=== PATIENT | female | born 1990 | race Caucasian/White ===

== ENCOUNTER → 2020-08-25 16:16 | Outpatient (BNVA) | payer MEDICAID, SELFPAY | PROVIDERS: Visit Provider Nurse Practitioner Family | DX: M25.572 Pain in left ankle and joints of left foot (principal); M25.562 Pain in left knee; M79.605 Pain in left leg; M77.32 Calcaneal spur, left foot; M76.892 Other specified enthesopathies of left lower limb, excluding foot; M17.12 Unilateral primary osteoarthritis, left knee | CPT/HCPCS: 73562; 73590; 73610 ==

== ENCOUNTER 2020-09-04 12:11 | Emergency (ER) | payer MEDICAID, SELFPAY ==
[2020-09-04 12:58] VITALS: BP 164/109; PULSE 89; RESP 18; TEMP 37.2; O2SAT 97; BMI 37.0
--- NOTE | 2020-09-04 13:29 | W.ED.EXTPRO ---
HPI - Extremity Problem General: Chief complaint: General Medical Stated complaint: JOINT PAIN Time Seen by Provider: 09/04/20 13:23 History of Present Illness: HPI Narrative: Patient is a 30-year-old female comes to the ED with joint pain. Symptoms started approximately 2 days ago. Patient has recently had some labs done and stated she was KATHLEEN positive and is scheduled to see her payroll secretary in about 2 weeks. She says she hurts in all of her joints and its and of a dull constant pain. Patient has a prescription of hydrocodone at home that she is taking and that is still not helped with the pain. Associated symptoms: Deny chest pain, fever(s) or rash Review of Systems Const: Denies: fever(s), chills or fatigue Eyes: Denies: change in vision or eye discomfort ENMT: Denies: throat pain, odynophagia, nasal discharge or nasal congestion Card: Denies: chest pain, palpitations, edema, swelling of feet/ankles, dyspnea on exertion or orthopnea Resp: Denies: dyspnea, productive cough or non-productive cough GI: Denies: abdominal pain, nausea, vomiting, diarrhea, constipation or hematochezia : Denies: flank pain, dysuria or hematuria Musc: Reports: joint pain (Generalized bilateral throw her joints.); Denies: neck pain, back pain or extremity swelling Skin/Breast: Denies: rash or new lesions Neuro: Denies: headache(s), numbness in extremities or weakness in extremities PFSH ED PFSH: Family History Family/Other Cancer Father CAD (coronary artery disease) Denies family history of Anesthesia complication Bleeding disorder Social History Smoking and tobacco status: never smoked Second hand smoke exposure: No Alcohol intake: never Lives independently: Yes Household members: spouse and children Marital status: Current occupational status: disabled History of recent travel: No Current gender identity: Female Special dipti needs: No Agree to transfusion: Yes Physical Exam Const: COMMON NORMALS: no acute distress, patient oriented x3 and alert GENERAL APPEARANCE: cooperative and comfortable HENMT: COMMON NORMALS: normocephalic HEAD & SCALP: normocephalic MOUTH: Normal oral and palatal mucosa present THROAT: posterior oropharynx normal and uvula midline Neck/C-Spine: COMMON NORMALS: supple GENERAL: Yes normal visual inspection Resp: COMMON NORMALS: normal respiratory effort, No retractions, No use of accessory muscles and clear to auscultation bilaterally AUSCULTATION: clear to auscultation bilaterally Cardio: COMMON NORMALS: regular rate, regular rhythm, S1 normal heart sound present, S2 normal heart sound present, No gallops present (Cardio), No clicks present (Cardio), No murmurs present (Cardio) and Peripheral pulses 2+ throughout RATE: regular rate RHYTHM: regular rhythm HEART SOUNDS: S1 normal heart sound present and S2 normal heart sound present PERIPHERAL PULSES: Peripheral pulses 2+ throughout GI: COMMON NORMALS: Normal to inspection, nondistended, normoactive bowel sounds present, Soft to palpation, non-tender and no masses PALPATION: Yes Soft to palpation : COMMON NORMALS: Yes no CVA tenderness BLADDER/KIDNEY EXAM: Yes no CVA tenderness Back/Pelvis: COMMON NORMALS: no CVA tenderness Extremity: COMMON NORMALS: normal to inspection Neuro: COMMON NORMALS: patient oriented x3 and moves all extremities SENSORIUM/ORIENTATION: Yes alert Skin: GENERAL SKIN EXAM: dry skin Course Vital Signs: Vital signs: Vital Signs Temperature 98.9 F 09/04/20 12:58 Pulse Rate 89 09/04/20 12:58 Respiratory Rate 18 09/04/20 14:16 Blood Pressure 164/109 09/04/20 12:58 Pulse Oximetry 97 09/04/20 12:58 MDM - Extremity (Nontraumatic) MDM Narrative: Medical decision making narrative: Patient is a 30-year-old female comes to the ED with generalized joint pain. Symptoms started 2 days ago and patient recently was tested by her PCP for KATHLEEN and it was positive. She has been referred to a payroll secretary and has an appoint with them in 2 weeks. Patient appears nontoxic here in the ED and her vitals are stable. She was given a dose of IM morphine and Solu-Medrol while here in the ED. She was then diagnosed with generalized joint pain and discharged home with a prescription Medrol Dosepak. Patient currently has a hydrocodone prescription at home that she takes for pain and I told her to continue taking that as needed for pain. follow-up with your payroll secretary at your scheduled appointment in 2 weeks. Return to ED precautions given. Patient understood agree with plan. Discharge Plan Discharge Patient Disposition: Home Clinical Impression: Joint pain Qualifiers: Joint pain location: unspecified Qualified Code(s): M25.50 - Pain in unspecified joint Condition: Stable Prescriptions: New Medrol (Jaime) 4 mg tablets,dose pack See Rx Instructions .ROUTE .COMPLEX Qty: 21 RF: 0 No Action albuterol sulfate 90 mcg/actuation HFA aerosol inhaler 2 puff inhalation Q6H PRNRF: 0 Daliresp 250 mcg tablet 250 mcg PO DAILY RF: 0 pregabalin [Lyrica] 150 mg capsule 150 mg PO TID RF: 0 omeprazole 20 mg tablet,delayed release (DR/EC) 20 mg PO DAILY RF: 0 hydrocodone-acetaminophen 7.5-325 mg tablet 1 tab PO BID PRNRF: 0 Latuda 20 mg tablet 20 mg PO DAILY RF: 0 Discharge Orders: Discharge ED (Routine); Ordered 09/04/20 Ordered By: Luis Alberto Strauss Discharge Diet: Regular Discharge Activity: Increase activity as tolerated Patient Instructions: Joint Pain, Arthralgia (ED) Activity Restrictions/Additional Instructions: Follow-up with your payroll secretary at your scheduled appointment in 2 weeks. Case management should be contacting you in the next couple days to set up an appointment with a local payroll secretary. Take medications as prescribed. Return to the ER or your medical provider if condition worsens. Please read and understand discharge instructions. If any questions, please ask. Coding Level of Care Code ED Electric Meter Repairer Helper for Josie Fwd Exam Comprehensive
[2020-09-04 13:40] VITALS: RESP 18
[2020-09-04] MEDS: morphine 4 mg/mL SDV 1 mL IM (14:07)
[2020-09-04] MEDS: ondansetron 4 MG Tablet PO (14:07)
[2020-09-04 14:16] VITALS: RESP 18
--- NOTE | 2020-09-07 11:12 | DCPLANNER ---
sales project manager had message to schedule a follow up appointment for patient with rheumatology. sales project manager faxed patients information to the rheumatology clinic. Patients information will be reviewed. Clinic will call patient with appointment information.
--- NOTE | 2020-10-18 14:15 | DCPLANNER ---
Patient has a follow up appointment scheduled for November at 10:[address] Asencio at Rheumatology. Clinic will call patient with appointment information.
== END 2020-09-04 14:17 | disposition home or self-care (01) ==
PROVIDERS: Emergency Provider Physician Assistant
DX: M25.50 Pain in unspecified joint (principal)
CPT/HCPCS: 96372; 99283; J2270; J2930; Q0162

== ENCOUNTER → 2020-10-10 14:52 | Outpatient (BNVA) | payer MEDICAID, SELFPAY | PROVIDERS: Visit Provider Family Medicine | DX: J02.9 Acute pharyngitis, unspecified (principal); J20.9 Acute bronchitis, unspecified | CPT/HCPCS: 87071; 87880 ==

== ENCOUNTER 2021-01-11 12:44 | Outpatient (CLI) | payer MEDICAID, SELFPAY ==
--- NOTE | 2021-01-11 12:49 | XR_ITS ---
WS: [id number] Exam: XR KUB [id number] Date/Time of Exam: 01/11/2021 12:49 PM Reason For Exam: dysuria No bowel obstruction or free air. No sign of organ enlargement. Signs of previous cholecystectomy. Th ere are opaque densities seen in the right lower quadrant and also along the left colon. This may rep resent opaque material in the bowel. Regional bony elements are intact. XR/XR KUB [id number] IMPRESSION: 1. No acute abdominal finding. 2. Opaque densities visualized in the right lower quadrant of the abdomen in t he region of the left colon. This may be within the bowel. Significance is unde termined.
== END 2021-01-11 12:45 | disposition home or self-care (01) ==
PROVIDERS: PCP Nurse Practitioner; Visit Provider Nurse Practitioner
DX: R30.0 Dysuria (principal); R39.9 Unspecified symptoms and signs involving the genitourinary system
CPT/HCPCS: 74018; 81000

== ENCOUNTER 2021-01-22 13:56 | Emergency (ER) | payer MEDICAID, SELFPAY ==
[2021-01-22 14:40] VITALS: PULSE 87; RESP 20; TEMP 36.9; O2SAT 100; BMI 37.2
--- NOTE | 2021-01-22 15:36 | XRR_ITS ---
PROCEDURE INFORMATION: Exam: XR Left Foot Exam date and time: 01/22/2021 3:36 PM Age: 31 years old Clinical indication: Pain; Foot; Left; Additional info: Weight fell on foot TECHNIQUE: Imaging protocol: XR Left foot. Views: 3 or more views. COMPARISON: No relevant prior studies available. FINDINGS: Bones/joints: No fracture or dislocation. A tiny plantar calcaneal spur is appreciated. Soft tissues: Mild soft tissue swelling is seen in the midfoot. XR/XR foot LT min 3V* [id number] IMPRESSION: No fracture or dislocation.
--- NOTE | 2021-01-22 17:23 | W.ED.EXTPRO ---
HPI - Extremity Problem General: Chief complaint: Extremity Injury, Lower Stated complaint: Left Foot Injury Time Seen by Provider: 01/22/21 17:09 History of Present Illness: HPI Narrative: Patient dropped a jar below her left big toe has discomfort. Has happened yesterday. Complaint: extremity pain Pain Consistency: constant Location: right and lower extremity Quality: aching Radiation: none Relieving factors: immobilization Exacerbating factors: weight bearing Associated symptoms: Reports no associated symptoms; Deny fever(s) Review of Systems Const: Denies: fever(s) or chills Musc: Reports: extremity pain (Dropped a jar on her left big toe yesterday hurts) Psych: Denies: anxiety or depression PFS ED PFSH: Family History Family/Other Cancer Father CAD (coronary artery disease) Denies family history of Anesthesia complication Bleeding disorder Social History Smoking and tobacco status: never smoked Second hand smoke exposure: No Alcohol intake: never Lives independently: Yes Household members: spouse and children Marital status: Current occupational status: disabled History of recent travel: No Current gender identity: Female Special dipti needs: No Agree to transfusion: Yes Physical Exam Const: COMMON NORMALS: no acute distress GENERAL APPEARANCE: cooperative Extremity: LEFT LOWER EXTREMITY: Yes foot & digits (Tenderness to the base left big toe bruising noted has range of motion) Psych: COMMON NORMALS: mental status grossly normal Course Vital Signs: Vital signs: Vital Signs Temperature 98.4 F 01/22/21 14:40 Pulse Rate 87 01/22/21 14:40 Respiratory Rate 20 H 01/22/21 14:40 Pulse Oximetry 100 01/22/21 14:40 MDM - Extremity (Nontraumatic) MDM Narrative: Medical decision making narrative: Left foot contusion radiology negative. Discharge Plan Discharge Patient Disposition: Home Clinical Impression: Contusion Qualifiers: Encounter type: initial encounter Contusion area: foot Laterality: left Qualified Code(s): S90.32XA - Contusion of left foot, initial encounter Condition: Stable Prescriptions: New ibuprofen 600 mg tablet 600 mg PO TID PRN (Reason: pain) Qty: 10 RF: 0 No Action albuterol sulfate 90 mcg/actuation HFA aerosol inhaler 2 puff inhalation Q6H PRNRF: 0 Daliresp 250 mcg tablet 250 mcg PO DAILY RF: 0 pregabalin [Lyrica] 150 mg capsule 150 mg PO TID RF: 0 omeprazole 20 mg tablet,delayed release (DR/EC) 20 mg PO DAILY RF: 0 hydrocodone-acetaminophen 7.5-325 mg tablet 1 tab PO BID PRNRF: 0 Latuda 20 mg tablet 20 mg PO DAILY RF: 0 tamsulosin [Flomax] 0.4 mg capsule 0.4 mg PO DAILY 10 Days Qty: 10 RF: 0 ondansetron 4 mg tablet,disintegrating 4 mg PO Q8H PRN (Reason: nausea and vomiting) Qty: 20 RF: 0 Ed A-Hist DM 4-10-15 mg/5 mL liquid 5 ml PO Q6H PRN (Reason: cough) Qty: 160 RF: 0 fluticasone propion-salmeterol [Advair Diskus] 250-50 mcg/dose blister with device 1 inh inhalation BID Qty: 60 RF: 0 valacyclovir [Valtrex] 1 gram tablet 2,000 mg PO BID Qty: 4 RF: 0 Discharge Orders: Discharge ED (Routine); Ordered 01/22/21 Ordered By: Washington Trejo Referrals: Becca Clayton FNP [Primary Care Provider] - Discharge Diet: Usual diet Discharge Activity: Resume usual activity Patient Instructions: Contusion in Adults (ED) Activity Restrictions/Additional Instructions: Apply ice to area as needed. Can try ibuprofen see if that helps the discomfort if not we will do that go ahead and take Tylenol for discomfort follow-up your family medical provider if no significant improvement. Coding Level of Care Code ED Fringing Machine Operator for Josie Araujo
[2021-01-22 17:43] VITALS: PULSE 78; RESP 18; O2SAT 98
== END 2021-01-22 17:44 | disposition home or self-care (01) ==
PROVIDERS: Emergency Provider Nurse Practitioner Family; PCP Nurse Practitioner Family
DX: S90.32XA Contusion of left foot, initial encounter (principal); W20.8XXA Other cause of strike by thrown, projected or falling object, initial encounter
CPT/HCPCS: 73630; 99281

== ENCOUNTER 2021-03-20 08:46 | Outpatient (CLI) | payer MEDICAID, SELFPAY ==
--- NOTE | 2021-03-20 09:33 | XRR_ITS ---
PROCEDURE INFORMATION: Exam: XR Lumbosacral Spine Exam date and time: 03/20/2021 9:33 AM Age: 31 years old Clinical indication: Low back pain; Prior surgery; Surgery type: Vns; Additional info: Chronic back pain TECHNIQUE: Imaging protocol: XR of the lumbosacral spine. Views: 2 or 3 views. COMPARISON: CR XR KUB [id number] 01/11/2021 1:17 PM FINDINGS: Bones/joints: Mild lower thoracic and upper lumbar spine productive degenerative endplate changes. Soft tissues: Unremarkable. XR/XR lumbar spine f/e only [id number] IMPRESSION: Mild lower thoracic and upper lumbar spine productive degenerative endplate changes. Negative for listhesis with flexion-extension maneuvers Radiation Dose CTDIVOL = (mGy): DLP = (mGy-cm)
--- NOTE | 2021-03-20 09:33 | XRR_ITS ---
PROCEDURE INFORMATION: Exam: XR Cervical Spine Exam date and time: 03/20/2021 9:33 AM Age: 31 years old Clinical indication: Neck pain; Prior surgery; Surgery type: Vns; Additional info: Chronic back pain TECHNIQUE: Imaging protocol: XR of the cervical spine. Views: 2 or 3 views. COMPARISON: No relevant prior studies available. FINDINGS: Bones/joints: Mild lower cervical spine disc space narrowing and productive degenerative endplate changes. Soft tissues: Unremarkable. XR/XR cervical spine 3V* [id number] IMPRESSION: Mild lower cervical spine disc space narrowing and productive degenerative endplate changes. Radiation Dose CTDIVOL = (mGy): DLP = (mGy-cm)
--- NOTE | 2021-03-20 09:33 | XRR_ITS ---
PROCEDURE INFORMATION: Exam: XR Thoracic Spine Exam date and time: 03/20/2021 9:33 AM Age: 31 years old Clinical indication: Pain in thoracic spine; Prior surgery; Surgery type: Vns; Additional info: Chronic back pain TECHNIQUE: Imaging protocol: XR of the thoracic spine. Views: 3 views. COMPARISON: CR XR KUB [id number] 01/11/2021 1:17 PM FINDINGS: Bones/joints: Mild multilevel disc space narrowing and productive degenerative endplate changes throughout the thoracic spine. Soft tissues: Unremarkable. XR/XR thoracic spine 2V [id number] IMPRESSION: Mild multilevel disc space narrowing and productive degenerative endplate changes throughout the thoracic spine. Radiation Dose CTDIVOL = (mGy): DLP = (mGy-cm)
[2021-03-20 11:13] LABS: Estmated Average Glucose 105; Hemoglobin A1C 5.3 % (4.0-6.0)
[2021-03-20 12:01] LABS: HIV 1 & 2 Antibody Non-Reactive (Non-Reactiv); HIV 1 & 2 Antigen Non-Reactive (Non-Reactiv)
[2021-03-20 12:03] LABS: Amylase 64 U/L (28-100); Chol HDL Ratio 5.18 mg/dL (0.0-4.40); Cholesterol 202 mg/dL (0-200); Ferritin 71 ng/mL (15-150); HDL Cholesterol 39 mg/dL (60-100); Iron 66 ug/dL (37-145); LDL Cholesterol Calculated 142 mg/dL (50-129); LDL HDL Ratio 3.64 RATIO (0.00-3.22); Lipase 71 U/L (13-60); Percent Saturation 19.7 % (20-50); Total Iron Binding Capacity 335 mcg/dl; Triglycerides 104 mg/dL (0-150); Unsaturated Iron Binding 269 ug/dL (112-347)
[2021-03-20 12:42] LABS: Hepatitis A Antibody IgM Non-Reactive (Nonreactive); Hepatitis B Core AB, Total Non-Reactive (Nonreactive); Hepatitis B Surface AB 129.5 (11.5-1000); Hepatitis B Surface Antigen Non-Reactive (Nonreactive); Hepatitis C Virus Antibody Non-Reactive (Nonreactive)
[2021-03-23 03:24] LABS: Tissue Transglutaminse AB IGA <1.0 U/mL; Tissue Transglutaminse AB IGG <1.0 U/mL
== END 2021-03-20 08:47 | disposition home or self-care (01) ==
PROVIDERS: PCP Nurse Practitioner Family; Referring Provider Family Medicine; Visit Provider Nurse Practitioner Family
DX: M54.2 Cervicalgia (principal); G89.29 Other chronic pain
CPT/HCPCS: 72040; 72070; 72120; 80061; 82150; 82728; 82977; 83036; 83516; 83540; 83550; 83690; 83883; 84450; 84460; 84520; 86431; 86705; 86706; 86709; 86803; 87340; 87806; 88307

== ENCOUNTER → 2021-04-04 08:40 | Outpatient (BNVA) | payer MEDICAID, SELFPAY | PROVIDERS: PCP Nurse Practitioner Family; Visit Provider Internal Medicine Rheumatology | DX: M19.90 Unspecified osteoarthritis, unspecified site (principal); M54.89 Other dorsalgia; G89.29 Other chronic pain; Z79.899 Other long term (current) drug therapy; Z79.52 Long term (current) use of systemic steroids; Z11.1 Encounter for screening for respiratory tuberculosis; M79.7 Fibromyalgia; Z71.85 Encounter for immunization safety counseling; Z96.82 Presence of neurostimulator | CPT/HCPCS: 99204 ==

== ENCOUNTER 2021-04-18 09:05 | Outpatient (CLI) | payer MEDICAID, SELFPAY ==
--- NOTE | 2021-04-18 09:15 | XR_ITS ---
WS: [id number] Pelvis, AP view, 04/18/2021 Clinical Data: Z79.899 - Other meterman (current) drug therapy Comparison: None. Findings: No fractures or dislocations are seen. The SI joints and pubic symphysis are intact. The soft tissues are not remarkable. XR/XR pelvis 1-2V* [id number] Impression: Negative for fracture.
--- NOTE | 2021-04-18 09:15 | XR_ITS ---
WS: [id number] Right hand, 3 views, 04/18/2021 Clinical Data: Z79.899 - Other long term care administrator (current) drug therapy Comparison: None. Findings: No fractures or dislocations are seen. The soft tissues are unremarkable. The joint space s are normal There is minimal periarticular demineralization of the joints of the fingers but no calcifications. XR/XR hand RT min 3V* [id number] Impression: Minimal periarticular demineralization.
--- NOTE | 2021-04-18 09:15 | XR_ITS ---
WS: [email or web address] Chest 2 views, 04/18/2021 Clinical Data: Z79.899 - Other medical coding instructor (current) drug therapy Comparison: None. Findings: No nodules, masses or effusions are seen. The heart is normal. The pulmonary vascularity is not increased. No pneumonia or pneumothorax is seen. There is a pacemaker generator overlying the le ft lateral chest with wires leading to the left lateral aspect T2-T3 vertebral bodies. XR/XR chest 2V* [id number] Impression: Negative chest.
--- NOTE | 2021-04-18 09:15 | XR_ITS ---
WS: [email or web address] Right foot, 3 views, 04/18/2021 Clinical Data: Z79.899 - Other intermodal dispatcher (current) drug therapy Comparison: None. Findings: No fractures or dislocations are seen. No bone destruction or erosion is noted. The joint spaces and soft tissues are normal. No periarticular demineralization or calcifications are seen. XR/XR foot RT min 3V* [id number] Impression: Negative right foot.
--- NOTE | 2021-04-18 09:15 | XR_ITS ---
WS: [email or web address] Left hand, 3 views, 04/18/2021 Clinical Data: Z79.899 - Other termite treater (current) drug therapy Comparison: None. Findings: No fractures or dislocations are seen. The soft tissues are unremarkable. The joint spaces are normal There is minimal periarticular demineralization of the joints of the left hand but no calcifications. XR/XR hand LT min 3V* [id number] Impression: Minimal periarticular demineralization of the joints of the left hand.
[2021-04-18 09:58] LABS: Basophils % 0.5 %; Eosinophils # 0.3 10^3/uL (0.0-0.8); Eosinophils % 3.8 %; Hematocrit 43.8 % (37.0-47.0); Lymphocytes # 2.9 10^3/uL (0.8-4.8); Lymphocytes % 34.8 %; Mean Corpuscular Hemoglobin 29.2 pg (28.0-34.0); Mean Corpuscular Volume 91.3 fl (81-99); Mean Platelet Volume 11.8 fL (7.4-10.4); Monocytes # 0.6 10^3/uL (0.2-0.9); Neutrophils # 4.47 10^3/uL (1.8-7.7); Neutrophils % 53.5 %; Nucleated Red Blood Cells % 0 %; Platelet Count 296 10^3/cmm (130-400); Red Cell Distribution Width 13.6 % (12.1-15.1); White Blood Count 8.3 10^3/uL (4.0-10.0)
[2021-04-18 10:29] LABS: Bilirubin Urine Neg (Negative); Blood Urine Neg (Negative); Glucose Urine UA Norm (Normal); Ketones Urine Negative (Negative); Leukocyte Esterase Urine Trace (Negative); Nitrate Urine Negative (Negative); Protein Urine Neg (Negative); Urine Appearance Clear (CLEAR); Urine Color Colorless (Yellow); Urobilinogen Urine Norm (Negative); pH Urine 8 (5-7)
[2021-04-18 10:30] LABS: Add Urine Culture? No; Bacteria Urine TRACE /hpf; Squamous Epithelial Cell Urine 0-4 /hpf (0-5); Sulfosalicylic Acid Urine Negative (Negative)
[2021-04-18 10:48] LABS: Urine Creatinine 37 mg/dL (28-217); Urine Protein Random 4 mg/dL
[2021-04-18 11:06] LABS: 25 Hydroxy Vitamin D 21 ng/mL (30-100); Alanine Aminotransferase 33 U/L (0-33); Albumin Level 4.4 g/dL (3.5-5.2); Alkaline Phosphatase 89 IU/L (35-105); Aspartate Amino Transferase 22 U/L (0-32); C Reactive Protein 1.6 mg/L (0.0-4.9); Globulin 2.4 g/dL (1.3-4.6); Glomerular Filtration Rate 96.4 mL/min (90-130); Total Bilirubin 0.5 mg/dL (0.15-1.2); Total Protein 6.8 g/dL (6.6-8.7)
[2021-04-19 12:18] LABS: COMPLEMENT COMPONENT C3C 136 mg/dL (83-193); COMPLEMENT COMPONENT C4C 25 mg/dL (15-57)
[2021-04-19 13:27] LABS: Cyclic Citrullinated Peptide <16 UNITS
[2021-04-20 13:18] LABS: COMPLEMENT, TOTAL (CH50) 54 U/mL (31-60)
[2021-04-20 13:32] LABS: HLA-B27 NEGATIVE (NEGATIVE)
[2021-04-20 16:44] LABS: Erythrocyte Sedimentation Rate 6 mm/hr (0-15)
[2021-04-23 11:38] LABS: Quantiferon Mitogen 8.84 IU/mL; Quantiferon Nil 0.01 IU/mL; Quantiferon Plus TB1 0.04 IU/mL; Quantiferon Plus TB2 0.04 IU/mL; Quantiferon TB Gold NEGATIVE (NEGATIVE)
[2021-04-23 14:17] LABS: THYROID PEROXIDASE ANTIBODIES 1 IU/mL (<9)
[2021-04-23 14:33] LABS: CENTROMERE B ANTIBODY <1.0 NEG AI (<1.0 NEG); JO-1 ANTIBODY <1.0 NEG AI (<1.0 NEG); RNP ANTIBODY <1.0 NEG AI (<1.0 NEG); SCL-70 ANTIBODY <1.0 NEG AI (<1.0 NEG); SJOGREN'S ANTIBODY (SS-A) <1.0 NEG AI (<1.0 NEG); SM ANTIBODY <1.0 NEG AI (<1.0 NEG); SS-B <1.0 NEG AI (<1.0 NEG)
[2021-04-23 16:22] LABS: ANA SCREEN, IFA NEGATIVE (NEGATIVE)
[2021-04-25 12:17] LABS: DNA AB (DS) CRITHIDIA,IFA NEGATIVE (NEGATIVE)
== END 2021-04-18 09:06 | disposition home or self-care (01) ==
PROVIDERS: PCP Nurse Practitioner Family; Visit Provider Internal Medicine Rheumatology
DX: M19.90 Unspecified osteoarthritis, unspecified site (principal); M45.6 Ankylosing spondylitis lumbar region; R76.8 Other specified abnormal immunological findings in serum; Z79.899 Other long term (current) drug therapy; Z11.1 Encounter for screening for respiratory tuberculosis
CPT/HCPCS: 36415; 71046; 72170; 73130; 73630; 80076; 81001; 82306; 82565; 82570; 84156; 85025; 85651; 86140; 86160; 86162; 86200; 86235; 86255; 86376; 86480; 86812

== ENCOUNTER 2021-04-25 08:25 | Outpatient (CLI) | payer MEDICAID, SELFPAY ==
--- NOTE | 2021-04-25 08:34 | US_ITS ---
WS: [id number] ULTRASOUND ABDOMEN CLINICAL INFORMATION: ELEVATED LIVER ENZYMES/ABDOMINAL PAIN COMPARISON: None. FINDINGS: Liver Size: Normal. Craniocaudal length: 14.7 cm. Echogenicity: Coarse Surface nodularity: None. Mass (size and location): None. Bile ducts Intrahepatic ducts: Normal. Common bile duct diameter: 0.6 cm. Gallbladder Removed Pancreas Normal as visualized. Spleen Splenomegaly: None. Craniocaudal length: 11.2 cm. Right kidney: Normal. Hydronephrosis: None. Size: 11.5 cm x 4.9 cm x 4.7 cm Left kidney: Normal. Hydronephrosis: None. Size: 11.2 cm x 5.3 cm x 5.5 cm. Abdominal aorta and IVC Visualized portions are normal. Ascites: None. US/US abdomen complete* [id number] IMPRESSION: 1. Diffuse fatty infiltration of the liver. 2. Prior cholecystectomy. 3. No hydronephrosis in either kidney.
--- NOTE | 2021-04-25 08:39 | US_ITS ---
WS: [id number] ULTRASOUND THYROID TECHNIQUE: Ultrasound of the thyroid. CLINICAL INFORMATION: HYPERTHYROIDISM,SUBCLINICAL/THYROID MASS COMPARISON: None. FINDINGS: Reported history of prior thyroid mass. Thyroid: Well-circumscribed solid Left thyroid mass measuring 1.8 x 1.8 x 1.5 cm. Right thyroid gland is micheal l. Right thyroid lobe: 4.6 cm x 1.4 cm x 1.5 cm Left thyroid lobe: 3.7 cm x 1.8 cm x 1.8 cm. Isthmus: 0.6 mm. Cervical lymphadenopathy: None. US/US thyroid [id number] IMPRESSION: Well-circumscribed solid Left thyroid mass measuring 1.8 x 1.8 x 1.5 cm. This c ould be further evaluated with FNA if not previously sampled. Otherwise recomme nd 12 month follow-up.
== END 2021-04-25 08:26 | disposition home or self-care (01) ==
LOC: RAD 08:26
PROVIDERS: PCP Nurse Practitioner Family; Visit Provider Nurse Practitioner Family
DX: R74.8 Abnormal levels of other serum enzymes (principal); R10.9 Unspecified abdominal pain; E07.89 Other specified disorders of thyroid; K76.0 Fatty (change of) liver, not elsewhere classified; Z90.49 Acquired absence of other specified parts of digestive tract
CPT/HCPCS: 76536; 76700

== ENCOUNTER → 2021-05-04 10:31 | Outpatient (BNVA) | payer MEDICAID, SELFPAY | PROVIDERS: PCP Nurse Practitioner Family; Referring Provider Family Medicine; Visit Provider Internal Medicine | DX: E05.90 Thyrotoxicosis, unspecified without thyrotoxic crisis or storm (principal); E04.1 Nontoxic single thyroid nodule | CPT/HCPCS: 99204 ==

== ENCOUNTER 2021-05-04 11:42 | Outpatient (CLI) | payer MEDICAID, SELFPAY ==
[2021-05-04 12:45] LABS: Free T4 Free Thyroxine 1.17 ng/dL (0.82-1.77)
[2021-05-05 09:23] LABS: T3 Total 102 ng/dL (76-181)
[2021-05-07 15:11] LABS: Thyroglobulin AB <1 IU/mL (< or = 1)
[2021-05-09 22:12] LABS: TSH Receptor Binding Antibody 1.06 IU/L (< OR = 2.00)
== END 2021-05-04 11:43 | disposition home or self-care (01) ==
LOC: LAB 11:46
PROVIDERS: PCP Nurse Practitioner Family; Visit Provider Internal Medicine
DX: E05.90 Thyrotoxicosis, unspecified without thyrotoxic crisis or storm (principal)
CPT/HCPCS: 36415; 83516; 84439; 84443; 84480; 86800

== ENCOUNTER 2021-06-04 15:52 | Emergency (ER) | payer MEDICAID, SELFPAY ==
[2021-06-04 16:12] VITALS: BP 164/99; PULSE 81; RESP 16; TEMP 36.8; O2SAT 98
--- NOTE | 2021-06-04 16:19 | XRR_ITS ---
PROCEDURE INFORMATION: Exam: XR Left Shoulder Exam date and time: 06/04/2021 4:19 PM Age: 31 years old Clinical indication: Pain; Shoulder; Left; Patient HX: Implanted device 5 years TECHNIQUE: Imaging protocol: XR Left shoulder. Views: 2 or more views. COMPARISON: CR XR chest 2V* [id number] 04/18/2021 10:01 AM FINDINGS: Tubes, catheters and devices: Redemonstrated stimulator device noted within the left chest wall with leads extending to the left lateral T2 vertebral body. Bones/joints: Osseous structures are intact. Negative for fracture. Joint spaces are preserved. Soft tissues: Normal. XR/XR shoulder LT min 2V* [id number] IMPRESSION: No acute findings.
--- NOTE | 2021-06-04 16:19 | XRR_ITS ---
PROCEDURE INFORMATION: Exam: XR Left Clavicle, Complete Exam date and time: 06/04/2021 4:19 PM Age: 31 years old Clinical indication: Pain; Shoulder; Left; Prior surgery; Surgery type: Implanted device 5 years TECHNIQUE: Imaging protocol: XR Left clavicle complete. Views: Any number of views. COMPARISON: CR XR chest 2V* [id number] 04/18/2021 10:01 AM FINDINGS: Tubes, catheters and devices: Redemonstrated stimulator device noted within the left chest wall with leads extending to the left lateral aspect of the T2 vertebral body. Bones/joints: Osseous structures are intact. Negative for fracture. Joint spaces are preserved. Soft tissues: Normal. XR/[place] [id number] IMPRESSION: No acute findings.
--- NOTE | 2021-06-04 16:20 | ED_ITS ---
Documented by User: CONNER Benavides 06/05/21 06:57 HPI - Extremity Problem General: Chief complaint: Extremity Injury, Upper Stated complaint: Left shoulder pain, cant lift arm Time Seen by Provider: 06/04/21 16:17 History of Present Illness: HPI Narrative: Patient states her shoulder come out of place couple days ago and it went back in and she is complained about pain in her clavicle and shoulder area now. She says she has a history of this happening with her shoulder and that her can usually put it back in. Feels nauseous from the pain. Patient does take ibuprofen even though it shows she has an allergy to Toradol. Complaint: joint pain Onset (ago): day(s) Pain Consistency: constant Location: left and upper extremity Severity scale (1-10): 5 Quality: aching Relieving factors: immobilization Exacerbating factors: range of motion Associated symptoms: Reports no associated symptoms; Deny chest pain, fever(s) or rash Review of Systems Const: Denies: fever(s), chills or body aches Eyes: Denies: change in vision or blurry vision ENMT: Denies: throat pain or nasal congestion Card: Denies: chest pain or dyspnea on exertion Resp: Denies: dyspnea, productive cough or non-productive cough GI: Denies: abdominal pain, nausea or vomiting Musc: Reports: joint pain (Left shoulder reportedly came out of place and went back and); Denies: extremity pain Skin/Breast: Denies: rash Neuro: Denies: headache(s) Psych: Denies: anxiety or depression Shun/Lymph: Denies: easy bruising PFSH ED PFSH: Medical History Allergies Asthma Chronic pain Chronic steroid use High risk medication use Immunization counseling Inflammatory arthritis Inflammatory back pain Seizure disorder Thyroid mass Surgical History History of carpal tunnel release of both wrists History of cholecystectomy History of hysterectomy with bilateral oophorectomy History of tonsillectomy History of tubal ligation Hx of hysterectomy Family History Family/Other Cancer Father CAD (coronary artery disease) Other Chronic kidney disease (CKD) Diabetes Family history of premature coronary artery disease Lupus Rheumatoid arthritis Stroke Denies family history of Hyperlipidemia Anesthesia complication Bleeding disorder Lung disease Hypertension Social History Smoking and tobacco status: never smoked Second hand smoke exposure: No Alcohol intake: never Lives independently: Yes Household members: spouse and children Marital status: Current occupational status: disabled History of recent travel: No Current gender identity: Female Special dipti needs: No Agree to transfusion: Yes Physical Exam Const: COMMON NORMALS: healthy appearing GENERAL APPEARANCE: cooperative Resp: COMMON NORMALS: normal respiratory effort Extremity: LEFT UPPER EXTREMITY: Yes shoulder joint (Tender to touch. Hurts, no range of motion due to pain. Clavicle is tende) Left shoulder joint: Yes inspection (No swelling noted.) Course Vital Signs: Vital signs: Vital Signs Temperature 98.2 F 06/04/21 16:12 Pulse Rate 81 06/04/21 16:12 Respiratory Rate 16 06/04/21 16:12 Blood Pressure 164/99 06/04/21 16:12 Pulse Oximetry 98 06/04/21 16:12 MDM - Extremity (Nontraumatic) MDM Narrative: Medical decision making narrative: PT with acute on chronic left shoulder problem. C/o pain , says shoulder came out of socket then went back in. Radiology studies negative. Patient is placed on sling instructed to take Tylenol for discomfort patient does take ibuprofen on a regular basis even though it says she is allergic to Toradol and says she has a rash with Toradol. Patient will place ice on the area and follow-up primary care provider Discharge Plan Discharge Patient Disposition: Home Clinical Impression: Chronic shoulder pain Qualifiers: Laterality: left Qualified Code(s): M25.512 - Pain in left shoulder Condition: Stable Prescriptions: New Zofran 4 mg tablet 4 mg PO Q8H 3 Days Qty: 9 RF: 0 No Action albuterol sulfate 90 mcg/actuation HFA aerosol inhaler 2 puff inhalation Q6H PRNRF: 0 pregabalin [Lyrica] 150 mg capsule 150 mg PO TID RF: 0 Latuda 20 mg tablet 20 mg PO DAILY RF: 0 tamsulosin [Flomax] 0.4 mg capsule 0.4 mg PO DAILY 10 Days Qty: 10 RF: 0 ondansetron 4 mg tablet,disintegrating 4 mg PO Q8H PRN (Reason: nausea and vomiting) Qty: 20 RF: 0 omeprazole 40 mg capsule,delayed release(DR/EC) 40 mg PO DAILY Qty: 30 RF: 3 hydroxychloroquine 200 mg tablet 200 mg PO BID Qty: 60 RF: 3 fluticasone propion-salmeterol [Advair Diskus] 250-50 mcg/dose blister with device 1 inh inhalation BID Qty: 60 RF: 0 ibuprofen 600 mg tablet 600 mg PO TID PRN (Reason: pain) Qty: 10 RF: 0 Discharge Orders: Discharge ED (Routine); Ordered 06/04/21 Ordered By: Washington Trejo Referrals: Becca Clayton FNP [Primary Care Provider] - Discharge Diet: Usual diet Discharge Activity: Increase activity as tolerated Activity Restrictions/Additional Instructions: iice to the shoulder area. Wear sling for next few days. Can take Tylenol 1000 g 4 times a day. Can continue ibuprofen. Coding Level of Care Code ED Online Marketing Specialist for Chg Fwd Exam Expanded Problem Focused Documented by User: Hay Ennis DO 06/06/21 05:34 HPI - Extremity Problem General: Chief complaint: Extremity Injury, Upper Stated complaint: Left shoulder pain, cant lift arm Time Seen by Provider: 06/04/21 16:17 PFSH ED PFSH: Medical History Allergies Asthma Chronic pain Chronic steroid use High risk medication use Immunization counseling Inflammatory arthritis Inflammatory back pain Seizure disorder Thyroid mass Surgical History History of carpal tunnel release of both wrists History of cholecystectomy History of hysterectomy with bilateral oophorectomy History of tonsillectomy History of tubal ligation Hx of hysterectomy Family History Family/Other Cancer Father CAD (coronary artery disease) Other Chronic kidney disease (CKD) Diabetes Family history of premature coronary artery disease Lupus Rheumatoid arthritis Stroke Denies family history of Hyperlipidemia Anesthesia complication Bleeding disorder Lung disease Hypertension Social History Smoking and tobacco status: never smoked Second hand smoke exposure: No Alcohol intake: never Lives independently: Yes Household members: spouse and children Marital status: Current occupational status: disabled History of recent travel: No Current gender identity: Female Special dipti needs: No Agree to transfusion: Yes Course Vital Signs: Vital signs: Vital Signs Temperature 98.2 F 06/04/21 16:12 Pulse Rate 81 06/04/21 16:12 Respiratory Rate 16 06/04/21 16:12 Blood Pressure 164/99 06/04/21 16:12 Pulse Oximetry 98 06/04/21 16:12 MDM - Extremity (Nontraumatic) MDM Narrative: Medical decision making narrative: Chart reviewed and patient discussed with midlevel. Agree with assessment and plan. Discharge Plan Discharge Patient Disposition: Home Clinical Impression: Chronic shoulder pain Qualifiers: Laterality: left Qualified Code(s): M25.512 - Pain in left shoulder Condition: Stable Prescriptions: New Zofran 4 mg tablet 4 mg PO Q8H 3 Days Qty: 9 RF: 0 No Action albuterol sulfate 90 mcg/actuation HFA aerosol inhaler 2 puff inhalation Q6H PRNRF: 0 pregabalin [Lyrica] 150 mg capsule 150 mg PO TID RF: 0 Latuda 20 mg tablet 20 mg PO DAILY RF: 0 tamsulosin [Flomax] 0.4 mg capsule 0.4 mg PO DAILY 10 Days Qty: 10 RF: 0 ondansetron 4 mg tablet,disintegrating 4 mg PO Q8H PRN (Reason: nausea and vomiting) Qty: 20 RF: 0 omeprazole 40 mg capsule,delayed release(DR/EC) 40 mg PO DAILY Qty: 30 RF: 3 hydroxychloroquine 200 mg tablet 200 mg PO BID Qty: 60 RF: 3 fluticasone propion-salmeterol [Advair Diskus] 250-50 mcg/dose blister with device 1 inh inhalation BID Qty: 60 RF: 0 ibuprofen 600 mg tablet 600 mg PO TID PRN (Reason: pain) Qty: 10 RF: 0 Discharge Orders: Discharge ED (Routine); Ordered 06/04/21 Ordered By: Washington Trejo Referrals: Becca Clayton FNP [Primary Care Provider] - Discharge Diet: Usual diet Discharge Activity: Increase activity as tolerated Activity Restrictions/Additional Instructions: iice to the shoulder area. Wear sling for next few days. Can take Tylenol 1000 g 4 times a day. Can continue ibuprofen. Coding Level of Care Code ED Online Marketing Specialist for Chg Fwd Exam Expanded Problem Focused
== END 2021-06-04 17:10 | disposition home or self-care (01) ==
LOC: ER 19:15
PROVIDERS: Emergency Provider Nurse Practitioner Family; PCP Nurse Practitioner Family
DX: G89.29 Other chronic pain (principal); M25.512 Pain in left shoulder
CPT/HCPCS: 73000; 73030; 99283

== ENCOUNTER → 2021-06-20 10:28 | Outpatient (BNVA) | payer MEDICAID, SELFPAY | PROVIDERS: PCP Nurse Practitioner Family; Visit Provider Internal Medicine Rheumatology | DX: M15.9 Polyosteoarthritis, unspecified (principal); M35.9 Systemic involvement of connective tissue, unspecified; Z79.899 Other long term (current) drug therapy; M47.814 Spondylosis without myelopathy or radiculopathy, thoracic region; M47.816 Spondylosis without myelopathy or radiculopathy, lumbar region; M79.7 Fibromyalgia; Z96.82 Presence of neurostimulator; Z71.85 Encounter for immunization safety counseling | CPT/HCPCS: 99214 ==

== ENCOUNTER 2021-06-23 10:24 | Emergency (ER) | payer MEDICAID, SELFPAY ==
[2021-06-23 10:40] VITALS: BP 171/117; PULSE 87; RESP 18; TEMP 37.1; O2SAT 99; BMI 37.5
[2021-06-23 10:46] VITALS: BP 141/90; PULSE 87; RESP 19; O2SAT 97
--- NOTE | 2021-06-23 10:54 | XRR_ITS ---
PROCEDURE INFORMATION: Exam: XR Chest Exam date and time: 06/23/2021 10:54 AM Age: 31 years old Clinical indication: Shortness of breath; Patient HX: SOB TECHNIQUE: Imaging protocol: XR of the chest. Views: 1 view. Total images: 1 COMPARISON: CR XR chest 2V* [id number] 04/18/2021 10:01 AM FINDINGS: Tubes, catheters and devices: Vagal nerve stimulator noted. Lungs: Unremarkable. No consolidation. Pleural spaces: Unremarkable. No pleural effusion. No pneumothorax. Heart/Mediastinum: Unremarkable. No cardiomegaly. Bones/joints: Unremarkable. XR/XR chest 1V portable [id number] IMPRESSION: No acute cardiopulmonary process.
[2021-06-23] MEDS: HYDROcodone-acetaminophen 5-325 mg Tablet 1 TAB PO (11:12)
[2021-06-23] MEDS: dexamethasone 10 mg/mL INJ IM (11:12)
[2021-06-23] MEDS: orphenadrine 30 mg/mL Inj 2 mL 60 MG IM (11:12)
[2021-06-23] MEDS: clindamycin 150 mg Capsule 300 MG PO (11:12)
[2021-06-23 11:19] LABS: Basophils % 0.2 %; Eosinophils # 0.1 10^3/uL (0.0-0.8); Eosinophils % 0.5 %; Hematocrit 39.6 % (37.0-47.0); Hemoglobin 12.8 g/dL (11.5-15.3); Lymphocytes # 2.1 10^3/uL (0.8-4.8); Lymphocytes % 15.3 %; Mean Corpuscular HGB Conc 32.3 g/dL (30.0-36.0); Mean Corpuscular Hemoglobin 29.4 pg (28.0-34.0); Mean Platelet Volume 12.1 fL (7.4-10.4); Monocytes # 0.8 10^3/uL (0.2-0.9); Monocytes % 6.1 %; Neutrophils # 10.42 10^3/uL (1.8-7.7); Neutrophils % 77.6 %; Nucleated Red Blood Cells % 0 %; Platelet Count 279 10^3/cmm (130-400); Red Blood Count 4.35 10^6/uL (4.1-5.3); Red Cell Distribution Width 13.1 % (12.1-15.1); White Blood Count 13.4 10^3/uL (4.0-10.0)
--- NOTE | 2021-06-23 11:36 | ED_ITS ---
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 High risk medication use Immunization counseling Inflammatory arthritis Inflammatory back pain Seizure disorder Thyroid mass Undifferentiated connective tissue disease Surgical History History of carpal tunnel release of both wrists History of cholecystectomy History of hysterectomy with bilateral oophorectomy History of tonsillectomy History of tubal ligation Hx of hysterectomy Family History Family/Other Cancer Father CAD (coronary artery disease) Other Chronic kidney disease (CKD) Diabetes Family history of premature coronary artery disease Lupus Rheumatoid arthritis Stroke Denies family history of Hyperlipidemia Anesthesia complication Bleeding disorder Lung disease Hypertension Social History Smoking and tobacco status: never smoked Second hand smoke exposure: No Alcohol intake: never Lives independently: Yes Household members: spouse and children Marital status: Current occupational status: disabled History of recent travel: No Current gender identity: Female Special dipti needs: No Agree to transfusion: Yes Physical Exam HENMT: TEETH & GINGIVA: Yes caries and Yes poor dentition Lymph: OTHER: left side cervical lymph node enlargement Course ED course: Pt presents to ER with complaints of LEFT side facial pain x 1 month. Pt pain is worsening despite antibx and now feels like it is moving into chest. Pt BP elevated at triage due to pain. Will require further work up by ENT for likely left cervical node bx if not resolved after treatment. Reevaluation(s): Reevaluation #1: Pt pain improved and CXR finds no acute findings. ENT follow up. Antibx initiated in ER. Will send script as well as for steroids and muscle relaxer due to pain from neck swelling. Vital Signs: Vital signs: Vital Signs Temperature 98.7 F 06/23/21 10:40 Pulse Rate 87 06/23/21 10:46 Respiratory Rate 19 H 06/23/21 10:46 Blood Pressure 141/90 06/23/21 10:46 Pulse Oximetry 97 06/23/21 10:46 MDM - Headache Medical Decision Making Follow up for likely CT soft tissue of left cervical lymph node Antibx treatment Steroid therapy for inflammation Lab Data : 06/23/21 11:10 Laboratory Results WBC 13.4 10^3/uL (4.0-10.0) H 06/23/21 11:10 RBC 4.35 10^6/uL (4.1-5.3) 06/23/21 11:10 Hgb 12.8 g/dL (11.5-15.3) 06/23/21 11:10 Hct 39.6 % (37.0-47.0) 06/23/21 11:10 MCV 91.0 fl (81-99) 06/23/21 11:10 MCH 29.4 pg (28.0-34.0) 06/23/21 11:10 MCHC 32.3 g/dL (30.0-36.0) 06/23/21 11:10 RDW 13.1 % (12.1-15.1) 06/23/21 11:10 Plt Count 279 10^3/cmm (130-400) 06/23/21 11:10 MPV 12.1 fL (7.4-10.4) H 06/23/21 11:10 Neut % (Auto) 77.6 % 06/23/21 11:10 Lymph % (Auto) 15.3 % 06/23/21 11:10 [place] % (Auto) 6.1 % 06/23/21 11:10 Eos % (Auto) 0.5 % 06/23/21 11:10 Baso % (Auto) 0.2 % 06/23/21 11:10 Neut # (Auto) 10.42 10^3/uL (1.8-7.7) H 06/23/21 11:10 Lymph # (Auto) 2.1 10^3/uL (0.8-4.8) 06/23/21 11:10 [place] # (Auto) 0.8 10^3/uL (0.2-0.9) 06/23/21 11:10 Eos # (Auto) 0.1 10^3/uL (0.0-0.8) 06/23/21 11:10 Baso # (Auto) 0.0 10^3/uL (0.0-0.1) 06/23/21 11:10 Nucleated RBC % (auto) 0 % 06/23/21 11:10 Nucleated RBCs # 0.0 /100WBC 06/23/21 11:10 Imaging Data CXR: My impression: NAF Discharge Plan Discharge Patient Disposition: Clinical Impression: Lymphadenopathy of left cervical region, Tension headache Discharge Diet: Advance as tolerated Discharge Activity: Increase activity as tolerated Coding Level of Care Code ED Inspector [employer] for Josie Fwd History Expanded Problem Focused Exam Expanded Problem Focused Medical Decision Making Moderate Complexity Time Spent (min) 60
--- NOTE | 2021-06-25 13:26 | DCPLANNER ---
Addendum entered by Sally Rocha 07/13/21 10:44: Patient had a follow up appointment scheduled for 06.23.21 with ENT - patient did attend appointment. Addendum entered by Sally Rocha 06/29/21 07:21: Patient has a follow up appointment scheduled for Sunday, July 04, 2021 at 8:[address] Mahesh MERIDA. Clinic will call patient with appointment information. Original Note: manager business management had message to schedule a follow up appointment for patient with ENT. manager business management emailed patients information to Serena Lui and Hannah at [facility] General Surgery / ENT clinic. Patients information will be printed and reviewed. Clinic will call patient with appointment information.
== END 2021-06-23 12:56 ==
PROVIDERS: Emergency Provider Nurse Practitioner Family; PCP Nurse Practitioner Family
DX: G44.209 Tension-type headache, unspecified, not intractable (principal); R59.1 Generalized enlarged lymph nodes
CPT/HCPCS: 71045; 85025; 96372; 99283; J1100; J2360

== ENCOUNTER 2021-07-18 09:32 | Emergency (ER) | payer MEDICAID, SELFPAY ==
[2021-07-18 10:13] VITALS: BP 153/74; PULSE 84; RESP 19; TEMP 36.7; O2SAT 96; BMI 37.2
[2021-07-18 10:37] LABS: Add Urine Microscopic? NO; Charge for UA Resulting for Rev
[2021-07-18 10:44] LABS: Bilirubin Urine Neg (Negative); Blood Urine Neg (Negative); Glucose Urine UA Norm (Normal); Ketones Urine Negative (Negative); Leukocyte Esterase Urine Negative (Negative); Nitrate Urine Negative (Negative); Protein Urine Neg (Negative); Urine Appearance Clear (CLEAR); Urine Color Yellow (Yellow); Urobilinogen Urine Norm (Negative); pH Urine 7 (5-7)
--- NOTE | 2021-07-18 10:51 | XR_ITS ---
WS: [id number] Left leg including the tibia and fibula, AP and lateral views, 07/18/2021 Clinical Data: pain Comparison: None. Findings: No fractures or dislocations are seen. The tibia and fibula are intact. The soft tissues are normal. XR/XR tibia fibula LT 2V [id number] Impression: Negative for fracture.
--- NOTE | 2021-07-18 10:51 | USCV_ITS ---
Misty Correa Age: 31 Gender: F : 1990 Exam Date: 07/18/2021 11:09 Ordering Phys: Shauna Langston Technologist: Don Randhawa [place] [facility] [place] Indication: swelling, pain PROCEDURES: Venous duplex imaging was performed in only the left lower extremity. The following venous structures were evaluated: common femoral vein, profunda vein, proximal portion of the greater saphenous vein, superficial femoral vein, and the popliteal vein. In addition, the posterior tibial and peroneal trunk were evaluated. Serial compression, augmentation maneuvers, and spectral Doppler flow evaluation were performed. FINDINGS: Normal 2-D Doppler and augmentation and compressibility throughout the lower extremity venous structures. Additional imaging through the proximal calf veins also reveals no thrombus. Limited evaluation of the greater saphenous vein is patent with no thrombus. CONCLUSIONS No DVT left lower extremity. Dr. Suri Rhodes DO (Electronically Signed) Final Date: 18 July 2021 13:38 S
--- NOTE | 2021-07-18 10:51 | XR_ITS ---
WS: [id number] Left foot, 3 views, 07/18/2021 Clinical Data: injury/swelling Comparison: None. Findings: No fractures or dislocations are seen. No bone destruction or erosion is noted. The joint spaces and soft tissues are normal. XR/XR foot LT min 3V* [id number] Impression: Negative left foot.
--- NOTE | 2021-07-18 10:51 | XR_ITS ---
WS: [id number] Left ankle, 3 views, 07/18/2021 Clinical Data: pain/injury Comparison: None. Findings: No fractures or dislocations are seen. The ankle mortise is normal. The talus and calcaneus are unrem arkable. No soft tissue swelling over the medial or lateral malleolus is seen. XR/XR ankle LT min 3V* [id number] Impression: Negative left ankle.
--- NOTE | 2021-07-18 10:52 | W.ED.EXTPRO ---
HPI - Extremity Problem General: Chief complaint: Extremity Injury, Lower Stated complaint: Left leg swelling, painful urinating Time Seen by Provider: 07/18/21 10:27 Source: patient Mode of arrival: ambulatory Limitations: no limitations History of Present Illness: Patient is a 31-year-old female presents to ED today with a main complaint of left lower leg swelling and fullness feeling . She states a few days ago she rolled her left ankle. She has been walking on the extremity without difficulty but has noticed progressive swelling from her knee distally. She has not noticed any color or temperature changes to the extremity. She denies localized calf pain. No previous history of DVT. No significant risk factors. She also has a complaint of urinary hesitancy stating it takes her approximately 30 minutes to start a urine stream. She is not complaining of dysuria or odor. She denies flank pain. MD Complaint: extremity swelling Onset (ago): day(s) Pain Consistency: constant Location: left and lower extremity Radiation: none Associated symptoms: Deny chest pain, fever(s) or rash Review of Systems Const: Denies: fever(s), chills, body aches, fatigue or malaise Card: Denies: chest pain Resp: Denies: dyspnea GI: Denies: abdominal pain, nausea, vomiting, diarrhea or change in stool character : Reports: difficulty voiding; Denies: flank pain, urinary urgency, urinary hesitancy, nocturia, urinary incontinence or pelvic pain Musc: Reports: extremity pain and extremity swelling; Denies: neck pain, back pain, joint redness or joint warmth Skin/Breast: Denies: rash Neuro: Denies: numbness in extremities, weakness in extremities or sensory changes [facility] ED PFSH: Medical History Allergies Asthma Chronic pain Chronic steroid use 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 High risk medication use Immunization counseling Inflammatory arthritis Inflammatory back pain Seizure disorder Thyroid mass Undifferentiated connective tissue disease Surgical History History of carpal tunnel release of both wrists History of cholecystectomy History of hysterectomy with bilateral oophorectomy History of tonsillectomy History of tubal ligation Hx of hysterectomy Family History Family/Other Cancer Father CAD (coronary artery disease) Other Chronic kidney disease (CKD) Diabetes Family history of premature coronary artery disease Lupus Rheumatoid arthritis Stroke Denies family history of Hyperlipidemia Anesthesia complication Bleeding disorder Lung disease Hypertension Social History Smoking and tobacco status: never smoked Second hand smoke exposure: No Alcohol intake: never Lives independently: Yes Household members: spouse and children Marital status: Current occupational status: disabled History of recent travel: No Current gender identity: Female Special dipti needs: No Agree to transfusion: Yes Physical Exam Const: COMMON NORMALS: no acute distress, patient oriented x3, no limitations and alert GENERAL APPEARANCE: cooperative NUTRITIONAL APPEARANCE: overweight ORIENTATION/CONSCIOUSNESS: Yes awake, Yes oriented to person, Yes oriented to place and Yes oriented to time HENMT: COMMON NORMALS: normocephalic and atraumatic HEAD & SCALP: normal to inspection, normocephalic and atraumatic Resp: COMMON NORMALS: normal respiratory effort and clear to auscultation bilaterally AUSCULTATION: clear to auscultation bilaterally Cardio: COMMON NORMALS: regular rate and regular rhythm RATE: regular rate RHYTHM: regular rhythm GI: COMMON NORMALS: Normal to inspection, nondistended, normoactive bowel sounds present, Soft to palpation, non-tender, No hepatosplenomegaly present and no masses AUSCULTATION: Yes normoactive bowel sounds PALPATION: Yes Soft to palpation and Yes No hepatosplenomegaly present : COMMON NORMALS: Yes no CVA tenderness BLADDER/KIDNEY EXAM: Yes no CVA tenderness Back/Pelvis: COMMON NORMALS: no CVA tenderness, thoracic and lumbar spine normal to inspection, no thoracic nor lumbar tenderness and thoraco-lumbar ROM normal Extremity: COMMON NORMALS: full ROM, capillary refill normal, no joint enlargement, no clubbing, cyanosis or edema and no pedal edema GENERAL: Yes normal exam except as noted OTHER: pt reports swelling to L LE however I do not notice any signficiant differences from her R LE; no localized calf pain/tenderness; negative Soumya's; no redness/warmth; DP/PT pulses normal with brisk cap refill; normal sensation Neuro: COMMON NORMALS: patient oriented x3, moves all extremities, no focal motor deficits, no sensory deficits noted and gait normal SENSORIUM/ORIENTATION: Yes alert, Yes oriented to person, Yes oriented to place and Yes oriented to time MOTOR EXAM: 5/5 motor strength present throughout Skin: COMMON NORMALS: no rashes or lesions noted GENERAL SKIN EXAM: no rashes or lesions noted Course Vital Signs: Vital signs: Vital Signs Temperature 98.1 F 07/18/21 10:13 Pulse Rate 84 07/18/21 10:13 Respiratory Rate 19 H 07/18/21 10:13 Blood Pressure 153/74 07/18/21 10:13 Pulse Oximetry 96 07/18/21 10:13 MDM - Extremity (Nontraumatic) Medical Decision Making XRs of her left tib/fib, ankle/foot negative. US showing no DVT. Labs are unremarkable. UA is clear. Recommend she follow-up with her primary care in regards to her leg pain and urinary hesitancy. Lab Data : 07/18/21 11:55 07/18/21 11:55 Radiology Impressions Ankle X-Ray 07/18/21 10:51 Impression: Negative left ankle. Foot X-Ray 07/18/21 10:51 Impression: Negative left foot. Tibia/Fibula X-Ray 07/18/21 10:51 Impression: Negative for fracture. Laboratory Results WBC 4.7 10^3/uL (4.0-10.0) 07/18/21 11:55 RBC 3.92 10^6/uL (4.1-5.3) L 07/18/21 11:55 Hgb 11.7 g/dL (11.5-15.3) 07/18/21 11:55 Hct 36.7 % (37.0-47.0) L 07/18/21 11:55 MCV 93.6 fl (81-99) 07/18/21 11:55 MCH 29.8 pg (28.0-34.0) 07/18/21 11:55 MCHC 31.9 g/dL (30.0-36.0) 07/18/21 11:55 RDW 13.4 % (12.1-15.1) 07/18/21 11:55 Plt Count 193 10^3/cmm (130-400) 07/18/21 11:55 MPV 12.3 fL (7.4-10.4) H 07/18/21 11:55 Neut % (Auto) 41.4 % 07/18/21 11:55 Lymph % (Auto) 40.8 % 07/18/21 11:55 [place] % (Auto) 9.4 % 07/18/21 11:55 Eos % (Auto) 7.1 % 07/18/21 11:55 Baso % (Auto) 1.1 % 07/18/21 11:55 Neut # (Auto) 1.94 10^3/uL (1.8-7.7) 07/18/21 11:55 Lymph # (Auto) 1.9 10^3/uL (0.8-4.8) 07/18/21 11:55 [place] # (Auto) 0.4 10^3/uL (0.2-0.9) 07/18/21 11:55 Eos # (Auto) 0.3 10^3/uL (0.0-0.8) 07/18/21 11:55 Baso # (Auto) 0.1 10^3/uL (0.0-0.1) 07/18/21 11:55 Nucleated RBC % (auto) 0 % 07/18/21 11:55 Nucleated RBCs # 0.0 /100WBC 07/18/21 11:55 Sodium 140 mmol/L (136-145) 07/18/21 11:55 Potassium 3.4 mmol/L (3.5-5.1) L 07/18/21 11:55 Chloride 104 mmol/L (98-107) 07/18/21 11:55 Carbon Dioxide 26 mmol/L (22-29) 07/18/21 11:55 Anion Gap 13.4 (5-19) 07/18/21 11:55 BUN 10 mg/dL (6-20) 07/18/21 11:55 Creatinine 0.7 mg/dL (0.5-0.9) 07/18/21 11:55 GFR Calculation 96.4 mL/min (90-130) 07/18/21 11:55 Glucose 90 mg/dL (65-115) 07/18/21 11:55 Calculated Osmolality 289 mOsm/kg (285-295) 07/18/21 11:55 Calcium 9.4 mg/dL (8.5-10.5) 07/18/21 11:55 Total Bilirubin 0.3 mg/dL (0.15-1.2) 07/18/21 11:55 AST 41 U/L (0-32) H 07/18/21 11:55 ALT 33 U/L (0-33) 07/18/21 11:55 Alkaline Phosphatase 73 IU/L (35-105) 07/18/21 11:55 Total Protein 7.0 g/dL (6.6-8.7) 07/18/21 11:55 Albumin 4.1 g/dL (3.5-5.2) 07/18/21 11:55 Globulin 2.9 g/dL (1.3-4.6) 07/18/21 11:55 Urine Color Yellow (Yellow) 07/18/21 10:33 Urine Appearance Clear (CLEAR) 07/18/21 10:33 Urine pH 7 (5-7) 07/18/21 10:33 Ur Specific [place] 1.010 (1.005-1.030) 07/18/21 10:33 Urine Protein Neg (Negative) 07/18/21 10:33 Urine Glucose (UA) Norm (Normal) 07/18/21 10:33 Urine Ketones Negative (Negative) 07/18/21 10:33 Urine Blood Neg (Negative) 07/18/21 10:33 Urine Nitrate Negative (Negative) 07/18/21 10:33 Urine Bilirubin Neg (Negative) 07/18/21 10:33 Urine Urobilinogen Norm mg/dL (Negative) 07/18/21 10:33 Ur Leukocyte Esterase Negative (Negative) 07/18/21 10:33 Urine HCG, Qual Negative (Negative) 07/18/21 10:33 Discharge Plan Discharge Patient Disposition: Home Clinical Impression: Left leg pain, Urinary hesitancy Condition: Stable Prescriptions: No Action albuterol sulfate 90 mcg/actuation HFA aerosol inhaler 2 puff inhalation Q6H PRN0RF pregabalin [Lyrica] 150 mg capsule 150 mg PO TID 0RF Latuda 20 mg tablet 20 mg PO DAILY 0RF Rx Instructions: must administer with food (at least 350 calories) tamsulosin [Flomax] 0.4 mg capsule 0.4 mg PO DAILY 10 Days Qty: 10 0RF ondansetron 4 mg tablet,disintegrating 4 mg PO Q8H PRN (Reason: nausea and vomiting) Qty: 20 0RF fluticasone propion-salmeterol [Advair Diskus] 250-50 mcg/dose blister with device 1 inh inhalation BID Qty: 60 0RF hydroxychloroquine 200 mg tablet 200 mg PO BID Qty: 60 3RF prednisone 5 mg tablet 7.5 mg PO DAILY Qty: 90 2RF omeprazole 40 mg capsule,delayed release(DR/EC) 40 mg PO DAILY Qty: 30 3RF ibuprofen 600 mg tablet 600 mg PO TID PRN (Reason: pain) Qty: 10 0RF Discharge Orders: Discharge ED (Routine); Ordered 07/18/21 Ordered By: Shauna Langston Referrals: Becca Clayton FNP [Primary Care Provider] - Coding Level of Care Code ED Table Worker for Chg Fwd Exam Comprehensive
[2021-07-18 12:09] LABS: Basophils # 0.1 10^3/uL (0.0-0.1); Basophils % 1.1 %; Eosinophils # 0.3 10^3/uL (0.0-0.8); Eosinophils % 7.1 %; Hematocrit 36.7 % (37.0-47.0); Hemoglobin 11.7 g/dL (11.5-15.3); Lymphocytes # 1.9 10^3/uL (0.8-4.8); Lymphocytes % 40.8 %; Mean Corpuscular HGB Conc 31.9 g/dL (30.0-36.0); Mean Corpuscular Hemoglobin 29.8 pg (28.0-34.0); Mean Corpuscular Volume 93.6 fl (81-99); Mean Platelet Volume 12.3 fL (7.4-10.4); Monocytes # 0.4 10^3/uL (0.2-0.9); Monocytes % 9.4 %; Neutrophils # 1.94 10^3/uL (1.8-7.7); Neutrophils % 41.4 %; Nucleated Red Blood Cells % 0 %; Platelet Count 193 10^3/cmm (130-400); Red Blood Count 3.92 10^6/uL (4.1-5.3); Red Cell Distribution Width 13.4 % (12.1-15.1); White Blood Count 4.7 10^3/uL (4.0-10.0)
[2021-07-18 12:33] LABS: Alanine Aminotransferase 33 U/L (0-33); Albumin Level 4.1 g/dL (3.5-5.2); Alkaline Phosphatase 73 IU/L (35-105); Anion Gap 13.4 (5-19); Aspartate Amino Transferase 41 U/L (0-32); Blood Urea Nitrogen 10 mg/dL (6-20); Calcium 9.4 mg/dL (8.5-10.5); Carbon Dioxide 26 mmol/L (22-29); Chloride 104 mmol/L (98-107); Creatinine Clr Calc Pharmacy 125.4922; Globulin 2.9 g/dL (1.3-4.6); Glomerular Filtration Rate 96.4 mL/min (90-130); Glucose 90 mg/dL (65-115); Osmolality Calculated 289 mOsm/kg (285-295); Potassium 3.4 mmol/L (3.5-5.1); Sodium 140 mmol/L (136-145); Total Bilirubin 0.3 mg/dL (0.15-1.2)
[2021-07-18 14:00] VITALS: BP 142/78; PULSE 80; RESP 18; TEMP 36.8; O2SAT 96
[2021-07-18 14:02] VITALS: BP 142/78; PULSE 80; RESP 18; TEMP 36.8; O2SAT 96
== END 2021-07-18 14:00 | disposition home or self-care (01) ==
PROVIDERS: Emergency Provider Physician Assistant; PCP Nurse Practitioner Family
DX: M79.605 Pain in left leg (principal); R39.11 Hesitancy of micturition
CPT/HCPCS: 73590; 73610; 73630; 80053; 81003; 81025; 85025; 93971; 99283

== ENCOUNTER 2022-01-30 08:22 | Outpatient (CLI) | payer MEDICAID, SELFPAY ==
--- NOTE | 2022-01-30 08:39 | XRR_ITS ---
PROCEDURE INFORMATION: Exam: XR Chest Exam date and time: 01/30/2022 8:42 AM Age: 32 years old Clinical indication: Condition or disease; Lung condition and disease; Asthma; Severity not specified; Shortness of breath; Prior surgery; Surgery type: Vns; Additional info: Asthma exacerbation TECHNIQUE: Imaging protocol: Radiologic exam of the chest. Views: 2 views. COMPARISON: CR XR chest 1V portable [id number] 06/23/2021 11:27 AM FINDINGS: Tubes, catheters and devices: Device again noted overlying the left chest. Lungs: The lung parenchyma is clear. Pleural spaces: No pneumothorax. No pleural effusion. Heart/Mediastinum: The cardiomediastinal silhouette is within normal limits. Bones/joints: Unremarkable. XR/XR chest 2V* [id number] IMPRESSION: No acute cardiopulmonary abnormality identified.
== END 2022-01-30 08:23 | disposition home or self-care (01) ==
LOC: RAD 08:27
PROVIDERS: PCP Nurse Practitioner Family; Visit Provider Nurse Practitioner Family
DX: J45.901 Unspecified asthma with (acute) exacerbation (principal)
CPT/HCPCS: 71046

== ENCOUNTER 2022-05-04 08:00 | Inpatient (IN) | payer MEDICAID, SELFPAY ==
[2022-05-04] VITALS (84 sets, daily range): BP systolic 59–125; BP diastolic 46–78; PULSE 93–152; RESP 17–41; TEMP 37.2–37.9; O2SAT 86–100; BMI 41.8; BMI 45.1
--- NOTE | 2022-05-04 08:09 | XRR_ITS ---
PROCEDURE INFORMATION: Exam: XR Chest Exam date and time: 05/04/2022 8:51 AM Age: 32 years old Clinical indication: Cough and shortness of breath; Prior surgery; Surgery type: Gb; Patient HX: Cough with SOB; Additional info: Dyspnea/cough TECHNIQUE: Imaging protocol: Radiologic exam of the chest. Views: 1 view. Total images: 1018 COMPARISON: CR XR chest 2V* [id number] 01/30/2022 8:42 AM FINDINGS: Tubes, catheters and devices: Vagal nerve stimulator noted. Lungs: Right upper lobe and bibasilar patchy airspace densities, favoring pneumonia, possibly atypical pneumonia. Pleural spaces: Unremarkable. No pleural effusion. No pneumothorax. Heart/Mediastinum: Heart size is stable when compared to the prior exam. Bones/joints: Unremarkable. XR/XR chest 1V portable [id number] IMPRESSION: Right upper lobe and bibasilar patchy airspace densities, favoring pneumonia, possibly atypical pneumonia.
--- NOTE | 2022-05-04 08:11 | ECG_ITS ---
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
--- NOTE | 2022-05-04 08:40 | ED_ITS ---
HPI - SOB/Dyspnea General: Chief Complaint: Shortness of Breath/Dyspnea Stated Complaint: SOB Time Seen by Provider: 05/04/22 08:08 Source: patient Mode of arrival: ambulatory History of Present Illness: HPI Narrative: 32-year-old female presents emergency room for productive cough for the last few days. States her symptoms began approximately week ago she thought she had a flu at that time. She did not have any diarrhea. Cough is gotten progressively worse since then with increasing shortness of breath. She sees rheumatology for inflammatory arthritis she is on hydroxychloroquine. She has a history of asthma she has been using her inhaler more aggressively at home along with her nebulizer she does not feel like it is really been helping very much. She is chronically on prednisone 5 mg daily MD elicited complaint: shortness of breath and cough Pertinent past history: asthma Onset (ago): week(s) (1) Timing: constant Severity: moderate Exacerbating factors: exertion, coughing and inspiration Relieving factors: nothing Known history of: asthma Associated symptoms: Reports chest congestion, cough, hemoptysis and nausea; Deny abdominal pain, chest pain, diaphoresis, dizziness, extremity pain, fever(s), lightheadedness, myalgias, orthopnea, palpitations, paresthesias, polydipsia, polyuria, rash, sense of impending doom, syncope or vomiting Treatment prior to arrival: bronchodilator Review of Systems Const: Denies: fever(s) or diaphoresis ENMT: Denies: throat pain, ear or mastoid pain, nasal discharge or nasal congestion Card: Denies: chest pain, palpitations, lightheadedness, syncope or orthopnea Resp: Reports: hemoptysis and chest congestion GI: Reports: nausea; Denies: abdominal pain or vomiting : Denies: flank pain, difficulty voiding, dysuria, urinary frequency or urinary urgency Musc: Denies: extremity pain Skin/Breast: Denies: rash or pruritus Neuro: Denies: dizziness Endo: Denies: polyuria or polydipsia [facility] ED PFSH: Medical History Acute sinusitis Allergies Asthma Chronic pain Chronic steroid use 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 High risk medication use Immunization counseling Inflammatory arthritis Inflammatory back pain Positive KATHLEEN (antinuclear antibody) Seizure disorder Thyroid mass Undifferentiated connective tissue disease Surgical History History of carpal tunnel release of both wrists History of cholecystectomy History of hysterectomy with bilateral oophorectomy History of tonsillectomy History of tubal ligation Hx of hysterectomy Family History Family/Other Cancer Father CAD (coronary artery disease) Other Chronic kidney disease (CKD) Diabetes Family history of premature coronary artery disease Lupus Rheumatoid arthritis Stroke Denies family history of Hyperlipidemia Anesthesia complication Bleeding disorder Lung disease Hypertension Social History Smoking and tobacco status: never smoked Second hand smoke exposure: No Alcohol intake: never Lives independently: Yes Household members: spouse and children Marital status: Current occupational status: disabled History of recent travel: No Current gender identity: Female Special dipti needs: No Agree to transfusion: Yes Physical Exam Const: GENERAL APPEARANCE: cooperative ORIENTATION/CONSCIOUSNESS: Yes awake, Yes oriented to person, Yes oriented to place and Yes oriented to time HENMT: COMMON NORMALS: normocephalic, atraumatic and hearing grossly normal bilaterally HEAD & SCALP: normocephalic and atraumatic Resp: EFFORT & INSPECTION: Yes tachypneic, Yes labored, Yes retractions and Yes uses accessory muscles AUSCULTATION: rhonchi, wheezes and diminished lung sounds Cardio: COMMON NORMALS: No murmurs present (Cardio) RATE: tachycardic GI: COMMON NORMALS: Soft to palpation and No hepatosplenomegaly present AUSCULTATION: Yes normoactive bowel sounds PALPATION: Yes Soft to palpation, No Tenderness to palpation present (GI), No Guarding due to palpation present (GI) and Yes No hepatosplenomegaly present Extremity: COMMON NORMALS: normal to inspection, capillary refill normal, no clubbing, cyanosis or edema, no calf tenderness and no pedal edema Neuro: SENSORIUM/ORIENTATION: Yes oriented to person, Yes oriented to place and Yes oriented to time Skin: COMMON NORMALS: no rashes or lesions noted GENERAL SKIN EXAM: no rashes or lesions noted Procedures Central Line Placement Right IJ: Time Out Performed: Yes Patient Placed on Monitor/Pulse Ox: Yes MD Prep: mask, gown and gloves Central Line Prep: Chlorhexidine scrub Ultrasound Used for Placement: Yes Central Line Lumen Inserted: triple Post Procedure: sutured in place Post Procedure X-Ray: tip of catheter in good position Patient Tolerated Procedure: well Complications: none Intubation Time out performed: Yes sedative: Versed Mg Given: 11 paralytic: Succinylcholine Mg Given: 120 Laryngoscope: fiber optic video scope Assist Device Used: fiber optic device ET Tube Size: 8.5 ET Tube Uncuffed: No Tube Secured Depth (cm): 23 Tube Secured Location: teeth Tube Placement Confirmation: visualized tube passing through cords, equal breath sounds bilaterally, no breath sounds over epigastrium and confirmation by capnom etry Patient Tolerated Procedure: well Intubation Complications: none Course Vital Signs: Vital signs: Vital Signs Temperature 98.9 F 05/04/22 08:04 Pulse Rate 152 H 05/04/22 08:04 Respiratory Rate 27 H 05/04/22 13:11 Blood Pressure 96/63 05/04/22 08:09 Pulse Oximetry 92 05/04/22 08:04 Oxygen Delivery Me thod 05/04/22 08:04 Fraction of Inspir ed Oxygen 100 05/04/22 13:11 MDM - SOB/Dyspnea Medical Decision Making Patient in septic shock. She was given fluids started on Levophed her breathing actually worsened her respiratory rate was intermittently in the upper 40s and 50s punctuated by periods of time where she would actually almost doze off and respiratory rate dropped below 20 and then she would awaken resume her tachypnea. On reexam felt that the patient work of breathing with significant and she was likely to continue to worsen discussed with her and with her and recommend intubation which we proceeded with with RSI. After which a central line was started repeat chest x-ray to verify central line and ET tube placement shows significant increase prominence of her infiltrates after she has received fluids. Patient is now on 2 pressors she initially was on Levophed and Dr. Leary added vasopressin. Stat bedside echo does not appear to have any increased right ventricular pressure. Her D-dimer was markedly elevated. Will admit to the ICU Dr. Petit is assuming care of the patient we started her in itially on ceftriaxone and Zithromax then switched to vancomycin and Zosyn. Orders written for the ICU. Medical Records I reviewed the patient's medical records. Lab Data I reviewed the patient's lab results. 05/04/22 08:40 05/04/22 08:40 Labs/Radiology: Laboratory Results WBC 7.0 10^3/uL (4.0-10.0) 05/04/22 08:40 RBC 4.23 10^6/uL (4.1-5.3) 05/04/22 08:40 Hgb 12.7 g/dL (11.5-15.3) 05/04/22 08:40 Hct 39.8 % (37.0-47.0) 05/04/22 08:40 MCV 94.1 fl (81-99) 05/04/22 08:40 MCH 30.0 pg (28.0-34.0) 05/04/22 08:40 MCHC 31.9 g/dL (30.0-36.0) 05/04/22 08:40 RDW 13.6 % (12.1-15.1) 05/04/22 08:40 Plt Count 142 10^3/cmm (130-400) 05/04/22 08:40 MPV 14.1 fL (7.4-10.4) H 05/04/22 08:40 Neut % (Auto) 86.5 % 05/04/22 08:40 Lymph % (Auto) 7.3 % 05/04/22 08:40 [place] % (Auto) 3.0 % 05/04/22 08:40 Eos % (Auto) 1.1 % 05/04/22 08:40 Baso % (Auto) 0.7 % 05/04/22 08:40 Neut # (Auto) 6.06 10^3/uL (1.8-7.7) 05/04/22 08:40 Lymph # (Auto) 0.5 10^3/uL (0.8-4.8) L 05/04/22 08:40 [place] # (Auto) 0.2 10^3/uL (0.2-0.9) 05/04/22 08:40 Eos # (Auto) 0.1 10^3/uL (0.0-0.8) 05/04/22 08:40 Baso # (Auto) 0.1 10^3/uL (0.0-0.1) 05/04/22 08:40 Nucleated RBC % (auto) 0 % 05/04/22 08:40 Nucleated RBCs # 0.0 /100WBC 05/04/22 08:40 D-Dimer 9.54 ug/mIFEU (0-0.59) H 05/04/22 08:40 Specimen Type Arterial 05/04/22 08:42 Sample Site Radial, right 05/04/22 08:42 ABG pH 7.43 (7.35-7.45) 05/04/22 08:42 ABG pCO2 29.1 mmHg (35-45) L 05/04/22 08:42 ABG pO2 59.0 mmHg (80.0-100.0) L 05/04/22 08:42 ABG HCO3 19.4 mmol/L (22-26) L 05/04/22 08:42 ABG O2 Saturation 93.3 05/04/22 08:42 ABG Base Excess -3.8 mmol/L (-2.0-2.0) L 05/04/22 08:42 Cory Test Pos 05/04/22 08:42 A-a O2 Gradient 7.0 mmHg (5-10) 05/04/22 08:42 Hematocrit 38.5 % (37-47) 05/04/22 08:42 Hgb O2 Saturation 91.7 % (95-100) L 05/04/22 08:42 Carboxyhemoglobin 1.0 %THgb (0.4-20.1) 05/04/22 08:42 Methemoglobin 0.8 % (0.4-1.5) 05/04/22 08:42 Total Hemoglobin 12.6 g/dL (12-16) 05/04/22 08:42 Sodium 132.0 mmol/L (131-143) 05/04/22 08:42 Potassium 3.3 mmol/L (3.5-5.0) L 05/04/22 08:42 Glucose 86.0 mg/dL (70-115) 05/04/22 08:42 Ionized Calcium 1.2 mmol/L (1.1-1.4) 05/04/22 08:42 O2 Delivery Device Room air 05/04/22 08:42 FiO2 21.0 % 05/04/22 08:42 Weaving Teacher ID [email or web address] 05/04/22 08:42 Sodium 133 mmol/L (136-145) L 05/04/22 08:40 Potassium 3.4 mmol/L (3.5-5.1) L 05/04/22 08:40 Chloride 99 mmol/L (98-107) 05/04/22 08:40 Carbon Dioxide 20 mmol/L (22-29) L 05/04/22 08:40 Anion Gap 17.4 (5-19) 05/04/22 08:40 BUN 12 mg/dL (6-20) 05/04/22 08:40 Creatinine 1.3 mg/dL (0.5-0.9) H 05/04/22 08:40 GFR Calculation 46.9 mL/min (90-130) L 05/04/22 08:40 Glucose 82 mg/dL (65-115) 05/04/22 08:40 Calculated Osmolality 275 mOsm/kg (285-295) L 05/04/22 08:40 Lactic Acid 5.0 mmol/L (0.5-2.2) H* 05/04/22 08:40 Calcium 9.3 mg/dL (8.5-10.5) 05/04/22 08:40 Total Bilirubin 0.4 mg/dL (0.15-1.2) 05/04/22 08:40 AST 65 U/L (0-32) H 05/04/22 08:40 ALT 46 U/L (0-33) H 05/04/22 08:40 Alkaline Phosphatase 89 U/L (35-105) 05/04/22 08:40 C-Reactive Protein 300.0 mg/L (0.0-4.9) H 05/04/22 08:40 NT-Pro-B Natriuret Pep 1252 pg/mL (0-125) H 05/04/22 08:40 Total Protein 6.8 g/dL (6.6-8.7) 05/04/22 08:40 Albumin 3.5 g/dL (3.5-5.2) 05/04/22 08:40 Globulin 3.3 g/dL (1.3-4.6) 05/04/22 08:40 Procalcitonin 19.48 ng/mL (0-0.5) H 05/04/22 08:40 TSH 0.10 uIU/mL (0.27-4.20) L 05/04/22 08:40 Coronavirus 229E (PCR) Not detected (NOT DETECT) 05/04/22 08:49 SARS-CoV-2 (PCR) Not detected (NOT DETECT) 05/04/22 08:49 Critical Care Time Critical Care Time: Critical Care Time: Yes Total Critical Care Time: 45 Attestation: The high probability of a clinically significant, sudden or life threatening deterioration of the patient's cardiovascular/respiratory system(s) required my full and direct attention, intervention and personal management. The critical care time is as shown. This time is in addition to time spent performing any reported procedures but includes the following: [x] Data and vital sign review and interpretation [x] Patient assessment, examination and intervention [x] Documentation [x] Medication orders and management Discharge Plan Discharge Patient Disposition: Admitted As Inpatient Admit Provider: Alon Leary Clinical Impression: Septic shock, Pneumonia, Acute respiratory failure with hypoxia, Influenza A, Morbid obesity Condition: Stable Coding Level of Care Code ED Benefits Representative for Josie Araujo
[2022-05-04] MEDS: sodium chloride 0.9% 1,000 ML 999 ML IV (08:46)
[2022-05-04 08:51] LABS: ABG PCO2 29.1 mmHg (35-45); ABG PH Result 7.43 (7.35-7.45); Arterial Blood Gas Hematocrit 38.5 % (37-47); Base Excess ABG -3.8 mmol/L (-2.0-2.0); Blood Gas Allen Test Pos; Blood Gas Operator Identificat glc; Blood Gas Sample Site Radial, right; Blood Gas Sample Type Arterial; HCO3 ABG 19.4 mmol/L (22-26); HGB O2 Sat 91.7 % (95-100); Ionized Calcium Level - ABG 1.2 mmol/L (1.1-1.4); Methemoglobin 0.8 % (0.4-1.5); Oxygen Device ROOM AIR; Oxygen Saturation ABG 93.3; Potassium Level - ABG 3.3 mmol/L (3.5-5.0); Total Hemoglobin 12.6 g/dL (12-16)
[2022-05-04] MEDS: cefTRIAXone 1,000 MG in sodium chloride 0.9% (plus) 50 ML 100 MG IV (09:34)
[2022-05-04 09:35] LABS: D Dimer 9.54 ug/mIFEU (0-0.59)
[2022-05-04] MEDS: azithromycin 500 MG in sodium chloride 0.9% 250 ML 250 MG IV (10:00)
[2022-05-04 10:32] LABS: Reflex Lactate Order REFLEX LACTIC ORDERD
[2022-05-04 10:35] LABS: Basophils # 0.1 10^3/uL (0.0-0.1); Basophils % 0.7 %; Eosinophils # 0.1 10^3/uL (0.0-0.8); Eosinophils % 1.1 %; Hematocrit 39.8 % (37.0-47.0); Hemoglobin 12.7 g/dL (11.5-15.3); Lymphocytes # 0.5 10^3/uL (0.8-4.8); Lymphocytes % 7.3 %; Mean Corpuscular HGB Conc 31.9 g/dL (30.0-36.0); Mean Corpuscular Volume 94.1 fl (81-99); Mean Platelet Volume 14.1 fL (7.4-10.4); Monocytes # 0.2 10^3/uL (0.2-0.9); Neutrophils # 6.06 10^3/uL (1.8-7.7); Neutrophils % 86.5 %; Nucleated Red Blood Cells % 0 %; Platelet Count 142 10^3/cmm (130-400); Red Blood Count 4.23 10^6/uL (4.1-5.3); Red Cell Distribution Width 13.6 % (12.1-15.1)
[2022-05-04 10:41] LABS: Alanine Aminotransferase 46 U/L (0-33); Albumin Level 3.5 g/dL (3.5-5.2); Alkaline Phosphatase 89 U/L (35-105); Anion Gap 17.4 (5-19); Aspartate Amino Transferase 65 U/L (0-32); Blood Urea Nitrogen 12 mg/dL (6-20); Calcium 9.3 mg/dL (8.5-10.5); Carbon Dioxide 20 mmol/L (22-29); Chloride 99 mmol/L (98-107); Globulin 3.3 g/dL (1.3-4.6); Glomerular Filtration Rate 46.9 mL/min (90-130); Glucose 82 mg/dL (65-115); Osmolality Calculated 275 mOsm/kg (285-295); Potassium 3.4 mmol/L (3.5-5.1); Sodium 133 mmol/L (136-145); Total Bilirubin 0.4 mg/dL (0.15-1.2); Total Protein 6.8 g/dL (6.6-8.7)
[2022-05-04 10:59] LABS: Adenovirus Not Detected (NOT DETECT); Chlamydia Pneumoniae Not Detected (NOT DETECT); Coronavirus 229E,HKU1,NL63,OC4 Not Detected (NOT DETECT); Human Metapneumovirus Not Detected (NOT DETECT); Human Rhinovirus/Enterovirus Detected (NOT DETECT); Influenza A Detected (NOT DETECT); Influenza A H1 Not Detected (NOT DETECT); Influenza A H1-2009 Detected (NOT DETECT); Influenza A H3 Not Detected (NOT DETECT); Influenza B Not Detected (NOT DETECT); Mycoplasma Pneumoniae Not Detected (NOT DETECT); Parainfluenza Virus Type 1 Not Detected (NOT DETECT); Parainfluenza Virus Type 2 Not Detected (NOT DETECT); Parainfluenza Virus Type 3 Not Detected (NOT DETECT); Parainfluenza Virus Type 4 Not Detected (NOT DETECT); Respiratory Syncytial Virus A Not Detected (NOT DETECT); Respiratory Syncytial Virus B Not Detected (NOT DETECT); SARS-COV-2 Not Detected (NOT DETECT)
[2022-05-04] MEDS: piperacillin-tazobactam 3.375 GM in sodium chloride 0.9% (plus) 50 ML IV ×2 (11:42→19:53)
[2022-05-04 11:48] LABS: Human Metapneumovirus Not Detected (NOT DETECT); Human Rhinovirus/Enterovirus Detected (NOT DETECT); Influenza A Detected (NOT DETECT); Influenza A H1 Not Detected (NOT DETECT); Influenza A H1-2009 Detected (NOT DETECT); Influenza A H3 Not Detected (NOT DETECT); Influenza B Not Detected (NOT DETECT); Results from Genmark
[2022-05-04] MEDS: vancomycin 1,000 MG in sodium chloride 0.9% 250 ML 250 MG IV (12:22)
--- NOTE | 2022-05-04 12:39 | CTR_ITS ---
PROCEDURE INFORMATION: Exam: CTA Chest With Contrast Exam date and time: 05/04/2022 3:32 PM Age: 32 years old Clinical indication: Abnormal findings; Abnormal diagnostic tests; Elevated d-dimer; Dyspnea; Additional info: Elevated dimer, respiratory faliure TECHNIQUE: Imaging protocol: Computed tomographic angiography of the chest with contrast. 3D rendering (Not supervised by radiologist): MIP and/or 3D reconstructed images were created by the technologist. Radiation optimization: All CT scans at this facility use at least one of these dose optimization techniques: automated exposure control; mA and/or kV adjustment per patient size (includes targeted exams where dose is matched to clinical indication); or iterative reconstruction. Contrast material: 529.88; Contrast volume: 87 ml; Contrast route: INTRAVENOUS (IV); COMPARISON: CR (CHEST, ) 05/04/2022 2:19 PM RADIATION DOSE METRICS: Total DLP (mGy-cm): 529.88 FINDINGS: Tubes, catheters and devices: There is ET tube situated 3 cm above the karen. There is an NG tube coursing into the body of the stomach. There is a central line whose tip lies along the inferior aspect of the right atrium. There is electronic monitor device implanted within the left chest wall with electrode wires terminating within the left neck. Pulmonary arteries: Main pulmonary trunk, right and left pulmonary arteries and interlobar branches are adequately opacified without filling defects or other evidence of acute pulmonary embolism. However 1st and 2nd order segmental branches cannot be adequately assessed due to technical limitations of the study. Aorta: Unremarkable. No aortic aneurysm. No aortic dissection. Lungs: Lung volumes are decreased. There is a large dense area of consolidation right upper lobe and scattered smaller consolidative opacities both lung mckinnon likely representing multifocal pneumonia. There is also depended bibasilar consolidation likely representing atelectasis. Pleural spaces: Unremarkable. No pneumothorax. No pleural effusion. Heart: Heart is mildly enlarged.. No significant pericardial effusion or coronary artery calcification. Lymph nodes: Unremarkable. No enlarged lymph nodes. Bones/joints: Unremarkable. No acute fracture. Soft tissues: Unremarkable. Other findings: Study is significantly limited due to respiratory motion artifact and streak artifact. CT/CT angio chest PE protcl [id number] IMPRESSION: 1. Technically limited but negative CT angiogram of the chest. No evidence of acute pulmonary embolism to major branches of the pulmonary vascular tree. 2. Diffuse airspace disease likely representing combination of multifocal pneumonia and bibasilar atelectasis. 3. Mild cardiomegaly. Tubes and lines as discussed above.
[2022-05-04 12:50] LABS: Lactic Acid level (Lactate) 4.9 mmol/L (0.5-2.2)
[2022-05-04] MEDS: midazolam 1 mg/mL INJ 2 mL 11 MG IVP (13:24)
[2022-05-04 13:30] LABS: NT Pro B Type Natriuretic Pept 1252 pg/mL (0-125); Procalcitonin 19.48 ng/mL (0-0.5)
--- NOTE | 2022-05-04 13:45 | XRR_ITS ---
PROCEDURE INFORMATION: Exam: XR Chest Exam date and time: 05/04/2022 2:19 PM Age: 32 years old Clinical indication: Device placement; Ett placement (vent status); Additional info: Post intubation/ post central line TECHNIQUE: Imaging protocol: Radiologic exam of the chest. Views: 1 view. COMPARISON: CR (CHEST, ) 05/04/2022 8:51 AM FINDINGS: Tubes, catheters and devices: There is electronic monitoring device with pattern all projecting over the left chest wall. Lungs: There is dense area of consolidation right upper lobe that appears more confluent and more conspicuous since the prior study. There is patchy airspace disease left lower lobe, stable. Pleural spaces: Unremarkable. No pleural effusion. No pneumothorax. Heart/Mediastinum: Cardiac silhouette is enlarged, unchanged. Bones/joints: Paste is involved plates of knee T2 whose tip is in satisfactory position 4 cm above the karen. There is a central line placed via a jugular approach whose tip terminates within the lower portion of the right atrium. XR/XR chest 1V portable [id number] IMPRESSION: 1. Tubes and lines in adequate position. 2. Cardiomegaly with worsening airspace disease right upper lobe.
--- NOTE | 2022-05-04 13:55 | USCV_ITS ---
Misty Correa Age: 32 Gender: F : 1990 Exam Date: 05/04/2022 17:53 Ordering Phys: Hay Ennis DO Technologist: MONSE Exam Location: [facility] [place] Indication: SOB BP: 77 / 60 HR: 111 Rhythm: Sinus Technical Quality: Adequate MEASUREMENTS (Male / Female) Normal Values 2D ECHO LV Diastolic Diameter PLAX 5.5 cm 4.2 - 5.9 / 3.9 - 5.3 cm LV Systolic Diameter PLAX 4.3 cm IVS Diastolic Thickness 0.8 cm 0.6 - 1.0 / 0.6 - 0.9 cm IVS Systolic Thickness 1.1 cm LVPW Diastolic Thickness 0.8 cm 0.6 - 1.0 / 0.6 - 0.9 cm LVPW Systolic Thickness 1.2 cm LVOT Diameter 1.9 cm LV Ejection Fraction 2D Teich 43.6 % LV Ejection Fraction MOD 2C 69.4 % LV Ejection Fraction 2C AL 71.1 % LA Diameter 3.1 cm IVC Diameter 2.1 cm M-MODE Aortic Annulus Diameter 2.5 cm LA Ao Ratio MM 1.3 MV E Point Septal Separation 0.8 cm DOPPLER AV Peak Velocity 132.0 cm/s LVOT Peak Velocity 82.0 cm/s AV Area Cont Eq vti 2.1 cm squared AV Area Cont Eq pk 1.8 cm squared MV Area PHT 5.0 cm squared Mitral E to A Ratio 1.1 MV E' Velocity 56.0 cm/s Mitral E to MV E' Ratio 15.3 Mitral E to LV E' Lateral Ratio 21.4 Mitral E to LV E' Septal Ratio 12.0 TR Peak Velocity 270.0 cm/s TR Peak Gradient 29.2 mmHg TV Peak E Velocity 75.0 cm/s Right Atrial Pressure 3.0 mmHg Pulmonary Artery Systolic Pressu 32.2 mmHg PV Peak Velocity 71.0 cm/s FINDINGS Left Ventricle Normal left ventricular size and systolic function, EF 60 % by biplane. Visually EF looks low normal 50%. No regional wall motion abnormalities. Grade II/IV diastolic dysfunction, moderately elevated filling pressures. Right Ventricle The right ventricle is normal in size and function. Right Atrium The right atrium is normal in size. Left Atrium The left atrium is normal in size. Mitral Valve Structurally normal mitral valve without significant stenosis or prolapse. There is no mitral regurgitation. Aortic Valve Structurally normal aortic valve without significant sclerosis or stenosis. There is no aortic regurgitation. Tricuspid Valve Structurally normal tricuspid valve without significant stenosis or regurgitation. Pulmonary artery systolic pressure is normal. Pulmonic Valve Structurally normal pulmonic valve without significant stenosis. There is no pulmonic regurgitation. Pericardium Normal pericardium without effusion. Aorta Normal ascending aorta dimension. IVC The inferior vena cava appears normal. CONCLUSIONS Normal left ventricular size and systolic function, EF 60 % by biplane. Visually EF looks low normal 50%. No regional wall motion abnormalities. Grade II/IV diastolic dysfunction, moderately elevated filling pressures. Abhi Ramon MD (Electronically Signed) Final Date: 05 May 2022 13:44 S
[2022-05-04] MEDS: heparin 5,000 unit/mL INJ 1 mL 4000 UNIT IVP (14:41)
[2022-05-04] MEDS: propofol 1,000 MG/100 ML INJ 30 MG (14:41)
[2022-05-04 15:12] LABS: ABG PCO2 44.2 mmHg (35-45); Alveolar-Arterial Oxygen Gradi 73.7 mmHg (5-10); Base Excess ABG -12.7 mmol/L (-2.0-2.0); Blood Gas Allen Test Pos; Blood Gas Operator Identificat glc; Blood Gas Sample Site Radial, left; Blood Gas Sample Type Arterial; Carboxyhemoglobin 0.6 %THgb (0.4-20.1); HCO3 ABG 15.6 mmol/L (22-26); HGB O2 Sat 94.3 % (95-100); Ionized Calcium Level - ABG 1.1 mmol/L (1.1-1.4); Methemoglobin 0.8 % (0.4-1.5); Oxygen Device VENT; Oxygen Saturation ABG 95.7; PO2 ABG 90.5 mmHg (80.0-100.0); Potassium Level - ABG 3.5 mmol/L (3.5-5.0); Total Hemoglobin 11.7 g/dL (12-16)
[2022-05-04 15:18] LABS: ABG PH Result 7.16 (7.35-7.45)
[2022-05-04 15:21] LABS: Add Urine Microscopic? YES; Bilirubin Urine Neg (Negative); Blood Urine Neg (Negative); Glucose Urine UA Norm (Normal); Ketones Urine 1+ (Negative); Leukocyte Esterase Urine Negative (Negative); Nitrate Urine Negative (Negative); Protein Urine 1+ (Negative); Urine Appearance Clear (CLEAR); Urine Color Dark Yellow (Yellow); Urobilinogen Urine Norm (Negative); pH Urine 5 (5-7)
[2022-05-04 15:22] LABS: Add Urine Culture? No; Amorphous Sediment Urine 1+ /hpf; Bacteria Urine TRACE /hpf; Squamous Epithelial Cell Urine 0-4 /hpf (0-5)
[2022-05-04 15:29] LABS: Urine Creatinine 217 mg/dL (28-217)
[2022-05-04] MEDS: iohexol 350 mg/mL 500 mL Btl (per mL) IV (15:38)
[2022-05-04] MEDS: heparin drip 25,000 UNIT/500 ML PREMIX 62.09 UNIT IV (16:05)
[2022-05-04] MEDS: propofol 1,000 MG/100 ML INJ 19.27 MG IV (16:06)
--- NOTE | 2022-05-04 16:07 | P.HP_ITS ---
Providers/Chief Complaint Admitting Physician: Alon Leary MD Primary Care Provider: Becca Clayton Chief Complaint: SOB History of Present Illness Misty Correa is a 32 year old female with past medical history of inflammatory arthritis chronically on steroids, recently started on leflunomide, subclinical hyperthyroidism with thyroid nodule who was apparently recently tested positive for flu a came to the ER because of difficulty in breathing, weakness, tiredness and myalgias getting worse for last 2 days. As per the patient she tested positive a week ago. Examination patient was sitting up in bed, in distress because of difficulty in breathing, drowsy and tired appearing, heart rate running in 130s with systolic blood pressure of 90 on a Levophed drip of 8. ER course: On presentation the ER patient was found to be hypoxic and hypotensive. She was started on 3 L of oxygen supplementation and given 3 L of fluid bolus. Once blood pressure did not improve she was started on Levophed. On my examination as patient was looking drowsy and tired appearing with tachycardia and hypotension on Levophed drip patient was intubated, sedation at first was tried with fentanyl and Versed as patient was still awake and thrashing she was changed to propofol. Blood pressures were still trending low hence Levophed was increased to 20 mics and vasopressin was added. Patient was given vancomycin and Zosyn. D-dimer was added which came as high as 9.5 and she was started on heparin drip after bolus. Patient was given 2 more liters of IV fluid bolus and was maintained on normal saline at 100 cc/h. CTA chest was ordered and repeat CBC, CMP and mag and phosphorus were requested. Review of Systems General: Reports: 10 or more systems reviewed and unremarkable except in HPI a nd below Const: Denies: fever(s), chills, body aches, change in appetite, change in weight, malaise, night sweats, diaphoresis, change in sleep pattern, daytime sleepiness or snoring Eyes: Denies: change in vision, blurry vision, photophobia, eye discomfort or eye discharge ENMT: Denies: throat pain, enlarged tonsils, hoarseness, mouth pain, oral sores, dry mouth, tinnitus, nasal congestion or post nasal drip Card: Denies: chest pain, palpitations, irregular heart rhythm, edema, swelling of feet/ankles, lightheadedness, syncope, pre-syncope, dyspnea on exertion, orthopnea, leg pain with exertion or acrocyanosis Resp: Denies: dyspnea, productive cough, non-productive cough, wheezing, stridor, pain on inspiration, change in phlegm color, hemoptysis or chest congestion GI: Denies: abdominal pain, nausea, vomiting, hematemesis, coffee ground emesis, dysphagia, heartburn, diarrhea, constipation, bloating, GI cramping, change in bowel habits, pain on defecation, hematochezia or melena : Denies: flank pain, dysuria, urinary frequency, urinary urgency, urinary hesitancy, nocturia or hematuria Musc: Denies: neck pain, back pain, extremity pain, joint pain, joint swelling, joint redness, joint stiffness or limited range of motion Neuro: Denies: headache(s), numbness in extremities, weakness in extremities, sensory changes, lack of coordination, difficulty walking, frequent falls, dizziness, vertigo, confusion, Slurred speech present, difficulty communicating thoughts or seizure-like activity Psych: Denies: anxiety, depression, mood swings, panic attacks, hopelessness or irritability Endo: Denies: polyuria, polydipsia, tired all the time, cold intolerance, excessive sweating, flushing or heat intolerance Shun/Lymph: Denies: easy bruising or easy bleeding All/Imm: Denies: tongue swelling, facial swelling or acute wheezing Medications/Allergies Home Medications Medication Instructions Recorded Confirmed Last Taken Type albuterol sulfate 90 mcg/actuation 2 puff inhalation Q6H PRN 08/25/20 02/14/22 Unknown History aerosol inhaler lurasidone 20 mg tablet (Latuda) 20 mg PO DAILY 08/25/20 02/14/22 Unknown History pregabalin 150 mg capsule (Lyrica) 150 mg PO TID 08/25/20 02/14/22 Unknown History fluticasone 250 mcg-salmeterol 50 1 inh inhalation BID #60 ea 10/10/20 02/14/22 Unknown Rx mcg/dose blistr powdr for inhalation (Advair Diskus) ondansetron 4 mg disintegrating 4 mg PO Q8H PRN nausea and 01/11/21 02/14/22 Unknown Rx tablet vomiting #20 tabs ibuprofen 600 mg tablet 600 mg PO TID PRN pain #10 tabs 01/22/21 02/14/22 Unknown Rx cetirizine 10 mg tablet (Zyrtec) 10 mg PO DAILY PRN 11/07/21 02/14/22 Unknown History fluticasone propionate 50 1 spray intranasal DAILY 11/07/21 02/14/22 Unknown History mcg/actuation nasal spray,suspension guaifenesin 600 mg tablet, 600 mg PO BID #30 tabs 11/07/21 02/14/22 Unknown Rx extended release 12 hr montelukast 10 mg tablet 10 mg PO DAILY 11/07/21 02/14/22 Unknown History (Singulair) sulfamethoxazole 800 1 tab PO BID sinusitis #10 tabs 11/07/21 02/14/22 Unknown Rx mg-trimethoprim 160 mg tablet (Bactrim DS) leflunomide 10 mg tablet 10 mg PO DAILY #90 tabs 02/14/22 02/14/22 Unknown Rx omeprazole 40 mg capsule,delayed 40 mg PO DAILY #30 caps 02/14/22 02/14/22 Unknown Rx release prednisone 5 mg tablet 5 mg PO DAILY #90 tabs 02/14/22 02/14/22 Unknown Rx hydroxychloroquine 200 mg tablet See Rx Instructions .Route 02/19/22 Unknown Rx .COMPLEX #60 tabs Allergies Allergy/AdvReac Type Severity Reaction Status Date / Time divalproex sodium Allergy ALGY-Rash Verified 02/14/22 11:02 [From Depakote] ketorolac [Toradol] Allergy ALGY-Rash Verified 02/14/22 11:02 levetiracetam [From Keppra] Allergy Unknown Verified 02/14/22 11:02 tramadol Allergy ALGY-Rash Verified 02/14/22 11:02 PFSH Acute PFSH: Medical History (Updated 05/04/22 @ 17:09 by Alon Leary MD) Acute sinusitis Allergies Asthma Chronic pain Chronic steroid use 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 High risk medication use Immunization counseling Inflammatory arthritis Inflammatory back pain Positive KATHLEEN (antinuclear antibody) Seizure disorder Thyroid mass Undifferentiated connective tissue disease Surgical History History of carpal tunnel release of both wrists History of cholecystectomy History of hysterectomy with bilateral oophorectomy History of tonsillectomy History of tubal ligation Hx of hysterectomy Family History Family/Other Cancer Father CAD (coronary artery disease) Other Chronic kidney disease (CKD) Diabetes Family history of premature coronary artery disease Lupus Rheumatoid arthritis Stroke Denies family history of Hyperlipidemia Anesthesia complication Bleeding disorder Lung disease Hypertension Social History Smoking and tobacco status: never smoked Second hand smoke exposure: No Alcohol intake: never Lives independently: Yes Household members: spouse and children Marital status: Current occupational status: disabled History of recent travel: No Current gender identity: Female Special dipti needs: No Agree to transfusion: Yes Vitals/I&O/Wt Last Vital Signs Temp 98.9 F 05/04/22 08:04 Pulse 149 H 05/04/22 16:02 Resp 18 05/04/22 16:02 BP 100/62 05/04/22 15:55 Pulse Ox 95 05/04/22 16:02 O2 Del Method 05/04/22 16:02 FiO2 100 05/04/22 16:02 05/04/22 05/04/22 05/04/22 06:59 14:59 22:59 Intake Total 4618.336 / 4618.336 Balance 4618.336 / 4618.336 Weight last 48 hrs Weight 107.048 kg Physical Exam Narrative: General: Intubated, sedated on mechanical ventilator, pulse thready, periphery- cold HEENT: PERRLA, pupils bilaterally equal and reactive Chest: Bronchial breath sounds b/l , decreased air entry on right side, coarse crackles present all over the right lung field, diffuse rhonchi all over the lung mckinnon bilaterally, CVS: S1-S2 regular, no murmurs, tachycardia, no gallops, no rubs Abdomen: Soft, nontender, no organomegaly, bowel sounds present, morbidly obese Neuro: No focal deficits, no facial deformity, AO x3, power 5/5 in all limbs Urinary Catheter Management: Holguin: Cath Placed During This Visit: yes Urinary Catheter Date of Insertion: 05/04/22 Sepsis: Is patient septic: Yes Focused sepsis exam performed: Yes Focused sepsis exam: Right IJ central line placed on 05/04 Data 05/04/22 08:40 05/04/22 08:40 Micro: Microbiology 05/04/22 13:40 Gram Stain - Final Sputum - Expectorated Sputum 05/04/22 08:43 Blood Culture - Preliminary Blood SPECIMEN COLLECTED 05/04/22 08:40 Blood Culture - Preliminary Blood SPECIMEN COLLECTED A&P Assessment and plan (1) Septic shock: Present on admission. Ruled in by tachycardia, hypotension requiring pressors, endorgan damage with hypoxic respiratory failure, lactic acidosis. Keep mean artery pressure over 65. Wean off vasopressin and Levophed accordingly. Continue on mechanical ventilation. Repeat ABG in 1 hour. Check MRSA swab, sputum culture, blood culture, urine culture, urine Legionella, bacterial antigen. For now start patient on vancomycin, Zosyn and azithromycin. Will de-escalate as per culture results. Patient is chronically on steroids. Check cortisol level. Start patient on hydrocortisone 100 mg every 6 hourly for now. Will wean down hydrocortisone within next 72 hours. (2) Acute respiratory failure with hypoxia: Maintain saturation over 90%. Ipratropium, Xopenex every 6 hour, budesonide twice daily. Respiratory failure most likely secondary to pneumonia in setting of recent flu A. COVID swab negative. Fluid positive. D-dimer elevated. Given critical illness for now start patient on a heparin drip. CTA chest. (3) Pneumonia: (4) Influenza A: Start patient on Tamiflu 75 mg twice daily. Rest treatment as above. (5) Metabolic acidosis: In setting of critical illness. Continue with IV fluids with normal saline at 75 cc/h. (6) Lactic acid acidosis: (7) Positive KATHLEEN (antinuclear antibody): (8) Chronic steroid use: Plan Full code. NPO. Protonix for PUD prophylaxis Heparin drip will suffice as DVT prophylaxis. Critically ill. Care discussed in detail with patient's Mr. Giles over the phone. We discussed that patient unfortunately is critically ill now given septic shock with respiratory failure requiring mechanical ventilation and multiple pressors. Attestations Medical Necessity Statement*: Admission for more than 2 midnights for managem ent of septic shock, respiratory failure requiring mechanical ventilation in setting of fluid intake, pneumonia and possible ARDS, elevated D-dimer with high suspicion of PE Critical Care Time: The high probability of a clinically significant, sudden or life threatening deterioration of the patient's [pulmonary, cardiac, renal, ID] system(s) required my full and direct attention, intervention and personal m anagement. The critical care time is as shown. This time is in addition to time spent performing any reported procedures but includes the following: [x] Data and vital sign review and interpretation [x] Patient assessment, examination and intervention [x] Documentation [x] Medication orders and management Critical Care Time (min): 90 Coding Level of Care Code Acute Tripoler for [facility] Fwd Diagnoses Septic shock A41.9; R65.21 Acute respiratory failure with hypoxia J96.01 Pneumonia J18.9 Influenza A J10.1 Metabolic acidosis E87.20 Lactic acid acidosis E87.20 Positive KATHLEEN (antinuclear antibody) R76.8 Chronic steroid use
--- NOTE | 2022-05-04 16:10 | PC.NURSE ---
OG was placed and confirmed by xray
--- NOTE | 2022-05-04 16:11 | PC.NURSE ---
chávez placed and urine return, andrae 150ml
[2022-05-04] MEDS: acetaminophen 325 mg Tablet 650 MG PO (16:37)
[2022-05-04] MEDS: D5-NS 0.45% + KCL 20 mEq 20 MEQ/1,000 ML BAG 150 MEQ IV (16:37)
[2022-05-04] MEDS: oseltamivir phosphate 75 mg Capsule PO (16:37)
[2022-05-04] MEDS: norepinephrine 8 MG in dextrose 5 % 500 ML 26.67 MG IV (16:45)
[2022-05-04 16:49] LABS: Iron 6 ug/dL (37-145); Percent Saturation 2.4 % (20-50); Total Iron Binding Capacity 247 mcg/dl; Unsaturated Iron Binding 241 ug/dL (112-347)
[2022-05-04 17:06] LABS: Vitamin B12 847 pg/mL (232-1245)
[2022-05-04 17:13] LABS: Basophils # 0.1 10^3/uL (0.0-0.1); Basophils % 0.5 %; Eosinophils # 0.1 10^3/uL (0.0-0.8); Eosinophils % 0.6 %; Hematocrit 35.1 % (37.0-47.0); Hemoglobin 11.1 g/dL (11.5-15.3); Lymphocytes # 0.5 10^3/uL (0.8-4.8); Lymphocytes % 3.9 %; Mean Corpuscular HGB Conc 31.6 g/dL (30.0-36.0); Mean Corpuscular Hemoglobin 30.4 pg (28.0-34.0); Mean Corpuscular Volume 96.2 fl (81-99); Mean Platelet Volume 13.4 fL (7.4-10.4); Monocytes # 0.3 10^3/uL (0.2-0.9); Monocytes % 2.2 %; Neutrophils # 11.52 10^3/uL (1.8-7.7); Nucleated Red Blood Cells % 0 %; Platelet Count 185 10^3/cmm (130-400); Red Blood Count 3.65 10^6/uL (4.1-5.3); Red Cell Distribution Width 13.7 % (12.1-15.1); White Blood Count 13.9 10^3/uL (4.0-10.0)
[2022-05-04 17:25] LABS: HCG, Serum Qual Negative (Negative)
[2022-05-04 17:30] LABS: Neutrophils % 92.8 %; Slide Review Slide Review Perform
[2022-05-04 17:35] LABS: Alanine Aminotransferase 38 U/L (0-33); Albumin Level 2.6 g/dL (3.5-5.2); Alkaline Phosphatase 86 U/L (35-105); Anion Gap 13.2 (5-19); Aspartate Amino Transferase 59 U/L (0-32); Blood Urea Nitrogen 13 mg/dL (6-20); Calcium 7.3 mg/dL (8.5-10.5); Carbon Dioxide 17 mmol/L (22-29); Chloride 105 mmol/L (98-107); Globulin 2.5 g/dL (1.3-4.6); Glomerular Filtration Rate 51.4 mL/min (90-130); Glucose 119 mg/dL (65-115); Magnesium 1.2 mg/dL (1.7-2.3); Osmolality Calculated 273 mOsm/kg (285-295); Phosphorus 2.9 mg/dL (2.5-4.5); Potassium 4.2 mmol/L (3.5-5.1); Sodium 131 mmol/L (136-145); Total Bilirubin 0.6 mg/dL (0.15-1.2); Total Protein 5.1 g/dL (6.6-8.7)
[2022-05-04 17:42] LABS: Free T4 Free Thyroxine 1.11 ng/dL (0.82-1.77); T3 Free 2.3 PG/ML (2.0-4.4)
[2022-05-04] MEDS: propofol 1,000 MG/100 ML INJ 16.06 MG IV (18:07)
[2022-05-04] MEDS: sodium chloride 0.9% 1,000 ML 100 ML IV (18:08)
[2022-05-04] MEDS: lanolin oint 7 gm 1 APPLIC TOPICAL (18:29)
[2022-05-04 19:01] LABS: Partial Thromboplastin Time 159.3 SECONDS (23.9-36.7)
--- NOTE | 2022-05-04 19:09 | PC.NURSE ---
PTT 159.9, Dr. Leary notified. Order to hold heparin 4 hours, follow protocol.
[2022-05-04 19:19] LABS: Folate Level 7.7 ng/mL (4.8-37.3)
[2022-05-04] MEDS: hydrocortisone 100 mg/2 mL SDV IVP (19:46)
[2022-05-04] MEDS: budesonide 0.5 mg/2 mL Neb INHALATION (20:13)
[2022-05-04] MEDS: ipratropium 0.5 mg/2.5 mL Neb INHALATION (20:13)
[2022-05-04] MEDS: levalbuterol 0.63 mg/3 mL Neb INHALATION (20:13)
[2022-05-04 20:25] LABS: ABG PCO2 35.4 mmHg (35-45); ABG PH Result 7.28 (7.35-7.45); Alveolar-Arterial Oxygen Gradi 40.7 mmHg (5-10); Arterial Blood Gas Hematocrit 36.1 % (37-47); Base Excess ABG -9.5 mmol/L (-2.0-2.0); Blood Gas Allen Test Pos; Blood Gas Sample Site Radial, right; Blood Gas Sample Type Arterial; Carboxyhemoglobin 0.5 %THgb (0.4-20.1); HCO3 ABG 16.5 mmol/L (22-26); HGB O2 Sat 98.6 % (95-100); Ionized Calcium Level - ABG 1.1 mmol/L (1.1-1.4); Methemoglobin 0.8 % (0.4-1.5); Oxygen Device VENT; Potassium Level - ABG 4.1 mmol/L (3.5-5.0); Total Hemoglobin 11.8 g/dL (12-16)
--- NOTE | 2022-05-04 20:45 | PC.NURSE ---
Notified Dr. Fajardo of current ABG results, new order to start IVF with HCO3 ordered.
[2022-05-04] MEDS: sodium bicarbonate 150 MEQ in dextrose 5% 1,000 ML 75 MEQ IV (20:57)
[2022-05-04 23:08] LABS: Amphetamines Screen Urine Negative (Negative); Barbiturates Screen Urine Negative (Negative); Benzodiazepines Screen Urine Negative (Negative); Cocaine Screen Urine Negative (Negative); Opiate Screen Urine Positive (Negative); PCP Screen Urine Negative (Negative); THC Screen Urine Negative (Negative)
[2022-05-04 23:12] LABS: Potassium, Radom Urine 13 mmol/L
[2022-05-04 23:24] LABS: Urine Random Chloride 10 mmol/L; Urine Random Sodium 10 mmol/L
[2022-05-05] VITALS (91 sets, daily range): BP systolic 81–126; BP diastolic 43–74; PULSE 85–114; RESP 16–25; TEMP 36.7–37.5; O2SAT 81–99
[2022-05-05] MEDS: propofol 1,000 MG/100 ML INJ 16.06 MG IV ×2 (00:45→12:08)
[2022-05-05] MEDS: hydrocortisone 100 mg/2 mL SDV IVP ×4 (01:44→19:36)
[2022-05-05] MEDS: levalbuterol 0.63 mg/3 mL Neb INHALATION ×4 (03:00→20:23)
[2022-05-05] MEDS: ipratropium 0.5 mg/2.5 mL Neb INHALATION ×4 (03:01→20:23)
[2022-05-05 03:16] LABS: ABG PCO2 36.2 mmHg (35-45); ABG PH Result 7.36 (7.35-7.45); Arterial Blood Gas Hematocrit 33.7 % (37-47); Base Excess ABG -4.6 mmol/L (-2.0-2.0); Blood Gas Allen Test Pos; Blood Gas Sample Site Radial, right; Blood Gas Sample Type Arterial; HCO3 ABG 20.3 mmol/L (22-26); Oxygen Device VENT
[2022-05-05] MEDS: norepinephrine 8 MG in dextrose 5 % 500 ML 9.53 MG IV (03:19)
[2022-05-05] MEDS: vancomycin 1,500 MG/300 ML PIGGYBACK 200 MG IV ×2 (03:32→16:15)
[2022-05-05] MEDS: piperacillin-tazobactam 3.375 GM in sodium chloride 0.9% (plus) 50 ML IV ×3 (03:33→19:37)
[2022-05-05 04:54] LABS: Hematocrit 31.7 % (37.0-47.0); Hemoglobin 10.3 g/dL (11.5-15.3); Mean Corpuscular HGB Conc 32.5 g/dL (30.0-36.0); Mean Corpuscular Hemoglobin 30.7 pg (28.0-34.0); Mean Corpuscular Volume 94.3 fl (81-99); Mean Platelet Volume 12.7 fL (7.4-10.4); Platelet Count 122 10^3/cmm (130-400); Red Blood Count 3.36 10^6/uL (4.1-5.3); Red Cell Distribution Width 13.8 % (12.1-15.1); White Blood Count 10.5 10^3/uL (4.0-10.0)
[2022-05-05 05:14] LABS: Estmated Average Glucose 94; Hemoglobin A1C 4.9 % (4.0-6.0); Partial Thromboplastin Time 140.6 SECONDS (23.9-36.7)
[2022-05-05 05:20] LABS: Alanine Aminotransferase 33 U/L (0-33); Albumin Level 2.4 g/dL (3.5-5.2); Alkaline Phosphatase 73 U/L (35-105); Anion Gap 13.7 (5-19); Aspartate Amino Transferase 49 U/L (0-32); Blood Urea Nitrogen 12 mg/dL (6-20); Calcium 7.6 mg/dL (8.5-10.5); Carbon Dioxide 19 mmol/L (22-29); Chloride 108 mmol/L (98-107); Chol HDL Ratio 5.73 mg/dL (0.0-4.40); Cholesterol 86 mg/dL (0-200); Globulin 2.6 g/dL (1.3-4.6); Glomerular Filtration Rate 71.7 mL/min (90-130); Glucose 150 mg/dL (65-115); HDL Cholesterol 15 mg/dL (60-100); LDL Cholesterol Calculated 1 mg/dL (50-129); Osmolality Calculated 287 mOsm/kg (285-295); Potassium 3.7 mmol/L (3.5-5.1); Sodium 137 mmol/L (136-145); Total Bilirubin 0.3 mg/dL (0.15-1.2); Triglycerides 348 mg/dL (0-150); VLDL Cholestrol Calculation 70 mg/dL (0-30)
[2022-05-05 05:26] LABS: Absolute Segmented Neutrophil 5.5 10/cmm (1.6-7.1); Band Neutrophils Absolute 4.3 10^3/cmm (0.0-1.2); Eosinophils 0 %; Lymphocytes 4 %; Lymphocytes Absolute 0.4 10^3/cmm (1.2-3.4); Monocytes Absolute 0.1 10^3/cmm (0.1-0.6); Segmented Neutrophils 52 %; Total Cells Counted 100 (0-100)
[2022-05-05 05:27] LABS: Absolute Neutrophil 9.8 10^3/cmm (1.4-6.5); Anisocytosis 1+; Ovalocytes 1+; Platelet Estimate Decreased (Normal); Poikilocytosis Trace
[2022-05-05] MEDS: propofol 1,000 MG/100 ML INJ 9.63 MG IV (06:07)
--- NOTE | 2022-05-05 06:54 | XRR_ITS ---
PROCEDURE INFORMATION: Exam: XR Chest Exam date and time: 05/05/2022 7:10 AM Age: 32 years old Clinical indication: Hyperventilation. Hypoxia. TECHNIQUE: Imaging protocol: Radiologic exam of the chest. Views: 1 view. COMPARISON: CR (CHEST, ) 05/04/2022 2:19 PM FINDINGS: Tubes, catheters and devices: Endotracheal tube approximately 3.3 cm above the karen. Right internal jugular central venous access device with tip in the right atrium. Nasogastric tube projects into the abdomen. Its tip is not included on the current study. In the left traumatic device overlies the left chest. Lungs: Approximately unchanged patchy opacities in the mid to lower right chest and at the left base. Pleural spaces: No pleural effusion. No pneumothorax. Heart/Mediastinum: The cardiac silhouette is approximately unchanged. No gross evidence of pneumomediastinum. Bones/joints: No gross fracture. XR/XR chest 1V portable [id number] IMPRESSION: Approximately unchanged patchy opacities in the mid to lower right chest and at the left base concerning for multifocal pneumonia.
--- NOTE | 2022-05-05 06:57 | PC.NURSE ---
Patient wakes up and becomes very agitated and attempting to removed OETT. Increased sedation, patient calms. O2 saturations decrease on 60%. Bilat breath sounds noted with coarse sounds. Notified Beata Moralez-xray ordered, O2 increased to 80% per RT.
--- NOTE | 2022-05-05 07:30 | PC.NURSE ---
Bedside report completed with PIYUSH Wood
[2022-05-05] MEDS: budesonide 0.5 mg/2 mL Neb INHALATION ×2 (07:44→20:23)
[2022-05-05] MEDS: azithromycin 500 MG in sodium chloride 0.9% 250 ML 250 MG IV (08:44)
[2022-05-05] MEDS: pantoprazole 40 mg SDV IVP (08:44)
[2022-05-05] MEDS: oseltamivir phosphate 75 mg Capsule PO ×2 (08:44→17:30)
[2022-05-05 10:28] LABS: Creatine Phosphokinase 107 U/L (26-192); Lactic Sepsis W/Reflex 2.1 mmol/L (0.5-2.2)
[2022-05-05 11:02] LABS: Reflex Lactate Order REFLEX LACTIC ORDERD
[2022-05-05] MEDS: albuterol 2.5 mg/3 mL Neb INHALATION (11:37)
[2022-05-05] MEDS: FUROsemide 10 mg/mL SDV 2mL 20 MG IVP (13:38)
--- NOTE | 2022-05-05 13:38 | PC.NURSE ---
MAR delay related to care of 2 other critical patients.
[2022-05-05 14:02] LABS: Lactic Acid level (Lactate) 2.1 mmol/L (0.5-2.2)
[2022-05-05 14:17] LABS: ABG PCO2 33.4 mmHg (35-45); ABG PH Result 7.43 (7.35-7.45); Alveolar-Arterial Oxygen Gradi 30.1 mmHg (5-10); Arterial Blood Gas Hematocrit 33.1 % (37-47); Base Excess ABG -1.5 mmol/L (-2.0-2.0); Blood Gas Allen Test Pos; Blood Gas Operator Identificat CAK; Blood Gas Sample Site Radial, left; Blood Gas Sample Type Arterial; Carboxyhemoglobin < 1.0 %THgb (0.4-20.1); HCO3 ABG 22.3 mmol/L (22-26); HGB O2 Sat 87.7 % (95-100); Ionized Calcium Level - ABG 1.1 mmol/L (1.1-1.4); Methemoglobin 0.7 % (0.4-1.5); Oxygen Device VENT; Oxygen Saturation ABG 89.1; PO2 ABG 50.7 mmHg (80.0-100.0); Potassium Level - ABG 3.3 mmol/L (3.5-5.0); Total Hemoglobin 10.8 g/dL (12-16)
--- NOTE | 2022-05-05 14:18 | PC.NUTR ---
TF consult received. Recommend Jevity 1.2 beginning at 15 mls/hr, increasing 10 mls/hr Q8H as tolerated, until goal rate of 55 mls/hr is reached with FW flushes of 120 mls Q4H or per MD discretion. Details in RD assessment.
[2022-05-05] MEDS: propofol 1,000 MG/100 ML INJ 22.48 MG IV ×2 (17:45→21:06)
--- NOTE | 2022-05-05 17:45 | PM.PN ---
Subjective Subjective: Seen multiple times during the day today. No acute events overnight. Overnight Levophed has been stopped. Today morning on examination patient is on fentanyl of 25, propofol of 25. Mean arterial pressure has remained around 70. Heart rate has been more settled to be in high 90s. Urine output is improving. Documented urine output of around 3 L. T-max since admission 100.2 Fahrenheit. Vitals/I&O/Wt Last Vital Signs Temp 99.1 F 05/05/22 13:30 Pulse 95 05/05/22 16:45 Resp 16 05/05/22 16:45 BP 96/74 05/05/22 16:45 Pulse Ox 95 05/05/22 16:45 O2 Del Method 05/05/22 16:45 FiO2 50 05/05/22 16:45 05/05/22 05/05/22 05/05/22 06:59 14:59 22:59 Intake Total 839.748 / 6627.684 2305.951 / 2305.951 Output Total 2475 / 3125 Balance -1635.252 / 3502.684 2305.951 / 2305.951 Weight last 48 hrs Weight 114.351 kg Weight 115.468 kg Weight 107.048 kg Physical Exam Narrative: General: Intubated, sedated on mechanical ventilator, HEENT: PERRLA, pupils bilaterally equal and reactive Chest: Bronchial breath sounds b/l , decreased air entry on right side, coarse crackles present all over the right lung field, diffuse rhonchi all over the lung mckinnon bilaterally, CVS: S1-S2 regular, no murmurs, tachycardia, no gallops, no rubs Abdomen: Soft, nontender, no organomegaly, bowel sounds present, morbidly obese Neuro: No focal deficits, no facial deformity, AO x3, power 5/5 in all limbs Urinary Catheter Management: Holguin: Cath Placed During This Visit: yes Reason for Continuing Indwelling Catheter: Accurate Measurement of Urinary Output in Critically Ill Patients Urinary Catheter Date of Insertion: 05/04/22 Data 05/05/22 04:30 05/05/22 04:30 Micro: Microbiology 05/04/22 13:40 Gram Stain - Final Sputum - Expectorated Sputum Sputum Culture - Preliminary 05/04/22 08:43 Blood Culture - Preliminary Blood NEGATIVE TO DATE 05/04/22 08:40 Blood Culture - Preliminary Blood NEGATIVE TO DATE 05/04/22 22:49 Legionella Urinary Antigen - Final Unknown Source 05/04/22 16:39 MRSA Culture - Final Nose 05/04/22 15:05 Bacterial Antigens - Final Urine Kidney A&P Assessment and plan (1) Septic shock: Present on admission. Ruled in by tachycardia, hypotension requiring pressors, endorgan damage with hypoxic respiratory failure, lactic acidosis. Pressors weaned off. Keep mean artery pressure 65. Keep saturation over 90%. For now continue with empiric antibiotics with vancomycin, Zosyn, azithromycin. MRSA negative, urine Legionella bacterial antigen negative. We will plan to DC vancomycin and azithromycin within next 24 to 48 hours if patient continues to have clinical improvement. For now continue with hydrocortisone 100 mg every 6 hourly as per stress dose steroids. Will wean down within next 24 hours. (2) Acute respiratory failure with hypoxia: Maintain saturation over 90%. Ipratropium, Xopenex every 6 hour, budesonide twice daily. Respiratory failure most likely secondary to pneumonia in setting of recent flu A. COVID swab negative. Fluid positive. D-dimer elevated. CTA ruled out PE. Stop heparin drip. Strict input output charting, daily weight. 20 mg IV Lasix. (3) Pneumonia: (4) Influenza A: Continue with Tamiflu 75 mg twice daily. Rest treatment as above. (5) Metabolic acidosis: Resolved. Hold off on any further IV fluids. (6) Lactic acid acidosis: (7) Positive KATHLEEN (antinuclear antibody): (8) Chronic steroid use: Plan Full code. NPO. Protonix for PUD prophylaxis Heparin drip will suffice as DVT prophylaxis. Critically ill. Care discussed in detail with patient's Mr. Giles over the phone. We discussed that patient unfortunately is critically ill now given septic shock with respiratory failure requiring mechanical ventilation and multiple pressors. Attestations Medical Necessity Statement*: Requires further hospitalization for management of severe sepsis, respiratory failure requiring mechanical ventilator in setting of pneumonia, flu A Critical Care Time: The high probability of a clinically significant, sudden or life threatening deterioration of the patient's [pulmonary, cardiac] system(s) required my full and direct attention, intervention and personal management. The critical care time is as shown. This time is in addition to time spent performing any reported procedures but includes the following: [x] Data and vital sign review and interpretation [x] Patient assessment, examination and intervention [x] Documentation [x] Medication orders and management Critical Care Time (min): 60 Coding Level of Care Code Acute Superintendent Building for [facility]g Fwd Diagnoses Septic shock A41.9; R65.21 Acute respiratory failure with hypoxia J96.01 Pneumonia J18.9 Influenza A J10.1 Metabolic acidosis E87.20 Lactic acid acidosis E87.20 Positive KATHLEEN (antinuclear antibody) R76.8 Chronic steroid use
--- NOTE | 2022-05-05 19:05 | PC.NURSE ---
Bedside report completed with Juan Wood
--- NOTE | 2022-05-05 19:30 | PC.NURSE ---
Shift Note: Pt sedated and intubate throughout shift. Her FIO2 at 50% , she does remain slightly tachypneic at about 25bpm. She did slightly wake up this evening, thrashing, she did get ahold of her OG even with restraints on. She pulled it out about 3 inches, but not enough to aspirate or need a chest xray. Jevity tube feeding started iwth H2O flushes. She is tolerating that well. Her called today and was updated on her progress and betancur of care. Frequent safety and comfort rounds continue. Orders and/or nursing care completed as indicated. Patient monitored for response to intervention and treatment(s). Education provided includes Jevity, Azithromycin, solu-medrol ,tamiflu and plan of care. Patient unable to respond to teaching due to sedation Her verbalized understanding on medications, progress and plan of care. Will continue to monitor.
[2022-05-05] MEDS: albumin 12.5 GM/50 ML VIAL IV (19:33)
[2022-05-05] MEDS: sodium chloride 0.9% 1,000 ML 75 ML IV (19:33)
[2022-05-06] VITALS (77 sets, daily range): BP systolic 97–146; BP diastolic 51–94; PULSE 80–126; RESP 14–40; TEMP 37.1–38.3; O2SAT 90–98
[2022-05-06] MEDS: propofol 1,000 MG/100 ML INJ 25.69 MG IV (00:40)
[2022-05-06] MEDS: hydrocortisone 100 mg/2 mL SDV IVP ×4 (01:47→22:04)
[2022-05-06] MEDS: vancomycin 1,500 MG/300 ML PIGGYBACK 200 MG IV ×2 (03:21→16:05)
[2022-05-06] MEDS: ipratropium 0.5 mg/2.5 mL Neb INHALATION ×4 (03:22→20:19)
[2022-05-06] MEDS: levalbuterol 0.63 mg/3 mL Neb INHALATION ×3 (03:22→13:26)
[2022-05-06] MEDS: piperacillin-tazobactam 3.375 GM in sodium chloride 0.9% (plus) 50 ML IV ×3 (03:22→22:04)
[2022-05-06 03:30] LABS: ABG PCO2 35.6 mmHg (35-45); Alveolar-Arterial Oxygen Gradi 29.6 mmHg (5-10); Arterial Blood Gas Hematocrit 29.8 % (37-47); Base Excess ABG -2.1 mmol/L (-2.0-2.0); Blood Gas Allen Test Pos; Blood Gas Sample Site Radial, right; Blood Gas Sample Type Arterial; Carboxyhemoglobin 0.5 %THgb (0.4-20.1); HCO3 ABG 22.2 mmol/L (22-26); HGB O2 Sat 98.1 % (95-100); Ionized Calcium Level - ABG 1.1 mmol/L (1.1-1.4); Methemoglobin < 0.0 % (0.4-1.5); Oxygen Device VENT; PO2 ABG 87.4 mmHg (80.0-100.0); Potassium Level - ABG 3.2 mmol/L (3.5-5.0); Total Hemoglobin 9.7 g/dL (12-16)
[2022-05-06 03:31] LABS: Basophils % 0.3 %; Hematocrit 30.1 % (37.0-47.0); Hemoglobin 9.8 g/dL (11.5-15.3); Lymphocytes # 0.5 10^3/uL (0.8-4.8); Lymphocytes % 4.7 %; Mean Corpuscular HGB Conc 32.6 g/dL (30.0-36.0); Mean Corpuscular Hemoglobin 30.6 pg (28.0-34.0); Mean Corpuscular Volume 94.1 fl (81-99); Mean Platelet Volume 12.6 fL (7.4-10.4); Monocytes # 0.4 10^3/uL (0.2-0.9); Monocytes % 3.1 %; Neutrophils # 10.24 10^3/uL (1.8-7.7); Neutrophils % 91.5 %; Nucleated Red Blood Cells % 0 %; Platelet Count 119 10^3/cmm (130-400); Red Cell Distribution Width 14.1 % (12.1-15.1); White Blood Count 11.2 10^3/uL (4.0-10.0)
[2022-05-06 03:55] LABS: Slide Review Slide Review Perform
[2022-05-06 03:58] LABS: Alanine Aminotransferase 28 U/L (0-33); Albumin Level 2.5 g/dL (3.5-5.2); Alkaline Phosphatase 93 U/L (35-105); Anion Gap 14.4 (5-19); Aspartate Amino Transferase 45 U/L (0-32); Blood Urea Nitrogen 19 mg/dL (6-20); Carbon Dioxide 22 mmol/L (22-29); Chloride 110 mmol/L (98-107); Globulin 3.1 g/dL (1.3-4.6); Glomerular Filtration Rate 71.7 mL/min (90-130); Glucose 132 mg/dL (65-115); Osmolality Calculated 300 mOsm/kg (285-295); Potassium 3.4 mmol/L (3.5-5.1); Sodium 143 mmol/L (136-145); Total Bilirubin 0.3 mg/dL (0.15-1.2); Total Protein 5.6 g/dL (6.6-8.7)
[2022-05-06] MEDS: propofol 1,000 MG/100 ML INJ 32.11 MG IV ×4 (04:33→13:38)
[2022-05-06] MEDS: acetaminophen 325 mg Tablet 650 MG PO ×2 (04:36→11:55)
[2022-05-06] MEDS: morphine 4 mg/mL SDV 1 mL 2 MG IVP (04:36)
--- NOTE | 2022-05-06 06:00 | XRR_ITS ---
PROCEDURE INFORMATION: Exam: XR Chest Exam date and time: 05/06/2022 5:30 AM Age: 32 years old Clinical indication: Other: Influenza, daily port for intubated PT; Prior surgery; Surgery date: 6+ months; Surgery type: Pacemaker TECHNIQUE: Imaging protocol: Radiologic exam of the chest. Views: 1 view. COMPARISON: CR (CHEST, ) 05/05/2022 7:10 AM FINDINGS: Tubes, catheters and devices: An endotracheal tube is present with the tip about 2 cm above the karen. A nasogastric tube extends down to the stomach. A stimulator pack projects on the left side of the chest. A right jugular venous catheter tip projects on the SVC. Lungs: There are diffuse bilateral pulmonary infiltrates which have worsened since the previous chest x-ray. Pleural spaces: Unremarkable. No pleural effusion. No pneumothorax. Heart/Mediastinum: Unremarkable. No cardiomegaly. Bones/joints: Unremarkable. XR/XR chest 1V portable [id number] IMPRESSION: Worsening diffuse bilateral pulmonary infiltrates.
--- NOTE | 2022-05-06 06:50 | PC.NURSE ---
Bedside report completed with PIYUSH Wood
[2022-05-06] MEDS: azithromycin 500 MG in sodium chloride 0.9% 250 ML 250 MG IV (08:04)
[2022-05-06] MEDS: pantoprazole 40 mg SDV IVP (08:04)
[2022-05-06] MEDS: oseltamivir phosphate 75 mg Capsule PO ×2 (08:06→19:28)
[2022-05-06] MEDS: budesonide 0.5 mg/2 mL Neb INHALATION (08:27)
[2022-05-06] MEDS: albuterol 2.5 mg/3 mL Neb INHALATION (11:11)
--- NOTE | 2022-05-06 11:58 | PM.PN ---
Subjective Subjective: Intubated, sedated on mechanical ventilator, accompanied by her at bedside. Earlier when woke up reported tried reaching for ET tube. Vitals/I&O/Wt Last Vital Signs Temp 99.1 F 05/06/22 08:00 Pulse 87 05/06/22 11:24 Resp 27 H 05/06/22 11:20 BP 125/83 05/06/22 10:00 Pulse Ox 94 05/06/22 11:20 O2 Del Method 05/06/22 11:20 FiO2 50 05/06/22 11:20 05/05/22 05/06/22 05/06/22 22:59 06:59 14:59 Intake Total 916.178 / 3272.129 1962.998 / 5235.127 474.388 / 474.388 Output Total 750 / 1050 650 / 1700 Balance 166.178 / 2222.129 1312.998 / 3535.127 474.388 / 474.388 Weight last 48 hrs Weight 116.528 kg Weight 114.351 kg Weight 115.468 kg Physical Exam Const: GENERAL APPEARANCE: patient mechanically ventilated HENMT: COMMON NORMALS: oropharynx normal Neck/C-Spine: COMMON NORMALS: no JVD Resp: COMMON NORMALS: normal respiratory effort EFFORT & INSPECTION: Yes tachypneic AUSCULTATION: rales bilateral at the base Cardio: COMMON NORMALS: no JVD, regular rhythm, S1 normal heart sound present, S2 normal heart sound present and No murmurs present (Cardio) RHYTHM: regular rhythm HEART SOUNDS: S1 normal heart sound present and S2 normal heart sound present GI: COMMON NORMALS: Normal to inspection, nondistended, normoactive bowel sounds present, Soft to palpation and non-tender PALPATION: Yes Soft to palpation Extremity: COMMON NORMALS: no joint enlargement and no pedal edema Skin: COMMON NORMALS: no rashes or lesions noted GENERAL SKIN EXAM: no rashes or lesions noted Urinary Catheter Management: Holguin: Cath Placed During This Visit: yes Reason for Continuing Indwelling Catheter: Accurate Measurement of Urinary Output in Critically Ill Patients Urinary Catheter Date of Insertion: 05/04/22 Data 05/06/22 03:08 05/06/22 03:08 Micro: Microbiology 05/04/22 13:40 Gram Stain - Final Sputum - Expectorated Sputum Sputum Culture - Final 05/04/22 08:43 Blood Culture - Preliminary Blood NEGATIVE TO DATE 05/04/22 08:40 Blood Culture - Preliminary Blood NEGATIVE TO DATE A&P Assessment and plan (1) Acute respiratory failure with hypoxia: Diffuse pneumonia. Influenza plus rhinovirus. Tachypneic. Faint crackles in bases. DC IV fluid. Discussed with her we will increase sedation. Continue mechanical ventilatory support. Wean down as tolerating. Continue Tamiflu. Given immunocompromise continue empiric antibiotic coverage with Zosyn, vancomycin, azithromycin. Continue Ipratropium, Xopenex every 6 hour, budesonide twice daily. Additional 20 mg IV Lasix. Hold tube feeds. Despite increase sedation with additional Versed, continue propofol, fentanyl, still tachypneic 30s-40s breaths per minute. Oxygen requirement up to 70%. Discussed again with regarding initiation paralytic agent. Depending on oxygenation, response, consider proning. COVID swab negative. D-dimer elevated. CTA ruled out PE. Off heparin drip. Add VTE prophylaxis. Strict input output charting, daily weight. (2) Septic shock: Present on admission. Ruled in by tachycardia, hypotension requiring pressors, endorgan damage with hypoxic respiratory failure, lactic acidosis. Pressors weaned off. Keep mean artery pressure 65. Keep saturation over 90%. For now continue with empiric antibiotics with vancomycin, Zosyn, azithromycin. MRSA negative, urine Legionella bacterial antigen negative. We will plan to DC vancomycin and azithromycin within next 24 to 48 hours if patient continues to have clinical improvement. For now continue with hydrocortisone 100 mg every 6 hourly as per stress dose steroids. Will wean down within next 24 hours. (3) Pneumonia: (4) Influenza A: Continue with Tamiflu 75 mg twice daily. Rest treatment as above. (5) Metabolic acidosis: Resolved. Hold off on any further IV fluids. (6) Lactic acid acidosis: (7) Positive KATHLEEN (antinuclear antibody): (8) Chronic steroid use: Plan Full code. Protonix for PUD prophylaxis Heparin DVT prophylaxis. Critically ill. Care discussed in detail with patient's Mr. Giles over the phone. We discussed that patient unfortunately is critically ill now given septic shock with respiratory failure requiring mechanical ventilation and multiple pressors. Attestations Medical Necessity Statement*: Continue admission for assessment and management of hypoxic respiratory failure. Critical Care Time: The high probability of a clinically significant, sudden or life threatening deterioration of the patient's respiratory system(s) required my full and direct attention, intervention and personal management. The critical care time is as shown. This time is in addition to time spent performing any reported procedures but includes the following: x Data and vital sign review and interpretation x Patient assessment, examination and intervention x Documentation x Medication orders and management critical care time 75 minutes. 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
--- NOTE | 2022-05-06 12:05 | PC.NURSE ---
Pt tachypneic, Sedation has been steadily increase to no improvement. RT notified Dr Rabago. He came to unit. New orders received.
--- NOTE | 2022-05-06 12:21 | PC.CHAP ---
Pastoral Care Encounter/Spiritual Assessment Type of Contact [] Declined contact lens technician visit [] Patient/Family/Request visit [] Outpatient visit [] Follow-up visit [] Physician referral [] Code/Alert [x] Routine visit [] Staff referral [] Actively dying [] Patient sleeping [x] Family support [] [] Out of room [] Palliative care [] [x] Receiving care in room [] Pre-surgical visit [] Trauma [] Long length of stay [x] ICU visit [x] Other: resting well... isolated Relational/Emotional Strength [] Patient feels connected with others/family/visitors/staff [] Distress [] Loneliness/isolation [] Abandonment Spirituality of Patient [] Person of Tania [] Attends Catholic of their Tania [] Believes in Prayer [] Reads Bible or Yazidism materials [] There are Spiritual issues to be addressed Charm Filter Operator Helper Interventions [x] Prayer [] Active listening [] Non-anxious presence [] Spiritual/emotional support [] Crisis/trauma care [] Spiritual counseling [] Bereavement support [] Provided bereavement packet [] Provided Bible/devotional materials [] Provided toy/stuffed animal, coloring book to patient or family member [] Provided Communion [] Anointing/[place] [] Salvation [x] Completed spiritual assessment [] Other: Impact on Illness or Injury [] Angry [] Fearful [] Anxious [] Often cries [] Exhaustion [] Unable to work [] Unable to attend restorationism [] Unable to walk/stand [] Unable to read [] Unable to drive [] Unable to eat/drink [] Unable to sleep [] Unable to be with family [] Patient intubated [] Other: Summary Time spent with patient
[2022-05-06] MEDS: cisatracurium 100 MG in sodium chloride 0.9% 50 ML IV (13:31)
--- NOTE | 2022-05-06 13:32 | PC.RESP ---
notified of pt. increased RR at 1200.
[2022-05-06] MEDS: lanolin oint 7 gm 1 APPLIC TOPICAL (13:41)
[2022-05-06] MEDS: heparin 5,000 unit/mL INJ 1 mL 5000 UNIT SUBCUT (13:42)
[2022-05-06 15:17] LABS: Vancomycin Trough 16.9 ug/mL (10-15)
[2022-05-06 15:34] LABS: ABG PCO2 41.1 mmHg (35-45); ABG PH Result 7.36 (7.35-7.45); Alveolar-Arterial Oxygen Gradi 37.6 mmHg (5-10); Arterial Blood Gas Hematocrit 32.3 % (37-47); Blood Gas Allen Test Pos; Blood Gas Operator Identificat CAK; Blood Gas Sample Site Radial, left; Blood Gas Sample Type Arterial; Carboxyhemoglobin 0.7 %THgb (0.4-20.1); HCO3 ABG 23.3 mmol/L (22-26); Ionized Calcium Level - ABG 1.2 mmol/L (1.1-1.4); Methemoglobin 0.8 % (0.4-1.5); Oxygen Device VENT; Oxygen Saturation ABG 97.4; PO2 ABG 90.7 mmHg (80.0-100.0); Potassium Level - ABG 2.9 mmol/L (3.5-5.0); Total Hemoglobin 10.6 g/dL (12-16)
--- NOTE | 2022-05-06 16:00 | PC.NURSE ---
Appropriate sedation and paralyzing obtained. Medical restraints discontinued.
[2022-05-06 17:44] LABS: ABG PCO2 49.8 mmHg (35-45); ABG PH Result 7.29 (7.35-7.45); Arterial Blood Gas Hematocrit 31.7 % (37-47); Base Excess ABG -2.8 mmol/L (-2.0-2.0); Blood Gas Allen Test Pos; Blood Gas Operator Identificat CAK; Blood Gas Sample Site Radial, left; Blood Gas Sample Type Arterial; Oxygen Device VENT; PO2 ABG 84.2 mmHg (80.0-100.0)
--- NOTE | 2022-05-06 19:30 | PC.NURSE ---
Bedside report completed with PIYUSH Leavitt
[2022-05-06 20:15] LABS: ABG PCO2 50.9 mmHg (35-45); ABG PH Result 7.29 (7.35-7.45); Arterial Blood Gas Hematocrit 29.8 % (37-47); Base Excess ABG -2.6 mmol/L (-2.0-2.0); Blood Gas Allen Test Pos; Blood Gas Sample Site Radial, right; Blood Gas Sample Type Arterial; Blood Gas Tidal Volume 0.42; HCO3 ABG 24.2 mmol/L (22-26); Oxygen Device VENT; PO2 ABG 81.4 mmHg (80.0-100.0)
--- NOTE | 2022-05-06 20:21 | PC.NURSE ---
BIS and TOF on right eye brow. 1325: start. BIS 39 TOF 4/4 on power of 3. 1400: BIS 29. TOF 3/4 on power of 4. Pt not vent complaint. Sedation , Fentanyl and versed, decreased per BIS and paralytic increased. 1520: BIS 28. Pt not vent compliant. Fentanyl and Propofol decreased per BIS. Nimbex increased. 1545: BIS 29. TOF 4/4. Pt complaint with vent. No change to paralytic. Sedation, Versed and Fentanyl decreased per BIS. 1920: BIS 31. TOF 4/4 on power of 4. Pt compliant with vent. No change to paralytic. Versed decreased to 2.
--- NOTE | 2022-05-06 20:29 | PC.NURSE ---
Shift Note: Pt sedated, paralyzed and intubated. Pt has been tachypniec and shallow breathing while on vent, unable to improve this with changing and adjusting sedation. Decision to paralyze her was made at noon. Pt now compliant with vent. fentanyl, Versed and propofol infusing for sedation. Nimbex for the paralytic. She remains on 3 antibiotics. See MAR for specific medication details. She has been slightly febrile this am. She received acetaminophen once around noon, did not seem to help decrease temp at that time, but temp was improved at 1600. She had 800 ml of urine output this sift. The tube feeding was stopped at noon. her was in to visit this am and was also updated via telephone this afternoon. Frequent safety and comfort rounds continue. Orders and/or nursing care completed as indicated. Patient monitored for response to intervention and treatment(s). Education provided includes Fentanyl, Propofol, versed, antibiotics, nimbex, plan of care, vent, and progress.. Patient sedated unable to comprehend at this time. verbalized understanding of plan of care, progress, medications an discussed. Will continue to monitor.
[2022-05-06] MEDS: cisatracurium 100 MG in sodium chloride 0.9% 50 ML 12.59 MG IV (22:37)
[2022-05-06] MEDS: propofol 1,000 MG/100 ML INJ 16.06 MG IV (23:36)
[2022-05-07] VITALS (112 sets, daily range): BP systolic 118–172; BP diastolic 76–113; PULSE 81–121; RESP 22–27; TEMP 37.7–38.5; O2SAT 92–99; BMI 45.1
[2022-05-07] MEDS: heparin 5,000 unit/mL INJ 1 mL 5000 UNIT SUBCUT ×2 (01:26→11:56)
[2022-05-07] MEDS: hydrocortisone 100 mg/2 mL SDV IVP ×3 (01:26→13:33)
[2022-05-07 03:17] LABS: Basophils % 0.2 %; Hematocrit 30.2 % (37.0-47.0); Hemoglobin 9.7 g/dL (11.5-15.3); Lymphocytes # 0.5 10^3/uL (0.8-4.8); Lymphocytes % 5.4 %; Mean Corpuscular HGB Conc 32.1 g/dL (30.0-36.0); Mean Corpuscular Hemoglobin 30.4 pg (28.0-34.0); Mean Corpuscular Volume 94.7 fl (81-99); Mean Platelet Volume 12.8 fL (7.4-10.4); Monocytes # 0.4 10^3/uL (0.2-0.9); Monocytes % 3.5 %; Neutrophils # 9.07 10^3/uL (1.8-7.7); Neutrophils % 89.9 %; Nucleated Red Blood Cells % 0 %; Platelet Count 101 10^3/cmm (130-400); Red Blood Count 3.19 10^6/uL (4.1-5.3); Red Cell Distribution Width 14.4 % (12.1-15.1); White Blood Count 10.1 10^3/uL (4.0-10.0)
[2022-05-07] MEDS: levalbuterol 0.63 mg/3 mL Neb INHALATION ×5 (03:20→19:59)
[2022-05-07] MEDS: ipratropium 0.5 mg/2.5 mL Neb INHALATION ×4 (03:20→19:59)
[2022-05-07 03:26] LABS: ABG PCO2 39.8 mmHg (35-45); Alveolar-Arterial Oxygen Gradi 35.9 mmHg (5-10); Arterial Blood Gas Hematocrit 29.8 % (37-47); Base Excess ABG -0.5 mmol/L (-2.0-2.0); Blood Gas Allen Test Pos; Blood Gas Sample Site Radial, right; Blood Gas Sample Type Arterial; Blood Gas Tidal Volume 0.42; Carboxyhemoglobin 0.7 %THgb (0.4-20.1); HCO3 ABG 24.3 mmol/L (22-26); HGB O2 Sat 97.2 % (95-100); Ionized Calcium Level - ABG 1.2 mmol/L (1.1-1.4); Methemoglobin 0.9 % (0.4-1.5); Oxygen Device VENT; Oxygen Saturation ABG 98.7; Potassium Level - ABG 3.3 mmol/L (3.5-5.0); Total Hemoglobin 9.7 g/dL (12-16)
[2022-05-07 03:45] LABS: Alanine Aminotransferase 26 U/L (0-33); Albumin Level 2.5 g/dL (3.5-5.2); Alkaline Phosphatase 180 U/L (35-105); Anion Gap 12.4 (5-19); Aspartate Amino Transferase 35 U/L (0-32); Blood Urea Nitrogen 21 mg/dL (6-20); Calcium 8.3 mg/dL (8.5-10.5); Carbon Dioxide 24 mmol/L (22-29); Chloride 112 mmol/L (98-107); Globulin 3.3 g/dL (1.3-4.6); Glomerular Filtration Rate 95.8 mL/min (90-130); Glucose 125 mg/dL (65-115); Osmolality Calculated 304 mOsm/kg (285-295); Potassium 3.4 mmol/L (3.5-5.1); Sodium 145 mmol/L (136-145); Total Bilirubin 0.3 mg/dL (0.15-1.2); Total Protein 5.8 g/dL (6.6-8.7)
[2022-05-07] MEDS: vancomycin 1,500 MG/300 ML PIGGYBACK 200 MG IV ×2 (04:00→15:34)
[2022-05-07] MEDS: piperacillin-tazobactam 3.375 GM in sodium chloride 0.9% (plus) 50 ML IV ×3 (04:01→20:49)
[2022-05-07] MEDS: acetaminophen 325 mg Tablet 650 MG PO ×2 (05:17→21:14)
[2022-05-07] MEDS: propofol 1,000 MG/100 ML INJ 19.27 MG IV (05:44)
--- NOTE | 2022-05-07 06:00 | XR_ITS ---
WS: [id number] Exam: XR chest 1V portable [id number] Date/Time of Exam: 05/07/2022 6:00 AM Reason For Exam: intubated Comparison 05/06/2022. Again noted are widespread consolidating infiltrates throughout both lungs. The heart remains enlarge d. No pneumothorax. ET tube is in place ending slightly above the karen and should be withdrawn 3 to 4 cm for optimal position. An enteric tube extends into the stomach but the tip is not visible. A ri ght-sided IJ catheter extends into the right atrium. A cardiac pacer noted over the left chest. Bony structures are intact. The mediastinum does not appear to be widened. XR/XR chest 1V portable [id number] IMPRESSION: 1. Widespread consolidating infiltrates throughout both lungs showing no signif icant change. Cardiac enlargement unchanged. 2. ET tube ends near the karen and should be withdrawn 3 to 4 cm for optimal p osition. These findings and recommendations were discussed by phone with Brianna loya's ICU nurse at 7:55 AM 05/07/2022.
--- NOTE | 2022-05-07 06:30 | PC.NURSE ---
BIS/TOF Monitoring Time BIS TOF 1999 27 4 2200 30 4 0000 29 4 0200 37 4 0400 28 4 0600 32 4
[2022-05-07] MEDS: pantoprazole 40 mg SDV IVP (08:00)
[2022-05-07] MEDS: oseltamivir phosphate 75 mg Capsule PO ×2 (08:01→17:04)
[2022-05-07] MEDS: azithromycin 500 MG in sodium chloride 0.9% 250 ML 250 MG IV (08:03)
[2022-05-07] MEDS: cisatracurium 100 MG in sodium chloride 0.9% 50 ML 12.59 MG IV ×2 (08:07→16:01)
[2022-05-07] MEDS: budesonide 0.5 mg/2 mL Neb INHALATION ×2 (08:44→19:59)
[2022-05-07] MEDS: FUROsemide 10 mg/mL SDV 2mL 20 MG IVP ×2 (09:31→16:00)
--- NOTE | 2022-05-07 10:21 | PC.CHAP ---
Pastoral Care Encounter/Spiritual Assessment Type of Contact [] Declined second watch sergeant visit [] Patient/Family/Request visit [] Outpatient visit [] Follow-up visit [] Physician referral [] Code/Alert [x] Routine visit [] Staff referral [] Actively dying [] Patient sleeping [] Family support [] [] Out of room [] Palliative care [] [x] Receiving care in room [] Pre-surgical visit [] Trauma [] Long length of stay [x] ICU visit [] Other: Relational/Emotional Strength [] Patient feels connected with others/family/visitors/staff [] Distress [] Loneliness/isolation [] Abandonment Spirituality of Patient [] Person of Tania [] Attends Yarsani of their Tania [] Believes in Prayer [] Reads Bible or Bahai materials [] There are Spiritual issues to be addressed Geek Squad Agent Interventions [x] Prayer [] Active listening [] Non-anxious presence [] Spiritual/emotional support [] Crisis/trauma care [] Spiritual counseling [] Bereavement support [] Provided bereavement packet [] Provided Bible/devotional materials [] Provided toy/stuffed animal, coloring book to patient or family member [] Provided Communion [] Anointing/[place] [] Salvation [x] Completed spiritual assessment [] Other: Impact on Illness or Injury [] Angry [] Fearful [] Anxious [] Often cries [] Exhaustion [] Unable to work [] Unable to attend congregation [] Unable to walk/stand [] Unable to read [] Unable to drive [] Unable to eat/drink [] Unable to sleep [] Unable to be with family [] Patient intubated [] Other: Summary Time spent with patient
[2022-05-07] MEDS: albuterol 2.5 mg/3 mL Neb INHALATION ×2 (11:29→23:33)
[2022-05-07] MEDS: propofol 1,000 MG/100 ML INJ 9.63 MG IV ×2 (11:32→20:57)
[2022-05-07 13:00] LABS: ABG PCO2 50.5 mmHg (35-45); Alveolar-Arterial Oxygen Gradi 29.4 mmHg (5-10); Arterial Blood Gas Hematocrit 34.3 % (37-47); Base Excess ABG -1.8 mmol/L (-2.0-2.0); Blood Gas Allen Test Pos; Blood Gas Operator Identificat GD; Blood Gas Sample Site Radial, left; Blood Gas Sample Type Arterial; Blood Gas Tidal Volume 0.42; Carboxyhemoglobin 0.7 %THgb (0.4-20.1); Ionized Calcium Level - ABG 1.2 mmol/L (1.1-1.4); Methemoglobin 0.6 % (0.4-1.5); Oxygen Device VENT; Oxygen Saturation ABG 94.2; PO2 ABG 72.7 mmHg (80.0-100.0); Potassium Level - ABG 2.6 mmol/L (3.5-5.0); Total Hemoglobin 11.2 g/dL (12-16)
[2022-05-07] MEDS: potassium chloride oral liq 20 mEq/15 mL UDC 40 MEQ PO ×2 (14:07→21:59)
--- NOTE | 2022-05-07 14:22 | P.PN_ITS ---
Subjective Subjective: Intubated, with sedation and paralytic. Vitals/I&O/Wt Last Vital Signs Temp 99.9 F H 05/07/22 11:00 Pulse 106 H 05/07/22 14:00 Resp 24 H 05/07/22 13:29 BP 166/106 05/07/22 14:00 Pulse Ox 93 05/07/22 14:00 O2 Del Method 05/07/22 13:27 FiO2 50 05/07/22 13:29 05/06/22 05/07/22 05/07/22 22:59 06:59 14:59 Intake Total 635.668 / 1707.246 683.718 / 2390.964 410.827 / 410.827 Output Total 475 / 800 500 / 1300 Balance 160.668 / 907.246 183.718 / 1090.964 410.827 / 410.827 Weight last 48 hrs Weight 115.751 kg Weight 116.528 kg Physical Exam Const: GENERAL APPEARANCE: patient mechanically ventilated HENMT: COMMON NORMALS: oropharynx normal Neck/C-Spine: COMMON NORMALS: no JVD Resp: COMMON NORMALS: normal respiratory effort OTHER: Sounding clearer today. Cardio: COMMON NORMALS: no JVD, regular rhythm, S1 normal heart sound present, S2 normal heart sound present and No murmurs present (Cardio) RHYTHM: regular rhythm HEART SOUNDS: S1 normal heart sound present and S2 normal heart sound present GI: COMMON NORMALS: Normal to inspection, nondistended, normoactive bowel sounds present, Soft to palpation and non-tender PALPATION: Yes Soft to palpation Extremity: COMMON NORMALS: no joint enlargement OTHER: Edema of hands, feet Skin: COMMON NORMALS: no rashes or lesions noted GENERAL SKIN EXAM: no rashes or lesions noted Urinary Catheter Management: Holguin: Cath Placed During This Visit: yes Reason for Continuing Indwelling Catheter: Accurate Measurement of Urinary Output in Critically Ill Patients Urinary Catheter Date of Insertion: 05/04/22 Data 05/07/22 02:45 05/07/22 02:45 Micro: Microbiology 05/04/22 13:40 Gram Stain - Final Sputum - Expectorated Sputum Sputum Culture - Final A&P Assessment and plan (1) Acute respiratory failure with hypoxia: Tachypnea has improved with paralytic agent. Oxygenation overnight worse, requiring 60% FiO2. This morning with improvement down to 50%. Improvement on lung exam. Respiratory rate adjusted up due to hypercapnia. Continue paralytic for today, sedation, mechanical ventilatory support. If continues to improve, reassess tomorrow for weaning off paralytic. Extremity edema with swelling of hands, feet. Give additional 20 mg IV Lasix push. Potassium low on ABG replacement requested. Influenza plus rhinovirus. Continue Tamiflu. Continue supportive care. Given immunocompromise continue empiric antibiotic coverage with Zosyn, vancomycin, azithromycin. Continue Ipratropium, Xopenex every 6 hour, budesonide twice daily. COVID swab negative. D-dimer elevated. CTA ruled out PE. Off heparin drip. Continue VTE prophylaxis. Strict input output charting, daily weight. (2) Septic shock: Present on admission. Ruled in by tachycardia, hypotension requiring pressors, endorgan damage with hypoxic respiratory failure, lactic acidosis. Pressors weaned off. Keep mean artery pressure 65. Hydrocortisone dose to 75 Mg. Keep saturation over 90%. For now continue with empiric antibiotics with vancomycin, Zosyn, azithromycin. MRSA negative, urine Legionella bacterial antigen negative. For now continue with hydrocortisone 100 mg every 6 hourly as per stress dose steroids. (3) Pneumonia: (4) Influenza A: Continue with Tamiflu 75 mg twice daily. Rest treatment as above. (5) Metabolic acidosis: Resolved. Hold off on any further IV fluids. (6) Lactic acid acidosis: (7) Positive KATHLEEN (antinuclear antibody): (8) Chronic steroid use: Plan Hypertension: Received additional Lasix 20 mg IV push. Down hydrocortisone dose to 75 mg. Full code. Protonix for PUD prophylaxis Heparin DVT prophylaxis. Critically ill. Care discussed in detail with patient's Mr. Giles over the phone. We discussed that patient unfortunately is critically ill now given septic shock with respiratory failure requiring mechanical ventilation and multiple pressors. Attestations Medical Necessity Statement*: Continue admission for this management of hypoxic respite failure requiring mechanical ventilatory support. Critical Care Time: The high probability of a clinically significant, sudden or life threatening deterioration of the patient's respiratory system(s) required my full and direct attention, intervention and personal management. The critical care time is as shown. This time is in addition to time spent performing any reported procedures but includes the following: x Data and vital sign review and interpretation x Patient assessment, examination and intervention x Documentation x Medication orders and management Critical Care Time (min): 40 Coding Level of Care Code Acute Certified Surgical Technician for Chg Fwd Diagnoses Acute respiratory failure with hypoxia J96.01 Septic shock A41.9; R65.21 Pneumonia J18.9 Influenza A J10.1 Metabolic acidosis E87.20 Lactic acid acidosis E87.20 Positive KATHLEEN (antinuclear antibody) R76.8 Chronic steroid use
[2022-05-07] MEDS: levalbuterol 1.25 mg/3 mL Neb INHALATION ×2 (16:08)
--- NOTE | 2022-05-07 18:05 | PC.NURSE ---
BIS/TOF 0800 28/4 1000 30/2 1200 40/4 1400 29/4 1600 32/4 1800 35/4
[2022-05-07 20:44] LABS: Potassium 2.8 mmol/L (3.5-5.1)
[2022-05-07] MEDS: hydrocortisone 100 mg/2 mL SDV 75 MG IVP (20:50)
--- NOTE | 2022-05-07 22:15 | PC.NURSE ---
Critical Lab Results Patient potassium critically low, informed material handler 2nd shift hospitalist who gave orders for 40meq Potassium Chloride oral liquid ONCE.
[2022-05-08] VITALS (102 sets, daily range): BP systolic 135–186; BP diastolic 79–134; PULSE 78–112; RESP 20–26; TEMP 37.8–38.5; O2SAT 91–100; BMI 45.3
[2022-05-08] MEDS: heparin 5,000 unit/mL INJ 1 mL 5000 UNIT SUBCUT ×3 (00:39→23:50)
[2022-05-08] MEDS: cisatracurium 100 MG in sodium chloride 0.9% 50 ML 12.59 MG IV (00:52)
[2022-05-08] MEDS: chlorhexidine gluconate 4% Btl 118 mL 1 APPLIC TOPICAL (01:20)
[2022-05-08] MEDS: hydrocortisone 100 mg/2 mL SDV 75 MG IVP ×3 (01:20→14:04)
[2022-05-08 01:40] LABS: Potassium 2.9 mmol/L (3.5-5.1)
--- NOTE | 2022-05-08 01:48 | PC.NURSE ---
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
[2022-05-08] MEDS: potassium chloride premix 100 ML 25 MEQ IV (02:09)
[2022-05-08] MEDS: levalbuterol 0.63 mg/3 mL Neb INHALATION ×4 (03:01→19:42)
[2022-05-08] MEDS: ipratropium 0.5 mg/2.5 mL Neb INHALATION ×3 (03:01→13:23)
[2022-05-08] MEDS: piperacillin-tazobactam 3.375 GM in sodium chloride 0.9% (plus) 50 ML IV ×2 (04:03→11:44)
[2022-05-08] MEDS: vancomycin 1,500 MG/300 ML PIGGYBACK 200 MG IV ×2 (04:03→16:30)
[2022-05-08 04:26] LABS: Basophils % 0.2 %; Hematocrit 29.6 % (37.0-47.0); Hemoglobin 9.5 g/dL (11.5-15.3); Lymphocytes # 0.5 10^3/uL (0.8-4.8); Lymphocytes % 5.5 %; Mean Corpuscular HGB Conc 32.1 g/dL (30.0-36.0); Mean Corpuscular Hemoglobin 29.8 pg (28.0-34.0); Mean Corpuscular Volume 92.8 fl (81-99); Mean Platelet Volume 12.9 fL (7.4-10.4); Monocytes # 0.5 10^3/uL (0.2-0.9); Monocytes % 5.2 %; Neutrophils # 7.43 10^3/uL (1.8-7.7); Neutrophils % 85.1 %; Nucleated Red Blood Cells % 0 %; Platelet Count 94 10^3/cmm (130-400); Red Blood Count 3.19 10^6/uL (4.1-5.3); Red Cell Distribution Width 14.2 % (12.1-15.1); White Blood Count 8.7 10^3/uL (4.0-10.0)
[2022-05-08 04:41] LABS: Alanine Aminotransferase 26 U/L (0-33); Albumin Level 2.5 g/dL (3.5-5.2); Alkaline Phosphatase 91 U/L (35-105); Anion Gap 11.4 (5-19); Aspartate Amino Transferase 25 U/L (0-32); Blood Urea Nitrogen 26 mg/dL (6-20); Calcium 8.1 mg/dL (8.5-10.5); Carbon Dioxide 26 mmol/L (22-29); Chloride 111 mmol/L (98-107); Globulin 3.2 g/dL (1.3-4.6); Glomerular Filtration Rate 114.4 mL/min (90-130); Glucose 147 mg/dL (65-115); Osmolality Calculated 307 mOsm/kg (285-295); Potassium 3.4 mmol/L (3.5-5.1); Sodium 145 mmol/L (136-145); Total Bilirubin 0.3 mg/dL (0.15-1.2); Total Protein 5.7 g/dL (6.6-8.7)
[2022-05-08] MEDS: propofol 1,000 MG/100 ML INJ 19.27 MG IV ×2 (04:55→09:32)
[2022-05-08 05:01] LABS: ABG PCO2 40.6 mmHg (35-45); ABG PH Result 7.44 (7.35-7.45); Alveolar-Arterial Oxygen Gradi 26.1 mmHg (5-10); Arterial Blood Gas Hematocrit 41.8 % (37-47); Base Excess ABG 3.2 mmol/L (-2.0-2.0); Blood Gas Allen Test Pos; Blood Gas Operator Identificat JB; Blood Gas Sample Site Radial, right; Blood Gas Sample Type Arterial; Blood Gas Tidal Volume 0.42; Carboxyhemoglobin 0.6 %THgb (0.4-20.1); HCO3 ABG 27.6 mmol/L (22-26); HGB O2 Sat 97.4 % (95-100); Ionized Calcium Level - ABG 1.2 mmol/L (1.1-1.4); Methemoglobin 0.8 % (0.4-1.5); Oxygen Device VENT; Oxygen Saturation ABG 98.8; Potassium Level - ABG 3.4 mmol/L (3.5-5.0); Total Hemoglobin 13.6 g/dL (12-16)
--- NOTE | 2022-05-08 05:29 | PC.NURSE ---
Shift Note Frequent safety and comfort rounds continue. Orders and/or nursing care completed as indicated. Patient monitored for response to intervention and treatment(s). Education provided includes medications. Patient unable to comprehend teaching at this time. Patient had an uneventful shift, remains intubated settings as follows; mode-VC-AC, FiO2-50%, VT-420, PEEP-10, rate-24. Holguin catheter drained 850 mls of urine overnight. No wounds or skin issues noted at this time. Zosyn, KCL, Propofol, Fentanyl, Versed and Nimbex infusing per protocol/order please see MAR for details. Patient noted to have high temps overnight, PRN medication administered. Will continue to monitor.
--- NOTE | 2022-05-08 06:00 | XR_ITS ---
WS: [id number] Exam: XR chest 1V portable [id number] Date/Time of Exam: 05/08/2022 5:34 AM Reason For Exam: intubated Comparison 05/07/2022. Widespread consolidating infiltrates noted throughout both lungs. There has been some improvement on the right but no other change. The heart is smaller in size. ET tube in satisfactory position ending about 5 cm above the karen. An enteric tube is noted in the stomach. A right IJ catheter appears to end in the right atrium. No pneumothorax. A neurostimulator seen over the left chest. XR/XR chest 1V portable [id number] IMPRESSION: 1. Widespread bilateral consolidating infiltrates in both lungs. There has been some improvement on the right since the last exam but no other significant wendy nge. 2. The ET tube has been repositioned and ends about 5 cm above the karen in sa tisfactory position.
--- NOTE | 2022-05-08 06:52 | PC.NURSE ---
BIS/TOF Monitoring Time BIS TOF 1999 28 4 2200 40 4 0000 37 4 0200 42 4 0400 42 4 0600 38 4
[2022-05-08] MEDS: budesonide 0.5 mg/2 mL Neb INHALATION ×2 (07:46→19:42)
[2022-05-08] MEDS: azithromycin 500 MG in sodium chloride 0.9% 250 ML 250 MG IV (08:25)
[2022-05-08] MEDS: cisatracurium 100 MG in sodium chloride 0.9% 50 ML 20.98 MG IV ×3 (08:30→20:29)
[2022-05-08] MEDS: pantoprazole 40 mg SDV IVP (08:30)
[2022-05-08] MEDS: oseltamivir phosphate 75 mg Capsule PO ×2 (08:34→17:26)
[2022-05-08] MEDS: FUROsemide 10 mg/mL SDV 4mL 40 MG IVP (08:35)
[2022-05-08] MEDS: potassium chloride oral liq 20 mEq/15 mL UDC 40 MEQ PO (08:35)
[2022-05-08] MEDS: levalbuterol 1.25 mg/3 mL Neb INHALATION ×2 (09:35→11:38)
[2022-05-08] MEDS: nystatin cream 30 gm 1 APPLIC TOPICAL (11:43)
[2022-05-08] MEDS: nystatin powder 15 gm Btl 1 APPLIC TOPICAL (11:44)
[2022-05-08 13:08] LABS: ABG PCO2 42.7 mmHg (35-45); ABG PH Result 7.48 (7.35-7.45); Arterial Blood Gas Hematocrit 33.8 % (37-47); Base Excess ABG 7.2 mmol/L (-2.0-2.0); Blood Gas Allen Test Pos; Blood Gas Operator Identificat GD; Blood Gas Sample Site Radial, left; Blood Gas Sample Type Arterial; Blood Gas Tidal Volume 0.42; Carboxyhemoglobin 1.1 %THgb (0.4-20.1); HCO3 ABG 31.5 mmol/L (22-26); HGB O2 Sat 91.9 % (95-100); Ionized Calcium Level - ABG 1.1 mmol/L (1.1-1.4); Oxygen Device VENT; Oxygen Saturation ABG 93.8; PO2 ABG 64.2 mmHg (80.0-100.0); Potassium Level - ABG 2.6 mmol/L (3.5-5.0)
[2022-05-08] MEDS: propofol 1,000 MG/100 ML INJ 22.48 MG IV (14:04)
[2022-05-08 16:01] LABS: Vancomycin Trough 12.8 ug/mL (10-15)
[2022-05-08] MEDS: cefepime 1,000 MG in sodium chloride 0.9% (plus) 50 ML 100 MG IV (16:21)
[2022-05-08] MEDS: levofloxacin-dextrose 5 % 750 MG/150 ML PREMIX 100 MG IV (16:26)
[2022-05-08] MEDS: magnesium sulfate premix 2 GM/50 ML PIGGYBACK IV (16:33)
[2022-05-08 16:44] LABS: ABG PCO2 40.1 mmHg (35-45); ABG PH Result 7.51 (7.35-7.45); Alveolar-Arterial Oxygen Gradi 21.9 mmHg (5-10); Arterial Blood Gas Hematocrit 30.1 % (37-47); Base Excess ABG 7.9 mmol/L (-2.0-2.0); Blood Gas Allen Test Pos; Blood Gas Operator Identificat GD; Blood Gas Sample Site Radial, left; Blood Gas Sample Type Arterial; Blood Gas Tidal Volume 0.42; HCO3 ABG 31.7 mmol/L (22-26); HGB O2 Sat 93.2 % (95-100); Ionized Calcium Level - ABG 1.1 mmol/L (1.1-1.4); Methemoglobin 1.1 % (0.4-1.5); Oxygen Device VENT; Oxygen Saturation ABG 95.1; PO2 ABG 67.4 mmHg (80.0-100.0); Potassium Level - ABG 2.8 mmol/L (3.5-5.0); Total Hemoglobin 9.8 g/dL (12-16)
--- NOTE | 2022-05-08 16:46 | P.PN_ITS ---
Subjective Subjective: Intubated, sedated, overnight attempt to wean down sedation, paralytic, however, tachypneic this morning, overbreathing the vent, with increased work of breathing, appearing uncomfortable. Sedation and paralytic continued. Vitals/I&O/Wt Last Vital Signs Temp 100.6 F H 05/08/22 12:00 Pulse 91 05/08/22 14:45 Resp 23 H 05/08/22 15:20 BP 159/99 05/08/22 14:45 Pulse Ox 92 05/08/22 15:20 O2 Del Method 05/08/22 13:24 FiO2 40 05/08/22 15:20 05/08/22 05/08/22 05/08/22 06:59 14:59 22:59 Intake Total 705.654 / 1864.950 675.528 / 675.528 50 / 725.528 Output Total 850 / 3800 3000 / 3000 Balance -144.346 / -1935.050 -2324.472 / -2324.472 50 / -2274.472 Weight last 48 hrs Weight 116.233 kg Weight 115.751 kg Physical Exam Const: GENERAL APPEARANCE: patient mechanically ventilated HENMT: OTHER: Friable mucosa. No thrush. Resp: COMMON NORMALS: normal respiratory effort EFFORT & INSPECTION: Yes tachypneic AUSCULTATION: crackles and wheezes Cardio: COMMON NORMALS: regular rhythm, S1 normal heart sound present, S2 normal heart sound present and No murmurs present (Cardio) RHYTHM: regular rhythm HEART SOUNDS: S1 normal heart sound present and S2 normal heart sound present GI: COMMON NORMALS: Normal to inspection, nondistended, normoactive bowel sounds present and Soft to palpation PALPATION: Yes Soft to palpation Extremity: COMMON NORMALS: no joint enlargement OTHER: Edema of hands, feet Skin: COMMON NORMALS: no rashes or lesions noted GENERAL SKIN EXAM: no rashes or lesions noted Urinary Catheter Management: Holguin: Cath Placed During This Visit: yes Reason for Continuing Indwelling Catheter: Accurate Measurement of Urinary Output in Critically Ill Patients Urinary Catheter Date of Insertion: 05/04/22 Data 05/08/22 04:08 05/08/22 04:08 A&P Assessment and plan (1) Acute respiratory failure with hypoxia: This morning with attempted weaning sedation with paralytic, stroke, tachypneic, increased work of breathing, with wheezing, crackles. Total pressure 30. Given additional dose of Lasix for acute diastolic CHF, additional neb treatments due to bronchospasm, with additional several sessions of Xopenex. Ventilator settings adjusted. Oxygenation overall has been improving down to 40%. Continued with sedation completely today due to bronchospasm, fluid overload, tachypnea. Additionally switch steroids to Solu-Medrol. 2 g IV magnesium. As below, antibiotics changed to Ceftin, Levaquin, Zosyn, azithromycin, vancomycin discontinued on the lower chance of possible drug reaction/SJS. Tachypnea has improved with paralytic agent. Oxygenation overnight worse, requiring 60% FiO2. This morning with improvement down to 50%. Improvement on lung exam. Respiratory rate adjusted up due to hypercapnia. Continue paralytic for today, sedation, mechanical ventilatory support. If continues to improve, reassess tomorrow for weaning off paralytic. Extremity edema with swelling of hands, feet. Give additional 20 mg IV Lasix push. Potassium low on ABG replacement requested. Influenza plus rhinovirus. COVID swab negative. Continue Tamiflu. Continue supportive care. Urine bacterial antigens including Legionella negative. MRSA PCR negative. Sputum culture with scant normal luis m on day 2 D-dimer elevated. CTA ruled out PE. Off heparin drip. Continue VTE prophylaxis. TTE with noted low normal ejection fraction close to 50%. Grade 2 diastolic dysfunction. Strict input output charting, daily weight. Range of motion, PT. (2) Septic shock: Hypotension resolved. Weaned off pressor. Now hypertensive. Present on admission. Ruled in by tachycardia, hypotension requiring pressors, endorgan damage with hypoxic respiratory failure, lactic acidosis. Pressors weaned off. Keep mean artery pressure 65. Hydrocortisone dose to 75 Mg. Keep saturation over 90%. MRSA negative, urine Legionella bacterial antigen negative. (3) Influenza A: Continue with Tamiflu 75 mg twice daily. Additional measures as above. (4) Pneumonia: As above (5) Thrombocytopenia: Mild gradual decline in platelets, down to 94,000. Possibly related to medication. Stop Zosyn. Vancomycin. Impression peripheral smear. We will check DIC panel. Check upper and lower extremity duplex. Lower probability of HIT so far. (6) Mucosal bleeding: Friable mucosa on her lip with some bleeding. May be secondary to equipment injury. Noted faint erythema on her neck likely heat rash secondary to fever, however, also with noted mild gradual decline in platelet levels, on the lower chance of drug reaction for SJS additional changes made to medications. Stop Zosyn, azithromycin. Changed to cefepime, Levaquin. MRSA PCR is negative, stop vancomycin. No eosinophilia on blood count. Progressing peripheral smear. Check DIC profile. (7) Metabolic acidosis: Resolved. Hold off on any further IV fluids. (8) Lactic acid acidosis: (9) Positive KATHLEEN (antinuclear antibody): (10) Chronic steroid use: Plan Hypertension: Received additional 40 mg IV Lasix push. Also started on amlodipine 5 mg. Discussed with her , nursing staff, respiratory. Full code. Protonix for PUD prophylaxis Heparin DVT prophylaxis. Critically ill. Attestations Medical Necessity Statement*: Continue admission for assessment of management of respiratory failure requiring mechanical ventilatory support. Critical Care Time: The high probability of a clinically significant, sudden or life threatening deterioration of the patient's respiratory, hematologic system(s) required my full and direct attention, intervention and personal management. The critical care time is as shown. This time is in addition to time spent performing any reported procedures but includes the following: x Data and vital sign review and interpretation x Patient assessment, examination and intervention x Documentation x Medication orders and management Critical Care Time (min): 75 Coding Level of Care Code Acute [facility] Attendant for [facility] Diagnoses Acute respiratory failure with hypoxia J96.01 Septic shock A41.9; R65.21 Influenza A J10.1 Pneumonia J18.9 Thrombocytopenia D69.6 Mucosal bleeding R58 Metabolic acidosis E87.20 Lactic acid acidosis E87.20 Positive KATHLEEN (antinuclear antibody) R76.8 Chronic steroid use
[2022-05-08] MEDS: potassium chloride oral liq 20 mEq/15 mL UDC 40 MEQ OG-TUBE (16:57)
--- NOTE | 2022-05-08 16:59 | USCV_ITS ---
Misty Correa Age: 32 Gender: F : 1990 Exam Date: 05/08/2022 19:04 Ordering Phys: Malachi Rabago MD Technologist: PAULINO Exam Location: [facility] [place] Indication: assess for DVT . Patient is on ventilator in ICU8 HISTORY: assess for DVT . Patient is on ventilator in ICU8 PROCEDURES: Venous duplex imaging was performed in bilateral lower extremities. The following venous structures were evaluated: common femoral vein, profunda vein, proximal portion of the greater saphenous vein, superficial femoral vein, and the popliteal vein. In addition, the posterior tibial veins were evaluated. FINDINGS: Normal 2-D Doppler and augmentation and compressibility throughout the lower extremity venous structures. Additional imaging through the proximal calf veins also reveals no thrombus. Limited evaluation of the greater saphenous vein is patent with no thrombus. CONCLUSIONS No DVT bilateral lower extremities. Dr. Suri Rhodes DO (Electronically Signed) Final Date: 09 May 2022 07:26 S
--- NOTE | 2022-05-08 16:59 | USCV_ITS ---
Misty Correa Age: 32 Gender: F : 1990 Exam Date: 05/08/2022 19:24 Ordering Phys: Malachi Rabago MD Technologist: PAULINO Exam Location: [facility] [place] Indication: assess for DVT. Patient is on ventilator in ICU8 HISTORY: assess for DVT. Patient is on ventilator in ICU8 PROCEDURES: Venous duplex imaging was performed in bilateral upper extremities. The following venous structures were evaluated: internal jugular veins, subclavian veins, axillary veins, and brachial veins. In addition, the basilic vein, cephalic vein, radial veins, and ulnar veins. Serial compression, augmentation maneuvers, and spectral Doppler flow evaluation were performed, which were normal. FINDINGS: Superficial acute thrombophlebitis right antecubital vein. Bilaterally the remaining veins of the upper extremities are normal. CONCLUSIONS Acute right antecubital vein superficial thrombophlebitis Otherwise negative for DVT. Nurse notified at time of exam. Dr. Suri Rhodes DO (Electronically Signed) Final Date: 09 May 2022 07:30 S
[2022-05-08 17:01] LABS: LAB Peripheral Smear Sent for Review
[2022-05-08] MEDS: amlodipine 5 mg Tablet PO (17:26)
--- NOTE | 2022-05-08 17:42 | PC.NURSE ---
Patient resting in room. Sedated and paralytic running per MAR and protocol. Several different medication changes so far thus shift. Scheduled hypertension medication added per Dr. Kelly. Lasix administered per orders. 3.5L of urine off this shift. Fio2 at 40% FIO2.
[2022-05-08 18:00] LABS: INR 1.11 (0.8-1.2)
[2022-05-08 18:01] LABS: Partial Thromboplastin Time 23.2 SECONDS (23.9-36.7)
[2022-05-08 18:02] LABS: Fibrinogen 517 mg/dL (174-498)
--- NOTE | 2022-05-08 18:04 | PC.NURSE ---
BIS/TOF 0800 40/4 1000 39/4 1200 41/4 1400 39/4 1600 46/4 1800 33/4
[2022-05-08 18:07] LABS: D Dimer 3.03 ug/mIFEU (0-0.59)
[2022-05-08] MEDS: acetaminophen 325 mg Tablet 650 MG PO (20:47)
[2022-05-09] VITALS (78 sets, daily range): BP systolic 139–197; BP diastolic 70–122; PULSE 57–100; RESP 18–41; TEMP 37.1–38.5; O2SAT 91–97; BMI 44.0
[2022-05-09] MEDS: propofol 1,000 MG/100 ML INJ 22.48 MG IV ×2 (00:17→04:11)
--- NOTE | 2022-05-09 00:19 | PC.NURSE ---
Patient rectal temp read 101.1 at 1999. Tylenol was given at 2046 through OG. 2099 temp was 100.9. 2199 Temp cont to rise to 101.3 room temp was decreased and fan was turned on towards patient. 2299 patient temp decreased slightly to 101.1. 0000 temp increased again to 101.3 and ice packs were applied. Will reassess and contact MD for additional orders if temp does not respond to interventions.
[2022-05-09] MEDS: cisatracurium 100 MG in sodium chloride 0.9% 50 ML 20.98 MG IV ×2 (01:17→06:08)
[2022-05-09 02:33] LABS: Glucose Point of Care 145 mg/dL (70-110)
[2022-05-09] MEDS: levalbuterol 0.63 mg/3 mL Neb INHALATION ×4 (02:41→20:40)
[2022-05-09] MEDS: hyDRALAzine 20 mg/mL INJ 1 mL 10 MG IVP (03:15)
[2022-05-09] MEDS: cefepime 1,000 MG in sodium chloride 0.9% (plus) 50 ML 100 MG IV ×2 (03:15→16:14)
[2022-05-09 03:17] LABS: Basophils % 0.2 %; Hematocrit 30.7 % (37.0-47.0); Hemoglobin 9.7 g/dL (11.5-15.3); Lymphocytes # 0.5 10^3/uL (0.8-4.8); Lymphocytes % 6.2 %; Mean Corpuscular HGB Conc 31.6 g/dL (30.0-36.0); Mean Platelet Volume 13.5 fL (7.4-10.4); Monocytes # 0.5 10^3/uL (0.2-0.9); Monocytes % 5.3 %; Neutrophils # 7.07 10^3/uL (1.8-7.7); Neutrophils % 81.1 %; Nucleated Red Blood Cells % 0 %; Platelet Count 125 10^3/cmm (130-400); Red Blood Count 3.23 10^6/uL (4.1-5.3); Red Cell Distribution Width 14.4 % (12.1-15.1); White Blood Count 8.7 10^3/uL (4.0-10.0)
[2022-05-09 03:38] LABS: Alanine Aminotransferase 25 U/L (0-33); Albumin Level 2.7 g/dL (3.5-5.2); Alkaline Phosphatase 139 U/L (35-105); Anion Gap 12.1 (5-19); Aspartate Amino Transferase 31 U/L (0-32); Blood Urea Nitrogen 29 mg/dL (6-20); Calcium 8.3 mg/dL (8.5-10.5); Carbon Dioxide 30 mmol/L (22-29); Chloride 110 mmol/L (98-107); Globulin 3.5 g/dL (1.3-4.6); Glomerular Filtration Rate 141.2 mL/min (90-130); Glucose 156 mg/dL (65-115); Osmolality Calculated 315 mOsm/kg (285-295); Potassium 4.1 mmol/L (3.5-5.1); Sodium 148 mmol/L (136-145); Total Bilirubin 0.3 mg/dL (0.15-1.2); Total Protein 6.2 g/dL (6.6-8.7)
[2022-05-09 04:55] LABS: ABG PCO2 47.8 mmHg (35-45); ABG PH Result 7.44 (7.35-7.45); Alveolar-Arterial Oxygen Gradi 20.6 mmHg (5-10); Blood Gas Allen Test Pos; Blood Gas Operator Identificat BD; Blood Gas Sample Site Brachial, left; Blood Gas Sample Type Arterial; Blood Gas Tidal Volume 0.42; Carboxyhemoglobin 1.1 %THgb (0.4-20.1); HCO3 ABG 32.2 mmol/L (22-26); HGB O2 Sat 92.1 % (95-100); Ionized Calcium Level - ABG 1.2 mmol/L (1.1-1.4); Methemoglobin 0.7 % (0.4-1.5); Oxygen Device VENT; Oxygen Saturation ABG 93.9; PO2 ABG 66.6 mmHg (80.0-100.0); Potassium Level - ABG 3.7 mmol/L (3.5-5.0); Total Hemoglobin 10.8 g/dL (12-16)
--- NOTE | 2022-05-09 06:12 | PC.NURSE ---
05/08/22 - 05/09/2022 BIS / Train 1900 - 32; 08/21 1999 - ; 08/20 2099 - 36; 08/20 2199 - 41; 08/20 230 - 39; 08/20 0000 - 27; 08/20 0100 - 41; 08/20 0200 - 33; 08/20 0300 - 31; 08/20 0400 - 20; 08/20 0500 - 41; 08/20 0600 - 44; 08/20
[2022-05-09] MEDS: budesonide 0.5 mg/2 mL Neb INHALATION ×2 (07:34→20:40)
[2022-05-09] MEDS: propofol 1,000 MG/100 ML INJ 28.9 MG IV (07:44)
[2022-05-09] MEDS: pantoprazole 40 mg SDV IVP (09:02)
[2022-05-09] MEDS: potassium chloride oral liq 20 mEq/15 mL UDC 40 MEQ OG-TUBE ×2 (09:02→17:43)
[2022-05-09] MEDS: oseltamivir phosphate 75 mg Capsule PO (09:02)
[2022-05-09] MEDS: amlodipine 5 mg Tablet PO (09:02)
[2022-05-09] MEDS: chlorhexidine gluconate 4% Btl 118 mL 1 APPLIC TOPICAL (09:22)
[2022-05-09] MEDS: levalbuterol 1.25 mg/3 mL Neb INHALATION ×2 (09:27→11:00)
--- NOTE | 2022-05-09 10:00 | PC.NURSE ---
Rounded with Dr. Rabago. Reviewed labs, medications, vital signs, and plan of care. Orders for IV lasix and hydralazine, plan to turn down Propofol and await Dr. Singh's recommendations.
[2022-05-09] MEDS: FUROsemide 10 mg/mL SDV 4mL 40 MG IVP (10:13)
[2022-05-09] MEDS: hyDRALAzine 20 mg/mL INJ 1 mL 12.5 MG IVP (10:13)
--- NOTE | 2022-05-09 10:18 | PM.CONSULT ---
Providers/Reason For Consult Consulting Physician/Specialty*: Archie Singh MD/Pulmonary Critical Care Reason for Consult*: Hypercapnic respiratory failure secondary to severe asthma exacerbation triggered by influenza A Requesting Physician: Malachi Rabago Attending Physician: Malachi Rabago Primary Care Provider: Becca Clayton History of Present Illness History of Present Illness Misty Correa is a 32 year old female with past medical history of inflammatory arthritis chronically on steroids, recently started leflunomide, subclinical hyperthyroidism with thyroid nodule-tested positive for influenza A came to ER with difficulty breathing, tiredness, myalgias. She was found to be hypoxic and hypotensive, intubated and requiring mechanical ventilation. She was started on fentanyl, Versed, propofol but continued to be tachypneic and so has to paralytic with Nimbex. She was moved to ICU for further management of septic shock, respiratory failure with hypoxia. Initially she also required pressor support with Levophed 20 MCG and vasopressin. She was started on vancomycin and Zosyn. Today is day 6-pulmonary consulted requested for persistent tachypnea and to help with liberating from ventilator Currently patient is still sedated with fentanyl 150 MCG, Versed 4 mg/hour, propofol 15 MCG/hour, Nimbex 2-any attempts to wean off Nimbex-patient is becoming tachypneic up to RR 35 -Otherwise FiO2 down to 50% -Chest x-ray showed improvement in bilateral infiltrates -She was net -3 L over last 48 hours-received 40 Mg Lasix today -Other labs and imaging reviewed Review of Systems General: Reports: 10 or more systems reviewed and unremarkable except in HPI and below Medications/Allergies Home Medications Medication Instructions Recorded Confirmed Last Taken Type albuterol sulfate 90 mcg/actuation 2 puff inhalation Q6H PRN 08/25/20 05/05/22 Unknown History aerosol inhaler Shortness Of Breath lurasidone 20 mg tablet (Latuda) 20 mg PO DAILY 08/25/20 05/05/22 Unknown History pregabalin 150 mg capsule (Lyrica) 150 mg PO TID 08/25/20 05/05/22 Unknown History fluticasone 250 mcg-salmeterol 50 1 inh inhalation BID #60 ea 10/10/20 05/05/22 Unknown Rx mcg/dose blistr powdr for inhalation (Advair Diskus) ondansetron 4 mg disintegrating 4 mg PO Q8H PRN nausea and 01/11/21 05/05/22 Unknown Rx tablet vomiting #20 tabs ibuprofen 600 mg tablet 600 mg PO TID PRN pain #10 tabs 01/22/21 05/05/22 Unknown Rx cetirizine 10 mg tablet (Zyrtec) 10 mg PO DAILY PRN Allergy Symptoms 11/07/21 05/05/22 Unknown History fluticasone propionate 50 1 spray intranasal DAILY 11/07/21 05/05/22 Unknown History mcg/actuation nasal spray,suspension guaifenesin 600 mg tablet, 600 mg PO BID #30 tabs 11/07/21 05/05/22 Unknown Rx extended release 12 hr montelukast 10 mg tablet 10 mg PO DAILY 11/07/21 05/05/22 Unknown History (Singulair) sulfamethoxazole 800 1 tab PO BID sinusitis #10 tabs 11/07/21 05/05/22 Unknown Rx mg-trimethoprim 160 mg tablet (Bactrim DS) hydroxychloroquine 200 mg tablet See Rx Instructions .Route 02/19/22 05/05/22 Unknown Rx .COMPLEX #60 tabs amitriptyline 50 mg tablet 50 mg PO DAILY 05/05/22 05/05/22 Unknown History oseltamivir 75 mg capsule (Tamiflu) 75 mg PO BID 05/05/22 05/05/22 Unknown History leflunomide 10 mg tablet 10 mg PO DAILY #90 tabs 05/08/22 Unknown Rx omeprazole 40 mg capsule,delayed 40 mg PO DAILY #30 caps 05/08/22 Unknown Rx release prednisone 5 mg tablet 5 mg PO DAILY #90 tabs 05/08/22 Unknown Rx Allergies Allergy/AdvReac Type Severity Reaction Status Date / Time divalproex sodium Allergy ALGY-Rash Verified 02/14/22 11:02 [From Depakote] ketorolac [Toradol] Allergy ALGY-Rash Verified 02/14/22 11:02 levetiracetam [From Keppra] Allergy Unknown Verified 02/14/22 11:02 tramadol Allergy ALGY-Rash Verified 02/14/22 11:02 Current Medications Generic Name Dose Route Start Last Admin Trade Name Freq PRN Reason Stop Dose Admin Acetaminophen 650 mg 05/04/22 16:00 05/08/22 20:47 Acetaminophen 325 Mg Tablet PO 650 mg Q6H PRN Administration Mild/Mod Pain Or Temp >/= 101 Albuterol Sulfate 2.5 mg 05/04/22 12:26 05/07/22 23:33 Albuterol 2.5 Mg/3 Ml Neb INHALATION 2.5 mg Q4H.RESPIRATORY PRN Administration SHORTNESS OF BREATH Amlodipine Besylate 5 mg 05/08/22 17:10 05/09/22 09:02 Amlodipine 5 Mg Tablet PO 5 mg DAILY ABDIRAHMAN Administration Budesonide 0.5 mg 05/04/22 20:00 05/09/22 07:34 Budesonide 0.5 Mg/2 Ml Neb INHALATION 0.5 mg BID.RESPIRATORY ABDIRAHMAN Administration Chlorhexidine Gluconate 1 applic 05/08/22 02:00 05/09/22 09:22 Chlorhexidine Gluconate 4% Btl 118 Ml TOPICAL 1 applic DAILY ABDIRAHMAN Administration Heparin Sodium (Porcine) 5,000 unit 05/06/22 12:15 05/08/22 23:50 Heparin 5,000 Unit/Ml Inj 1 Ml SUBCUT 5,000 unit Q12H ABDIRAHMAN Administration Fentanyl 2,500 mcg/ Sodium 250 mls @ 0 mls/hr 05/04/22 12:45 05/09/22 03:32 Chloride IV 150 mcg/hr .Q0M ABDIRAHMAN 15 mls/hr Titration Protocol Per Protocol Propofol 1,000 mg in 100 mls @ 0 mls/hr 05/04/22 14:15 05/09/22 10:07 Diprivan IV 35 mcg/kg/min .Q0M ABDIRAHMAN 22.48 mls/hr Titration Protocol Per Protocol Norepinephrine Bitartrate 8 mg 254 mls @ 0 mls/hr 05/04/22 16:15 05/06/22 07:00 / Dextrose IV Infused .Q0M ABDIRAHMAN Titration Protocol Per Protocol Midazolam HCl 100 mg/ Sodium 100 mls @ 0 mls/hr 05/06/22 09:30 05/09/22 10:08 Chloride IV 4 mg/hr .Q0M ABDIRAHMAN 4 mls/hr Titration Protocol Per Protocol Cisatracurium Besylate 100 mg/ 100 mls @ 0 mls/hr 05/06/22 13:00 05/09/22 06:08 Sodium Chloride IV 3 mcg/kg/min .Q0M ABDIRAHMAN 20.98 mls/hr Administration Protocol Per Protocol Cefepime HCl 1,000 mg/ Sodium 50 mls @ 100 mls/hr 05/08/22 16:00 05/09/22 04:10 Chloride IV Infused Q12H ABDIRAHMAN Infusion Protocol Levofloxacin/Dextrose 750 mg in 150 mls @ 100 mls/hr 05/08/22 16:00 05/08/22 18:02 Levaquin-D5w IV Infused Q24H ABDIRAHMAN Infusion Protocol Lanolin 1 applic 05/04/22 18:14 05/06/22 13:41 Lanolin Oint 7 Gm TOPICAL 1 applic PRN PRN Administration DRYNESS Levalbuterol HCl 0.63 mg 05/04/22 14:00 05/09/22 07:34 Levalbuterol 0.63 Mg/3 Ml Neb INHALATION 0.63 mg Q6H.RESP ABDIRAHMAN Administration Levalbuterol HCl 1.25 mg 05/08/22 09:06 05/09/22 09:27 Levalbuterol 1.25 Mg/3 Ml Neb INHALATION 1.25 mg Q2H PRN Administration SHORTNESS OF BREATH Methylprednisolone Sodium Succinate 40 mg 05/08/22 16:00 05/09/22 09:02 Methylprednisolone Sod Succ 40 Mg/Ml Inj IVP 40 mg Q6H ABDIRAHMAN Administration Morphine Sulfate 2 mg 05/04/22 17:18 05/06/22 04:36 Morphine 4 Mg/Ml Sdv 1 Ml IVP 2 mg Q4H PRN Administration SEVERE PAIN Nystatin 1 applic 05/08/22 09:09 05/08/22 11:43 Nystatin Cream 30 Gm TOPICAL 1 applic PRN PRN Administration redness Nystatin 1 applic 05/08/22 09:09 05/08/22 11:44 Nystatin Powder 15 Gm Btl TOPICAL 1 applic PRN PRN Administration Redness Oseltamivir Phosphate 75 mg 05/04/22 12:30 05/09/22 09:02 Oseltamivir Phosphate 75 Mg Capsule PO 75 mg BID ABDIRAHMAN Administration Pantoprazole Sodium 40 mg 05/05/22 09:00 05/09/22 09:02 Pantoprazole 40 Mg Sdv IVP 40 mg DAILY ABDIRAHMAN Administration Potassium Chloride 40 meq 05/08/22 16:35 05/09/22 09:02 Potassium Chloride Oral Liq 20 Meq/15 Ml Udc OG-TUBE 40 meq BID ABDIRAHMAN Administration PFSH Acute PFSH: Medical History (Updated 05/09/22 @ 21:46 by Archie Singh MD) Acute sinusitis Allergies Asthma Chronic pain Chronic steroid use 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 High risk medication use Immunization counseling Inflammatory arthritis Inflammatory back pain Positive KATHLEEN (antinuclear antibody) Seizure disorder Thyroid mass Undifferentiated connective tissue disease Surgical History History of carpal tunnel release of both wrists History of cholecystectomy History of hysterectomy with bilateral oophorectomy History of tonsillectomy History of tubal ligation Hx of hysterectomy Family History Family/Other Cancer Father CAD (coronary artery disease) Other Chronic kidney disease (CKD) Diabetes Family history of premature coronary artery disease Lupus Rheumatoid arthritis Stroke Denies family history of Hyperlipidemia Anesthesia complication Bleeding disorder Lung disease Hypertension Social History Smoking and tobacco status: never smoked Second hand smoke exposure: No Alcohol intake: never Lives independently: Yes Household members: spouse and children Marital status: Current occupational status: disabled History of recent travel: No Current gender identity: Female Special dipti needs: No Agree to transfusion: Yes Vitals/I&O/Wt Last Vital Signs Temp 99.7 F H 05/09/22 06:00 Pulse 84 05/09/22 09:27 Resp 20 H 05/09/22 09:27 BP 177/97 05/09/22 07:00 Pulse Ox 92 05/09/22 09:27 O2 Del Method 05/09/22 09:27 FiO2 40 05/09/22 09:27 05/08/22 05/09/22 05/09/22 22:59 06:59 14:59 Intake Total 950 / 1625.528 632.030 / 2257.558 185.011 / 185.011 Output Total 950 / 3950 650 / 4600 Balance 0 / -2324.472 -17.970 / -2342.442 185.011 / 185.011 Weight last 48 hrs Weight 248 lb 12.8 oz Weight 256 lb 4 oz Physical Exam Narrative: PHYSICAL EXAM: General: lying in bed, sedated and intubated. 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 SKIN: no rash LDA: # CVC: Right IJ # Holguin: Present # A line: # Tennyson: # Pacing wires: # Chest tubes: Urinary Catheter Management: Holguin: Cath Placed During This Visit: yes Reason for Continuing Indwelling Catheter: Accurate Measurement of Urinary Output in Critically Ill Patients Urinary Catheter Date of Insertion: 05/04/22 Data 05/09/22 02:30 05/09/22 02:30 Other Labs: Radiology Impressions Chest CTA 05/04/22 12:39 IMPRESSION: 1. Technically limited but negative CT angiogram of the chest. No evidence of acute pulmonary embolism to major branches of the pulmonary vascular tree. 2. Diffuse airspace disease likely representing combination of multifocal pneumonia and bibasilar atelectasis. 3. Mild cardiomegaly. Tubes and lines as discussed above. Chest X-Ray 05/09/22 10:23 IMPRESSION: 1. Bilateral pulmonary infiltrates noted. Some improvement on the left but no other significant change. 2. ET tube remains in good position. Enteric tube within the stomach but the tip is not visible. Right IJ catheter ends in the right atrium. Laboratory Results WBC 8.7 10^3/uL (4.0-10.0) 05/09/22 02:30 RBC 3.23 10^6/uL (4.1-5.3) L 05/09/22 02:30 Hgb 9.7 g/dL (11.5-15.3) L 05/09/22 02:30 Hct 30.7 % (37.0-47.0) L 05/09/22 02:30 MCV 95.0 fl (81-99) 05/09/22 02:30 MCH 30.0 pg (28.0-34.0) 05/09/22 02:30 MCHC 31.6 g/dL (30.0-36.0) 05/09/22 02:30 RDW 14.4 % (12.1-15.1) 05/09/22 02:30 Plt Count 125 10^3/cmm (130-400) L D 05/09/22 02:30 MPV 13.5 fL (7.4-10.4) H 05/09/22 02:30 Neut % (Auto) 81.1 % 05/09/22 02:30 Lymph % (Auto) 6.2 % 05/09/22 02:30 Hill % (Auto) 5.3 % 05/09/22 02:30 Eos % (Auto) 0.0 % 05/09/22 02:30 Baso % (Auto) 0.2 % 05/09/22 02:30 Neut # (Auto) 7.07 10^3/uL (1.8-7.7) 05/09/22 02:30 Lymph # (Auto) 0.5 10^3/uL (0.8-4.8) L 05/09/22 02:30 Hill # (Auto) 0.5 10^3/uL (0.2-0.9) 05/09/22 02:30 Eos # (Auto) 0.0 10^3/uL (0.0-0.8) 05/09/22 02:30 Baso # (Auto) 0.0 10^3/uL (0.0-0.1) 05/09/22 02:30 Nucleated RBC % (auto) 0 % 05/09/22 02:30 Total Counted 100 (0-100) 05/05/22 04:30 Atypical Lymphs % 0.0 % (0-5) 05/05/22 04:30 Absolute Neutrophils 9.8 10^3/cmm (1.4-6.5) H 05/05/22 04:30 Segmented Neutrophils 52 % 05/05/22 04:30 Abs Segm Neuts (Man) 5.5 10/cmm (1.6-7.1) 05/05/22 04:30 Band Neutrophils 41.0 % 05/05/22 04:30 Abs Band Neuts (Man) 4.3 10^3/cmm (0.0-1.2) H 05/05/22 04:30 Absolute Lymphocytes 0.4 10^3/cmm (1.2-3.4) L 05/05/22 04:30 Lymphocytes (Manual) 4 % 05/05/22 04:30 Monocytes (Manual) 1.0 % 05/05/22 04:30 Absolute Monocytes 0.1 10^3/cmm (0.1-0.6) 05/05/22 04:30 Eosinophils (Manual) 0 % 05/05/22 04:30 Absolute Eosinophils 0.0 10^3/cmm (0.0-0.7) 05/05/22 04:30 Basophils (Manual) 0.0 % 05/05/22 04:30 Absolute Basophils 0.0 10^3/cmm (0.0-0.2) 05/05/22 04:30 Metamyelocytes 1.0 % 05/05/22 04:30 Myelocytes 1.0 % 05/05/22 04:30 Nucleated RBCs # 0.0 /100WBC 05/09/22 02:30 Platelet Estimate Decreased (Normal) L 05/05/22 04:30 Poikilocytosis Trace 05/05/22 04:30 Anisocytosis 1+ H 05/05/22 04:30 Ovalocytes 1+ H 05/05/22 04:30 Haptoglobin 202.0 mg/L (30-200) H 05/09/22 16:57 PT 14.70 SECONDS (12.1-14.9) 05/08/22 17:34 INR 1.11 (0.8-1.2) 05/08/22 17:34 APTT 23.2 SECONDS (23.9-36.7) L 05/08/22 17:34 Fibrinogen 517 mg/dL (174-498) H 05/08/22 17:34 Fibrin Degrad Products Pos, 10-40 ug/mL (NEG) H 05/08/22 17:34 D-Dimer 3.03 ug/mIFEU (0-0.59) H 05/08/22 17:34 Specimen Type Arterial 05/09/22 04:45 Sample Site Brachial, left 05/09/22 04:45 ABG pH 7.44 (7.35-7.45) 05/09/22 04:45 ABG pCO2 47.8 mmHg (35-45) H 05/09/22 04:45 ABG pO2 66.6 mmHg (80.0-100.0) L 05/09/22 04:45 ABG HCO3 32.2 mmol/L (22-26) H 05/09/22 04:45 ABG O2 Saturation 93.9 05/09/22 04:45 ABG Base Excess 7.0 mmol/L (-2.0-2.0) H 05/09/22 04:45 Cory Test Pos 05/09/22 04:45 A-a O2 Gradient 20.6 mmHg (5-10) H 05/09/22 04:45 Hematocrit 33.0 % (37-47) L 05/09/22 04:45 Hgb O2 Saturation 92.1 % (95-100) L 05/09/22 04:45 Carboxyhemoglobin 1.1 %THgb (0.4-20.1) 05/09/22 04:45 Methemoglobin 0.7 % (0.4-1.5) 05/09/22 04:45 Total Hemoglobin 10.8 g/dL (12-16) L 05/09/22 04:45 Sodium 152.0 mmol/L (131-143) H 05/09/22 04:45 Potassium 3.7 mmol/L (3.5-5.0) 05/09/22 04:45 Glucose 151.0 mg/dL (70-115) H 05/09/22 04:45 Ionized Calcium 1.2 mmol/L (1.1-1.4) 05/09/22 04:45 O2 Delivery Device Vent 05/09/22 04:45 FiO2 40.0 % 05/09/22 04:45 Tidal Volume 0.42 05/09/22 04:45 PEEP 10.0 cmH20 05/09/22 04:45 Production Assembly Operator ID Bd 05/09/22 04:45 Sodium 148 mmol/L (136-145) H 05/09/22 02:30 Potassium 4.1 mmol/L (3.5-5.1) 05/09/22 02:30 Chloride 110 mmol/L (98-107) H 05/09/22 02:30 Carbon Dioxide 30 mmol/L (22-29) H 05/09/22 02:30 Anion Gap 12.1 (5-19) 05/09/22 02:30 BUN 29 mg/dL (6-20) H 05/09/22 02:30 Creatinine 0.5 mg/dL (0.5-0.9) 05/09/22 02:30 GFR Calculation 141.2 mL/min (90-130) H 05/09/22 02:30 Glucose 156 mg/dL (65-115) H 05/09/22 02:30 POC Glucose 145 mg/dL (70-110) H 05/09/22 02:29 Estimat Average Glucose 94 05/05/22 04:30 Hemoglobin A1c 4.9 % (4.0-6.0) 05/05/22 04:30 Calculated Osmolality 315 mOsm/kg (285-295) H 05/09/22 02:30 Lactic Acid 2.1 mmol/L (0.5-2.2) 05/05/22 10:03 Lactic Acid (Sepsis) 2.1 mmol/L (0.5-2.2) 05/05/22 13:24 Calcium 8.3 mg/dL (8.5-10.5) L 05/09/22 02:30 Phosphorus 2.9 mg/dL (2.5-4.5) 05/04/22 16:53 Magnesium 1.2 mg/dL (1.7-2.3) L 05/04/22 16:53 Iron 6 ug/dL (37-145) L 05/04/22 08:40 TIBC 247 mcg/dl 05/04/22 08:40 % Saturation 2.4 % (20-50) L 05/04/22 08:40 Unsat Iron Binding 241 ug/dL (112-347) 05/04/22 08:40 Total Bilirubin 0.3 mg/dL (0.15-1.2) 05/09/22 02:30 AST 31 U/L (0-32) 05/09/22 02:30 ALT 25 U/L (0-33) 05/09/22 02:30 Alkaline Phosphatase 139 U/L (35-105) H 05/09/22 02:30 Lactate Dehydrogenase 457 U/L (135-214) H 05/09/22 16:57 Creatine Kinase 107 U/L (26-192) 05/05/22 10:03 C-Reactive Protein 300.0 mg/L (0.0-4.9) H 05/04/22 08:40 NT-Pro-B Natriuret Pep 1252 pg/mL (0-125) H 05/04/22 08:40 Total Protein 6.2 g/dL (6.6-8.7) L 05/09/22 02:30 Albumin 2.7 g/dL (3.5-5.2) L 05/09/22 02:30 Globulin 3.5 g/dL (1.3-4.6) 05/09/22 02:30 Triglycerides 377 mg/dL (0-150) H 05/09/22 02:30 Cholesterol 86 mg/dL (0-200) 05/05/22 04:30 LDL Cholesterol, Calc 1 mg/dL (50-129) L 05/05/22 04:30 Total VLDL Cholesterol 70 mg/dL (0-30) H 05/05/22 04:30 HDL Cholesterol 15 mg/dL (60-100) L 05/05/22 04:30 Cholesterol/HDL Ratio 5.73 mg/dL (0.0-4.40) H 05/05/22 04:30 Vitamin B12 847 pg/mL (232-1245) 05/04/22 08:40 Folate 7.7 ng/mL (4.8-37.3) 05/04/22 16:53 Procalcitonin 19.48 ng/mL (0-0.5) H 05/04/22 08:40 TSH 0.10 uIU/mL (0.27-4.20) L 05/04/22 08:40 Free T4 1.11 ng/dL (0.82-1.77) 05/04/22 16:53 Free T3 2.3 PG/ML (2.0-4.4) 05/04/22 16:53 HCG, Qual Negative (Negative) 05/04/22 16:53 Urine Color Dark yellow (Yellow) 05/04/22 15:05 Urine Appearance Clear (CLEAR) 05/04/22 15:05 Urine pH 5 (5-7) 05/04/22 15:05 Ur Specific [place] 1.020 (1.005-1.030) 05/04/22 15:05 Urine Protein 1+ (Negative) H 05/04/22 15:05 Urine Glucose (UA) Norm (Normal) 05/04/22 15:05 Urine Ketones 1+ (Negative) H 05/04/22 15:05 Urine Blood Neg (Negative) 05/04/22 15:05 Urine Nitrate Negative (Negative) 05/04/22 15:05 Urine Bilirubin Neg (Negative) 05/04/22 15:05 Urine Urobilinogen Norm mg/dL (Negative) 05/04/22 15:05 Ur Leukocyte Esterase Negative (Negative) 05/04/22 15:05 Urine RBC None /hpf (0-2) 05/04/22 15:05 Urine WBC 5-10 /hpf (0-5) H 05/04/22 15:05 Ur Squamous Epith Cells 0-4 /hpf (0-5) H 05/04/22 15:05 Amorphous Sediment 1+ /hpf 05/04/22 15:05 Urine Bacteria Trace /hpf (NONE) 05/04/22 15:05 Coarse Granular Casts 10-15 /lpf H 05/04/22 15:05 Ur Random Sodium 10 mmol/L 05/04/22 22:49 Ur Random Potassium 13 mmol/L 05/04/22 22:49 Ur Random Chloride 10 mmol/L 05/04/22 22:49 Urine Creatinine 217 mg/dL (28-217) 05/04/22 15:05 Nasal Influ A H1 2009 PCR Detected (NOT DETECT) A 05/04/22 11:47 Vancomycin Trough 12.8 ug/mL (10-15) 05/08/22 14:55 Urine Opiates Screen Positive ng/mL (Negative) H 05/04/22 22:49 Ur Barbiturates Screen Negative ng/mL (Negative) 05/04/22 22:49 Ur Phencyclidine Scrn Negative ng/mL (Negative) 05/04/22 22:49 Ur Amphetamines Screen Negative ng/mL (Negative) 05/04/22 22:49 U Benzodiazepines Scrn Negative ng/mL (Negative) 05/04/22 22:49 Urine Cocaine Screen Negative ng/mL (Negative) 05/04/22 22:49 U Marijuana (THC) Screen Negative ng/mL (Negative) 05/04/22 22:49 Coronavirus 229E (PCR) Not detected (NOT DETECT) 05/04/22 08:49 Human Metapneumovir PCR Not detected (NOT DETECT) 05/04/22 11:47 Influenza A (H1) PCR Not detected (NOT DETECT) 05/04/22 11:47 Influenza A (H3) PCR Not detected (NOT DETECT) 05/04/22 11:47 Influenza Type A (PCR) Detected (NOT DETECT) A 05/04/22 11:47 Influenza Type B (PCR) Not detected (NOT DETECT) 05/04/22 11:47 Entero/Rhino (PCR) Detected (NOT DETECT) A 05/04/22 11:47 SARS-CoV-2 (PCR) Not detected (NOT DETECT) 05/04/22 08:49 Micro: Microbiology 05/04/22 08:43 Blood Culture - Final Blood NO GROWTH AFTER 5 DAYS 05/04/22 08:40 Blood Culture - Final Blood NO GROWTH AFTER 5 DAYS A&P Assessment and plan (1) Acute respiratory failure with hypoxia: (2) Influenza A: (3) Chronic steroid use: (4) Undifferentiated connective tissue disease: (5) Asthma: (6) Morbid obesity: (7) Pneumonia: Plan #Acute hypoxic respiratory failure secondary to asthma exacerbation due to influenza A #CHF exacerbation with grade 2 diastolic dysfunction on echocardiogram -Patient on droplet precautions -Currently intubated on mechanical ventilation with CMV 400/20/10/50-saturating 94% -Currently she is sedated with fentanyl 150 MCG/hour, propofol 15 MCG/hour, Versed 4 mg/hour, Nimbex 2-any attempt to wean off paralytic-patient becoming tachypneic -CTA 05/04-no evidence of acute PE, diffuse airspace disease representing multifocal pneumonia/bibasilar atelectasis -Echocardiogram 05/04/2022-normal LV size systolic function EF 50%. Grade 2 diastolic dysfunction. Moderately elevated filling pressures. -Patient was receiving Xopenex every 2 over-currently her breath sounds does not have much wheezing-we will reduce the frequency to every 6 hours as needed- -Currently on methylprednisone 40 every 6 hour-we will taper off and monitor clinically -She completed 5-day course of Tamiflu; currently patient is on cefepime, levofloxacin,-so far MRSA nares negative, urine Legionella negative, urine bacterial antigens negative, blood cultures negative -With chronic steroid/leflunomide-patient is immunosuppressed-at risk for PCP and other fungal infections; however infiltrates on chest x-ray, leukocytosis have improved with antibiotics -We will continue to do spontaneous awakening trials followed by breathing trials -She is net negative -3 L in last 48 hours; try to maintain net negative to even fluid balance-Lasix 40 Mg daily -sodium 148, BUN increasing, bicarbonate 30-suggestive of metabolic alkalosis ; we will hold off Lasix for now -Monitor electrolytes and supplement to keep potassium greater than 4 and magnesium greater than 2 -Please obtain CT head to rule out any central causes for hyperventilation #Patient has underlying inflammatory arthritis-uncategorized CTD on chronic steroid therapy prior to admission -Initially hypotensive requiring initially hypotensive during periintubation-likely secondary to adrenal insufficiency-she received hydrocortisone at that time -Later switched to Solu-Medrol 40 every 6 -We will slowly taper off #Hypertension -Blood pressure 191/110 today morning -Patient received 1 dose hydralazine, labetalol -Currently on clonidine patch, amlodipine 5 Mg p.o. daily ICU CHECKLIST: Problem list updated Verbal orders reviewed and signed Analgesia: Fentanyl Glycemic Control: N/A Nutrition: [facility] Restraint Renewal (within 24 hrs): Yes Ulcer Prophylaxis: PPI Chemical Thromboprophylaxis: Prophylaxis: Heparin Mechanical Thromboprophylaxis: SCD Need for Central line: yes for multiple medications Need for Holguin catheter: Yes for urine output monitoring Ventilator bundle: {Vent bundle:95256} Critical Care Time (No Overlap): 60 min Consult Attestations Medical Necessity Statement: Acute hypoxic respiratory failure secondary to asthma exacerbation due to influenza A-requiring mechanical ventilation Time Spent in Patient Care: Greater than 35 minutes (>than 50% of time spent in counselling and/or direct pt care on unit). Critical Care Time: This patient has a high probability of sudden, clinically significant deterioration, which requires the highest level of physician preparedness to intervene urgently. I managed/supervised life or organ supporting interventions that required frequent physician assessment. I devoted my full attention in the ICU to the direct care of this patient for the period of time indicated above. Time I spent with family or surrogate(s) is included only if the patient was incapable of providing necessary information or participating in decision making. Time devoted to teaching and to any procedures I billed separately is not included. Services Provided: Services Provided: Telemetry review Mechanical Ventilation Hemodynamic interpretation, assessment and management Review and interpretation of CXR Review and interpretation of lab values Review and interpretation of microbiologic data and culture results Review of medications and administration Review and interpretation of Nutrition requirements and management Discussion of management with other consultants and services Clinical update to family members [x] Patient assessment, examination and intervention [x] Documentation [x] Medication orders and management Critical Care Time (min): 60 Coding Level of Care Code New Pt Acute Bacteriology Teacher for Chg Fwd Patient Type New History Comprehensive Exam Comprehensive Medical Decision Making High Complexity Diagnoses Acute respiratory failure with hypoxia J96.01 Influenza A J10.1 Chronic steroid use Undifferentiated connective tissue disease M35.9 Asthma J45.909 Morbid obesity E66.01 Pneumonia J18.9 Time Spent (min) 60
--- NOTE | 2022-05-09 10:23 | XR_ITS ---
WS: [id number] Exam: XR chest 1V portable [id number] Date/Time of Exam: 05/09/2022 10:29 AM Reason For Exam: pneumonia Comparison 05/08/2022. Widespread bilateral pulmonary infiltrates are again noted. There has been slight improvement on the left but no other significant change. Cardiomediastinal silhouette is stable in appearance. No pneumo thorax or pleural effusion seen. ET tube remains in good position ending about 5 cm above the karen. Right IJ catheter extending into the right atrium. Enteric tube extends into the stomach but the tip is not visible. Again noted is a neurostimulator pack over the left chest. XR/XR chest 1V portable [id number] IMPRESSION: 1. Bilateral pulmonary infiltrates noted. Some improvement on the left but no o ther significant change. 2. ET tube remains in good position. Enteric tube within the stomach but the ti p is not visible. Right IJ catheter ends in the right atrium.
--- NOTE | 2022-05-09 10:27 | PC.NURSE ---
Spoke to Dr. Singh. Reviewed labs, medications, and vital signs. Orders to titrate Nimbex and Propofol down. Add triglycerides to am labs. CXR.
--- NOTE | 2022-05-09 10:50 | PC.CHAP ---
Pastoral Care Encounter/Spiritual Assessment Type of Contact [] Declined raised printer visit [] Patient/Family/Request visit [] Outpatient visit [] Follow-up visit [] Physician referral [] Code/Alert [x] Routine visit [] Staff referral [] Actively dying [] Patient sleeping [] Family support [] [] Out of room [] Palliative care [] [x] Receiving care in room [] Pre-surgical visit [] Trauma [] Long length of stay [x] ICU visit [x] Other: vent Relational/Emotional Strength [] Patient feels connected with others/family/visitors/staff [] Distress [] Loneliness/isolation [] Abandonment Spirituality of Patient [] Person of Tania [] Attends Hinduism of their Tania [] Believes in Prayer [] Reads Bible or Judaism materials [] There are Spiritual issues to be addressed Electrical Maintenance Man Interventions [x] Prayer [] Active listening [] Non-anxious presence [] Spiritual/emotional support [] Crisis/trauma care [] Spiritual counseling [] Bereavement support [] Provided bereavement packet [] Provided Bible/devotional materials [] Provided toy/stuffed animal, coloring book to patient or family member [] Provided Communion [] Anointing/[place] [] Salvation [x] Completed spiritual assessment [] Other: Impact on Illness or Injury [] Angry [] Fearful [] Anxious [] Often cries [] Exhaustion [] Unable to work [] Unable to attend catholic [] Unable to walk/stand [] Unable to read [] Unable to drive [] Unable to eat/drink [] Unable to sleep [] Unable to be with family [] Patient intubated [] Other: Summary Time spent with patient
[2022-05-09] MEDS: propofol 1,000 MG/100 ML INJ 19.27 MG IV (10:58)
[2022-05-09 11:12] LABS: Triglycerides 377 mg/dL (0-150)
[2022-05-09] MEDS: heparin 5,000 unit/mL INJ 1 mL 5000 UNIT SUBCUT (11:20)
[2022-05-09] MEDS: labetalol 5 mg/mL SDV 20mL 10 MG IVP (11:50)
[2022-05-09] MEDS: cloNIDine 0.1 mg/24 hr Patch 1 PATCH TRANSDERMA (12:31)
[2022-05-09] MEDS: dexmedetomidine 400 MCG in sodium chloride 0.9% (100 ml) 100 ML IV (12:58)
--- NOTE | 2022-05-09 16:01 | PC.NURSE ---
Spoke to Dr. Singh. Nimbex and Propofol off and Precedex on per order. Described patient's breathing pattern. Orders to stop Precedex and restart Nimbex and Propofol. Orders to take patient to CT when stabilized with sedation transition.
[2022-05-09] MEDS: levofloxacin-dextrose 5 % 750 MG/150 ML PREMIX 100 MG IV (16:15)
[2022-05-09] MEDS: cisatracurium 100 MG in sodium chloride 0.9% 50 ML IV (16:16)
[2022-05-09] MEDS: propofol 1,000 MG/100 ML INJ 12.85 MG IV (17:54)
[2022-05-09 18:24] LABS: Lactate Dehydrogenase 457 U/L (135-214)
--- NOTE | 2022-05-09 19:22 | P.PN_ITS ---
Subjective Subjective: Intubated, sedated, mechanically ventilated. With attempted weaning sedation from paralytic and again coming tachypneic, respiratory distress. Had to be resumed. Vitals/I&O/Wt Last Vital Signs Temp 100.4 F H 05/09/22 15:00 Pulse 85 05/09/22 18:00 Resp 28 H 05/09/22 17:50 BP 163/100 05/09/22 18:00 Pulse Ox 94 05/09/22 18:00 O2 Del Method 05/09/22 13:16 FiO2 50 05/09/22 17:50 05/09/22 05/09/22 05/09/22 06:59 14:59 22:59 Intake Total 632.030 / 2257.558 509.816 / 509.816 260.972 / 770.788 Output Total 650 / 4600 2800 / 2800 1000 / 3800 Balance -17.970 / -2342.442 -2290.184 / -2290.184 -739.028 / -3029.212 Weight last 48 hrs Weight 112.854 kg Weight 116.233 kg Physical Exam Const: GENERAL APPEARANCE: patient mechanically ventilated HENMT: COMMON NORMALS: oropharynx normal OTHER: No mucosal bleeding. Neck/C-Spine: COMMON NORMALS: no JVD Resp: COMMON NORMALS: normal respiratory effort EFFORT & INSPECTION: Yes tachypneic AUSCULTATION: crackles, rales bilateral at the base and wheezes OTHER: Coarse wheeze, baseline crackles. Cardio: COMMON NORMALS: no JVD, regular rhythm, S1 normal heart sound present, S2 normal heart sound present and No murmurs present (Cardio) RHYTHM: regular rhythm HEART SOUNDS: S1 normal heart sound present and S2 normal heart sound present GI: COMMON NORMALS: Normal to inspection, nondistended, normoactive bowel sounds present, Soft to palpation and non-tender PALPATION: Yes Soft to p alpation Extremity: COMMON NORMALS: no joint enlargement and no pedal edema OTHER: Edema of hands, feet with improvement Skin: COMMON NORMALS: no rashes or lesions noted GENERAL SKIN EXAM: no rashes or lesions noted Urinary Catheter Management: Holguin: Cath Placed During This Visit: yes Reason for Continuing Indwelling Catheter: Accurate Measurement of Urinary Output in Critically Ill Patients Urinary Catheter Date of Insertion: 05/04/22 Data 05/09/22 02:30 05/09/22 02:30 Micro: Microbiology 05/09/22 16:57 Blood Culture - Preliminary Blood SPECIMEN COLLECTED 05/04/22 08:43 Blood Culture - Final Blood NO GROWTH AFTER 5 DAYS 05/04/22 08:40 Blood Culture - Final Blood NO GROWTH AFTER 5 DAYS A&P Assessment and plan (1) Acute respiratory failure with hypoxia: Again with crackles this morning, some wheezing. Continue breathing treatments. Additional Lasix, but Hold off repeat dose for now. Again respite distress with strengthening sedation, although overall oxygenation is doing better, down to 50% FiO2. Pulm crit consultation appreciated. Additional adjustment of sedation. Wean off propofol if possible. Precedex added. Today again hypotensive, transient improvement with Lasix, additionally required labetalol dose, started on clonidine patch. Additional assessment with CT head. Continue Chavez antibiotic coverage with cefepime, Levaquin. Completed course of Tamiflu. Discontinued. Influenza plus rhinovirus. COVID swab negative. Urine bacterial antigens including Legionella negative. MRSA PCR negative. Sputum culture with scant normal luis m on day 2 D-dimer elevated. CTA ruled out PE. Off heparin drip. Continue VTE prophylaxis. TTE with noted low normal ejection fraction close to 50%. Grade 2 diastolic dysfunction. Strict input output charting, daily weight. Range of motion, PT. (2) Septic shock: Hypotension resolved. Weaned off pressor. Now hypertensive. Present on admission. Ruled in by tachycardia, hypotension requiring pressors, endorgan damage with hypoxic respiratory failure, lactic acidosis. Pressors weaned off. Keep mean artery pressure 65. Hydrocortisone dose to 75 Mg. Keep saturation over 90%. MRSA negative, urine Legionella bacterial antigen negative. (3) Influenza A: Continue with Tamiflu 75 mg twice daily. Additional measures as above. (4) Pneumonia: As above (5) Thrombocytopenia: Peripheral smear without schistocytes. Chemistries not suggestive of hemolysis. Low probability TTP. Low probability HIT. Fibrin degradation products elevated, noted D-dimer elevation but with superficial thrombophlebitis of arm on duplex. No DVT. Overall picture not suggestive of DIC. Possibly drug-related. After antibiotic changes yesterday thrombocytopenia with improvement. (6) Mucosal bleeding: Resolved. As above. (7) Metabolic acidosis: Resolved. Hold off on any further IV fluids. (8) Lactic acid acidosis: (9) Positive KATHLEEN (antinuclear antibody): (10) Chronic steroid use: Plan Hypertension: Received additional Lasix. Continues on amlodipine. Given also labetalol IV x1. Added clonidine patch 0.1 Full code. Protonix for PUD prophylaxis Heparin DVT prophylaxis. Critically ill. Attestations Medical Necessity Statement*: Continue admission for respiratory failure requiring mechanical ventilatory support. Critical Care Time: The high probability of a clinically significant, sudden or life threatening deterioration of the patient's respiratory, hematologic system(s) required my full and direct attention, intervention and personal management. The critical care time is as shown. This time is in addition to time spent performing any reported procedures but includes the following: x Data and vital sign review and interpretation x Patient assessment, examination and intervention x Documentation x Medication orders and management Critical Care Time (min): 45 Coding Level of Care Code Acute Alarm Security Or Surveillance Monitor for [facility] Fwd Diagnoses Acute respiratory failure with hypoxia J96.01 Septic shock A41.9; R65.21 Influenza A J10.1 Pneumonia J18.9 Thrombocytopenia D69.6 Mucosal bleeding R58 Metabolic acidosis E87.20 Lactic acid acidosis E87.20 Positive KATHLEEN (antinuclear antibody) R76.8 Chronic steroid use
[2022-05-10] VITALS (104 sets, daily range): BP systolic 134–177; BP diastolic 67–126; PULSE 55–92; RESP 17–23; TEMP 36.9–37.8; O2SAT 90–98
[2022-05-10] MEDS: propofol 1,000 MG/100 ML INJ 12.85 MG IV ×4 (00:52→21:23)
[2022-05-10] MEDS: cisatracurium 100 MG in sodium chloride 0.9% 50 ML 20.98 MG IV ×2 (01:02→07:17)
[2022-05-10] MEDS: heparin 5,000 unit/mL INJ 1 mL 5000 UNIT SUBCUT ×2 (01:05→13:27)
[2022-05-10] MEDS: levalbuterol 0.63 mg/3 mL Neb INHALATION ×4 (02:51→19:44)
[2022-05-10 03:56] LABS: Alanine Aminotransferase 22 U/L (0-33); Albumin Level 2.7 g/dL (3.5-5.2); Alkaline Phosphatase 89 U/L (35-105); Anion Gap 11.4 (5-19); Aspartate Amino Transferase 23 U/L (0-32); Blood Urea Nitrogen 35 mg/dL (6-20); Calcium 8.7 mg/dL (8.5-10.5); Carbon Dioxide 33 mmol/L (22-29); Chloride 108 mmol/L (98-107); Globulin 3.5 g/dL (1.3-4.6); Glomerular Filtration Rate 182.7 mL/min (90-130); Glucose 141 mg/dL (65-115); Osmolality Calculated 316 mOsm/kg (285-295); Potassium 4.4 mmol/L (3.5-5.1); Sodium 148 mmol/L (136-145); Total Bilirubin 0.3 mg/dL (0.15-1.2); Total Protein 6.2 g/dL (6.6-8.7)
[2022-05-10 03:58] LABS: Hematocrit 30.5 % (37.0-47.0); Hemoglobin 9.5 g/dL (11.5-15.3); Mean Corpuscular HGB Conc 31.1 g/dL (30.0-36.0); Mean Corpuscular Hemoglobin 29.7 pg (28.0-34.0); Mean Corpuscular Volume 95.3 fl (81-99); Mean Platelet Volume 13.9 fL (7.4-10.4); Platelet Count 157 10^3/cmm (130-400); Red Cell Distribution Width 14.2 % (12.1-15.1)
[2022-05-10] MEDS: cefepime 1,000 MG in sodium chloride 0.9% (plus) 50 ML 100 MG IV ×2 (05:06→16:13)
--- NOTE | 2022-05-10 05:58 | XRR_ITS ---
PROCEDURE INFORMATION: Exam: XR Chest Exam date and time: 05/10/2022 6:22 AM Age: 32 years old Clinical indication: Other: Flu; Additional info: Pneumonia TECHNIQUE: Imaging protocol: Radiologic exam of the chest. Views: 1 view. COMPARISON: CR XR chest 1V portable [id number] 05/09/2022 10:28 AM FINDINGS: Tubes, catheters and devices: An endotracheal tube is placed with its tip 3.5 cm from the karen. A nasogastric tube is placed with its tip at least in the proximal stomach. A right internal jugular vein central venous line is placed with its tip at the level of the superior vena cava. Lungs: There are patchy and hazy opacities present in the lower hemithoraces bilaterally, findings compatible with a bilateral interstitial pneumonia. This is similar to that present in yesterday's examination. Pleural spaces: Unremarkable. No pleural effusion. No pneumothorax. Heart/Mediastinum: Unremarkable. No cardiomegaly. Bones/joints: Unremarkable. XR/XR chest 1V portable [id number] IMPRESSION: 1. Patchy and hazy opacities in the lower hemithoraces bilaterally compatible with bilateral interstitial pneumonia. This is unchanged from yesterday's examination. 2. Stable life support tubing.
[2022-05-10 06:03] LABS: Absolute Eosinophils 0.2 10^3/cmm (0.0-0.7); Absolute Segmented Neutrophil 8.9 10/cmm (1.6-7.1); Anisocytosis 1+; Band Neutrophils Absolute 0.1 10^3/cmm (0.0-1.2); Burr Cells 1+; Eosinophils 2 %; Lymphocytes 8 %; Monocytes Absolute 0.8 10^3/cmm (0.1-0.6); Ovalocytes 1+; Platelet Estimate Normal (Normal); Segmented Neutrophils 81 %; Total Cells Counted 100 (0-100)
[2022-05-10] MEDS: budesonide 0.5 mg/2 mL Neb INHALATION ×2 (07:23→19:44)
[2022-05-10] MEDS: amlodipine 5 mg Tablet PO (08:18)
[2022-05-10] MEDS: potassium chloride oral liq 20 mEq/15 mL UDC 40 MEQ OG-TUBE (08:18)
[2022-05-10] MEDS: chlorhexidine gluconate 4% Btl 118 mL 1 APPLIC TOPICAL (08:18)
[2022-05-10] MEDS: pantoprazole 40 mg SDV IVP (08:18)
[2022-05-10 09:11] LABS: ABG PCO2 45.6 mmHg (35-45); ABG PH Result 7.47 (7.35-7.45); Alveolar-Arterial Oxygen Gradi 28.2 mmHg (5-10); Arterial Blood Gas Hematocrit 31.4 % (37-47); Base Excess ABG 8.9 mmol/L (-2.0-2.0); Blood Gas Allen Test Pos; Blood Gas Operator Identificat CAK; Blood Gas Sample Site Radial, left; Blood Gas Sample Type Arterial; Carboxyhemoglobin 0.5 %THgb (0.4-20.1); HCO3 ABG 33.5 mmol/L (22-26); HGB O2 Sat 95.8 % (95-100); Ionized Calcium Level - ABG 1.2 mmol/L (1.1-1.4); Methemoglobin 0.8 % (0.4-1.5); Oxygen Device VENT; Oxygen Saturation ABG 97.1; PO2 ABG 87.8 mmHg (80.0-100.0); Potassium Level - ABG 4.9 mmol/L (3.5-5.0); Total Hemoglobin 10.2 g/dL (12-16)
[2022-05-10] MEDS: labetalol 5 mg/mL SDV 20mL 10 MG IVP (10:15)
[2022-05-10] MEDS: cisatracurium 100 MG in sodium chloride 0.9% 50 ML 12.24 MG IV (11:40)
--- NOTE | 2022-05-10 15:54 | CT_ITS ---
WS: [id number] CT HEAD NONCONTRAST HISTORY: AMS TECHNIQUE: Contiguous axial imaging performed through the brain in 2.5 mm imaging. Bone and soft tiss ue windows. Sagittal and coronal reformats reviewed. All CT scans at [facility] use at least one of these dose optimization techniques: automated exposure control; mA and/or kV adjustment per pa tient size (includes targeted exams where dose is matched to clinical indication); or iterative recon struction. DLP: 1079.78 mGy.cm COMPARISON: None available. No acute intracranial hemorrhage, midline shift or mass effect. No atrophy or prior infarcts or herniation. Ventricles: Normal size with no hydrocephalus. Patient is intubated. Paranasal sinuses: Small amount of fluid in the sphenoid sinuses. Mild ethmoid air cell disease. Mastoid air cells: Well pneumatized. Calvarium and scalp: Skull is intact with no soft tissue edema or swelling. CT/CT head wo con* [id number] IMPRESSION: 1. No acute intracranial hemorrhage or edema. 2. No atrophy or ischemia.
[2022-05-10] MEDS: levofloxacin-dextrose 5 % 750 MG/150 ML PREMIX 100 MG IV (16:13)
--- NOTE | 2022-05-10 19:56 | PM.PN ---
Subjective Subjective: Mechanically ventilated. Vitals/I&O/Wt Last Vital Signs Temp 98.4 F 05/10/22 15:00 Pulse 65 05/10/22 19:44 Resp 21 H 05/10/22 19:44 BP 154/94 05/10/22 18:45 Pulse Ox 96 05/10/22 19:44 O2 Del Method 05/10/22 19:44 FiO2 50 05/10/22 19:44 05/10/22 05/10/22 05/10/22 06:59 14:59 22:59 Intake Total 525.776 / 1325.805 363.758 / 363.758 257.592 / 621.350 Output Total 1000 / 4800 1000 / 1000 400 / 1400 Balance -474.224 / -3474.195 -636.242 / -636.242 -142.408 / -778.650 Weight last 48 hrs Weight 113.426 kg Weight 112.854 kg Physical Exam Const: GENERAL APPEARANCE: patient mechanically ventilated HENMT: COMMON NORMALS: oropharynx normal Neck/C-Spine: COMMON NORMALS: no JVD Resp: COMMON NORMALS: normal respiratory effort EFFORT & INSPECTION: Yes tachypneic AUSCULTATION: crackles OTHER: Base crackles Cardio: COMMON NORMALS: no JVD, regular rhythm, S1 normal heart sound present, S2 normal heart sound present and No murmurs present (Cardio) RHYTHM: regular rhythm HEART SOUNDS: S1 normal heart sound present and S2 normal heart sound present GI: COMMON NORMALS: Normal to inspection, nondistended, normoactive bowel sounds present, Soft to palpation and non-tender PALPATION: Yes Soft to palpation Extremity: COMMON NORMALS: no joint enlargement and no pedal edema OTHER: Edema of hands, feet with improvement Skin: COMMON NORMALS: no rashes or lesions noted GENERAL SKIN EXAM: no rashes or lesions noted Urinary Catheter Management: Holguin: Cath Placed During This Visit: yes Reason for Continuing Indwelling Catheter: Accurate Measurement of Urinary Output in Critically Ill Patients Urinary Catheter Date of Insertion: 05/04/22 Data 05/10/22 02:42 05/10/22 02:42 Micro: Microbiology 05/09/22 16:57 Blood Culture - Preliminary Blood NEGATIVE TO DATE 05/09/22 20:15 Blood Culture - Preliminary Blood SPECIMEN COLLECTED A&P Assessment and plan (1) Acute respiratory failure with hypoxia: Continues to require 50% FiO2, however, PF ratio improving. Still respiratory Giurgius with attempted wean sedation. CT of the head unremarkable. Continue attempts to wean down sedation to lowest possible level without respiratory distress. Discussed with turret punch press operator. Held additional diuretics today. Steroid switched to Solu-Medrol. Continue empiric antibiotic coverage with cefepime, Levaquin. Completed course of Tamiflu. Discontinued. Influenza plus rhinovirus. COVID swab negative. Urine bacterial antigens including Legionella negative. MRSA PCR negative. Sputum culture with scant normal luis m on day 2 D-dimer elevated. CTA ruled out PE. Off heparin drip. Continue VTE prophylaxis. TTE with noted low normal ejection fraction close to 50%. Grade 2 diastolic dysfunction. Strict input output charting, daily weight. Range of motion, PT. (2) Septic shock: Hypotension resolved. Weaned off pressor. Fever improving. Continue cefepime, Levaquin. Present on admission. Ruled in by tachycardia, hypotension requiring pressors, endorgan damage with hypoxic respiratory failure, lactic acidosis. Pressors weaned off. Keep mean artery pressure 65. Keep saturation over 90%. MRSA negative, urine Legionella bacterial antigen negative. (3) Influenza A: Continue with Tamiflu 75 mg twice daily. Additional measures as above. (4) Pneumonia: As above (5) HTN (hypertension): Additional labetalol given this morning. Has been responding well to labetalol, will keep as needed 10 every 4 hours as needed for blood pressure over 170 systolic or over 100 diastolic. Continue amlodipine, clonidine patch. (6) Thrombocytopenia: Improving. Peripheral smear without schistocytes. Chemistries not suggestive of hemolysis. Low probability TTP. Low probability HIT. Fibrin degradation products elevated, noted D-dimer elevation but with superficial thrombophlebitis of arm on duplex. No DVT. Overall picture not suggestive of DIC. Possibly drug-related. After antibiotic changes yesterday thrombocytopenia with improvement. (7) Mucosal bleeding: Resolved. As above. (8) Metabolic acidosis: Resolved. Hold off on any further IV fluids. (9) Lactic acid acidosis: (10) Positive KATHLEEN (antinuclear antibody): (11) Chronic steroid use: (12) Superficial thrombophlebitis: Right antecubital vein. Elevate. DVT prophylaxis. Plan Full code. Protonix for PUD prophylaxis Heparin DVT prophylaxis. Critically ill. Attestations Medical Necessity Statement*: Continue mechanical ventilatory support for respiratory failure, weaning sedation and ventilatory support. Critical Care Time: The high probability of a clinically significant, sudden or life threatening deterioration of the patient's respiratory system(s) required my full and direct attention, intervention and personal management. The critical care time is as shown. This time is in addition to time spent performing any reported procedures but includes the following: x Data and vital sign review and interpretation x Patient assessment, examination and intervention x Documentation x Medication orders and management Critical Care Time (min): 45 Coding Level of Care Code Acute Hose Inspector for [facility] Fwd Diagnoses Acute respiratory failure with hypoxia J96.01 Septic shock A41.9; R65.21 Influenza A J10.1 Pneumonia J18.9 HTN (hypertension) I10 Thrombocytopenia D69.6 Mucosal bleeding R58 Metabolic acidosis E87.20 Lactic acid acidosis E87.20 Positive KATHLEEN (antinuclear antibody) R76.8 Chronic steroid use Superficial thrombophlebitis I80.9
[2022-05-11] VITALS (109 sets, daily range): BP systolic 130–180; BP diastolic 61–140; PULSE 47–94; RESP 20–34; TEMP 37–38.7; O2SAT 91–99
[2022-05-11] MEDS: heparin 5,000 unit/mL INJ 1 mL 5000 UNIT SUBCUT ×3 (01:20→23:47)
--- NOTE | 2022-05-11 01:41 | PC.NURSE ---
Temp trending upward. 101.7 rectal. Patient turned, blankets removed and fan turned on.
[2022-05-11] MEDS: levalbuterol 0.63 mg/3 mL Neb INHALATION ×3 (02:19→20:04)
[2022-05-11] MEDS: cefepime 1,000 MG in sodium chloride 0.9% (plus) 50 ML 100 MG IV ×2 (03:49→15:55)
[2022-05-11] MEDS: propofol 1,000 MG/100 ML INJ 12.85 MG IV (03:49)
[2022-05-11 04:55] LABS: Basophils % 0.2 %; Hematocrit 30.6 % (37.0-47.0); Hemoglobin 9.6 g/dL (11.5-15.3); Lymphocytes # 1.1 10^3/uL (0.8-4.8); Lymphocytes % 6.4 %; Mean Corpuscular HGB Conc 31.4 g/dL (30.0-36.0); Mean Corpuscular Hemoglobin 30.1 pg (28.0-34.0); Mean Corpuscular Volume 95.9 fl (81-99); Mean Platelet Volume 13.5 fL (7.4-10.4); Monocytes # 0.6 10^3/uL (0.2-0.9); Monocytes % 3.3 %; Neutrophils # 13.95 10^3/uL (1.8-7.7); Nucleated Red Blood Cells % 0.2 %; Platelet Count 176 10^3/cmm (130-400); Red Blood Count 3.19 10^6/uL (4.1-5.3); White Blood Count 16.8 10^3/uL (4.0-10.0)
[2022-05-11 05:17] LABS: Alanine Aminotransferase 21 U/L (0-33); Albumin Level 2.8 g/dL (3.5-5.2); Alkaline Phosphatase 68 U/L (35-105); Blood Urea Nitrogen 32 mg/dL (6-20); Calcium 8.7 mg/dL (8.5-10.5); Carbon Dioxide 30 mmol/L (22-29); Chloride 106 mmol/L (98-107); Globulin 3.4 g/dL (1.3-4.6); Glomerular Filtration Rate 182.7 mL/min (90-130); Glucose 115 mg/dL (65-115); Osmolality Calculated 302 mOsm/kg (285-295); Sodium 142 mmol/L (136-145); Total Bilirubin 0.3 mg/dL (0.15-1.2); Total Protein 6.2 g/dL (6.6-8.7)
[2022-05-11 05:28] LABS: Anion Gap 10.6 (5-19); Aspartate Amino Transferase 29 U/L (0-32); Potassium 4.6 mmol/L (3.5-5.1)
[2022-05-11 05:43] LABS: Slide Review Slide Review Perform
--- NOTE | 2022-05-11 07:45 | XRR_ITS ---
PROCEDURE INFORMATION: Exam: XR Chest Exam date and time: 05/11/2022 9:08 AM Age: 32 years old Clinical indication: Shortness of breath; Additional info: Pneumonia TECHNIQUE: Imaging protocol: Radiologic exam of the chest. Views: 1 view. COMPARISON: CR (CHEST, ) 05/10/2022 6:22 AM FINDINGS: Tubes, catheters and devices: There is an endotracheal tube 2.5 cm above the karen. There is a central venous catheter with tip overlying the right atrium. There is a feeding tube with its tip overlying the stomach. There is a pain management type device stable overlying the left axilla. Lungs: There is stable left lung infiltrate but now there is increased extensive right lung infiltrate. Pleural spaces: Unremarkable. No pleural effusion. No pneumothorax. Heart/Mediastinum: Unremarkable. No cardiomegaly. Bones/joints: Unremarkable. XR/XR chest 1V portable [id number] IMPRESSION: Increasing right lung infiltrate.
[2022-05-11] MEDS: budesonide 0.5 mg/2 mL Neb INHALATION ×2 (08:27→20:04)
[2022-05-11] MEDS: levalbuterol 1.25 mg/3 mL Neb INHALATION (08:27)
[2022-05-11] MEDS: amlodipine 5 mg Tablet PO (08:55)
[2022-05-11] MEDS: pantoprazole 40 mg SDV IVP (08:55)
[2022-05-11] MEDS: dexmedetomidine 400 MCG in sodium chloride 0.9% (100 ml) 100 ML IV (09:14)
[2022-05-11 09:56] LABS: ABG PCO2 39.1 mmHg (35-45); Alveolar-Arterial Oxygen Gradi 31.6 mmHg (5-10); Arterial Blood Gas Hematocrit 31.6 % (37-47); Base Excess ABG 6.5 mmol/L (-2.0-2.0); Blood Gas Allen Test Pos; Blood Gas Operator Identificat CAK; Blood Gas Sample Site Radial, left; Blood Gas Sample Type Arterial; Carboxyhemoglobin 0.6 %THgb (0.4-20.1); HCO3 ABG 30.2 mmol/L (22-26); HGB O2 Sat 93.3 % (95-100); Ionized Calcium Level - ABG 1.2 mmol/L (1.1-1.4); Methemoglobin 0.9 % (0.4-1.5); Oxygen Device VENT; Oxygen Saturation ABG 94.7; PO2 ABG 69.8 mmHg (80.0-100.0); Potassium Level - ABG 4.2 mmol/L (3.5-5.0); Total Hemoglobin 10.3 g/dL (12-16)
[2022-05-11] MEDS: propofol 1,000 MG/100 ML INJ 19.27 MG IV ×2 (10:46→21:47)
[2022-05-11] MEDS: HYDROmorphone 1 mg/mL INJ 1 mL 0.5 MG IVP ×2 (10:47→15:19)
[2022-05-11] MEDS: chlorhexidine gluconate 4% Btl 118 mL 1 APPLIC TOPICAL (11:02)
--- NOTE | 2022-05-11 11:12 | PC.RESP ---
bronch setup and done with a mini BAL sample collected. 20 ml saline with 15ml sample collected. sample sent to lab.
--- NOTE | 2022-05-11 11:28 | CTR_ITS ---
PROCEDURE INFORMATION: Exam: CTA Chest With Contrast Exam date and time: 05/11/2022 4:51 PM Age: 32 years old Clinical indication: Shortness of breath; Additional info: Resp fail TECHNIQUE: Imaging protocol: Computed tomographic angiography of the chest with contrast. 3D rendering (Not supervised by radiologist): MIP and/or 3D reconstructed images were created by the technologist. Radiation optimization: All CT scans at this facility use at least one of these dose optimization techniques: automated exposure control; mA and/or kV adjustment per patient size (includes targeted exams where dose is matched to clinical indication); or iterative reconstruction. Contrast material: OMNI 350; Contrast volume: 54 ml; Contrast route: INTRAVENOUS (IV); COMPARISON: CT angio chest PE protcl [id number] 05/04/2022 3:32 PM RADIATION DOSE METRICS: Total DLP (mGy-cm): 455.41 FINDINGS: Limitations: The study is limited by patient respiratory motion artifact. This limits visualization of the small peripheral pulmonary arterial branches. Tubes, catheters and devices: Right central line with tip in right atrium. There is an endotracheal tube present, with distal tip 4 cm above the karen. There is an enteric tube present with distal portion in the stomach. Pulmonary arteries: Pulmonary arteries are normal in caliber. No filling defects are demonstrated. No evidence of pulmonary embolism, within the technical limits of the examination. Aorta: No aortic aneurysm. No aortic dissection. Lungs: There are areas of cystic bronchiectasis demonstrated in both lungs, particularly in the right upper lobe. Nonspecific diffuse airspace infiltrates are seen throughout both lungs. This may represent bilateral pneumonia versus pulmonary edema. Pleural spaces: No pleural effusion or pneumothorax noted. Heart: No cardiomegaly demonstrated. There is no significant pericardial effusion present. Coronary arteries: No coronary arterial calcifications are noted. Mediastinal space: Pneumomediastinum is present. Lymph nodes: Unremarkable. No enlarged lymph nodes. Bones/joints: No acute fracture or other acute osseous abnormality. Soft tissues: The soft tissues are unremarkable as demonstrated. CT/CT angio chest PE protcl [id number] IMPRESSION: 1. The study is limited by patient respiratory motion artifact. This limits visualization of the small peripheral pulmonary arterial branches. 2. No evidence of pulmonary embolism, within the technical limits of the examination. 3. There are areas of cystic bronchiectasis demonstrated in both lungs, particularly in the right upper lobe. 4. Nonspecific diffuse airspace infiltrates are seen throughout both lungs. This may represent bilateral pneumonia versus pulmonary edema. 5. Pneumomediastinum is present. 6. There is an endotracheal tube present, with distal tip 4 cm above the karen. 7. There is an enteric tube present with distal portion in the stomach.
[2022-05-11] MEDS: lidocaine 2% INJ 20 mL INJECTION (11:53)
[2022-05-11] MEDS: linezolid premix 600 MG/300 ML PREMIX 300 MG IV ×2 (12:28→23:44)
--- NOTE | 2022-05-11 13:10 | PM.PN ---
Subjective Subjective: -Seen patient at bedside today -She is off paralytic-however she is reporting fentanyl on 175 MCG/hour, Precedex 0.2, Versed 4 Mg/hour, propofol 20 MCG/hour-any attempts to wean off sedation patient is becoming tachypneic -She is covered with cefepime and levofloxacin-so far cultures are negative-but continues to have low-grade fevers yesterday T-max was 101 and today's CBC showed a leukocytosis 16 K with neutrophilia -Chest x-ray today showing worsening right lung infiltrate -ABG today morning on CMV FiO2 50% PEEP 10-7.5 0/39/69/30/94%-PF ratio 140 --1.2 L since admission-over last 4 days she is NET -4 L negative -Given prior immunosuppression-suspecting fungal pneumonia/post influenza staph pneumonia -Bronchoscopy at bedside performed-clear secretions noted bilaterally-BAL sent for wash cultures, PCP, Aspergillus antigen and sputum D glucan sent -We will broaden coverage to cover staph with linezolid(as there was suspicion with vancomycin causing thrombocytopenia and rash earlier and micafungin -Labs and imaging reviewed Medications: Reviewed: Yes Vitals/I&O/Wt Last Vital Signs Temp 100.4 F H 05/11/22 12:00 Pulse 72 05/11/22 12:00 Resp 26 H 05/11/22 11:00 BP 140/70 05/11/22 12:00 Pulse Ox 94 05/11/22 12:00 O2 Del Method 05/11/22 08:32 FiO2 50 05/11/22 12:00 05/10/22 05/11/22 05/11/22 22:59 06:59 14:59 Intake Total 612.562 / 976.320 132.668 / 1108.988 344.420 / 344.420 Output Total 400 / 1400 1100 / 2500 550 / 550 Balance 212.562 / -423.680 -967.332 / -1391.012 -205.580 / -205.580 Weight last 48 hrs Weight 264 lb 1 oz Weight 250 lb 1 oz Physical Exam Narrative: PHYSICAL EXAM: General: lying in bed, sedated and intubated. HEENT:NCAT, PERRLA, EOMI Neck: Supple Lungs: Bilateral normal breath sounds-wheezing improved compared to previous examination Heart: s1/s2, RRR Abd: soft, NT, ND, BS + Normoactive Extremities: No edema TARGET NETWORK ANALYST: sedated and limited TARGET NETWORK ANALYST exam possible. SKIN: no rash LDA: # CVC: Right IJ # Holguin: Present Urinary Catheter Management: Holguin: Cath Placed During This Visit: yes Reason for Continuing Indwelling Catheter: Accurate Measurement of Urinary Output in Critically Ill Patients Urinary Catheter Date of Insertion: 05/04/22 Data 05/11/22 04:40 05/11/22 04:40 Other Labs: Radiology Impressions Chest CTA 05/04/22 12:39 IMPRESSION: 1. Technically limited but negative CT angiogram of the chest. No evidence of acute pulmonary embolism to major branches of the pulmonary vascular tree. 2. Diffuse airspace disease likely representing combination of multifocal pneumonia and bibasilar atelectasis. 3. Mild cardiomegaly. Tubes and lines as discussed above. Head CT 05/10/22 15:54 IMPRESSION: 1. No acute intracranial hemorrhage or edema. 2. No atrophy or ischemia. Chest X-Ray 05/11/22 07:45 IMPRESSION: Increasing right lung infiltrate. Laboratory Results WBC 16.8 10^3/uL (4.0-10.0) H 05/11/22 04:40 RBC 3.19 10^6/uL (4.1-5.3) L 05/11/22 04:40 Hgb 9.6 g/dL (11.5-15.3) L 05/11/22 04:40 Hct 30.6 % (37.0-47.0) L 05/11/22 04:40 MCV 95.9 fl (81-99) 05/11/22 04:40 MCH 30.1 pg (28.0-34.0) 05/11/22 04:40 MCHC 31.4 g/dL (30.0-36.0) 05/11/22 04:40 RDW 14.0 % (12.1-15.1) 05/11/22 04:40 Plt Count 176 10^3/cmm (130-400) 05/11/22 04:40 MPV 13.5 fL (7.4-10.4) H 05/11/22 04:40 Neut % (Auto) 83.0 % 05/11/22 04:40 Lymph % (Auto) 6.4 % 05/11/22 04:40 Hyde % (Auto) 3.3 % 05/11/22 04:40 Eos % (Auto) 0.0 % 05/11/22 04:40 Baso % (Auto) 0.2 % 05/11/22 04:40 Neut # (Auto) 13.95 10^3/uL (1.8-7.7) H 05/11/22 04:40 Lymph # (Auto) 1.1 10^3/uL (0.8-4.8) 05/11/22 04:40 Hyde # (Auto) 0.6 10^3/uL (0.2-0.9) 05/11/22 04:40 Eos # (Auto) 0.0 10^3/uL (0.0-0.8) 05/11/22 04:40 Baso # (Auto) 0.0 10^3/uL (0.0-0.1) 05/11/22 04:40 Nucleated RBC % (auto) 0.2 % 05/11/22 04:40 Total Counted 100 (0-100) 05/10/22 02:42 Atypical Lymphs % 1.0 % (0-5) 05/10/22 02:42 Absolute Neutrophils 9.0 10^3/cmm (1.4-6.5) H 05/10/22 02:42 Segmented Neutrophils 81 % 05/10/22 02:42 Abs Segm Neuts (Man) 8.9 10/cmm (1.6-7.1) H 05/10/22 02:42 Band Neutrophils 1.0 % 05/10/22 02:42 Abs Band Neuts (Man) 0.1 10^3/cmm (0.0-1.2) 05/10/22 02:42 Absolute Lymphocytes 1.0 10^3/cmm (1.2-3.4) L 05/10/22 02:42 Lymphocytes (Manual) 8 % 05/10/22 02:42 Monocytes (Manual) 7.0 % 05/10/22 02:42 Absolute Monocytes 0.8 10^3/cmm (0.1-0.6) H 05/10/22 02:42 Eosinophils (Manual) 2 % 05/10/22 02:42 Absolute Eosinophils 0.2 10^3/cmm (0.0-0.7) 05/10/22 02:42 Basophils (Manual) 0.0 % 05/10/22 02:42 Absolute Basophils 0.0 10^3/cmm (0.0-0.2) 05/10/22 02:42 Metamyelocytes 1.0 % 05/05/22 04:30 Myelocytes 1.0 % 05/05/22 04:30 Nucleated RBCs # 0.0 /100WBC 05/11/22 04:40 Platelet Estimate Normal (Normal) 05/10/22 02:42 Poikilocytosis Trace 05/05/22 04:30 Anisocytosis 1+ H 05/10/22 02:42 Ovalocytes 1+ H 05/10/22 02:42 [place] Cells 1+ H 05/10/22 02:42 Haptoglobin 202.0 mg/L (30-200) H 05/09/22 16:57 PT 14.70 SECONDS (12.1-14.9) 05/08/22 17:34 INR 1.11 (0.8-1.2) 05/08/22 17:34 APTT 23.2 SECONDS (23.9-36.7) L 05/08/22 17:34 Fibrinogen 517 mg/dL (174-498) H 05/08/22 17:34 Fibrin Degrad Products Pos, 10-40 ug/mL (NEG) H 05/08/22 17:34 D-Dimer 3.03 ug/mIFEU (0-0.59) H 05/08/22 17:34 Specimen Type Arterial 05/11/22 09:45 Sample Site Radial, left 05/11/22 09:45 ABG pH 7.50 (7.35-7.45) H 05/11/22 09:45 ABG pCO2 39.1 mmHg (35-45) 05/11/22 09:45 ABG pO2 69.8 mmHg (80.0-100.0) L 05/11/22 09:45 ABG HCO3 30.2 mmol/L (22-26) H 05/11/22 09:45 ABG O2 Saturation 94.7 05/11/22 09:45 ABG Base Excess 6.5 mmol/L (-2.0-2.0) H 05/11/22 09:45 Cory Test Pos 05/11/22 09:45 A-a O2 Gradient 31.6 mmHg (5-10) H 05/11/22 09:45 Hematocrit 31.6 % (37-47) L 05/11/22 09:45 Hgb O2 Saturation 93.3 % (95-100) L 05/11/22 09:45 Carboxyhemoglobin 0.6 %THgb (0.4-20.1) 05/11/22 09:45 Methemoglobin 0.9 % (0.4-1.5) 05/11/22 09:45 Total Hemoglobin 10.3 g/dL (12-16) L 05/11/22 09:45 Sodium 142.0 mmol/L (131-143) 05/11/22 09:45 Potassium 4.2 mmol/L (3.5-5.0) 05/11/22 09:45 Glucose 117.0 mg/dL (70-115) H 05/11/22 09:45 Ionized Calcium 1.2 mmol/L (1.1-1.4) 05/11/22 09:45 O2 Delivery Device Vent 05/11/22 09:45 FiO2 50.0 % 05/11/22 09:45 Tidal Volume 0.40 05/11/22 09:45 PEEP 10.0 cmH20 05/11/22 09:45 Ordnance Technician ID Cak 05/11/22 09:45 Sodium 142 mmol/L (136-145) 05/11/22 04:40 Potassium 4.6 mmol/L (3.5-5.1) 05/11/22 04:40 Chloride 106 mmol/L (98-107) 05/11/22 04:40 Carbon Dioxide 30 mmol/L (22-29) H 05/11/22 04:40 Anion Gap 10.6 (5-19) 05/11/22 04:40 BUN 32 mg/dL (6-20) H 05/11/22 04:40 Creatinine 0.4 mg/dL (0.5-0.9) L 05/11/22 04:40 GFR Calculation 182.7 mL/min (90-130) H 05/11/22 04:40 Glucose 115 mg/dL (65-115) 05/11/22 04:40 POC Glucose 145 mg/dL (70-110) H 05/09/22 02:29 Estimat Average Glucose 94 05/05/22 04:30 Hemoglobin A1c 4.9 % (4.0-6.0) 05/05/22 04:30 Calculated Osmolality 302 mOsm/kg (285-295) H 05/11/22 04:40 Lactic Acid 2.1 mmol/L (0.5-2.2) 05/05/22 10:03 Lactic Acid (Sepsis) 2.1 mmol/L (0.5-2.2) 05/05/22 13:24 Calcium 8.7 mg/dL (8.5-10.5) 05/11/22 04:40 Phosphorus 2.9 mg/dL (2.5-4.5) 05/04/22 16:53 Magnesium 1.2 mg/dL (1.7-2.3) L 05/04/22 16:53 Iron 6 ug/dL (37-145) L 05/04/22 08:40 TIBC 247 mcg/dl 05/04/22 08:40 % Saturation 2.4 % (20-50) L 05/04/22 08:40 Unsat Iron Binding 241 ug/dL (112-347) 05/04/22 08:40 Total Bilirubin 0.3 mg/dL (0.15-1.2) 05/11/22 04:40 AST 29 U/L (0-32) 05/11/22 04:40 ALT 21 U/L (0-33) 05/11/22 04:40 Alkaline Phosphatase 68 U/L (35-105) 05/11/22 04:40 Lactate Dehydrogenase 457 U/L (135-214) H 05/09/22 16:57 Creatine Kinase 107 U/L (26-192) 05/05/22 10:03 C-Reactive Protein 300.0 mg/L (0.0-4.9) H 05/04/22 08:40 NT-Pro-B Natriuret Pep 1252 pg/mL (0-125) H 05/04/22 08:40 Total Protein 6.2 g/dL (6.6-8.7) L 05/11/22 04:40 Albumin 2.8 g/dL (3.5-5.2) L 05/11/22 04:40 Globulin 3.4 g/dL (1.3-4.6) 05/11/22 04:40 Triglycerides 377 mg/dL (0-150) H 05/09/22 02:30 Cholesterol 86 mg/dL (0-200) 05/05/22 04:30 LDL Cholesterol, Calc 1 mg/dL (50-129) L 05/05/22 04:30 Total VLDL Cholesterol 70 mg/dL (0-30) H 05/05/22 04:30 HDL Cholesterol 15 mg/dL (60-100) L 05/05/22 04:30 Cholesterol/HDL Ratio 5.73 mg/dL (0.0-4.40) H 05/05/22 04:30 Vitamin B12 847 pg/mL (232-1245) 05/04/22 08:40 Folate 7.7 ng/mL (4.8-37.3) 05/04/22 16:53 Procalcitonin 19.48 ng/mL (0-0.5) H 05/04/22 08:40 TSH 0.10 uIU/mL (0.27-4.20) L 05/04/22 08:40 Free T4 1.11 ng/dL (0.82-1.77) 05/04/22 16:53 Free T3 2.3 PG/ML (2.0-4.4) 05/04/22 16:53 HCG, Qual Negative (Negative) 05/04/22 16:53 Urine Color Dark yellow (Yellow) 05/04/22 15:05 Urine Appearance Clear (CLEAR) 05/04/22 15:05 Urine pH 5 (5-7) 05/04/22 15:05 Ur Specific Sutton 1.020 (1.005-1.030) 05/04/22 15:05 Urine Protein 1+ (Negative) H 05/04/22 15:05 Urine Glucose (UA) Norm (Normal) 05/04/22 15:05 Urine Ketones 1+ (Negative) H 05/04/22 15:05 Urine Blood Neg (Negative) 05/04/22 15:05 Urine Nitrate Negative (Negative) 05/04/22 15:05 Urine Bilirubin Neg (Negative) 05/04/22 15:05 Urine Urobilinogen Norm mg/dL (Negative) 05/04/22 15:05 Ur Leukocyte Esterase Negative (Negative) 05/04/22 15:05 Urine RBC None /hpf (0-2) 05/04/22 15:05 Urine WBC 5-10 /hpf (0-5) H 05/04/22 15:05 Ur Squamous Epith Cells 0-4 /hpf (0-5) H 05/04/22 15:05 Amorphous Sediment 1+ /hpf 05/04/22 15:05 Urine Bacteria Trace /hpf (NONE) 05/04/22 15:05 Coarse Granular Casts 10-15 /lpf H 05/04/22 15:05 Ur Random Sodium 10 mmol/L 05/04/22 22:49 Ur Random Potassium 13 mmol/L 05/04/22 22:49 Ur Random Chloride 10 mmol/L 05/04/22 22:49 Urine Creatinine 217 mg/dL (28-217) 05/04/22 15:05 Nasal Influ A H1 2009 PCR Detected (NOT DETECT) A 05/04/22 11:47 Vancomycin Trough 12.8 ug/mL (10-15) 05/08/22 14:55 Urine Opiates Screen Positive ng/mL (Negative) H 05/04/22 22:49 Ur Barbiturates Screen Negative ng/mL (Negative) 05/04/22 22:49 Ur Phencyclidine Scrn Negative ng/mL (Negative) 05/04/22 22:49 Ur Amphetamines Screen Negative ng/mL (Negative) 05/04/22 22:49 U Benzodiazepines Scrn Negative ng/mL (Negative) 05/04/22 22:49 Urine Cocaine Screen Negative ng/mL (Negative) 05/04/22 22:49 U Marijuana (THC) Screen Negative ng/mL (Negative) 05/04/22 22:49 Coronavirus 229E (PCR) Not detected (NOT DETECT) 05/04/22 08:49 Human Metapneumovir PCR Not detected (NOT DETECT) 05/04/22 11:47 Influenza A (H1) PCR Not detected (NOT DETECT) 05/04/22 11:47 Influenza A (H3) PCR Not detected (NOT DETECT) 05/04/22 11:47 Influenza Type A (PCR) Detected (NOT DETECT) A 05/04/22 11:47 Influenza Type B (PCR) Not detected (NOT DETECT) 05/04/22 11:47 Pneumocystis Source Cancelled 05/11/22 10:55 Pneumocyst jirovecii PCR Cancelled 05/11/22 10:55 Aspergillus Source Cancelled 05/11/22 10:55 Aspergillus Ag (EIA) Cancelled 05/11/22 10:55 Aspergillus sp (PCR) Cancelled 05/11/22 10:55 A. fumigatus (PCR) Cancelled 05/11/22 10:55 A. galactomannan Ag Idx Cancelled 05/11/22 10:55 A. terreus (PCR) Cancelled 05/11/22 10:55 Entero/Rhino (PCR) Detected (NOT DETECT) A 05/04/22 11:47 SARS-CoV-2 (PCR) Not detected (NOT DETECT) 05/04/22 08:49 Beta-(1,3)-D-Glucan Cancelled 05/11/22 10:55 B-(1,3)-D-Glucan Intrp Cancelled 05/11/22 10:55 Micro: Microbiology 05/09/22 20:15 Blood Culture - Preliminary Blood NEGATIVE TO DATE 05/09/22 16:57 Blood Culture - Preliminary Blood NEGATIVE TO DATE A&P Assessment and plan (1) Acute respiratory failure with hypoxia: (2) Influenza A: (3) Chronic steroid use: (4) Undifferentiated connective tissue disease: (5) Asthma: (6) Morbid obesity: (7) Pneumonia: Plan #Acute hypoxic respiratory failure secondary to asthma exacerbation due to influenza A #CHF exacerbation with grade 2 diastolic dysfunction on echocardiogram -Patient on droplet precautions -CTA 05/04-no evidence of acute PE, diffuse airspace disease representing multifocal pneumonia/bibasilar atelectasis -Currently intubated on mechanical ventilation with CMV 400/20/10/50-saturating 94% -She is off paralytic-however she is reporting fentanyl on 175 MCG/hour, Precedex 0.2, Versed 4 Mg/hour, propofol 20 MCG/hour-any attempts to wean off sedation patient is becoming tachypneic -There is a concern if patient has a developed tolerance to fentanyl-I wanted to switch to Dilaudid drip-order pharmacy does not do Dilaudid drips-so recommended Dilaudid 0.5 mg IV push Q4 hour as needed if patient becomes tachypneic -We will continue to do spontaneous awakening trials followed by breathing trials --Patient was receiving Xopenex every 2 over-currently her breath sounds does not have much wheezing-we will reduce the frequency to every 6 hours as needed- -Currently on methylprednisone 40 every 8 hour-we will taper off and monitor clinically --Echocardiogram 05/04/2022-normal LV size systolic function EF 50%. Grade 2 diastolic dysfunction. Moderately elevated filling pressures. -She is net negative -3 L in last 48 hours; try to maintain net negative to even fluid balance-Lasix 40 Mg daily -sodium 148, BUN increasing, bicarbonate 30-suggestive of metabolic alkalosis ; we will hold off Lasix for now -Monitor electrolytes and supplement to keep potassium greater than 4 and magnesium greater than 2 #Temperature spikes, leukocytosis, worsening right lung infiltrate on chest [id number] secondary bacterial infection possibly staph post influenza A versus fungal pneumonia given patient's immunosuppression -She completed 5-day course of Tamiflu; currently patient is on cefepime, levofloxacin,-so far MRSA nares negative, urine Legionella negative, urine bacterial antigens negative, blood cultures negative -She is covered with cefepime and levofloxacin -but continues to have low-grade fevers yesterday T-max was 101 and today's CBC showed a leukocytosis 16 K with neutrophilia -With chronic steroid/leflunomide-patient is immunosuppressed-at risk for PCP and other fungal infections -Chest x-ray today showing worsening right lung infiltrate -ABG today morning on CMV FiO2 50% PEEP 10-7.5 0/39/69/30/94%-PF ratio 140 --1.2 L since admission-over last 4 days she is NET -4 L negative -Bronchoscopy at bedside performed-clear secretions noted bilaterally-BAL sent for wash cultures, PCP, Aspergillus antigen and sputum D glucan sent -We will broaden coverage to cover staph with linezolid(as there was suspicion with vancomycin causing thrombocytopenia and rash earlier) and micafungin -We will repeat CT chest today #Patient has underlying inflammatory arthritis-uncategorized CTD on chronic steroid therapy prior to admission -Initially hypotensive requiring initially hypotensive during periintubation-likely secondary to adrenal insufficiency-she received hydrocortisone at that time -Later switched to Solu-Medrol 40 every 6 -We will slowly taper off ICU CHECKLIST: Problem list updated Verbal orders reviewed and signed Analgesia: Fentanyl Glycemic Control: N/A Nutrition: [facility] Restraint Renewal (within 24 hrs): Yes Ulcer Prophylaxis: PPI Chemical Thromboprophylaxis: Prophylaxis: Heparin Mechanical Thromboprophylaxis: SCD Need for Central line: yes for multiple medications Need for Holguin catheter: Yes for urine output monitoring Ventilator bundle: {Vent bundle:63696} Critical Care Time (No Overlap): 60 min Attestations Medical Necessity Statement*: Continue close ICU monitoring as patient still requires mechanical ventilation for respiratory support Time Spent in Patient Care: Greater than 35 minutes (>than 50% of time spent in counselling and/or direct pt care on unit). Critical Care Time: This patient has a high probability of sudden, clinica lly significant de terioration, which requires the high est level of physi priyank preparedness to intervene urgen tly.? I managed/soni pervised life or o rgan supporting in terventions that r equired frequent p hysician assessmen t.? I devoted my f ull attention in t he ICU to the dire ct care of this david valenzuela for the klaus od of time indicat ed above.? Time I spent with family or surrogate(s) is included only if the patient was in capable of providi ng necessary infor mation or particip ating in decision making.? Time katie anastacia to teaching an d to any procedure s I billed separat simon is not include d. Services Prov ided: Telemetry re view Mechanical Ve ntilation Hemodyna rohit interpretation , assessment and m anagement Review a nd interpretation of CXR Review and interpretation of lab values Review and interpretation of microbiologic data and culture r esults Review of m edications and adm inistration Review and interpretatio n of Nutrition req uirements and rianna gement Discussion of management with other consultants and services Clin ical update to [facility] [place] members [x] David valenzuela assessment, examination and in tervention [x] Doc umentation [x] Med ication orders and management ? 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
--- NOTE | 2022-05-11 13:30 | PM.ACPR ---
Procedure/Consent Time out: Time Out Performed: Yes Consent: Consent for Procedure: Consent obtained from other (indicate) () Procedure Narrative: Procedure : 36898 Dx Bronchoscope w/Washings or airway inspection 51822 Dx Bronchoscope w/BAL? 07190 Bronchoscopy w/ therapeutic aspiration of the tracheobronchial tree (clearance of airway secretions, removal of mucus plugs) Pre-Operative Diagnosis: Pneumonia Post-Operative Diagnosis: Same Indication: Persistent leukocytosis with chest x-ray showing right lung infiltrates Brief History: 32-year-old female with past medical history of asthma, inflammatory arthritis on immunosuppression, admitted for asthma exacerbation secondary to influenza A-intubated and mechanically ventilated for last 1 week-continues to be tachypneic and unable to wean off sedation-chest x-ray today showing worsening right-sided infiltrates, worsening leukocytosis, temperature spikes-hands and decided to do bronchoscopy to obtain BAL and sent for cultures as well as fungal studies. Consent: Consents were [facility] from [facility] and placed in the chart Pre-procedure Evaluation: Patient was evaluated clinically and ancillary testing reviewed. The risk of having active MTB infection is very low in my clinical judgement. ASA: 4 Malampati score: unable to evaluate due to presence of endotracheal tube Indication: Worsening infiltrates on right side on chest x-ray Time out: Performed by the procedure team and nursing staff. Vent support maintained on Fio2 100. Anesthesia: Patient is already intubated and sedated with Versed 4 Mg/hour, fentanyl 175 MCG/hour, propofol 20 Mg/hour, Precedex 0.3 Mg/hour-still tachypneic given Dilaudid 0.5 Mg IV push to reduce respiratory rate and optimize her sedation Local anesthesia: The karen in the right and left mainstem bronchi were anesthetized with 1% lidocaine, 6 mL. Summary of Significant Findings: -Bronchoscope passed through ET tube used for?initial inspection (99166)?and airway clearance.? The scope was advanced through the ET tube.? The lower trachea mucosa appeared normal, no endotracheal lesion was seen.? The karen was sharp.? The karen, the right and left mainstem bronchi are anesthetized with 1% lidocaine.? In a systematic manner bilateral bronchial tree was then examined.? The bronchoscope was advanced into the left mainstem bronchus.? The mucosa appeared normal with no endobronchial lesions.? The left upper lobe, lingula and left lower lobe bronchi were examined up to the third subsegmental level and no abnormalities were identified.? Mucosa appeared normal with no endobronchial lesion, active bleeding or mucous plug.? There were some clear secretions in lower lobe-which were suctioned right away.? The bronchoscope was then introduced into the right mainstem bronchus.? The right upper lobe, right middle lobe and right lower lobe bronchi were examined up to the third subsegmental level and no abnormalities were identified.? The mucosa appeared normal with no endobronchial lesions, active bleeding.? There were some secretions which were suctioned right away. BAL obtained from right middle lobe the bronchoscope was then removed and the procedure terminated. Estimated Blood Loss: None Specimens: Bronchoalveolar lavage?(09199)?from right middle lobe sent for cultures, fluid analysis, PCP PCR, Asperillus antigen Complications:None; patient tolerated the procedure well. Disposition: Patient remains critically ill, intubated and stays in ICU Surgeon: Archie Singh MD, FCCP? Pulmonary critical Care Medicine [facility] Acute Procedures Epistaxis Control: Time out performed: Yes
[2022-05-11] MEDS: micafungin 100 MG in sodium chloride 0.9% (100 ml) 100 ML IV (13:37)
[2022-05-11] MEDS: iohexol 350 mg/mL 500 mL Btl (per mL) IV (17:00)
[2022-05-11] MEDS: levofloxacin-dextrose 5 % 750 MG/150 ML PREMIX 100 MG IV (17:26)
[2022-05-11] MEDS: propofol 1,000 MG/100 ML INJ 16.06 MG IV (17:26)
--- NOTE | 2022-05-11 18:33 | P.PN_ITS ---
Subjective Subjective: Intubated, on sedation, no distress during my visit, reportedly well off sedation opening her eyes, looking to her voice, but not alert enough to answer questions or follow directions before going into respiratory distress, restlessness. Medications: Reviewed: Yes Vitals/I&O/Wt Last Vital Signs Temp 100.4 F H 05/11/22 12:00 Pulse 92 05/11/22 15:11 Resp 25 H 05/11/22 17:07 BP 140/70 05/11/22 12:00 Pulse Ox 97 05/11/22 17:07 O2 Del Method 05/11/22 15:00 FiO2 45 05/11/22 17:07 05/11/22 05/11/22 05/11/22 06:59 14:59 22:59 Intake Total 132.668 / 1108.988 872.564 / 872.564 118.918 / 991.482 Output Total 1100 / 2500 550 / 550 Balance -967.332 / -1391.012 322.564 / 322.564 118.918 / 441.482 Weight last 48 hrs Weight 119.777 kg Weight 113.426 kg Physical Exam Const: GENERAL APPEARANCE: patient mechanically ventilated HENMT: COMMON NORMALS: oropharynx normal Resp: COMMON NORMALS: normal respiratory effort EFFORT & INSPECTION: Yes tachypneic AUSCULTATION: rales bilateral at the base OTHER: More faint base crackles Cardio: COMMON NORMALS: regular rhythm, S1 normal heart sound present, S2 normal heart sound present and No murmurs present (Cardio) RHYTHM: regular rhythm HEART SOUNDS: S1 normal heart sound present and S2 normal heart sound present GI: COMMON NORMALS: Normal to inspection, nondistended, normoactive bowel sounds present, Soft to palpation and non-tender PALPATION: Yes Soft to palpation Extremity: COMMON NORMALS: no joint enlargement and no pedal edema OTHER: Edema of hands, feet with improvement Skin: COMMON NORMALS: no rashes or lesions noted GENERAL SKIN EXAM: no rashes or lesions noted Urinary Catheter Management: Holguin: Cath Placed During This Visit: yes Reason for Continuing Indwelling Catheter: Accurate Measurement of Urinary Output in Critically Ill Patients Urinary Catheter Date of Insertion: 05/04/22 Data 05/11/22 04:40 05/11/22 04:40 Micro: Microbiology 05/11/22 11:55 Gram Stain - Final Lung Right Middle Lobe 05/09/22 20:15 Blood Culture - Preliminary Blood NEGATIVE TO DATE 05/09/22 16:57 Blood Culture - Preliminary Blood NEGATIVE TO DATE A&P Assessment and plan (1) Acute respiratory failure with hypoxia: Recurrent respiratory distress when trying to wean down sedation. Persistent leukocytosis, recurrent fever. Discussed with pulm crit. Additional assessment today by bronchoscopy, with BAL samples obtained. Additionally broaden coverage with linezolid, micafungin. Additional assessment with CTA, results appreciated, discussed with her . Continue reassessments, daily attempts to wean sedation, continue attempts to wean down mechanical ventilatory support. Solu-Medrol. Continue empiric antibiotic coverage with cefepime, Levaquin. Completed course of Tamiflu. Discontinued. Influenza plus rhinovirus. COVID swab negative. Urine bacterial antigens including Legionella negative. MRSA PCR negative. Sputum culture with scant normal luis m on day 2 D-dimer elevated. CTA ruled out PE. Off heparin drip. Continue VTE prophylaxis. TTE with noted low normal ejection fraction close to 50%. Grade 2 diastolic dysfunction. Strict input output charting, daily weight. Range of motion, PT. (2) Septic shock: Hypotension resolved. Weaned off pressor. Fever improving. Continue cefepime, Levaquin. Present on admission. Ruled in by tachycardia, hypotension requiring pressors, endorgan damage with hypoxic respiratory failure, lactic acidosis. Pressors weaned off. Keep mean artery pressure 65. Keep saturation over 90%. MRSA negative, urine Legionella bacterial antigen negative. (3) Influenza A: Continue with Tamiflu 75 mg twice daily. Additional measures as above. (4) Pneumonia: As above (5) HTN (hypertension): Blood pressure is doing better. So far has not required further as needed labetalol. Continue amlodipine, clonidine patch. (6) Thrombocytopenia: Improving. Peripheral smear without schistocytes. Chemistries not suggestive of hemolysis. Low probability TTP. Low probability HIT. Fibrin degradation products elevated, noted D-dimer elevation but with superficial thrombophlebitis of arm on duplex. No DVT. Overall picture not suggestive of DIC. Possibly drug-related. After antibiotic changes yesterday thrombocytopenia with improvement. (7) Mucosal bleeding: Resolved. As above. (8) Metabolic acidosis: Resolved. Hold off on any further IV fluids. (9) Lactic acid acidosis: (10) Positive KATHLEEN (antinuclear antibody): (11) Chronic steroid use: (12) Superficial thrombophlebitis: Right antecubital vein. Elevate. DVT prophylaxis. Plan Full code. Protonix for PUD prophylaxis Heparin DVT prophylaxis. Critically ill. Attestations Medical Necessity Statement*: Continue admission for assessment and management of respiratory failure. Critical Care Time: The high probability of a clinically significant, sudden or life threatening deterioration of the patient's respiratory infectious disease system(s) required my full and direct attention, intervention and personal management. The critical care time is as shown. This time is in addition to time spent performing any reported procedures but includes the following: x Data and vital sign review and interpretation x Patient assessment, examination and intervention x Documentation x Medication orders and management Critical Care Time (min): 45 Coding Level of Care Code Acute [place] Inspector for [facility] Fwd Diagnoses Acute respiratory failure with hypoxia J96.01 Septic shock A41.9; R65.21 Influenza A J10.1 Pneumonia J18.9 HTN (hypertension) I10 Thrombocytopenia D69.6 Mucosal bleeding R58 Metabolic acidosis E87.20 Lactic acid acidosis E87.20 Positive KATHLEEN (antinuclear antibody) R76.8 Chronic steroid use Superficial thrombophlebitis I80.9
[2022-05-11 19:41] LABS: Procalcitonin 0.33 ng/mL (0-0.5)
[2022-05-11] MEDS: meropenem 1,000 MG in sodium chloride 0.9% (plus) 50 ML 100 MG IV (19:52)
[2022-05-11] MEDS: quetiapine XR (24HR) 50 mg Tablet PO (21:48)
[2022-05-12] VITALS (81 sets, daily range): BP systolic 102–207; BP diastolic 49–114; PULSE 58–93; RESP 20–31; TEMP 37.1–37.4; O2SAT 93–98
[2022-05-12] MEDS: labetalol 5 mg/mL SDV 20mL 10 MG IVP ×3 (00:28→05:54)
[2022-05-12] MEDS: HYDROmorphone 1 mg/mL INJ 1 mL 0.5 MG IVP ×2 (00:28→04:30)
[2022-05-12] MEDS: levalbuterol 0.63 mg/3 mL Neb INHALATION ×3 (02:03→14:45)
[2022-05-12] MEDS: propofol 1,000 MG/100 ML INJ 22.48 MG IV (02:52)
[2022-05-12] MEDS: meropenem 1,000 MG in sodium chloride 0.9% (plus) 50 ML 100 MG IV ×3 (02:57→18:15)
[2022-05-12 04:42] LABS: ABG PCO2 34.6 mmHg (35-45); ABG PH Result 7.51 (7.35-7.45); Base Excess ABG 4.7 mmol/L (-2.0-2.0); Blood Gas Allen Test Pos; Blood Gas Operator Identificat JB; Blood Gas Sample Site Radial, right; Blood Gas Sample Type Arterial; HCO3 ABG 27.6 mmol/L (22-26); Oxygen Device VENT; PO2 ABG 75.9 mmHg (80.0-100.0)
[2022-05-12 05:11] LABS: Basophils % 0.2 %; Hematocrit 32.7 % (37.0-47.0); Hemoglobin 10.5 g/dL (11.5-15.3); Lymphocytes # 1.2 10^3/uL (0.8-4.8); Lymphocytes % 5.7 %; Mean Corpuscular HGB Conc 32.1 g/dL (30.0-36.0); Mean Corpuscular Hemoglobin 29.7 pg (28.0-34.0); Mean Corpuscular Volume 92.4 fl (81-99); Mean Platelet Volume 13.5 fL (7.4-10.4); Monocytes # 0.9 10^3/uL (0.2-0.9); Neutrophils % 84.9 %; Nucleated Red Blood Cells % 0 %; Platelet Count 207 10^3/cmm (130-400); Red Blood Count 3.54 10^6/uL (4.1-5.3); Red Cell Distribution Width 13.2 % (12.1-15.1); White Blood Count 21.2 10^3/uL (4.0-10.0)
[2022-05-12 05:30] LABS: Alanine Aminotransferase 31 U/L (0-33); Albumin Level 2.8 g/dL (3.5-5.2); Alkaline Phosphatase 70 U/L (35-105); Aspartate Amino Transferase 49 U/L (0-32); Blood Urea Nitrogen 19 mg/dL (6-20); Calcium 8.4 mg/dL (8.5-10.5); Carbon Dioxide 26 mmol/L (22-29); Chloride 101 mmol/L (98-107); Globulin 3.6 g/dL (1.3-4.6); Glomerular Filtration Rate 254.7 mL/min (90-130); Glucose 99 mg/dL (65-115); Osmolality Calculated 284 mOsm/kg (285-295); Sodium 136 mmol/L (136-145); Total Bilirubin 0.4 mg/dL (0.15-1.2); Total Protein 6.4 g/dL (6.6-8.7)
[2022-05-12 05:33] LABS: Anion Gap 12.9 (5-19); Potassium 3.9 mmol/L (3.5-5.1)
[2022-05-12 05:36] LABS: Slide Review Slide Review Perform
--- NOTE | 2022-05-12 05:49 | PC.NURSE ---
Updated Dr. Fajardo about high BP, new order, see MAR.
--- NOTE | 2022-05-12 07:00 | XRR_ITS ---
PROCEDURE INFORMATION: Exam: XR Chest Exam date and time: 05/12/2022 8:03 AM Age: 32 years old Clinical indication: Device placement; Ett placement (vent status); Shortness of breath; Additional info: Lung followup TECHNIQUE: Imaging protocol: Radiologic exam of the chest. Views: 1 view. COMPARISON: CR (CHEST, ) 05/11/2022 9:08 AM FINDINGS: Tubes, catheters and devices: Right-sided central venous line noted with the distal tip in the right atrium. Endotracheal tube approximately 4 cm above the karen. Device noted overlying the left chest similar to prior exam. Lungs: Improved aeration in the lungs compared to prior exam. Persistent left basilar consolidation. Pleural spaces: No pneumothorax. No large pleural effusion. Heart/Mediastinum: Heart is mildly enlarged. Bones/joints: Unremarkable. XR/XR chest 1V portable [id number] IMPRESSION: 1. Endotracheal tube approximately 4 cm above the karen. 2. Improved aeration in the right lung compared to prior exam.
[2022-05-12] MEDS: sulfamethoxazole-trimeth DS 160-800 mg Tablet 1 TAB PO ×2 (08:23→17:35)
[2022-05-12] MEDS: pantoprazole 40 mg SDV IVP (08:23)
[2022-05-12] MEDS: amlodipine 5 mg Tablet PO (08:23)
[2022-05-12] MEDS: budesonide 0.5 mg/2 mL Neb INHALATION ×2 (08:24→19:28)
[2022-05-12] MEDS: propofol 1,000 MG/100 ML INJ 25.69 MG IV ×4 (08:32→20:40)
[2022-05-12] MEDS: quetiapine XR (24HR) 50 mg Tablet PO ×2 (10:43→21:41)
[2022-05-12] MEDS: linezolid premix 600 MG/300 ML PREMIX 300 MG IV ×2 (10:44→23:51)
[2022-05-12] MEDS: heparin 5,000 unit/mL INJ 1 mL 5000 UNIT SUBCUT (11:38)
--- NOTE | 2022-05-12 11:45 | P.PN_ITS ---
Subjective Subjective: No fever spikes since yesterday evening after changing cefepime to meropenem and adding linezolid & Micafungin -However procalcitonin was low 0.03; BAL cultures, PCP PCR are pending -CT chest showed areas of cystic bronchiectasis in right upper lobe-which had previously right upper lobe consolidation on admission CT 1 week ago; other areas have improved CT chest showed pneumomediastinum-decreased -CT chest was also showed pneumomediastinum-PEEP decreased to 8 and currently patient is on SIMV -Adequate urine output and normal renal functions with electrolytes -Off paralytic for more than 24 hours, still requiring fentanyl 150 MCG, Versed 1 Mg/hour, propofol 30 MCG/hour-opening eyes but does not follow commands -Blood pressure has been high and currently managed with the labetalol as needed and amlodipine -No documented bowel movements-but abdomen is soft-we will start her on Pulmicort 15 mL per hour Other labs and imaging are reviewed Medications: Reviewed: Yes Vitals/I&O/Wt Last Vital Signs Temp 99.3 F 05/12/22 05:00 Pulse 68 05/12/22 10:00 Resp 27 H 05/12/22 10:12 BP 132/102 05/12/22 10:00 Pulse Ox 96 05/12/22 10:12 O2 Del Method 05/12/22 08:24 FiO2 45 05/12/22 10:12 05/11/22 05/12/22 05/12/22 22:59 06:59 14:59 Intake Total 1525.208 / 2397.772 549.083 / 2946.855 53.541 / 53.541 Output Total 2400 / 2950 Balance 1525.208 / 1847.772 -1850.917 / -3.145 53.541 / 53.541 Weight last 48 hrs Weight 264 lb 2 oz Weight 264 lb 1 oz Physical Exam Narrative: PHYSICAL EXAM: General: lying in bed, sedated and intubated. HEENT:NCAT, PERRLA, EOMI Neck: Supple Lungs: Bilateral normal breath sounds-wheezing improved compared to previous examination Heart: s1/s2, RRR Abd: soft, NT, ND, BS + Normoactive Extremities: No edema DOUGHNUT ICER: sedated and limited DOUGHNUT ICER exam possible. SKIN: no rash LDA: # CVC: Right IJ # Holguin: Present Urinary Catheter Management: Holguin: Cath Placed During This Visit: yes Reason for Continuing Indwelling Catheter: Accurate Measurement of Urinary Output in Critically Ill Patients Urinary Catheter Date of Insertion: 05/04/22 Data 05/12/22 04:55 05/12/22 04:55 Other Labs: Radiology Impressions Head CT 05/10/22 15:54 IMPRESSION: 1. No acute intracranial hemorrhage or edema. 2. No atrophy or ischemia. Chest CTA 05/11/22 11:28 IMPRESSION: 1. The study is limited by patient respiratory motion artifact. This limits visualization of the small peripheral pulmonary arterial branches. 2. No evidence of pulmonary embolism, within the technical limits of the examination. 3. There are areas of cystic bronchiectasis demonstrated in both lungs, particularly in the right upper lobe. 4. Nonspecific diffuse airspace infiltrates are seen throughout both lungs. This may represent bilateral pneumonia versus pulmonary edema. 5. Pneumomediastinum is present. 6. There is an endotracheal tube present, with distal tip 4 cm above the karen. 7. There is an enteric tube present with distal portion in the stomach. Chest X-Ray 05/12/22 07:00 IMPRESSION: 1. Endotracheal tube approximately 4 cm above the karen. 2. Improved aeration in the right lung compared to prior exam. Laboratory Results WBC 21.2 10^3/uL (4.0-10.0) H 05/12/22 04:55 RBC 3.54 10^6/uL (4.1-5.3) L 05/12/22 04:55 Hgb 10.5 g/dL (11.5-15.3) L 05/12/22 04:55 Hct 32.7 % (37.0-47.0) L 05/12/22 04:55 MCV 92.4 fl (81-99) 05/12/22 04:55 MCH 29.7 pg (28.0-34.0) 05/12/22 04:55 MCHC 32.1 g/dL (30.0-36.0) 05/12/22 04:55 RDW 13.2 % (12.1-15.1) 05/12/22 04:55 Plt Count 207 10^3/cmm (130-400) 05/12/22 04:55 MPV 13.5 fL (7.4-10.4) H 05/12/22 04:55 Neut % (Auto) 84.9 % 05/12/22 04:55 Lymph % (Auto) 5.7 % 05/12/22 04:55 [place] % (Auto) 4.0 % 05/12/22 04:55 Eos % (Auto) 0.0 % 05/12/22 04:55 Baso % (Auto) 0.2 % 05/12/22 04:55 Neut # (Auto) 18.00 10^3/uL (1.8-7.7) H 05/12/22 04:55 Lymph # (Auto) 1.2 10^3/uL (0.8-4.8) 05/12/22 04:55 [place] # (Auto) 0.9 10^3/uL (0.2-0.9) 05/12/22 04:55 Eos # (Auto) 0.0 10^3/uL (0.0-0.8) 05/12/22 04:55 Baso # (Auto) 0.0 10^3/uL (0.0-0.1) 05/12/22 04:55 Nucleated RBC % (auto) 0 % 05/12/22 04:55 Total Counted 100 (0-100) 05/10/22 02:42 Atypical Lymphs % 1.0 % (0-5) 05/10/22 02:42 Absolute Neutrophils 9.0 10^3/cmm (1.4-6.5) H 05/10/22 02:42 Segmented Neutrophils 81 % 05/10/22 02:42 Abs Segm Neuts (Man) 8.9 10/cmm (1.6-7.1) H 05/10/22 02:42 Band Neutrophils 1.0 % 05/10/22 02:42 Abs Band Neuts (Man) 0.1 10^3/cmm (0.0-1.2) 05/10/22 02:42 Absolute Lymphocytes 1.0 10^3/cmm (1.2-3.4) L 05/10/22 02:42 Lymphocytes (Manual) 8 % 05/10/22 02:42 Monocytes (Manual) 7.0 % 05/10/22 02:42 Absolute Monocytes 0.8 10^3/cmm (0.1-0.6) H 05/10/22 02:42 Eosinophils (Manual) 2 % 05/10/22 02:42 Absolute Eosinophils 0.2 10^3/cmm (0.0-0.7) 05/10/22 02:42 Basophils (Manual) 0.0 % 05/10/22 02:42 Absolute Basophils 0.0 10^3/cmm (0.0-0.2) 05/10/22 02:42 Metamyelocytes 1.0 % 05/05/22 04:30 Myelocytes 1.0 % 05/05/22 04:30 Nucleated RBCs # 0.0 /100WBC 05/12/22 04:55 Platelet Estimate Normal (Normal) 05/10/22 02:42 Poikilocytosis Trace 05/05/22 04:30 Anisocytosis 1+ H 05/10/22 02:42 Ovalocytes 1+ H 05/10/22 02:42 [place] Cells 1+ H 05/10/22 02:42 Haptoglobin 202.0 mg/L (30-200) H 05/09/22 16:57 PT 14.70 SECONDS (12.1-14.9) 05/08/22 17:34 INR 1.11 (0.8-1.2) 05/08/22 17:34 APTT 23.2 SECONDS (23.9-36.7) L 05/08/22 17:34 Fibrinogen 517 mg/dL (174-498) H 05/08/22 17:34 Fibrin Degrad Products Pos, 10-40 ug/mL (NEG) H 05/08/22 17:34 D-Dimer 3.03 ug/mIFEU (0-0.59) H 05/08/22 17:34 Specimen Type Arterial 05/12/22 04:26 Sample Site Radial, right 05/12/22 04:26 ABG pH 7.51 (7.35-7.45) H 05/12/22 04:26 ABG pCO2 34.6 mmHg (35-45) L 05/12/22 04:26 ABG pO2 75.9 mmHg (80.0-100.0) L 05/12/22 04:26 ABG HCO3 27.6 mmol/L (22-26) H 05/12/22 04:26 ABG O2 Saturation 94.7 05/11/22 09:45 ABG Base Excess 4.7 mmol/L (-2.0-2.0) H 05/12/22 04:26 Cory Test Pos 05/12/22 04:26 A-a O2 Gradient 31.6 mmHg (5-10) H 05/11/22 09:45 Hematocrit 42.0 % (37-47) 05/12/22 04:26 Hgb O2 Saturation 93.3 % (95-100) L 05/11/22 09:45 Carboxyhemoglobin 0.6 %THgb (0.4-20.1) 05/11/22 09:45 Methemoglobin 0.9 % (0.4-1.5) 05/11/22 09:45 Total Hemoglobin 10.3 g/dL (12-16) L 05/11/22 09:45 Sodium 142.0 mmol/L (131-143) 05/11/22 09:45 Potassium 4.2 mmol/L (3.5-5.0) 05/11/22 09:45 Glucose 117.0 mg/dL (70-115) H 05/11/22 09:45 Ionized Calcium 1.2 mmol/L (1.1-1.4) 05/11/22 09:45 O2 Delivery Device Vent 05/12/22 04:26 FiO2 45.0 % 05/12/22 04:26 Tidal Volume 0.40 05/12/22 04:26 PEEP 8.0 cmH20 05/12/22 04:26 Honing Machine Set Up Operator ID Ilya 05/12/22 04:26 Sodium 136 mmol/L (136-145) 05/12/22 04:55 Potassium 3.9 mmol/L (3.5-5.1) 05/12/22 04:55 Chloride 101 mmol/L (98-107) 05/12/22 04:55 Carbon Dioxide 26 mmol/L (22-29) 05/12/22 04:55 Anion Gap 12.9 (5-19) 05/12/22 04:55 BUN 19 mg/dL (6-20) 05/12/22 04:55 Creatinine 0.3 mg/dL (0.5-0.9) L 05/12/22 04:55 GFR Calculation 254.7 mL/min (90-130) H 05/12/22 04:55 Glucose 99 mg/dL (65-115) 05/12/22 04:55 POC Glucose 145 mg/dL (70-110) H 05/09/22 02:29 Estimat Average Glucose 94 05/05/22 04:30 Hemoglobin A1c 4.9 % (4.0-6.0) 05/05/22 04:30 Calculated Osmolality 284 mOsm/kg (285-295) L 05/12/22 04:55 Lactic Acid 2.1 mmol/L (0.5-2.2) 05/05/22 10:03 Lactic Acid (Sepsis) 2.1 mmol/L (0.5-2.2) 05/05/22 13:24 Calcium 8.4 mg/dL (8.5-10.5) L 05/12/22 04:55 Phosphorus 2.9 mg/dL (2.5-4.5) 05/04/22 16:53 Magnesium 1.2 mg/dL (1.7-2.3) L 05/04/22 16:53 Iron 6 ug/dL (37-145) L 05/04/22 08:40 TIBC 247 mcg/dl 05/04/22 08:40 % Saturation 2.4 % (20-50) L 05/04/22 08:40 Unsat Iron Binding 241 ug/dL (112-347) 05/04/22 08:40 Total Bilirubin 0.4 mg/dL (0.15-1.2) 05/12/22 04:55 AST 49 U/L (0-32) H 05/12/22 04:55 ALT 31 U/L (0-33) 05/12/22 04:55 Alkaline Phosphatase 70 U/L (35-105) 05/12/22 04:55 Lactate Dehydrogenase 457 U/L (135-214) H 05/09/22 16:57 Creatine Kinase 107 U/L (26-192) 05/05/22 10:03 C-Reactive Protein 300.0 mg/L (0.0-4.9) H 05/04/22 08:40 NT-Pro-B Natriuret Pep 1252 pg/mL (0-125) H 05/04/22 08:40 Total Protein 6.4 g/dL (6.6-8.7) L 05/12/22 04:55 Albumin 2.8 g/dL (3.5-5.2) L 05/12/22 04:55 Globulin 3.6 g/dL (1.3-4.6) 05/12/22 04:55 Triglycerides 377 mg/dL (0-150) H 05/09/22 02:30 Cholesterol 86 mg/dL (0-200) 05/05/22 04:30 LDL Cholesterol, Calc 1 mg/dL (50-129) L 05/05/22 04:30 Total VLDL Cholesterol 70 mg/dL (0-30) H 05/05/22 04:30 HDL Cholesterol 15 mg/dL (60-100) L 05/05/22 04:30 Cholesterol/HDL Ratio 5.73 mg/dL (0.0-4.40) H 05/05/22 04:30 Vitamin B12 847 pg/mL (232-1245) 05/04/22 08:40 Folate 7.7 ng/mL (4.8-37.3) 05/04/22 16:53 Procalcitonin 0.33 ng/mL (0-0.5) 05/11/22 04:40 TSH 0.10 uIU/mL (0.27-4.20) L 05/04/22 08:40 Free T4 1.11 ng/dL (0.82-1.77) 05/04/22 16:53 Free T3 2.3 PG/ML (2.0-4.4) 05/04/22 16:53 HCG, Qual Negative (Negative) 05/04/22 16:53 Urine Color Dark yellow (Yellow) 05/04/22 15:05 Urine Appearance Clear (CLEAR) 05/04/22 15:05 Urine pH 5 (5-7) 05/04/22 15:05 Ur Specific [place] 1.020 (1.005-1.030) 05/04/22 15:05 Urine Protein 1+ (Negative) H 05/04/22 15:05 Urine Glucose (UA) Norm (Normal) 05/04/22 15:05 Urine Ketones 1+ (Negative) H 05/04/22 15:05 Urine Blood Neg (Negative) 05/04/22 15:05 Urine Nitrate Negative (Negative) 05/04/22 15:05 Urine Bilirubin Neg (Negative) 05/04/22 15:05 Urine Urobilinogen Norm mg/dL (Negative) 05/04/22 15:05 Ur Leukocyte Esterase Negative (Negative) 05/04/22 15:05 Urine RBC None /hpf (0-2) 05/04/22 15:05 Urine WBC 5-10 /hpf (0-5) H 05/04/22 15:05 Ur Squamous Epith Cells 0-4 /hpf (0-5) H 05/04/22 15:05 Amorphous Sediment 1+ /hpf 05/04/22 15:05 Urine Bacteria Trace /hpf (NONE) 05/04/22 15:05 Coarse Granular Casts 10-15 /lpf H 05/04/22 15:05 Ur Random Sodium 10 mmol/L 05/04/22 22:49 Ur Random Potassium 13 mmol/L 05/04/22 22:49 Ur Random Chloride 10 mmol/L 05/04/22 22:49 Urine Creatinine 217 mg/dL (28-217) 05/04/22 15:05 Nasal Influ A H1 2009 PCR Detected (NOT DETECT) A 05/04/22 11:47 Vancomycin Trough 12.8 ug/mL (10-15) 05/08/22 14:55 Urine Opiates Screen Positive ng/mL (Negative) H 05/04/22 22:49 Ur Barbiturates Screen Negative ng/mL (Negative) 05/04/22 22:49 Ur Phencyclidine Scrn Negative ng/mL (Negative) 05/04/22 22:49 Ur Amphetamines Screen Negative ng/mL (Negative) 05/04/22 22:49 U Benzodiazepines Scrn Negative ng/mL (Negative) 05/04/22 22:49 Urine Cocaine Screen Negative ng/mL (Negative) 05/04/22 22:49 U Marijuana (THC) Screen Negative ng/mL (Negative) 05/04/22 22:49 Coronavirus 229E (PCR) Not detected (NOT DETECT) 05/04/22 08:49 Human Metapneumovir PCR Not detected (NOT DETECT) 05/04/22 11:47 Influenza A (H1) PCR Not detected (NOT DETECT) 05/04/22 11:47 Influenza A (H3) PCR Not detected (NOT DETECT) 05/04/22 11:47 Influenza Type A (PCR) Detected (NOT DETECT) A 05/04/22 11:47 Influenza Type B (PCR) Not detected (NOT DETECT) 05/04/22 11:47 Pneumocystis Source Cancelled 05/11/22 10:55 Pneumocyst jirovecii PCR Cancelled 05/11/22 10:55 Aspergillus Source Cancelled 05/11/22 10:55 Aspergillus Ag (EIA) Cancelled 05/11/22 10:55 Aspergillus sp (PCR) Cancelled 05/11/22 10:55 A. fumigatus (PCR) Cancelled 05/11/22 10:55 A. galactomannan Ag Idx Cancelled 05/11/22 10:55 A. terreus (PCR) Cancelled 05/11/22 10:55 Entero/Rhino (PCR) Detected (NOT DETECT) A 05/04/22 11:47 SARS-CoV-2 (PCR) Not detected (NOT DETECT) 05/04/22 08:49 Beta-(1,3)-D-Glucan Cancelled 05/11/22 10:55 B-(1,3)-D-Glucan Intrp Cancelled 05/11/22 10:55 Micro: Microbiology 05/11/22 11:55 Gram Stain - Final Lung Right Middle Lobe Bronchoalveolar Lavage Culture - Preliminary A&P Assessment and plan (1) Acute respiratory failure with hypoxia: (2) Influenza A: (3) Chronic steroid use: (4) Undifferentiated connective tissue disease: (5) Asthma: (6) Morbid obesity: (7) Pneumonia: Plan #Acute hypoxic respiratory failure secondary to asthma exacerbation due to influenza A #CHF exacerbation with grade 2 diastolic dysfunction on echocardiogram -Patient on droplet precautions -Adequate urine output and normal renal functions with electrolytes -Off paralytic for more than 24 hours, still requiring fentanyl 150 MCG, Versed 1 Mg/hour, propofol 30 MCG/hour-opening eyes but does not follow commands --There is a concern if patient has a developed tolerance to fentanyl-I wanted to switch to Dilaudid drip-order pharmacy does not do Dilaudid drips-so recommended Dilaudid 0.5 mg IV push Q4 hour as needed if patient becomes tac hypneic -We will continue to do spontaneous awakening trials followed by breathing trials -Blood pressure has been high and currently managed with the labetalol as needed and amlodipine -No documented bowel movements-but abdomen is soft-we will start her on Pulmocare 15 mL per hour -Patient was receiving Xopenex every 6 hours as needed- -Currently on methylprednisone 40 every 8 hour-we will taper off and monitor clinically --Echocardiogram 05/04/2022-normal LV size systolic function EF 50%. Grade 2 diastolic dysfunction. Moderately elevated filling pressures. -Monitor electrolytes and supplement to keep potassium greater than 4 and magnesium greater than 2 --1.2 L since admission; maintaining good urine output, renal functions and electrolytes are normal #Temperature spikes, leukocytosis, worsening right lung infiltrate on chest d-mom-kbhyocr secondary bacterial infection possibly staph post influenza A versus fungal pneumonia given patient's immunosuppression -She completed 5-day course of Tamiflu; currently patient is on cefepime, levofloxacin,-so far MRSA nares negative, urine Legionella negative, urine bacterial antigens negative, blood cultures negative -With chronic steroid/leflunomide-patient is immunosuppressed-at risk for PCP and other fungal infections --CTA 05/04-no evidence of acute PE, diffuse airspace disease representing multifocal pneumonia/bibasilar atelectasis -Patient had a persistent fever spikes and since changing cefepime to meropenem and adding linezolid and micafungin-there has been no fever spikes -However procalcitonin was low 0.03; BAL cultures, PCP PCR are pending -CT chest 05/11/2022-showed areas of cystic bronchiectasis in right upper lobe- which had previously right upper lobe consolidation on admission CT 1 week ago; other areas have improved; -CT chest showed pneumomediastinum- PEEP decreased to 8 and currently patient is on SIMV -Bronchoscopy at bedside performed 05/01/2022-clear secretions noted bilaterally-BAL sent for wash cultures, PCP, Aspergillus antigen and beta D glucan sent #Patient has underlying inflammatory arthritis-uncategorized CTD on chronic steroid therapy prior to admission -Initially hypotensive requiring initially hypotensive during periintubation- likely secondary to adrenal insufficiency-she received hydrocortisone at that time -Later switched to Solu-Medrol 40 every 8 -We will slowly taper off ICU CHECKLIST: Problem list updated Verbal orders reviewed and signed Analgesia: Fentanyl Glycemic Control: N/A Nutrition: Pulmocare Restraint Renewal (within 24 hrs): Yes Ulcer Prophylaxis: PPI Chemical Thromboprophylaxis: Prophylaxis: Heparin Mechanical Thromboprophylaxis: SCD Need for Central line: yes for multiple medications Need for Holguin catheter: Yes for urine output monitoring Ventilator bundle: {Vent bundle:[id number]} Critical Care Time (No Overlap): 45 min Attestations Medical Necessity Statement*: Continue close ICU monitoring as patient still requires mechanical ventilation for respiratory support Time Spent in Patient Care: Greater than 35 minutes (>than 50% of time spent in counselling and/or direct pt care on unit) . Critical Care Time: This patient has a high probability of sudden, clinica lly significant de terioration, which requires the high est level of physi priyank preparedness to intervene urgen tly.? I managed/soni pervised life or o rgan supporting in terventions that r equired frequent p hysician assessmen t.? I devoted my f ull attention in t he ICU to the dire ct care of this david valenzuela for the klaus od of time indicat ed above.? Time I spent with family or surrogate(s) is included only if the patient was in capable of providi ng necessary infor mation or particip ating in decision making.? Time ktaie anastacia to teaching an d to any procedure s I billed separat simon is not include d. Services Prov ided: Telemetry re view Mechanical Ve ntilation Hemodyna rohit interpretation , assessment and m anagement Review a nd interpretation of CXR Review and interpretation of lab values Review and interpretation of microbiologic data and culture r esults Review of m edications and adm inistration Review and interpretatio n of Nutrition req uirements and rianna gement Discussion of management with other consultants and services Clin ical update to fam dal[place] members [x] David valenzuela assessment, examination and in tervention [x] Doc umentation [x] Med ication orders and management ? Cr itical Care Time ( min): 45 Coding Level of Care Code Established Pt Acute Shirt Finisher for Chg Fwd Patient Type Established Medical Decision Making High Complexity Diagnoses Acute respiratory failure with hypoxia J96.01 Influenza A J10.1 Chronic steroid use Undifferentiated connective tissue disease M35.9 Asthma J45.909 Morbid obesity E66.01 Pneumonia J18.9 Time Spent (min) 45
[2022-05-12] MEDS: micafungin 100 MG in sodium chloride 0.9% (100 ml) 100 ML IV (13:10)
[2022-05-12] MEDS: acyclovir 500 MG in sodium chloride 0.9% (plus) 100 ML 110 MG IV (18:14)
--- NOTE | 2022-05-12 18:25 | PM.PN ---
Subjective Subjective: Intubated, weaning down sedation. Off paralytic. Opens eyes, moves all extremities. Lethargic. Does not attempt to communicate. Does not follow directions. Medications: Reviewed: Yes Vitals/I&O/Wt Last Vital Signs Temp 99.3 F 05/12/22 05:00 Pulse 70 05/12/22 18:00 Resp 23 H 05/12/22 17:46 BP 156/76 05/12/22 18:00 Pulse Ox 94 05/12/22 18:00 O2 Del Method 05/12/22 14:57 FiO2 40 05/12/22 17:46 05/12/22 05/12/22 05/12/22 06:59 14:59 22:59 Intake Total 549.083 / 2946.855 190.887 / 190.887 100 / 290.887 Output Total 2400 / 2950 1400 / 1400 Balance -1850.917 / -3.145 190.887 / 190.887 -1300 / -1109.113 Weight last 48 hrs Weight 119.805 kg Weight 119.777 kg Physical Exam Const: GENERAL APPEARANCE: patient mechanically ventilated; not cooperative HENMT: COMMON NORMALS: oropharynx normal OTHER: Lesions on her mouth with appearance of herpes labialis. Neck/C-Spine: COMMON NORMALS: no JVD Resp: COMMON NORMALS: normal respiratory effort EFFORT & INSPECTION: Yes tachypneic AUSCULTATION: crackles, rales bilateral at the base and wheezes OTHER: Resolved crackles Cardio: COMMON NORMALS: no JVD, regular rhythm, S1 normal heart sound present, S2 normal heart sound present and No murmurs present (Cardio) RHYTHM: regular rhythm HEART SOUNDS: S1 normal heart sound present and S2 normal heart sound present GI: COMMON NORMALS: Normal to inspection, nondistended, normoactive bowel sounds present, Soft to palpation and non-tender PALPATION: Yes Soft to palpation Extremity: COMMON NORMALS: no joint enlargement and no pedal edema OTHER: Edema of hands, feet resolving Neuro: COMMON NORMALS: moves all extremities Skin: COMMON NORMALS: no rashes or lesions noted GENERAL SKIN EXAM: no rashes or lesions noted Urinary Catheter Management: [place]: Cath Placed During This Visit: yes Reason for Continuing Indwelling Catheter: Accurate Measurement of Urinary Output in Critically Ill Patients Urinary Catheter Date of Insertion: 05/04/22 Data 05/12/22 04:55 05/12/22 04:55 Micro: Microbiology 05/11/22 11:55 Gram Stain - Final Lung Right Middle Lobe Bronchoalveolar Lavage Culture - Preliminary A&P Assessment and plan (1) Acute respiratory failure with hypoxia: Gradually improving. Currently weaning better off sedation. Off paralytic. Not in as much respiratory distress, tachypnea better. Lethargic, opening eyes, does not communicate, does not follow directions. Discussed with her yesterday additionally broadened antimicrobial coverage with Bactrim empirically for possible your PCP. Follow-up pending BAL studies. Oxygenation gradually improving. Lungs sounding better. Pulmonary follow-up appreciated. Continue attempts to wean down ventilatory support and sedation. Taper off steroid. Noted pneumomediastinum. Treated improve with backing off mechanical ventilatory support. PEEP is decreased. Recurrent respiratory distress when trying to wean down sedation. Persistent leukocytosis, recurrent fever. Discussed with pulm crit. Additional assessment today by bronchoscopy, with BAL samples obtained. Additionally broaden coverage with linezolid, micafungin. Additional assessment with CTA, results appreciated, discussed with her . Continue reassessments, daily attempts to wean sedation, continue attempts to wean down mechanical ventilatory support. Solu-Medrol. Continue empiric antibiotic coverage with cefepime, Levaquin. Linezolid. Micafungin. Bactrim. Influenza plus rhinovirus. COVID swab negative. Completed course of Tamiflu. Discontinued. Urine bacterial antigens including Legionella negative. MRSA PCR negative. Sputum culture with scant normal luis m on day 2 D-dimer elevated. CTA ruled out PE. Off heparin drip. Continue VTE prophylaxis. TTE with noted low normal ejection fraction close to 50%. Grade 2 diastolic dysfunction. Strict input output charting, daily weight. Range of motion, PT. (2) Acute encephalopathy: Acute encephalopathy with hypoactive delirium, possibly acute metabolic secondary to hypoxia, respiratory failure, possibly ICU admission, possibly steroid, sedation. Today noted her possible dialysis, discussed with her with immunocompromise state consideration of herpes encephalitis, although not typical presentation, discussed risk, empirically cover with acyclovir for now. He overall is gradually improving. Not in as much distress with feeding sedation. Successfully weaned off paralytic. Continue to wean down sedation as tolerating. (3) Influenza A: Completed course of Tamiflu. Additional measures as above. For now continued on isolation therapy due to immunocompromise state, persistent respiratory failure. (4) Pneumonia: As above (5) Herpes labialis: With encephalopathy. Acyclovir added empirically for now. (6) HTN (hypertension): Blood pressure is doing better. So far has not required further as needed labetalol. Continue amlodipine, clonidine patch. (7) Septic shock: Hypotension resolved. Weaned off pressor. (8) Thrombocytopenia: Resolved. Peripheral smear without schistocytes. Chemistries not suggestive of hemolysis. Low probability TTP. Low probability HIT. Fibrin degradation products elevated, noted D-dimer elevation but with superficial thrombophlebitis of arm on duplex. No DVT. Overall picture not suggestive of DIC. Possibly drug-related. After antibiotic changes yesterday thrombocytopenia with improvement. (9) Mucosal bleeding: Resolved. As above. Thrombocytopenia resolved. (10) Metabolic acidosis: Resolved. Hold off on any further IV fluids. (11) Lactic acid acidosis: (12) Positive KATHLEEN (antinuclear antibody): (13) Chronic steroid use: (14) Superficial thrombophlebitis: Right antecubital vein. Elevate. DVT prophylaxis. Plan Full code. Protonix for PUD prophylaxis Heparin DVT prophylaxis. Critically ill. Discussed with customer experience professional, her . Attestations Medical Necessity Statement*: Continue admission for assessment management of respiratory failure, encephalopathy. Critical Care Time: The high probability of a clinically significant, sudden or life threatening deterioration of the patient's respiratory, infectious disease system(s) required my full and direct attention, intervention and personal management. The critical care time is as shown. This time is in addition to time spent performing any reported procedures but includes the following: x Data and vital sign review and interpretation x Patient assessment, examination and intervention x Documentation x Medication orders and management Critical Care Time (min): 50 Coding Level of Care Code Acute Vibration Technician for [facility] Diagnoses Acute respiratory failure with hypoxia J96.01 Acute encephalopathy G93.40 Influenza A J10.1 Pneumonia J18.9 Herpes labialis B00.1 HTN (hypertension) I10 Septic shock A41.9; R65.21 Thrombocytopenia D69.6 Mucosal bleeding R58 Metabolic acidosis E87.20 Lactic acid acidosis E87.20 Positive KATHLEEN (antinuclear antibody) R76.8 Chronic steroid use Superficial thrombophlebitis I80.9
--- NOTE | 2022-05-12 18:50 | PC.NURSE ---
Shift summary: fio2 down to 40, goal per Datar is to keep RR as close to 20 as or less than 20 if possible. HCP to reevaluate condition tomorrow, difficult to tell if movements are intentional
[2022-05-12] MEDS: levalbuterol 1.25 mg/3 mL Neb INHALATION (19:28)
[2022-05-13] VITALS (80 sets, daily range): BP systolic 92–160; BP diastolic 47–76; PULSE 55–109; RESP 20–30; TEMP 37.8; O2SAT 90–97
[2022-05-13] MEDS: heparin 5,000 unit/mL INJ 1 mL 5000 UNIT SUBCUT ×2 (02:20→12:12)
[2022-05-13] MEDS: acyclovir 500 MG in sodium chloride 0.9% (plus) 100 ML 110 MG IV ×3 (02:20→17:36)
[2022-05-13] MEDS: levalbuterol 1.25 mg/3 mL Neb INHALATION (03:26)
[2022-05-13] MEDS: propofol 1,000 MG/100 ML INJ 25.69 MG IV ×2 (03:31→21:06)
[2022-05-13] MEDS: meropenem 1,000 MG in sodium chloride 0.9% (plus) 50 ML 100 MG IV ×3 (04:08→18:05)
[2022-05-13 05:25] LABS: Basophils % 0.2 %; Hematocrit 34.6 % (37.0-47.0); Hemoglobin 11.1 g/dL (11.5-15.3); Lymphocytes # 0.9 10^3/uL (0.8-4.8); Lymphocytes % 4.1 %; Mean Corpuscular HGB Conc 32.1 g/dL (30.0-36.0); Mean Corpuscular Hemoglobin 29.8 pg (28.0-34.0); Mean Platelet Volume 13.5 fL (7.4-10.4); Monocytes # 0.8 10^3/uL (0.2-0.9); Monocytes % 3.7 %; Neutrophils # 19.96 10^3/uL (1.8-7.7); Neutrophils % 88.9 %; Nucleated Red Blood Cells % 0 %; Platelet Count 214 10^3/cmm (130-400); Red Blood Count 3.72 10^6/uL (4.1-5.3); Red Cell Distribution Width 13.3 % (12.1-15.1); White Blood Count 22.5 10^3/uL (4.0-10.0)
[2022-05-13 05:40] LABS: Alanine Aminotransferase 36 U/L (0-33); Albumin Level 2.8 g/dL (3.5-5.2); Alkaline Phosphatase 75 U/L (35-105); Anion Gap 11.4 (5-19); Aspartate Amino Transferase 48 U/L (0-32); Blood Urea Nitrogen 25 mg/dL (6-20); Calcium 8.2 mg/dL (8.5-10.5); Carbon Dioxide 25 mmol/L (22-29); Chloride 101 mmol/L (98-107); Globulin 3.6 g/dL (1.3-4.6); Glomerular Filtration Rate 182.7 mL/min (90-130); Glucose 143 mg/dL (65-115); Osmolality Calculated 283 mOsm/kg (285-295); Potassium 4.4 mmol/L (3.5-5.1); Sodium 133 mmol/L (136-145); Total Bilirubin 0.4 mg/dL (0.15-1.2); Total Protein 6.4 g/dL (6.6-8.7)
[2022-05-13] MEDS: levalbuterol 0.63 mg/3 mL Neb INHALATION ×3 (08:19→19:58)
[2022-05-13] MEDS: budesonide 0.5 mg/2 mL Neb INHALATION ×2 (08:19→19:58)
--- NOTE | 2022-05-13 08:26 | XR_ITS ---
WS: [id number] CHEST XRAY TECHNIQUE: Portable chest. CLINICAL INFORMATION: pneumonia COMPARISON: May 12, 2022 FINDINGS: Shallow inspiration. Heart: Cardiomegaly. Vagal stimulator. Endotracheal tube with tip above the karen. Enteric tube with tip above below the diaphragm. RIGHT central venous catheter with tip in the RIGHT atrium unchanged. Lungs: Elevation LEFT hemidiaphragm. Subsegmental atelectasis LEFT lower lobe. Stable appearing patch y perihilar infiltrates likely due to edema versus pneumonia. No focal consolidation. Improved aerati on LEFT lower lobe. Bones: Normal visualized bony structures. XR/XR chest 1V portable [id number] IMPRESSION: 1. Improved aeration LEFT lower lobe compared to May 12, 2022. 2. Subsegmental atelectasis LEFT lower lobe. Stable bilateral perihilar infilt rates likely due to edema versus pneumonia. 3. Endotracheal tube with tip 3.6 cm above the karen.
[2022-05-13] MEDS: propofol 1,000 MG/100 ML INJ 19.27 MG IV ×4 (08:28→16:54)
[2022-05-13] MEDS: amlodipine 5 mg Tablet PO (09:02)
[2022-05-13] MEDS: chlorhexidine gluconate 4% Btl 118 mL 1 APPLIC TOPICAL (09:03)
[2022-05-13] MEDS: sulfamethoxazole-trimeth DS 160-800 mg Tablet 1 TAB PO ×2 (09:03→17:36)
[2022-05-13] MEDS: pantoprazole 40 mg SDV IVP (09:03)
--- NOTE | 2022-05-13 09:36 | PC.CHAP ---
Pastoral Care Encounter/Spiritual Assessment Type of Contact [] Declined fire pot operator visit [] Patient/Family/Request visit [] Outpatient visit [] Follow-up visit [] Physician referral [] Code/Alert [x] Routine visit [] Staff referral [] Actively dying [] Patient sleeping [] Family support [] [] Out of room [] Palliative care [] [x] Receiving care in room [] Pre-surgical visit [] Trauma [] Long length of stay [xICU visit [x] Other: vent Relational/Emotional Strength [] Patient feels connected with others/family/visitors/staff [] Distress [] Loneliness/isolation [] Abandonment Spirituality of Patient [] Person of Tania [] Attends Scientology of their Tania [] Believes in Prayer [] Reads Bible or Anabaptist materials [] There are Spiritual issues to be addressed Integration Director Interventions [x] Prayer [] Active listening [] Non-anxious presence [] Spiritual/emotional support [] Crisis/trauma care [] Spiritual counseling [] Bereavement support [] Provided bereavement packet [] Provided Bible/devotional materials [] Provided toy/stuffed animal, coloring book to patient or family member [] Provided Communion [] Anointing/[place] [] Salvation [x] Completed spiritual assessment [] Other: Impact on Illness or Injury [] Angry [] Fearful [] Anxious [] Often cries [] Exhaustion [] Unable to work [] Unable to attend yazidism [] Unable to walk/stand [] Unable to read [] Unable to drive [] Unable to eat/drink [] Unable to sleep [] Unable to be with family [] Patient intubated [] Other: Summary Time spent with patient
[2022-05-13] MEDS: quetiapine XR (24HR) 50 mg Tablet PO (09:38)
[2022-05-13 09:54] LABS: ABG PCO2 32.3 mmHg (35-45); Alveolar-Arterial Oxygen Gradi 23.6 mmHg (5-10); Arterial Blood Gas Hematocrit 38.2 % (37-47); Base Excess ABG 2.6 mmol/L (-2.0-2.0); Blood Gas Allen Test Pos; Blood Gas Operator Identificat GD; Blood Gas Sample Site Radial, left; Blood Gas Sample Type Arterial; Carboxyhemoglobin 0.8 %THgb (0.4-20.1); HCO3 ABG 25.3 mmol/L (22-26); HGB O2 Sat 91.2 % (95-100); Ionized Calcium Level - ABG 1.1 mmol/L (1.1-1.4); Methemoglobin 0.8 % (0.4-1.5); Oxygen Device VENT; Oxygen Saturation ABG 92.8; PO2 ABG 63.3 mmHg (80.0-100.0); Potassium Level - ABG 4.5 mmol/L (3.5-5.0); Total Hemoglobin 12.5 g/dL (12-16)
[2022-05-13] MEDS: dexmedetomidine 400 MCG in sodium chloride 0.9% (100 ml) 100 ML 11.74 MCG IV ×2 (09:58→16:20)
--- NOTE | 2022-05-13 11:29 | P.PN_ITS ---
Subjective Subjective: -T-max in last 36 hours-100... Fever spike and better since broadening antibiotics -However procalcitonin was low 0.03; BAL cultures, PCP PCR, galactomannan, beta D glucan, urine histoplasma-pending -CT chest was also showed pneumomediastinum-PEEP on 8 and currently patient is on SIMV -Adequate urine output and normal renal functions with electrolytes -Off paralytic for 2 days, tachypneic when turning off Versed, still requiring fentanyl 150 MCG, propofol 30 MCG/hour-opening eyes but does not follow commands-we will start her on Precedex and increase Seroquel to 150 twice daily; presume Lyrica withdrawal- Will put her on Lyrica -Blood pressure has been high and currently managed with the labetalol as needed and amlodipine -No documented bowel movements-but abdomen is soft-currently on tube feeding Medications: Reviewed: Yes Vitals/I&O/Wt Last Vital Signs Temp 100.0 F H 05/13/22 00:00 Pulse 75 05/13/22 10:30 Resp 30 H 05/13/22 08:22 BP 124/48 05/13/22 10:30 Pulse Ox 91 05/13/22 10:30 O2 Del Method 05/13/22 08:20 FiO2 40 05/13/22 08:22 05/12/22 05/13/22 05/13/22 22:59 06:59 14:59 Intake Total 1018.782 / 1209.669 493.157 / 1702.826 176.343 / 176.343 Output Total 1400 / 1400 850 / 2250 Balance -381.218 / -190.331 -356.843 / -547.174 176.343 / 176.343 Weight last 48 hrs Weight 255 lb 6 oz Weight 264 lb 2 oz Physical Exam Narrative: PHYSICAL EXAM: General: lying in bed, sedated and intubated. HEENT:NCAT, PERRLA, EOMI Neck: Supple Lungs: Bilateral normal breath sounds-wheezing improved compared to previous examination Heart: s1/s2, RRR Abd: soft, NT, ND, BS + Normoactive Extremities: No edema STOCK ANALYST: sedated and limited STOCK ANALYST exam possible. SKIN: no rash LDA: # CVC: Right IJ # Holguin: Present Urinary Catheter Management: Holguin: Cath Placed During This Visit: yes Reason for Continuing Indwelling Catheter: Accurate Measurement of Urinary Output in Critically Ill Patients Urinary Catheter Date of Insertion: 05/04/22 Data 05/13/22 05:07 05/13/22 05:07 Other Labs: Radiology Impressions Head CT 05/10/22 15:54 IMPRESSION: 1. No acute intracranial hemorrhage or edema. 2. No atrophy or ischemia. Chest CTA 05/11/22 11:28 IMPRESSION: 1. The study is limited by patient respiratory motion artifact. This limits visualization of the small peripheral pulmonary arterial branches. 2. No evidence of pulmonary embolism, within the technical limits of the examination. 3. There are areas of cystic bronchiectasis demonstrated in both lungs, particularly in the right upper lobe. 4. Nonspecific diffuse airspace infiltrates are seen throughout both lungs. This may represent bilateral pneumonia versus pulmonary edema. 5. Pneumomediastinum is present. 6. There is an endotracheal tube present, with distal tip 4 cm above the karen. 7. There is an enteric tube present with distal portion in the stomach. Chest X-Ray 05/13/22 08:26 IMPRESSION: 1. Improved aeration LEFT lower lobe compared to May 12, 2022. 2. Subsegmental atelectasis LEFT lower lobe. Stable bilateral perihilar infiltrates likely due to edema versus pneumonia. 3. Endotracheal tube with tip 3.6 cm above the karen. Laboratory Results WBC 22.5 10^3/uL (4.0-10.0) H 05/13/22 05:07 RBC 3.72 10^6/uL (4.1-5.3) L 05/13/22 05:07 Hgb 11.1 g/dL (11.5-15.3) L 05/13/22 05:07 Hct 34.6 % (37.0-47.0) L 05/13/22 05:07 MCV 93.0 fl (81-99) 05/13/22 05:07 MCH 29.8 pg (28.0-34.0) 05/13/22 05:07 MCHC 32.1 g/dL (30.0-36.0) 05/13/22 05:07 RDW 13.3 % (12.1-15.1) 05/13/22 05:07 Plt Count 214 10^3/cmm (130-400) 05/13/22 05:07 MPV 13.5 fL (7.4-10.4) H 05/13/22 05:07 Neut % (Auto) 88.9 % 05/13/22 05:07 Lymph % (Auto) 4.1 % 05/13/22 05:07 Greenlee % (Auto) 3.7 % 05/13/22 05:07 Eos % (Auto) 0.0 % 05/13/22 05:07 Baso % (Auto) 0.2 % 05/13/22 05:07 Neut # (Auto) 19.96 10^3/uL (1.8-7.7) H 05/13/22 05:07 Lymph # (Auto) 0.9 10^3/uL (0.8-4.8) 05/13/22 05:07 Greenlee # (Auto) 0.8 10^3/uL (0.2-0.9) 05/13/22 05:07 Eos # (Auto) 0.0 10^3/uL (0.0-0.8) 05/13/22 05:07 Baso # (Auto) 0.0 10^3/uL (0.0-0.1) 05/13/22 05:07 Nucleated RBC % (auto) 0 % 05/13/22 05:07 Total Counted 100 (0-100) 05/10/22 02:42 Atypical Lymphs % 1.0 % (0-5) 05/10/22 02:42 Absolute Neutrophils 9.0 10^3/cmm (1.4-6.5) H 05/10/22 02:42 Segmented Neutrophils 81 % 05/10/22 02:42 Abs Segm Neuts (Man) 8.9 10/cmm (1.6-7.1) H 05/10/22 02:42 Band Neutrophils 1.0 % 05/10/22 02:42 Abs Band Neuts (Man) 0.1 10^3/cmm (0.0-1.2) 05/10/22 02:42 Absolute Lymphocytes 1.0 10^3/cmm (1.2-3.4) L 05/10/22 02:42 Lymphocytes (Manual) 8 % 05/10/22 02:42 Monocytes (Manual) 7.0 % 05/10/22 02:42 Absolute Monocytes 0.8 10^3/cmm (0.1-0.6) H 05/10/22 02:42 Eosinophils (Manual) 2 % 05/10/22 02:42 Absolute Eosinophils 0.2 10^3/cmm (0.0-0.7) 05/10/22 02:42 Basophils (Manual) 0.0 % 05/10/22 02:42 Absolute Basophils 0.0 10^3/cmm (0.0-0.2) 05/10/22 02:42 Metamyelocytes 1.0 % 05/05/22 04:30 Myelocytes 1.0 % 05/05/22 04:30 Nucleated RBCs # 0.0 /100WBC 05/13/22 05:07 Platelet Estimate Normal (Normal) 05/10/22 02:42 Poikilocytosis Trace 05/05/22 04:30 Anisocytosis 1+ H 05/10/22 02:42 Ovalocytes 1+ H 05/10/22 02:42 [place] Cells 1+ H 05/10/22 02:42 Haptoglobin 202.0 mg/L (30-200) H 05/09/22 16:57 PT 14.70 SECONDS (12.1-14.9) 05/08/22 17:34 INR 1.11 (0.8-1.2) 05/08/22 17:34 APTT 23.2 SECONDS (23.9-36.7) L 05/08/22 17:34 Fibrinogen 517 mg/dL (174-498) H 05/08/22 17:34 Fibrin Degrad Products Pos, 10-40 ug/mL (NEG) H 05/08/22 17:34 D-Dimer 3.03 ug/mIFEU (0-0.59) H 05/08/22 17:34 Specimen Type Arterial 05/13/22 09:39 Sample Site Radial, left 05/13/22 09:39 ABG pH 7.50 (7.35-7.45) H 05/13/22 09:39 ABG pCO2 32.3 mmHg (35-45) L 05/13/22 09:39 ABG pO2 63.3 mmHg (80.0-100.0) L 05/13/22 09:39 ABG HCO3 25.3 mmol/L (22-26) 05/13/22 09:39 ABG O2 Saturation 92.8 05/13/22 09:39 ABG Base Excess 2.6 mmol/L (-2.0-2.0) H 05/13/22 09:39 Cory Test Pos 05/13/22 09:39 A-a O2 Gradient 23.6 mmHg (5-10) H 05/13/22 09:39 Hematocrit 38.2 % (37-47) 05/13/22 09:39 Hgb O2 Saturation 91.2 % (95-100) L 05/13/22 09:39 Carboxyhemoglobin 0.8 %THgb (0.4-20.1) 05/13/22 09:39 Methemoglobin 0.8 % (0.4-1.5) 05/13/22 09:39 Total Hemoglobin 12.5 g/dL (12-16) 05/13/22 09:39 Sodium 137.0 mmol/L (131-143) 05/13/22 09:39 Potassium 4.5 mmol/L (3.5-5.0) 05/13/22 09:39 Glucose 168.0 mg/dL (70-115) H 05/13/22 09:39 Ionized Calcium 1.1 mmol/L (1.1-1.4) 05/13/22 09:39 O2 Delivery Device Vent 05/13/22 09:39 FiO2 40.0 % 05/13/22 09:39 Tidal Volume 0.40 05/13/22 09:39 PEEP 6.0 cmH20 05/13/22 09:39 Recreational Resort Manager ID [id number] 05/13/22 09:39 Sodium 133 mmol/L (136-145) L 05/13/22 05:07 Potassium 4.4 mmol/L (3.5-5.1) 05/13/22 05:07 Chloride 101 mmol/L (98-107) 05/13/22 05:07 Carbon Dioxide 25 mmol/L (22-29) 05/13/22 05:07 Anion Gap 11.4 (5-19) 05/13/22 05:07 BUN 25 mg/dL (6-20) H 05/13/22 05:07 Creatinine 0.4 mg/dL (0.5-0.9) L 05/13/22 05:07 GFR Calculation 182.7 mL/min (90-130) H 05/13/22 05:07 Glucose 143 mg/dL (65-115) H 05/13/22 05:07 POC Glucose 145 mg/dL (70-110) H 05/09/22 02:29 Estimat Average Glucose 94 05/05/22 04:30 Hemoglobin A1c 4.9 % (4.0-6.0) 05/05/22 04:30 Calculated Osmolality 283 mOsm/kg (285-295) L 05/13/22 05:07 Lactic Acid 2.1 mmol/L (0.5-2.2) 05/05/22 10:03 Lactic Acid (Sepsis) 2.1 mmol/L (0.5-2.2) 05/05/22 13:24 Calcium 8.2 mg/dL (8.5-10.5) L 05/13/22 05:07 Phosphorus 2.9 mg/dL (2.5-4.5) 05/04/22 16:53 Magnesium 1.2 mg/dL (1.7-2.3) L 05/04/22 16:53 Iron 6 ug/dL (37-145) L 05/04/22 08:40 TIBC 247 mcg/dl 05/04/22 08:40 % Saturation 2.4 % (20-50) L 05/04/22 08:40 Unsat Iron Binding 241 ug/dL (112-347) 05/04/22 08:40 Total Bilirubin 0.4 mg/dL (0.15-1.2) 05/13/22 05:07 AST 48 U/L (0-32) H 05/13/22 05:07 ALT 36 U/L (0-33) H 05/13/22 05:07 Alkaline Phosphatase 75 U/L (35-105) 05/13/22 05:07 Lactate Dehydrogenase 457 U/L (135-214) H 05/09/22 16:57 Creatine Kinase 107 U/L (26-192) 05/05/22 10:03 C-Reactive Protein 300.0 mg/L (0.0-4.9) H 05/04/22 08:40 NT-Pro-B Natriuret Pep 1252 pg/mL (0-125) H 05/04/22 08:40 Total Protein 6.4 g/dL (6.6-8.7) L 05/13/22 05:07 Albumin 2.8 g/dL (3.5-5.2) L 05/13/22 05:07 Globulin 3.6 g/dL (1.3-4.6) 05/13/22 05:07 Triglycerides 377 mg/dL (0-150) H 05/09/22 02:30 Cholesterol 86 mg/dL (0-200) 05/05/22 04:30 LDL Cholesterol, Calc 1 mg/dL (50-129) L 05/05/22 04:30 Total VLDL Cholesterol 70 mg/dL (0-30) H 05/05/22 04:30 HDL Cholesterol 15 mg/dL (60-100) L 05/05/22 04:30 Cholesterol/HDL Ratio 5.73 mg/dL (0.0-4.40) H 05/05/22 04:30 Vitamin B12 847 pg/mL (232-1245) 05/04/22 08:40 Folate 7.7 ng/mL (4.8-37.3) 05/04/22 16:53 Procalcitonin 0.33 ng/mL (0-0.5) 05/11/22 04:40 TSH 0.10 uIU/mL (0.27-4.20) L 05/04/22 08:40 Free T4 1.11 ng/dL (0.82-1.77) 05/04/22 16:53 Free T3 2.3 PG/ML (2.0-4.4) 05/04/22 16:53 HCG, Qual Negative (Negative) 05/04/22 16:53 Urine Color Dark yellow (Yellow) 05/04/22 15:05 Urine Appearance Clear (CLEAR) 05/04/22 15:05 Urine pH 5 (5-7) 05/04/22 15:05 Ur Specific Walker 1.020 (1.005-1.030) 05/04/22 15:05 Urine Protein 1+ (Negative) H 05/04/22 15:05 Urine Glucose (UA) Norm (Normal) 05/04/22 15:05 Urine Ketones 1+ (Negative) H 05/04/22 15:05 Urine Blood Neg (Negative) 05/04/22 15:05 Urine Nitrate Negative (Negative) 05/04/22 15:05 Urine Bilirubin Neg (Negative) 05/04/22 15:05 Urine Urobilinogen Norm mg/dL (Negative) 05/04/22 15:05 Ur Leukocyte Esterase Negative (Negative) 05/04/22 15:05 Urine RBC None /hpf (0-2) 05/04/22 15:05 Urine WBC 5-10 /hpf (0-5) H 05/04/22 15:05 Ur Squamous Epith Cells 0-4 /hpf (0-5) H 05/04/22 15:05 Amorphous Sediment 1+ /hpf 05/04/22 15:05 Urine Bacteria Trace /hpf (NONE) 05/04/22 15:05 Coarse Granular Casts 10-15 /lpf H 05/04/22 15:05 Ur Random Sodium 10 mmol/L 05/04/22 22:49 Ur Random Potassium 13 mmol/L 05/04/22 22:49 Ur Random Chloride 10 mmol/L 05/04/22 22:49 Urine Creatinine 217 mg/dL (28-217) 05/04/22 15:05 Nasal Influ A H1 2009 PCR Detected (NOT DETECT) A 05/04/22 11:47 Vancomycin Trough 12.8 ug/mL (10-15) 05/08/22 14:55 Urine Opiates Screen Positive ng/mL (Negative) H 05/04/22 22:49 Ur Barbiturates Screen Negative ng/mL (Negative) 05/04/22 22:49 Ur Phencyclidine Scrn Negative ng/mL (Negative) 05/04/22 22:49 Ur Amphetamines Screen Negative ng/mL (Negative) 05/04/22 22:49 U Benzodiazepines Scrn Negative ng/mL (Negative) 05/04/22 22:49 Urine Cocaine Screen Negative ng/mL (Negative) 05/04/22 22:49 U Marijuana (THC) Screen Negative ng/mL (Negative) 05/04/22 22:49 Coronavirus 229E (PCR) Not detected (NOT DETECT) 05/04/22 08:49 Human Metapneumovir PCR Not detected (NOT DETECT) 05/04/22 11:47 Influenza A (H1) PCR Not detected (NOT DETECT) 05/04/22 11:47 Influenza A (H3) PCR Not detected (NOT DETECT) 05/04/22 11:47 Influenza Type A (PCR) Detected (NOT DETECT) A 05/04/22 11:47 Influenza Type B (PCR) Not detected (NOT DETECT) 05/04/22 11:47 Pneumocystis Source Cancelled 05/11/22 10:55 Pneumocyst jirovecii PCR Cancelled 05/11/22 10:55 Aspergillus Source Cancelled 05/11/22 10:55 Aspergillus Ag (EIA) Cancelled 05/11/22 10:55 Aspergillus sp (PCR) Cancelled 05/11/22 10:55 A. fumigatus (PCR) Cancelled 05/11/22 10:55 A. galactomannan Ag Idx Cancelled 05/11/22 10:55 A. terreus (PCR) Cancelled 05/11/22 10:55 Entero/Rhino (PCR) Detected (NOT DETECT) A 05/04/22 11:47 SARS-CoV-2 (PCR) Not detected (NOT DETECT) 05/04/22 08:49 Beta-(1,3)-D-Glucan Cancelled 05/11/22 10:55 B-(1,3)-D-Glucan Intrp Cancelled 05/11/22 10:55 Micro: Microbiology 05/11/22 11:55 Gram Stain - Final Lung Right Middle Lobe Bronchoalveolar Lavage Culture - Final A&P Assessment and plan (1) Acute respiratory failure with hypoxia: (2) Influenza A: (3) Chronic steroid use: (4) Undifferentiated connective tissue disease: (5) Asthma: (6) Morbid obesity: (7) Pneumonia: Plan #Acute hypoxic respiratory failure secondary to asthma exacerbation due to influenza A #CHF exacerbation with grade 2 diastolic dysfunction on echocardiogram -Patient on droplet precautions -Adequate urine output and normal renal functions with electrolytes -CT chest was also showed pneumomediastinum-PEEP on 8 and currently patient is on SIMV -Adequate urine output and normal renal functions with electrolytes -Off paralytic for 2 days, tachypneic when turning off Versed, still requiring fentanyl 150 MCG, propofol 30 MCG/hour-opening eyes but does not follow commands-we will start her on Precedex and increase Seroquel to 150 twice daily; presume Lyrica withdrawal-Will put her on Lyrica -Blood pressure has been high and currently managed with the labetalol as needed and amlodipine -No documented bowel movements-but abdomen is soft-currently on tube feeding -We will continue to do spontaneous awakening trials followed by breathing trials -Blood pressure has been high and currently managed with the labetalol as needed and amlodipine -No documented bowel movements-but abdomen is soft-we will start her on Pulmocare 15 mL per hour -Patient was receiving Xopenex every 6 hours as needed- -Currently on methylprednisone 40 every 8 hour-we will taper off and monitor clinically --Echocardiogram 05/04/2022-normal LV size systolic function EF 50%. Grade 2 diastolic dysfunction. Moderately elevated filling pressures. -Monitor electrolytes and supplement to keep potassium greater than 4 and magnesium greater than 2 --1.2 L since admission; maintaining good urine output, renal functions and electrolytes are normal #Temperature spikes, leukocytosis, worsening right lung infiltrate on chest [id number] secondary bacterial infection possibly staph post influenza A versus fungal pneumonia given patient's immunosuppression-however chest x-ray has been improving -She completed 5-day course of Tamiflu; --CTA 05/04-no evidence of acute PE, diffuse airspace disease representing multifocal pneumonia/bibasilar atelectasis -CT chest 05/11/2022-showed areas of cystic bronchiectasis in right upper lobe- which had previously right upper lobe consolidation on admission CT 1 week ago; other areas have improved; -However procalcitonin was low 0.03; BAL cultures, PCP PCR are pending -CT chest showed pneumomediastinum- PEEP decreased to 8 and currently patient is on SIMV -Bronchoscopy at bedside performed 05/01/2022-clear secretions noted bilaterally-BAL sent for wash cultures, PCP, Aspergillus antigen and beta D glucan sent -With chronic steroid/leflunomide-patient is immunosuppressed-at risk for PCP and other fungal infections - currently on meropenem, linezolid, Bactrim micafungin-we will discontinue micafungin as there is no evidence of fungal infection so far-I will obtain ID consult #Patient has underlying inflammatory arthritis-uncategorized CTD on chronic s teroid therapy prior to admission -Initially hypotensive requiring during periintubation-likely secondary to adrenal insufficiency-she received hydrocortisone at that time -Later switched to Solu-Medrol 40 every 8 -We will slowly taper off ICU CHECKLIST: Problem list updated Verbal orders reviewed and signed Analgesia: Fentanyl Glycemic Control: N/A Nutrition: Pulmocare Restraint Renewal (within 24 hrs): Yes Ulcer Prophylaxis: PPI Chemical Thromboprophylaxis: Prophylaxis: Heparin Mechanical Thromboprophylaxis: SCD Need for Central line: yes for multiple medications Need for Holguin catheter: Yes for urine output monitoring Critical Care Time (No Overlap): 45 min Attestations Medical Necessity Statement*: Continue close ICU monitoring as patient still requires mechanical ventilation for respiratory support Time Spent in Patient Care: Greater than 35 minutes (>than 50% of time spent in counselling and/or direct pt care on unit) . Critical Care Time: This patient has a high probability of sudden, clinica lly significant de terioration, which requires the high est level of physi priyank preparedness to intervene urgen tly.? I managed/soni pervised life or o rgan supporting in terventions that r equired frequent p hysician assessmen t.? I devoted my f ull attention in t he ICU to the dire ct care of this pa tieshalini for the klaus od of time indicat ed above.? Time I spent with family or surrogate(s) is included only if the patient was in capable of providi ng necessary infor mation or particip ating in decision making.? Time katie anastacia to teaching an d to any procedure s I billed separat simon is not include d. Services Prov ided: Telemetry re view Mechanical Ve ntilation Hemodyna rohit interpretation , assessment and m anagement Review a nd interpretation of CXR Review and interpretation of lab values Review and interpretation of microbiologic data and culture r esults Review of m edications and adm inistration Review and interpretatio n of Nutrition req uirements and rianna gement Discussion of management with other consultants and services Clin ical update to [facility] [x] David vlaenzuela assessment, examination and in tervention [x] Doc umentation [x] Med ication orders and management ? Cr itical Care Time ( min): 45 Coding Level of Care Code Established Pt Acute Gettering Operator for Chg Fwd Patient Type Established History Comprehensive Exam Comprehensive Medical Decision Making Moderate Complexity Diagnoses Acute respiratory failure with hypoxia J96.01 Influenza A J10.1 Chronic steroid use Undifferentiated connective tissue disease M35.9 Asthma J45.909 Morbid obesity E66.01 Pneumonia J18.9 Time Spent (min) 45
[2022-05-13] MEDS: linezolid premix 600 MG/300 ML PREMIX 300 MG IV (12:09)
[2022-05-13] MEDS: pregabalin 150 mg Capsule PO ×3 (12:09→21:05)
[2022-05-13] MEDS: citalopram 20 mg Tablet 40 MG PO (12:09)
[2022-05-13] MEDS: FUROsemide 10 mg/mL SDV 10mL 80 MG IVP (12:10)
[2022-05-13] MEDS: quetiapine XR (24HR) 50 mg Tablet 100 MG PO ×2 (12:11→21:05)
[2022-05-13] MEDS: ipratropium 0.5 mg/2.5 mL Neb INHALATION ×2 (13:53→19:58)
--- NOTE | 2022-05-13 16:40 | P.PN_ITS ---
Subjective Subjective: Hospital course, labs appreciated. Seen multiple times daily. Today morning on examination at first patient was on propofol of 30 and fentanyl 100, moving limbs around and purposefully, not following commands. Tachycardia and breathing over the vent. Later she was started on Precedex 0.5 and propofol and fentanyl doses were increased along with increase in oral medications after which patient settled down. Documented urine output in last 24 hours of more than 2 L, T-max of 100 Fahrenheit. Patient is on 40% FiO2, 400 tidal volume and PEEP of 6 which was increased to PEEP of 8 after ABG Medications: Reviewed: Yes Vitals/I&O/Wt Last Vital Signs Temp 100.0 F H 05/13/22 00:00 Pulse 56 L 05/13/22 15:30 Resp 22 H 05/13/22 15:43 BP 135/74 05/13/22 15:30 Pulse Ox 96 05/13/22 15:43 O2 Del Method 05/13/22 13:53 FiO2 40 05/13/22 15:43 05/13/22 05/13/22 05/13/22 06:59 14:59 22:59 Intake Total 493.157 / 1702.826 244.109 / 244.109 74.745 / 318.854 Output Total 850 / 2250 Balance -356.843 / -547.174 244.109 / 244.109 74.745 / 318.854 Weight last 48 hrs Weight 115.836 kg Weight 119.805 kg Physical Exam Narrative: General: Intubated, sedated on mechanical ventilator, HEENT: PERRLA, pupils bilaterally equal and reactive Chest: Bronchial breath sounds b/l , decreased air entry on right side, coarse crackles present all over the right lung field, diffuse rhonchi all over the shaggy ng mckinnon bilaterally, CVS: S1-S2 regular, no murmurs, tachycardia, no gallops, no rubs Abdomen: Soft, nontender, no organomegaly, bowel sounds present, morbidly obese Neuro: No focal deficits, no facial deformity, AO x3, power 5/5 in all limbs Urinary Catheter Management: Holguin: Cath Placed During This Visit: yes Reason for Continuing Indwelling Catheter: Accurate Measurement of Urinary Output in Critically Ill Patients Urinary Catheter Date of Insertion: 05/04/22 Data 05/13/22 05:07 05/13/22 05:07 Micro: Microbiology 05/11/22 11:55 Gram Stain - Final Lung Right Middle Lobe Bronchoalveolar Lavage Culture - Final A&P Assessment and plan (1) Acute respiratory failure with hypoxia: Keep mean artery pressure 65, saturation over 90%. Wean off ventilator accordingly. For now increase sedation with propofol and fentanyl. Add Precedex. Avoid Versed. Increase Seroquel to 100 mg twice daily, restart home dose of Lyrica 150 mg 3 times daily and add Celexa 40 mg oral daily. Cannot rule out withdrawal from home dose of Lyrica. Follow-up blood culture, BAL studies. Follow-up multiple fungal studies. ID consulted by pulmonary. Appreciate recommendations. Currently patient is on linezolid, micafungin, acyclovir, Bactrim, meropenem. Will de-escalate within next 24 hours. Currently patient is on Solu-Medrol 40 mg IV every 8 hourly. We will start wea rupal from tomorrow. IV Lasix 60 mg one-time. Strict input output charting, daily weights. Patient has completed Tamiflu course. Echocardiogram done showed EF of 50% with grade 2 diastolic dysfunction. (2) Acute encephalopathy: Acute encephalopathy with hypoactive delirium, possibly acute metabolic secondary to hypoxia, respiratory failure, possible withdrawal from Lyrica, steroid use. Medication as above. (3) Influenza A: Completed course of Tamiflu. Additional measures as above. For now continued on isolation therapy due to immunocompromise state, persistent respiratory failure. (4) Pneumonia: As above (5) Pneumomediastinum: (6) Ventilator dependent: (7) Herpes labialis: With encephalopathy. Acyclovir added empirically for now. Will plan to switch over to Valtrex for the next 24 hours. Awaiting ID recommendation. (8) HTN (hypertension): Blood pressure is doing better. So far has not required further as needed labetalol. Continue with amlodipine. Hold off on clonidine patch for now. Goal blood pressure less than 140/90 which is been over 65. (9) Septic shock: Hypotension resolved. Weaned off pressor. (10) Thrombocytopenia: Resolved. Peripheral smear without schistocytes. Chemistries not suggestive of hemolysis. Low probability TTP. Low probability HIT. Fibrin degradation products elevated, noted D-dimer elevation but with superficial thrombophlebitis of arm on duplex. No DVT. Overall picture not suggestive of DIC. Possibly drug-related. After antibiotic changes yesterday thrombocytopenia with improvement. (11) Mucosal bleeding: Resolved. As above. Thrombocytopenia resolved. (12) Metabolic acidosis: Resolved. Hold off on any further IV fluids. (13) Lactic acid acidosis: (14) Positive KATHLEEN (antinuclear antibody): (15) Chronic steroid use: (16) Superficial thrombophlebitis: Right antecubital vein. Elevate. DVT prophylaxis. Plan Sedation: With fentanyl at 150, propofol of 40, Precedex 0.5 Analgesia: Fentanyl, Lyrica Glycemic control: Not needed Nutrition: Tube feeds CODE STATUS: Full code PUD prophylaxis: Protonix DVT prophylaxis: Heparin Discharge planning: Given clinical course will need to decide. For now plan is to possibly wean off ventilator and then physical therapy. If unable to wean select is a possibility as well. Case management alerted. Will discuss with family. Continue with care at ICU level. This documentation was created by [employer] jewelry casting model maker apprentice software. Every effort was made to ensure accuracy of jewelry casting model maker apprentice. Any obvious errors or omissions should be clarified with the author of the document. Attestations Medical Necessity Statement*: Requires further hospitalization for management of respiratory failure in setting of flu positive in a patient who is immunocompromised secondary to chronic steroids and medication for rheumatoid arthritis, ventilator dependence Critical Care Time: The high probability of a clinically significant, sudden or life threatening deterioration of the patient's [cardiac, pulmonary, renal, neurological] system(s) required my full and direct attention, intervention and personal management. The critical care time is as shown. This time is in addition to time spent performing any reported procedures but includes the following: [x] Data and vital sign review and interpretation [x] Patient assessment, examination and intervention [x] Documentation [x] Medication orders and management Critical Care Time (min): 80 Coding Level of Care Code Acute Service Center Appraiser for [facility] Fwd Diagnoses Acute respiratory failure with hypoxia J96.01 Acute encephalopathy G93.40 Influenza A J10.1 Pneumonia J18.9 Pneumomediastinum J98.2 Ventilator dependent Z99.11 Herpes labialis B00.1 HTN (hypertension) I10 Septic shock A41.9; R65.21 Thrombocytopenia D69.6 Mucosal bleeding R58 Metabolic acidosis E87.20 Lactic acid acidosis E87.20 Positive KATHLEEN (antinuclear antibody) R76.8 Chronic steroid use Superficial thrombophlebitis I80.9
--- NOTE | 2022-05-13 17:28 | PM.CONSULT ---
Providers/Reason For Consult Consulting Physician/Specialty*: Maria C Zavlaa MD/Infectious Disease Reason for Consult*: persistent fever Requesting Physician: Archie Singh MD/ Pulmonology Attending Physician: Alon Leary MD Primary Care Provider: Becca Clayton History of Present Illness History of Present Illness Misty Correa is a 32 year old female with past medical history of inflammatory arthritis chronically on steroids, recently started leflunomide, subclinical hyperthyroidism with thyroid nodule-tested positive for influenza A came to ER on 05/04/22 with difficulty breathing, tiredness, myalgias.? She was found to be hypoxic and hypotensive, intubated and has been on ventilator since then. Hospital course has been complicated by development of septic shock, respiratory failure with hypoxia.? she received pressor support and stress dose steroids. Her course has been marked by fever ranging between 99.8 -101F since admission. respiratory viral panel was positive for entero/rhino and flu a on admission. CTA on 05/04 negative for PE. multifocal pneumonia and bibasilat atelactasis. on 05/11, Ct repeated due to ventilator dependence and persisting leukocytosis and fever which showed ?areas of cystic bronchiectasis demonstrated in both lungs, particularly in the right upper lobe and pneumomediasinum. Serial CXR showing improving aeration and stable infiltrates. She was evaluted by pulmonology on 05/12 and underwent bronchsocopy due to worsened infiltrate with pneumatocoele. Clear secretions overall on bronchsoscopy. ID consulted for persisting fevers Review of Systems General: Reports: ROS unobtainable due to endotracheal tube and ROS unobtainable due to medical condition Medications/Allergies Home Medications Medication Instructions Recorded Confirmed Last Taken Type albuterol sulfate 90 mcg/actuation 2 puff inhalation Q6H PRN 08/25/20 05/05/22 Unknown History aerosol inhaler Shortness Of Breath lurasidone 20 mg tablet (Latuda) 20 mg PO DAILY 08/25/20 05/05/22 Unknown History pregabalin 150 mg capsule (Lyrica) 150 mg PO TID 08/25/20 05/05/22 Unknown History fluticasone 250 mcg-salmeterol 50 1 inh inhalation BID #60 ea 10/10/20 05/05/22 Unknown Rx mcg/dose blistr powdr for inhalation (Advair Diskus) ondansetron 4 mg disintegrating 4 mg PO Q8H PRN nausea and 01/11/21 05/05/22 Unknown Rx tablet vomiting #20 tabs ibuprofen 600 mg tablet 600 mg PO TID PRN pain #10 tabs 01/22/21 05/05/22 Unknown Rx cetirizine 10 mg tablet (Zyrtec) 10 mg PO DAILY PRN Allergy Symptoms 11/07/21 05/05/22 Unknown History fluticasone propionate 50 1 spray intranasal DAILY 11/07/21 05/05/22 Unknown History mcg/actuation nasal spray,suspension guaifenesin 600 mg tablet, 600 mg PO BID #30 tabs 11/07/21 05/05/22 Unknown Rx extended release 12 hr montelukast 10 mg tablet 10 mg PO DAILY 11/07/21 05/05/22 Unknown History (Singulair) sulfamethoxazole 800 1 tab PO BID sinusitis #10 tabs 11/07/21 05/05/22 Unknown Rx mg-trimethoprim 160 mg tablet (Bactrim DS) hydroxychloroquine 200 mg tablet See Rx Instructions .Route 02/19/22 05/05/22 Unknown Rx .COMPLEX #60 tabs amitriptyline 50 mg tablet 50 mg PO DAILY 05/05/22 05/05/22 Unknown History oseltamivir 75 mg capsule (Tamiflu) 75 mg PO BID 05/05/22 05/05/22 Unknown History leflunomide 10 mg tablet 10 mg PO DAILY #90 tabs 05/08/22 Unknown Rx omeprazole 40 mg capsule,delayed 40 mg PO DAILY #30 caps 05/08/22 Unknown Rx release prednisone 5 mg tablet 5 mg PO DAILY #90 tabs 05/08/22 Unknown Rx Allergies Allergy/AdvReac Type Severity Reaction Status Date / Time divalproex sodium Allergy ALGY-Rash Verified 02/14/22 11:02 [From Depakote] ketorolac [Toradol] Allergy ALGY-Rash Verified 02/14/22 11:02 levetiracetam [From Keppra] Allergy Unknown Verified 02/14/22 11:02 tramadol Allergy ALGY-Rash Verified 02/14/22 11:02 Current Medications Generic Name Dose Route Start Last Admin Trade Name Freq PRN Reason Stop Dose Admin Acetaminophen 650 mg 05/04/22 16:00 05/08/22 20:47 Acetaminophen 325 Mg Tablet PO 650 mg Q6H PRN Administration Mild/Mod Pain Or Temp >/= 101 Albuterol Sulfate 2.5 mg 05/04/22 12:26 05/07/22 23:33 Albuterol 2.5 Mg/3 Ml Neb INHALATION 2.5 mg Q4H.RESPIRATORY PRN Administration SHORTNESS OF BREATH Amlodipine Besylate 5 mg 05/08/22 17:10 05/13/22 09:02 Amlodipine 5 Mg Tablet PO 5 mg DAILY ABDIRAHMAN Administration Budesonide 0.5 mg 05/04/22 20:00 05/13/22 08:19 Budesonide 0.5 Mg/2 Ml Neb INHALATION 0.5 mg BID.RESPIRATORY ABDIRAHMAN Administration Chlorhexidine Gluconate 1 applic 05/08/22 02:00 05/13/22 09:03 Chlorhexidine Gluconate 4% Btl 118 Ml TOPICAL 1 applic DAILY ABDIRAHMAN Administration Citalopram Hydrobromide 40 mg 05/13/22 11:30 05/13/22 12:09 Citalopram 20 Mg Tablet PO 40 mg DAILY ABDIRAHMAN Administration Heparin Sodium (Porcine) 5,000 unit 05/06/22 12:15 05/13/22 12:12 Heparin 5,000 Unit/Ml Inj 1 Ml SUBCUT 5,000 unit Q12H ABDIRAHMAN Administration Hydromorphone HCl 0.5 mg 05/11/22 10:35 05/12/22 04:30 Hydromorphone 1 Mg/Ml Inj 1 Ml IVP 0.5 mg Q4H PRN Administration AIR HUNGER Fentanyl 2,500 mcg/ Sodium 250 mls @ 0 mls/hr 05/04/22 12:45 05/12/22 21:40 Chloride IV 175 mcg/hr .Q0M ABDIRAHMAN 17.5 mls/hr Administration Protocol Per Protocol Propofol 1,000 mg in 100 mls @ 0 mls/hr 05/04/22 14:15 05/13/22 16:55 Diprivan IV 40 mcg/kg/min .Q0M ABDIRAHMAN 25.69 mls/hr Titration Protocol Per Protocol Norepinephrine Bitartrate 8 mg 254 mls @ 0 mls/hr 05/04/22 16:15 05/06/22 07:00 / Dextrose IV Infused .Q0M ABDIRAHMAN Titration Protocol Per Protocol Dexmedetomidine HCl 400 mcg/ 104 mls @ 0 mls/hr 05/09/22 12:45 05/13/22 16:20 Sodium Chloride IV 0.4 mcg/kg/hr .Q0M ABDIRAHMAN 11.74 mls/hr Administration Protocol Per Protocol Linezolid 600 mg in 300 mls @ 300 mls/hr 05/11/22 11:30 05/13/22 12:09 Zyvox Premix IV 300 mls/hr Q12H ABDIRAHMAN Administration Protocol Meropenem 1,000 mg/ Sodium 50 mls @ 100 mls/hr 05/11/22 19:15 05/13/22 12:08 Chloride IV 100 mls/hr Q8H ABDIRAHMAN Administration Ipratropium [place] 0.5 mg 05/13/22 11:15 05/13/22 13:53 Ipratropium 0.5 Mg/2.5 Ml Neb INHALATION 0.5 mg Q6H.RESP ABDIRAHMAN Administration Labetalol HCl 10 mg 05/10/22 19:59 05/12/22 04:33 Labetalol 5 Mg/Ml Sdv 20ml IVP 10 mg Q4H PRN Administration HYPERTENSION Lanolin 1 applic 05/04/22 18:14 05/06/22 13:41 Lanolin Oint 7 Gm TOPICAL 1 applic PRN PRN Administration DRYNESS Levalbuterol HCl 0.63 mg 05/04/22 14:00 05/13/22 13:53 Levalbuterol 0.63 Mg/3 Ml Neb INHALATION 0.63 mg Q6H.RESP ABDIRAHMAN Administration Levalbuterol HCl 1.25 mg 05/08/22 09:06 05/13/22 03:26 Levalbuterol 1.25 Mg/3 Ml Neb INHALATION 1.25 mg Q2H PRN Administration SHORTNESS OF BREATH Methylprednisolone Sodium Succinate 40 mg 05/10/22 05:00 05/13/22 12:12 Methylprednisolone Sod Succ 40 Mg/Ml Inj IVP 40 mg Q8H ABDIRAHMAN Administration Nystatin 1 applic 05/08/22 09:09 05/08/22 11:43 Nystatin Cream 30 Gm TOPICAL 1 applic PRN PRN Administration redness Nystatin 1 applic 05/08/22 09:09 05/08/22 11:44 Nystatin Powder 15 Gm Btl TOPICAL 1 applic PRN PRN Administration Redness Pantoprazole Sodium 40 mg 05/05/22 09:00 05/13/22 09:03 Pantoprazole 40 Mg Sdv IVP 40 mg DAILY ABDIRAHMAN Administration Pregabalin 150 mg 05/13/22 11:10 05/13/22 14:37 Pregabalin 150 Mg Capsule PO 150 mg TID ABDIRAHMAN Administration Trimethoprim/Sulfamethoxazole 1 tab 05/12/22 09:00 05/13/22 09:03 Sulfamethoxazole-Trimeth Ds 160-800 Mg Tablet PO 1 tab BID ABDIRAHMAN Administration Additional Medication Information Abx history: Zosyn (05/04- 05/08)----> meropenem 1g iv q8h (05/11-) Levaquin 05/08 to 05/11 Bactrim DS BID (05/12) VAncomycin (05/04 to 05/08) ----> linezolid (05/11- current) Micafungin 05/11- current ACV 10mg/kg q8h (05/12-current) PFSH Acute PFSH: Medical History Acute sinusitis Allergies Asthma Chronic pain Chronic steroid use 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 High risk medication use Immunization counseling Inflammatory arthritis Inflammatory back pain Positive KATHLEEN (antinuclear antibody) Seizure disorder Thyroid mass Undifferentiated connective tissue disease Surgical History History of carpal tunnel release of both wrists History of cholecystectomy History of hysterectomy with bilateral oophorectomy History of tonsillectomy History of tubal ligation Hx of hysterectomy Family History Family/Other Cancer Father CAD (coronary artery disease) Other Chronic kidney disease (CKD) Diabetes Family history of premature coronary artery disease Lupus Rheumatoid arthritis Stroke Denies family history of Hyperlipidemia Anesthesia complication Bleeding disorder Lung disease Hypertension Social History Smoking and tobacco status: never smoked Second hand smoke exposure: No Alcohol intake: never Lives independently: Yes Household members: spouse and children Marital status: Current occupational status: disabled History of recent travel: No Current gender identity: Female Special dipti needs: No Agree to transfusion: Yes Vitals/I&O/Wt Last Vital Signs Temp 100.0 F H 05/13/22 00:00 Pulse 56 L 05/13/22 15:30 Resp 22 H 05/13/22 15:43 BP 135/74 05/13/22 15:30 Pulse Ox 96 05/13/22 15:43 O2 Del Method 05/13/22 13:53 FiO2 40 05/13/22 15:43 05/13/22 05/13/22 05/13/22 06:59 14:59 22:59 Intake Total 493.157 / 1702.826 244.109 / 244.109 137.051 / 381.160 Output Total 850 / 2250 3200 / 3200 Balance -356.843 / -547.174 244.109 / 244.109 -3062.949 / -2818.840 Weight last 48 hrs Weight 115.836 kg Weight 119.805 kg Physical Exam Narrative: General: Intubated, sedated HEENT: PERRLA, pupils bilaterally equal and reactive, pallors not present Chest: B/L scattered rales to auscultation all areas CVS: S1-S2 regular, no murmurs, no tachycardia, no gallops, no rubs Abdomen: Soft, nontender, no organomegaly, bowel sounds present Neuro: unable to assess as intubated, sedated Urinary Catheter Management: Holguin: Cath Placed During This Visit: yes Reason for Continuing Indwelling Catheter: Accurate Measurement of Urinary Output in Critically Ill Patients Urinary Catheter Date of Insertion: 05/04/22 Data 05/13/22 05:07 05/13/22 05:07 Other Labs: Radiology Impressions Head CT 05/10/22 15:54 IMPRESSION: 1. No acute intracranial hemorrhage or edema. 2. No atrophy or ischemia. Chest CTA 05/11/22 11:28 IMPRESSION: 1. The study is limited by patient respiratory motion artifact. This limits visualization of the small peripheral pulmonary arterial branches. 2. No evidence of pulmonary embolism, within the technical limits of the examination. 3. There are areas of cystic bronchiectasis demonstrated in both lungs, particularly in the right upper lobe. 4. Nonspecific diffuse airspace infiltrates are seen throughout both lungs. This may represent bilateral pneumonia versus pulmonary edema. 5. Pneumomediastinum is present. 6. There is an endotracheal tube present, with distal tip 4 cm above the karen. 7. There is an enteric tube present with distal portion in the stomach. Chest X-Ray 05/15/22 04:00 IMPRESSION: 1. Right internal jugular central venous access device with tip in the low right atrium or right ventricle. 2. A left subclavian pacer is seen. The leads appear coiled over the left upper lobe. This appears inappropriately positioned. Correlate clinically. 3. There are patchy hazy opacities in the mid to upper chest bilaterally that are worsened and may reflect pneumonia. Laboratory Results Micro: Microbiology 05/13/22 17:05 Blood Culture - Preliminary Blood SPECIMEN COLLECTED 05/13/22 16:35 Blood Culture - Preliminary Blood SPECIMEN COLLECTED 05/11/22 11:55 Gram Stain - Final Lung Right Middle Lobe Bronchoalveolar Lavage Culture - Final 05/13: PBCX: taken and pending 05/09: PBCX: negative to date 05/04: PBCX: negative to date 05/11/22: Bronch wasj : Few yeast, few GNR 05/14: urine legionella Ag : negative 05/04: MRSA cx : negative 05/04: bacterial Ag urine: negative 05/04: sputum cx: normal respiratory luis m Other data: WBC trend : 13.9 (admit) --> 05/08 : 8.7 --> 05/11: 16.8 (on steroids at this time)--> 05/13 22.5 A&P Assessment and plan (1) Fever: (2) Acute respiratory failure with hypoxia: (3) Influenza A: (4) Pneumomediastinum: (5) Herpes labialis: (6) Acute encephalopathy: (7) Thrush, oral: Plan Persistent fever in spite of being on multiple antimicrobials including meropenem, linezolid, Bactrim presumptively for pneumocystis, micafungin, IV acyclovir. All cultures so far remain negative.? BAL cultures thus far with some gram-negative rods, pending further identification. Recommend to check CT of the abdomen and pelvis to evaluate for any acalculous cholecystitis given deranged LFTs. Check UA, change Holguin catheter D/c linezolid as no evidence of MRSA/VRE - may be contrbuting to serotonin syndrome alongside SSRIs, amitryptylline. Drug induced fever alterate possibiity- wean off propofol if able D/c micafungin as no evidence of invasive candidiasis at this time. Change to fluconazole via NG for thrush D/c iv ACV. Change to po valtrex 500mg q12h for hepres labialis Continue meropenem for now while pending cx can continue bactrim ppx for now pending rpt blood cx Consult Attestations Medical Necessity Statement: per admitting Coding Level of Care Code Acute Tool Design Engineer for [facility] Fwd Diagnoses Fever R50.9 Acute respiratory failure with hypoxia J96.01 Influenza A J10.1 Pneumomediastinum J98.2 Herpes labialis B00.1 Acute encephalopathy G93.40 Thrush, oral B37.0
--- NOTE | 2022-05-13 19:06 | PC.NURSE ---
Shift summary: patients RR 30s this morning, increased secretions in ET tube, unable to extubate. Dr. Leary and Datar at bedside multiple times today assessing patient, goal to let patient rest on sedation and reassess tomorrow. HCP aware of 101.8 temp
[2022-05-13] MEDS: acetaminophen 325 mg Tablet 650 MG PO (21:05)
[2022-05-14] VITALS (41 sets, daily range): BP systolic 96–135; BP diastolic 40–72; PULSE 56–102; RESP 19–24; TEMP 37.3–37.9; O2SAT 94–98
[2022-05-14] MEDS: linezolid premix 600 MG/300 ML PREMIX 300 MG IV ×2 (00:14→11:34)
[2022-05-14] MEDS: heparin 5,000 unit/mL INJ 1 mL 5000 UNIT SUBCUT ×3 (00:14→23:28)
[2022-05-14 02:11] LABS: Basophils % 0.1 %; Hematocrit 35.3 % (37.0-47.0); Hemoglobin 11.4 g/dL (11.5-15.3); Lymphocytes # 0.8 10^3/uL (0.8-4.8); Mean Corpuscular HGB Conc 32.3 g/dL (30.0-36.0); Mean Corpuscular Hemoglobin 29.8 pg (28.0-34.0); Mean Corpuscular Volume 92.4 fl (81-99); Monocytes # 0.7 10^3/uL (0.2-0.9); Monocytes % 4.5 %; Neutrophils # 13.68 10^3/uL (1.8-7.7); Neutrophils % 88.5 %; Nucleated Red Blood Cells % 0 %; Platelet Count 204 10^3/cmm (130-400); Red Blood Count 3.82 10^6/uL (4.1-5.3); Red Cell Distribution Width 13.6 % (12.1-15.1); White Blood Count 15.5 10^3/uL (4.0-10.0)
[2022-05-14] MEDS: propofol 1,000 MG/100 ML INJ 19.27 MG IV (02:16)
[2022-05-14] MEDS: acyclovir 500 MG in sodium chloride 0.9% (plus) 100 ML 110 MG IV (02:16)
[2022-05-14] MEDS: levalbuterol 0.63 mg/3 mL Neb INHALATION ×3 (02:58→13:52)
[2022-05-14] MEDS: albuterol 2.5 mg/3 mL Neb INHALATION (02:58)
[2022-05-14 03:09] LABS: Alanine Aminotransferase 43 U/L (0-33); Albumin Level 2.9 g/dL (3.5-5.2); Alkaline Phosphatase 75 U/L (35-105); Anion Gap 9.3 (5-19); Aspartate Amino Transferase 62 U/L (0-32); Blood Urea Nitrogen 22 mg/dL (6-20); Calcium 8.5 mg/dL (8.5-10.5); Carbon Dioxide 26 mmol/L (22-29); Chloride 103 mmol/L (98-107); Globulin 3.6 g/dL (1.3-4.6); Glomerular Filtration Rate 141.2 mL/min (90-130); Glucose 178 mg/dL (65-115); Osmolality Calculated 286 mOsm/kg (285-295); Potassium 4.3 mmol/L (3.5-5.1); Sodium 134 mmol/L (136-145); Total Bilirubin 0.4 mg/dL (0.15-1.2); Total Protein 6.5 g/dL (6.6-8.7)
[2022-05-14] MEDS: dexmedetomidine 400 MCG in sodium chloride 0.9% (100 ml) 100 ML 5.87 MCG IV (04:09)
[2022-05-14] MEDS: acetaminophen 325 mg Tablet 650 MG PO (04:09)
[2022-05-14] MEDS: meropenem 1,000 MG in sodium chloride 0.9% (plus) 50 ML 100 MG IV ×3 (04:09→19:47)
[2022-05-14] MEDS: budesonide 0.5 mg/2 mL Neb INHALATION ×2 (07:54→20:43)
[2022-05-14] MEDS: ipratropium 0.5 mg/2.5 mL Neb INHALATION ×4 (07:55→20:42)
[2022-05-14] MEDS: propofol 1,000 MG/100 ML INJ 16.06 MG IV (08:03)
[2022-05-14] MEDS: sulfamethoxazole-trimeth DS 160-800 mg Tablet 1 TAB PO ×2 (10:07→17:00)
[2022-05-14] MEDS: citalopram 20 mg Tablet 40 MG PO (10:07)
[2022-05-14] MEDS: pregabalin 150 mg Capsule PO ×3 (10:07→20:45)
[2022-05-14] MEDS: amlodipine 5 mg Tablet PO (10:07)
[2022-05-14] MEDS: pantoprazole 40 mg SDV IVP (10:08)
[2022-05-14] MEDS: quetiapine XR (24HR) 50 mg Tablet 100 MG PO ×2 (10:10→20:46)
--- NOTE | 2022-05-14 10:10 | XR_ITS ---
WS: [id number] Portable AP semiupright chest, 05/14/2022 Clinical Data: pneumonia Comparison: Portable chest, 05/13/2022 Findings: No nodules, masses or effusions are seen. The bilateral pulmonary patchy opacities have juan alberto ost totally cleared. The heart is normal. The pulmonary vascularity is not increased. No pneumonia or pneumothorax is seen. The endotracheal tube, NG tube, vagal stimulator in generator, right internal jugular venous catheter in monitor leads remain the same. XR/XR chest 1V portable [id number] Impression: 1. Almost total clearing of bilateral pulmonary patchy opacities. 2. No change in multiple tubes.
[2022-05-14] MEDS: acyclovir 500 MG in sodium chloride 0.9% (plus) 100 ML 100 MG IV ×2 (10:36→17:01)
[2022-05-14] MEDS: chlorhexidine gluconate 4% Btl 118 mL 1 APPLIC TOPICAL (10:43)
--- NOTE | 2022-05-14 10:55 | PC.CHAP ---
Pastoral Care Encounter/Spiritual Assessment Type of Contact [] Declined sales representative printing paper visit [] Patient/Family/Request visit [] Outpatient visit [] Follow-up visit [] Physician referral [] Code/Alert [x] Routine visit [] Staff referral [] Actively dying [x] Patient sleeping [] Family support [] [] Out of room [] Palliative care [] [] Receiving care in room [] Pre-surgical visit [] Trauma [] Long length of stay [x] ICU visit [x] Other: vent Relational/Emotional Strength [] Patient feels connected with others/family/visitors/staff [] Distress [] Loneliness/isolation [] Abandonment Spirituality of Patient [] Person of Tania [] Attends Christianity of their Tania [] Believes in Prayer [] Reads Bible or Episcopal materials [] There are Spiritual issues to be addressed Brusher Machine Interventions [x] Prayer [] Active listening [] Non-anxious presence [] Spiritual/emotional support [] Crisis/trauma care [] Spiritual counseling [] Bereavement support [] Provided bereavement packet [] Provided Bible/devotional materials [] Provided toy/stuffed animal, coloring book to patient or family member [] Provided Communion [] Anointing/[place] [] Salvation [x] Completed spiritual assessment [] Other: Impact on Illness or Injury [] Angry [] Fearful [] Anxious [] Often cries [] Exhaustion [] Unable to work [] Unable to attend taoism [] Unable to walk/stand [] Unable to read [] Unable to drive [] Unable to eat/drink [] Unable to sleep [] Unable to be with family [] Patient intubated [] Other: Summary Time spent with patient
[2022-05-14 11:26] LABS: Add Urine Microscopic? YES; Bilirubin Urine Neg (Negative); Blood Urine 2+ (Negative); Glucose Urine UA Norm (Normal); Ketones Urine Negative (Negative); Leukocyte Esterase Urine Negative (Negative); Nitrate Urine Negative (Negative); Protein Urine Neg (Negative); RBC Urine 0-4 /hpf (0-2); Urine Appearance Clear (CLEAR); Urine Color Yellow (Yellow); Urobilinogen Urine Norm (Negative); pH Urine 6 (5-7)
[2022-05-14 11:27] LABS: Add Urine Culture? Yes; Bacteria Urine 4+ /hpf
[2022-05-14] MEDS: dexmedetomidine 400 MCG in sodium chloride 0.9% (100 ml) 100 ML 11.74 MCG IV ×2 (12:31→20:49)
--- NOTE | 2022-05-14 17:39 | P.PN_ITS ---
Subjective Subjective: No acute events overnight. Today morning sedation was weaned down. He was weaned down to fentanyl 25. Propofol and Precedex was stopped. Post coming down sedation patient was put on pressure support. Patient worked with pressure support well for most part of the day. Hemodynamically remained stable. T-max charted within last 24 hours 100.2 but has been told fever has gone as high as 101.8 Fahrenheit. Urine output in last 24 hours up to 5 L. Medications: Reviewed: Yes Vitals/I&O/Wt Last Vital Signs Temp 100.2 F H 05/14/22 16:00 Pulse 69 05/14/22 16:00 Resp 21 H 05/14/22 17:03 BP 123/56 05/14/22 16:00 Pulse Ox 98 05/14/22 17:03 O2 Del Method 05/14/22 13:56 FiO2 35 05/14/22 17:03 05/14/22 05/14/22 05/14/22 06:59 14:59 22:59 Intake Total 686.592 / 2114.234 353.836 / 353.836 60 / 413.836 Output Total 2050 / 5250 550 / 550 700 / 1250 Balance -1363.408 / -3135.766 -196.164 / -196.164 -640 / -836.164 Weight last 48 hrs Weight 113.852 kg Weight 115.836 kg Physical Exam Narrative: General: Intubated, sedated on mechanical ventilator, waking up and following some commands off sedation HEENT: PERRLA, pupils bilaterally equal and reactive Chest: Bronchial breath sounds b/l , decreased air entry on right side, coarse crackles present all over the right lung field, diffuse rhonchi all over the lung mckinnon bilaterally, CVS: S1-S2 regular, no murmurs, tachycardia, no gallops, no rubs Abdomen: Soft, nontender, no organomegaly, bowel sounds present, morbidly obese Neuro: No focal deficits, no facial deformity, AO x3, power 5/5 in all limbs Urinary Catheter Management: Holguin: Cath Placed During This Visit: yes, but has since been removed by the nurse Reason for Continuing Indwelling Catheter: Accurate Measurement of Urinary Output in Critically Ill Patients Urinary Catheter Date of Insertion: 05/14/22 Urinary Catheter Time of Insertion: 11:30 Date Urinary Catheter Removed: 05/14/22 Time Urinary Catheter Discontinued: 11:30 Data 05/14/22 01:59 05/14/22 01:59 Micro: Microbiology 05/13/22 17:05 Blood Culture - Preliminary Blood NEGATIVE TO DATE 05/13/22 16:35 Blood Culture - Preliminary Blood NEGATIVE TO DATE 05/14/22 14:10 Gram Stain - Final Sputum - Endotracheal Tube Aspirate A&P Assessment and plan (1) Acute respiratory failure with hypoxia: Keep mean artery pressure 65, saturation over 90%. Wean off ventilator accordingly. Continue with sedation vacation. Plan to put back on fentanyl low-dose up to 75 and Precedex overnight along with full ventilator support with plans to lower sedation again early tomorrow morning in view of possible extubation within next 24 hours. Continue with Seroquel 100 mg twice daily, Lyrica 150 mg 3 times a day, Celexa 20 mg daily. Follow-up blood culture, BAL studies. Follow-up multiple fungal studies. For now all cultures have remained negative. ID consulted by pulmonary. Appreciate recommendations. Micafungin, linezolid stopped. Acyclovir changed to Valtrex. Continue Bactrim and meropenem at current dose. Wean Solu-Medrol to 40 mg every 12 hours. Wean ventilator as fermentation keeping saturation more than 90%. Patient has completed Tamiflu course. Echocardiogram done showed EF of 50% with grade 2 diastolic dysfunction. (2) Fever: Patient still spiking daily fevers. Repeat blood cultures sent on 05/13. Blood cultures so far negative. Send repeat sputum culture, urinalysis. Replace Holguin. Check CT abdomen pelvis to rule out a calculus cholecystitis, possible obstructive nephropathy. Lower limb Dopplers to rule out DVT. Right upper limb Dopplers Cannot rule out fevers secondary to noninfectious cause including possible serotonin syndrome, drug fever, central fever. Medications changed as per above. Linezolid has been stopped in view of of patient taking amitriptyline within last 14 days. Dose of Celexa has been reduced. Will continue to monitor. (3) Acute encephalopathy: Acute encephalopathy with hypoactive delirium, possibly acute metabolic secondary to hypoxia, respiratory failure, possible withdrawal from Lyrica, steroid use. Medication as above. Resolving. (4) Influenza A: Completed course of Tamiflu. Additional measures as above. For now continued on isolation therapy due to immunocompromise state, persistent respiratory failure. (5) Pneumonia: As above (6) Pneumomediastinum: (7) Ventilator dependent: (8) Herpes labialis: With encephalopathy. Continue with Valtrex. Appreciate ID recommendations. (9) HTN (hypertension): Blood pressure is doing better. So far has not required further as needed labetalol. Continue with amlodipine. Hold off on clonidine patch for now. Goal blood pressure less than 140/90 which is been over 65. (10) Septic shock: Hypotension resolved. Weaned off pressor. (11) Thrombocytopenia: Resolved. Peripheral smear without schistocytes. Chemistries not suggestive of hemolysis. Low probability TTP. Low probability HIT. Fibrin degradation products elevated, noted D-dimer elevation but with superficial thrombophlebitis of arm on duplex. No DVT. Overall picture not suggestive of DIC. Possibly drug-related. After antibiotic changes yesterday thrombocytopenia with improvement. (12) Mucosal bleeding: Resolved. As above. Thrombocytopenia resolved. (13) Metabolic acidosis: Resolved. Hold off on any further IV fluids. (14) Lactic acid acidosis: (15) Positive KATHLEEN (antinuclear antibody): (16) Chronic steroid use: (17) Superficial thrombophlebitis: Right antecubital vein. Elevate. DVT prophylaxis. Plan Sedation: Currently only with fentanyl and Precedex. Analgesia: Fentanyl, Lyrica Glycemic control: Not needed Nutrition: Tube feeds CODE STATUS: Full code PUD prophylaxis: Protonix DVT prophylaxis: Heparin Discharge planning: Given clinical course will need to decide. For now plan is to possibly wean off ventilator and then physical therapy. If unable to wean select is a possibility as well. Case management alerted. Will discuss with family. Continue with care at ICU level. This documentation was created by [employer] director of software engineering software. Every effort was made to ensure accuracy of director of software engineering. Any obvious errors or omissions should be clarified with the author of the document. Attestations Medical Necessity Statement*: Requires further hospitalization for management of ventilator dependent respiratory failure in view of influenza, pneumo mediastinum continue patient on chronic immunosuppression Critical Care Time: The high probability of a clinically significant, sudden or life threatening deterioration of the patient's [cardiac, pulmonary, ID, renal] system(s) required my full and direct attention, intervention and personal management. The critical care time is as shown. This time is in addition to time spent performing any reported procedures but includes the following: [x] Data and vital sign review and interpretation [x] Patient assessment, examination and intervention [x] Documentation [x] Medication orders and management Critical Care Time (min): 80 Coding Level of Care Code Acute Controller Repairer And Tester for [facility] Fwd Diagnoses Acute respiratory failure with hypoxia J96.01 Fever R50.9 Acute encephalopathy G93.40 Influenza A J10.1 Pneumonia J18.9 Pneumomediastinum J98.2 Ventilator dependent Z99.11 Herpes labialis B00.1 HTN (hypertension) I10 Septic shock A41.9; R65.21 Thrombocytopenia D69.6 Mucosal bleeding R58 Metabolic acidosis E87.20 Lactic acid acidosis E87.20 Positive KATHLEEN (antinuclear antibody) R76.8 Chronic steroid use Superficial thrombophlebitis I80.9
--- NOTE | 2022-05-14 17:43 | USCV_ITS ---
Misty Correa Age: 32 Gender: F : 1990 Exam Date: 05/14/2022 18:08 Ordering Phys: Alon Leary MD Technologist: PAULINO [place] [facility] [place]: Patient is on ventilator in ICU8. Patient is in COVID isolation. HISTORY: Patient is on ventilator in ICU8. Patient is in COVID isolation. PROCEDURES: Venous duplex imaging was performed in bilateral lower extremities. The following venous structures were evaluated: common femoral vein, profunda vein, proximal portion of the greater saphenous vein, superficial femoral vein, and the popliteal vein. In addition, the posterior tibial and peroneal veins were evaluated. Serial compression, augmentation maneuvers, and spectral Doppler flow evaluation were performed, which were normal. Bilaterally, the common femoral, superficial femoral, profunda femoral, popliteal, posterior tibial, greater saphenous veins, and the peroneal vens were identified and interrogated in the standard fashion. These veins were found to be easily compressible with spontaneous blood flow. No evidence of thrombus noted. CONCLUSIONS No evidence of right lower extremity DVT. No evidence of left lower extremity DVT. Paco Chang MD (Electronically Signed) Final Date: 15 May 2022 15:20 S
--- NOTE | 2022-05-14 18:00 | P.PN_ITS ---
Subjective Subjective: appeared better today ; fentanyl down to 75 mcg/hr, propofol 25 mcg/hr, precedex 1.1 ; on seroquel 100 mg bid and Lyrica today we will continue with pressure support labs and imaging reviewed Medications: Reviewed: Yes Vitals/I&O/Wt Last Vital Signs Temp 100.2 F H 05/14/22 16:00 Pulse 69 05/14/22 16:00 Resp 21 H 05/14/22 17:03 BP 123/56 05/14/22 16:00 Pulse Ox 98 05/14/22 17:03 O2 Del Method 05/14/22 13:56 FiO2 35 05/14/22 17:03 05/14/22 05/14/22 05/14/22 06:59 14:59 22:59 Intake Total 686.592 / 2114.234 353.836 / 353.836 60 / 413.836 Output Total 2050 / 5250 550 / 550 700 / 1250 Balance -1363.408 / -3135.766 -196.164 / -196.164 -640 / -836.164 Weight last 48 hrs Weight 251 lb Weight 255 lb 6 oz Physical Exam 2 Narrative: PHYSICAL EXAM: General: lying in bed, sedated and intubated. HEENT:NCAT, PERRLA, EOMI Neck: Supple Lungs: Bilateral normal breath sounds-wheezing improved compared to previous examination Heart: s1/s2, RRR Abd: soft, NT, ND, BS + Normoactive Extremities: No edema COMPUTER TECHNOLOGY TEACHER: sedated and limited COMPUTER TECHNOLOGY TEACHER exam possible. SKIN: no rash LDA: # CVC: Right IJ # Holguin: Present Urinary Catheter Management: Holguin: Cath Placed During This Visit: yes, but has since been removed by the nurse Reason for Continuing Indwelling Catheter: Accurate Measurement of Urinary Outpu t in Critically Ill Patients Urinary Catheter Date of Insertion: 05/14/22 Urinary Catheter Time of Insertion: 11:30 Date Urinary Catheter Removed: 05/14/22 Time Urinary Catheter Discontinued: 11:30 Data 05/14/22 01:59 05/14/22 01:59 Other Labs: Radiology Impressions Head CT 05/10/22 15:54 IMPRESSION: 1. No acute intracranial hemorrhage or edema. 2. No atrophy or ischemia. Chest CTA 05/11/22 11:28 IMPRESSION: 1. The study is limited by patient respiratory motion artifact. This limits visualization of the small peripheral pulmonary arterial branches. 2. No evidence of pulmonary embolism, within the technical limits of the examination. 3. There are areas of cystic bronchiectasis demonstrated in both lungs, particularly in the right upper lobe. 4. Nonspecific diffuse airspace infiltrates are seen throughout both lungs. This may represent bilateral pneumonia versus pulmonary edema. 5. Pneumomediastinum is present. 6. There is an endotracheal tube present, with distal tip 4 cm above the karen. 7. There is an enteric tube present with distal portion in the stomach. Chest X-Ray 05/14/22 10:10 Impression: 1. Almost total clearing of bilateral pulmonary patchy opacities. 2. No change in multiple tubes. Laboratory Results WBC 15.5 10^3/uL (4.0-10.0) H 05/14/22 01:59 RBC 3.82 10^6/uL (4.1-5.3) L 05/14/22 01:59 Hgb 11.4 g/dL (11.5-15.3) L 05/14/22 01:59 Hct 35.3 % (37.0-47.0) L 05/14/22 01:59 MCV 92.4 fl (81-99) 05/14/22 01:59 MCH 29.8 pg (28.0-34.0) 05/14/22 01:59 MCHC 32.3 g/dL (30.0-36.0) 05/14/22 01:59 RDW 13.6 % (12.1-15.1) 05/14/22 01:59 Plt Count 204 10^3/cmm (130-400) 05/14/22 01:59 MPV 13.0 fL (7.4-10.4) H 05/14/22 01:59 Neut % (Auto) 88.5 % 05/14/22 01:59 Lymph % (Auto) 5.0 % 05/14/22 01:59 [place] % (Auto) 4.5 % 05/14/22 01:59 Eos % (Auto) 0.0 % 05/14/22 01:59 Baso % (Auto) 0.1 % 05/14/22 01:59 Neut # (Auto) 13.68 10^3/uL (1.8-7.7) H 05/14/22 01:59 Lymph # (Auto) 0.8 10^3/uL (0.8-4.8) 05/14/22 01:59 [place] # (Auto) 0.7 10^3/uL (0.2-0.9) 05/14/22 01:59 Eos # (Auto) 0.0 10^3/uL (0.0-0.8) 05/14/22 01:59 Baso # (Auto) 0.0 10^3/uL (0.0-0.1) 05/14/22 01:59 Nucleated RBC % (auto) 0 % 05/14/22 01:59 Total Counted 100 (0-100) 05/10/22 02:42 Atypical Lymphs % 1.0 % (0-5) 05/10/22 02:42 Absolute Neutrophils 9.0 10^3/cmm (1.4-6.5) H 05/10/22 02:42 Segmented Neutrophils 81 % 05/10/22 02:42 Abs Segm Neuts (Man) 8.9 10/cmm (1.6-7.1) H 05/10/22 02:42 Band Neutrophils 1.0 % 05/10/22 02:42 Abs Band Neuts (Man) 0.1 10^3/cmm (0.0-1.2) 05/10/22 02:42 Absolute Lymphocytes 1.0 10^3/cmm (1.2-3.4) L 05/10/22 02:42 Lymphocytes (Manual) 8 % 05/10/22 02:42 Monocytes (Manual) 7.0 % 05/10/22 02:42 Absolute Monocytes 0.8 10^3/cmm (0.1-0.6) H 05/10/22 02:42 Eosinophils (Manual) 2 % 05/10/22 02:42 Absolute Eosinophils 0.2 10^3/cmm (0.0-0.7) 05/10/22 02:42 Basophils (Manual) 0.0 % 05/10/22 02:42 Absolute Basophils 0.0 10^3/cmm (0.0-0.2) 05/10/22 02:42 Metamyelocytes 1.0 % 05/05/22 04:30 Myelocytes 1.0 % 05/05/22 04:30 Nucleated RBCs # 0.0 /100WBC 05/14/22 01:59 Platelet Estimate Normal (Normal) 05/10/22 02:42 Poikilocytosis Trace 05/05/22 04:30 Anisocytosis 1+ H 05/10/22 02:42 Ovalocytes 1+ H 05/10/22 02:42 [place] Cells 1+ H 05/10/22 02:42 Haptoglobin 202.0 mg/L (30-200) H 05/09/22 16:57 PT 14.70 SECONDS (12.1-14.9) 05/08/22 17:34 INR 1.11 (0.8-1.2) 05/08/22 17:34 APTT 23.2 SECONDS (23.9-36.7) L 05/08/22 17:34 Fibrinogen 517 mg/dL (174-498) H 05/08/22 17:34 Fibrin Degrad Products Pos, 10-40 ug/mL (NEG) H 05/08/22 17:34 D-Dimer 3.03 ug/mIFEU (0-0.59) H 05/08/22 17:34 Specimen Type Arterial 05/13/22 09:39 Sample Site Radial, left 05/13/22 09:39 ABG pH 7.50 (7.35-7.45) H 05/13/22 09:39 ABG pCO2 32.3 mmHg (35-45) L 05/13/22 09:39 ABG pO2 63.3 mmHg (80.0-100.0) L 05/13/22 09:39 ABG HCO3 25.3 mmol/L (22-26) 05/13/22 09:39 ABG O2 Saturation 92.8 05/13/22 09:39 ABG Base Excess 2.6 mmol/L (-2.0-2.0) H 05/13/22 09:39 Cory Test Pos 05/13/22 09:39 A-a O2 Gradient 23.6 mmHg (5-10) H 05/13/22 09:39 Hematocrit 38.2 % (37-47) 05/13/22 09:39 Hgb O2 Saturation 91.2 % (95-100) L 05/13/22 09:39 Carboxyhemoglobin 0.8 %THgb (0.4-20.1) 05/13/22 09:39 Methemoglobin 0.8 % (0.4-1.5) 05/13/22 09:39 Total Hemoglobin 12.5 g/dL (12-16) 05/13/22 09:39 Sodium 137.0 mmol/L (131-143) 05/13/22 09:39 Potassium 4.5 mmol/L (3.5-5.0) 05/13/22 09:39 Glucose 168.0 mg/dL (70-115) H 05/13/22 09:39 Ionized Calcium 1.1 mmol/L (1.1-1.4) 05/13/22 09:39 O2 Delivery Device Vent 05/13/22 09:39 FiO2 40.0 % 05/13/22 09:39 Tidal Volume 0.40 05/13/22 09:39 PEEP 6.0 cmH20 05/13/22 09:39 Preschool Education Director ID Gd 05/13/22 09:39 Sodium 134 mmol/L (136-145) L 05/14/22 01:59 Potassium 4.3 mmol/L (3.5-5.1) 05/14/22 01:59 Chloride 103 mmol/L (98-107) 05/14/22 01:59 Carbon Dioxide 26 mmol/L (22-29) 05/14/22 01:59 Anion Gap 9.3 (5-19) 05/14/22 01:59 BUN 22 mg/dL (6-20) H 05/14/22 01:59 Creatinine 0.5 mg/dL (0.5-0.9) 05/14/22 01:59 GFR Calculation 141.2 mL/min (90-130) H 05/14/22 01:59 Glucose 178 mg/dL (65-115) H 05/14/22 01:59 POC Glucose 145 mg/dL (70-110) H 05/09/22 02:29 Estimat Average Glucose 94 05/05/22 04:30 Hemoglobin A1c 4.9 % (4.0-6.0) 05/05/22 04:30 Calculated Osmolality 286 mOsm/kg (285-295) 05/14/22 01:59 Lactic Acid 2.1 mmol/L (0.5-2.2) 05/05/22 10:03 Lactic Acid (Sepsis) 2.1 mmol/L (0.5-2.2) 05/05/22 13:24 Calcium 8.5 mg/dL (8.5-10.5) 05/14/22 01:59 Phosphorus 2.9 mg/dL (2.5-4.5) 05/04/22 16:53 Magnesium 1.2 mg/dL (1.7-2.3) L 05/04/22 16:53 Iron 6 ug/dL (37-145) L 05/04/22 08:40 TIBC 247 mcg/dl 05/04/22 08:40 % Saturation 2.4 % (20-50) L 05/04/22 08:40 Unsat Iron Binding 241 ug/dL (112-347) 05/04/22 08:40 Total Bilirubin 0.4 mg/dL (0.15-1.2) 05/14/22 01:59 AST 62 U/L (0-32) H 05/14/22 01:59 ALT 43 U/L (0-33) H 05/14/22 01:59 Alkaline Phosphatase 75 U/L (35-105) 05/14/22 01:59 Lactate Dehydrogenase 457 U/L (135-214) H 05/09/22 16:57 Creatine Kinase 107 U/L (26-192) 05/05/22 10:03 C-Reactive Protein 300.0 mg/L (0.0-4.9) H 05/04/22 08:40 NT-Pro-B Natriuret Pep 1252 pg/mL (0-125) H 05/04/22 08:40 Total Protein 6.5 g/dL (6.6-8.7) L 05/14/22 01:59 Albumin 2.9 g/dL (3.5-5.2) L 05/14/22 01:59 Globulin 3.6 g/dL (1.3-4.6) 05/14/22 01:59 Triglycerides 377 mg/dL (0-150) H 05/09/22 02:30 Cholesterol 86 mg/dL (0-200) 05/05/22 04:30 LDL Cholesterol, Calc 1 mg/dL (50-129) L 05/05/22 04:30 Total VLDL Cholesterol 70 mg/dL (0-30) H 05/05/22 04:30 HDL Cholesterol 15 mg/dL (60-100) L 05/05/22 04:30 Cholesterol/HDL Ratio 5.73 mg/dL (0.0-4.40) H 05/05/22 04:30 Vitamin B12 847 pg/mL (232-1245) 05/04/22 08:40 Folate 7.7 ng/mL (4.8-37.3) 05/04/22 16:53 Procalcitonin 0.33 ng/mL (0-0.5) 05/11/22 04:40 TSH 0.10 uIU/mL (0.27-4.20) L 05/04/22 08:40 Free T4 1.11 ng/dL (0.82-1.77) 05/04/22 16:53 Free T3 2.3 PG/ML (2.0-4.4) 05/04/22 16:53 HCG, Qual Negative (Negative) 05/04/22 16:53 Urine Color Yellow (Yellow) 05/14/22 11:10 Urine Appearance Clear (CLEAR) 05/14/22 11:10 Urine pH 6 (5-7) 05/14/22 11:10 Ur Specific [place] 1.020 (1.005-1.030) 05/14/22 11:10 Urine Protein Neg (Negative) 05/14/22 11:10 Urine Glucose (UA) Norm (Normal) 05/14/22 11:10 Urine Ketones Negative (Negative) 05/14/22 11:10 Urine Blood 2+ (Negative) H 05/14/22 11:10 Urine Nitrate Negative (Negative) 05/14/22 11:10 Urine Bilirubin Neg (Negative) 05/14/22 11:10 Urine Urobilinogen Norm mg/dL (Negative) 05/14/22 11:10 Ur Leukocyte Esterase Negative (Negative) 05/14/22 11:10 Urine RBC 0-4 /hpf (0-2) H 05/14/22 11:10 Urine WBC None /hpf (0-5) 05/14/22 11:10 Ur Squamous Epith Cells None /hpf (0-5) 05/14/22 11:10 Amorphous Sediment Not Reportable 05/14/22 11:10 Urine Bacteria 4+ /hpf (NONE) H 05/14/22 11:10 Coarse Granular Casts 10-15 /lpf H 05/04/22 15:05 Ur Random Sodium 10 mmol/L 05/04/22 22:49 Ur Random Potassium 13 mmol/L 05/04/22 22:49 Ur Random Chloride 10 mmol/L 05/04/22 22:49 Urine Creatinine 217 mg/dL (28-217) 05/04/22 15:05 Nasal Influ A H1 2009 PCR Detected (NOT DETECT) A 05/04/22 11:47 Vancomycin Trough 12.8 ug/mL (10-15) 05/08/22 14:55 Urine Opiates Screen Positive ng/mL (Negative) H 05/04/22 22:49 Ur Barbiturates Screen Negative ng/mL (Negative) 05/04/22 22:49 Ur Phencyclidine Scrn Negative ng/mL (Negative) 05/04/22 22:49 Ur Amphetamines Screen Negative ng/mL (Negative) 05/04/22 22:49 U Benzodiazepines Scrn Negative ng/mL (Negative) 05/04/22 22:49 Urine Cocaine Screen Negative ng/mL (Negative) 05/04/22 22:49 U Marijuana (THC) Screen Negative ng/mL (Negative) 05/04/22 22:49 Coronavirus 229E (PCR) Not detected (NOT DETECT) 05/04/22 08:49 Human Metapneumovir PCR Not detected (NOT DETECT) 05/04/22 11:47 Influenza A (H1) PCR Not detected (NOT DETECT) 05/04/22 11:47 Influenza A (H3) PCR Not detected (NOT DETECT) 05/04/22 11:47 Influenza Type A (PCR) Detected (NOT DETECT) A 05/04/22 11:47 Influenza Type B (PCR) Not detected (NOT DETECT) 05/04/22 11:47 Pneumocystis Source Cancelled 05/11/22 10:55 Pneumocyst jirovecii PCR Cancelled 05/11/22 10:55 Aspergillus Source Cancelled 05/11/22 10:55 Aspergillus Ag (EIA) Cancelled 05/11/22 10:55 Aspergillus sp (PCR) Cancelled 05/11/22 10:55 A. fumigatus (PCR) Cancelled 05/11/22 10:55 A. galactomannan Ag Idx Cancelled 05/11/22 10:55 A. terreus (PCR) Cancelled 05/11/22 10:55 Entero/Rhino (PCR) Detected (NOT DETECT) A 05/04/22 11:47 SARS-CoV-2 (PCR) Not detected (NOT DETECT) 05/04/22 08:49 Beta-(1,3)-D-Glucan Cancelled 05/11/22 10:55 B-(1,3)-D-Glucan Intrp Cancelled 05/11/22 10:55 Micro: Microbiology 05/13/22 17:05 Blood Culture - Preliminary Blood NEGATIVE TO DATE 05/13/22 16:35 Blood Culture - Preliminary Blood NEGATIVE TO DATE 05/14/22 14:10 Gram Stain - Final Sputum - Endotracheal Tube Aspirate A&P Assessment and plan (1) Acute respiratory failure with hypoxia: (2) Influenza A: (3) Chronic steroid use: (4) Undifferentiated connective tissue disease: (5) Asthma: (6) Morbid obesity: (7) Pneumonia: (8) Herpes labialis: Plan #Acute hypoxic respiratory failure secondary to asthma exacerbation due to influenza A #CHF exacerbation with grade 2 diastolic dysfunction on echocardiogram -Patient on droplet precautions -Adequate urine output and normal renal functions with electrolytes -CT chest was also showed pneumomediastinum-PEEP on 8 and currently patient is on PSV -Adequate urine output and normal renal functions with electrolytes -Off paralytic for 2 days, tachypneic when turning off Versed, still requiring fentanyl 75 MCG, propofol 30 MCG/hour, fentanyl down to 75 mcg/hr, propofol 25 mcg/hr, precedex 1.1 ; on seroquel 150 mg bid and Lyrica -opening eyes but does not follow commands-We will taper of sedation and do awakening trial -Blood pressure has been high and currently managed with the labetalol as needed and amlodipine -No documented bowel movements-but abdomen is soft-currently on tube feeding -We will continue to do spontaneous awakening trials followed by breathing trials -Blood pressure has been high and currently managed with amlodipine -No documented bowel movements-but abdomen is soft-we will start her on P ulmocare 15 mL per hour -Patient was receiving Xopenex every 6 hours as needed- -Currently on methylprednisone 40 every 12 hour-we will taper off and monitor clinically --Echocardiogram 05/04/2022-normal LV size systolic function EF 50%. Grade 2 diastolic dysfunction. Moderately elevated filling pressures. -Monitor electrolytes and supplement to keep potassium greater than 4 and magnesium greater than 2 --5 L since admission; maintaining good urine output, renal functions and electrolytes are normal #Temperature spikes, leukocytosis, worsening right lung infiltrate on chest [id number] secondary bacterial infection possibly staph post influenza A versus fungal pneumonia given patient's immunosuppression-however chest x-ray has been improving -She completed 5-day course of Tamiflu; --CTA 05/04-no evidence of acute PE, diffuse airspace disease representing multifocal pneumonia/bibasilar atelectasis -CT chest 05/11/2022-showed areas of cystic bronchiectasis in right upper lobe- which had previously right upper lobe consolidation on admission CT 1 week ago; other areas have improved; -However procalcitonin was low 0.03; BAL cultures, PCP PCR are pending -CT chest showed pneumomediastinum- PEEP decreased to 8 and currently patient is on SIMV -Bronchoscopy at bedside performed 05/01/2022-clear secretions noted bilaterally-BAL sent for wash cultures, PCP, Aspergillus antigen and beta D glucan sent -With chronic steroid/leflunomide-patient is immunosuppressed-at risk for PCP and other fungal infections - currently on meropenem, linezolid, Bactrim as there is no evidence of fungal infection so far-I will obtain ID consult -Herpes labialis:valacyclovir #Patient has underlying inflammatory arthritis-uncategorized CTD on chronic steroid therapy prior to admission -Initially hypotensive requiring during periintubation-likely secondary to adrenal insufficiency-she received hydrocortisone at that time -Later switched to Solu-Medrol 40 every 12 -We will slowly taper off ICU CHECKLIST: Problem list updated Verbal orders reviewed and signed Analgesia: Fentanyl Glycemic Control: N/A Nutrition: Pulmocare Restraint Renewal (within 24 hrs): Yes Ulcer Prophylaxis: PPI Chemical Thromboprophylaxis: Prophylaxis: Heparin Mechanical Thromboprophylaxis: SCD Need for Central line: yes for multiple medications Need for Holguin catheter: Yes for urine output monitoring Critical Care Time (No Overlap): 45 min Attestations Medical Necessity Statement*: Continue close ICU monitoring as patient still requires mechanical ventilation for respiratory support Time Spent in Patient Care: Greater than 35 minutes (>than 50% of time spent in counselling and/or direct pt care on unit) . Critical Care Time: This patient has a high probability of sudden, clinica lly significant de terioration, which requires the high est level of physi priyank preparedness to intervene urgen tly.? I managed/soni pervised life or o rgan supporting in terventions that r equired frequent p hysician assessmen t.? I devoted my f ull attention in t he ICU to the dire ct care of this pa tient for the klaus od of time indicat ed above.? Time I spent with family or surrogate(s) is included only if the patient was in capable of providi ng necessary infor mation or particip ating in decision making.? Time katie anastacia to teaching an d to any procedure s I billed separat simon is not include d. Services Prov ided: Telemetry re view Mechanical Ve ntilation Hemodyna rohit interpretation , assessment and m anagement Review a nd interpretation of CXR Review and interpretation of lab values Review and interpretation of microbiologic data and culture r esults Review of m edications and adm inistration Review and interpretatio n of Nutrition req uirements and rianna gement Discussion of management with other consultants and services Clin ical update to fam dalton members [x] David valenzuela assessment, examination and in tervention [x] Doc umentation [x] Med ication orders and management ? 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
[2022-05-14] MEDS: valACYclovir 1,000 mg Tablet 1000 MG OG-TUBE (18:15)
[2022-05-14] MEDS: fluconazole 100 mg Tablet 400 MG OG-TUBE (18:15)
--- NOTE | 2022-05-14 19:13 | PM.PN ---
Subjective Subjective: Infectious disease progress note continues to have fever tmax 100.2 F, respiratory status is improving. Chest x-ray is improving. Weaning down sedation today with plans to extubate tomorrow per primary team. Vitals/I&O/Wt Last Vital Signs Temp 100.2 F H 05/14/22 16:00 Pulse 69 05/14/22 18:00 Resp 21 H 05/14/22 18:00 BP 123/56 05/14/22 18:00 Pulse Ox 98 05/14/22 18:00 O2 Del Method 05/14/22 13:56 FiO2 35 05/14/22 18:00 05/14/22 05/14/22 05/14/22 06:59 14:59 22:59 Intake Total 686.592 / 2114.234 353.836 / 353.836 60 / 413.836 Output Total 2050 / 5250 550 / 550 700 / 1250 Balance -1363.408 / -3135.766 -196.164 / -196.164 -640 / -836.164 Weight last 48 hrs Weight 113.852 kg Weight 115.836 kg Physical Exam Narrative: General: Intubated sedated HEENT: PERRLA, pupils bilaterally equal and reactive, pallors not present Chest: Normal vesicular breath sounds, no added sounds, equal good air entry bilaterally CVS: S1-S2 regular, no murmurs, no tachycardia, no gallops, no rubs Abdomen: Soft, nontender, no organomegaly, bowel sounds present Neuro: Unable to assess, intubated sedated Urinary Catheter Management: Holguin: Cath Placed During This Visit: yes, but has since been removed by the nurse Reason for Continuing Indwelling Catheter: Accurate Measurement of Urinary Output in Critically Ill Patients Urinary Catheter Date of Insertion: 05/14/22 Urinary Catheter Time of Insertion: 11:30 Date Urinary Catheter Removed: 05/14/22 Time Urinary Catheter Discontinued: 11:30 Data 05/14/22 01:59 05/14/22 01:59 Micro: Microbiology 05/09/22 16:57 Blood Culture - Final Blood NO GROWTH AFTER 5 DAYS 05/13/22 17:05 Blood Culture - Preliminary Blood NEGATIVE TO DATE 05/13/22 16:35 Blood Culture - Preliminary Blood NEGATIVE TO DATE 05/14/22 14:10 Gram Stain - Final Sputum - Endotracheal Tube Aspirate A&P Assessment and plan (1) Fever: (2) Pneumomediastinum: (3) Ventilator dependent: (4) Herpes labialis: (5) Acute encephalopathy: (6) Superficial thrombophlebitis: Plan Persistent fever in spite of being on multiple antimicrobials including meropenem, linezolid, Bactrim presumptively for pneumocystis, micafungin, IV acyclovir. All cultures so far remain negative. BAL cultures thus far with some gram-negative rods, pending further identification. Recommend to check CT of the abdomen and pelvis to evaluate for any acalculous cholecystitis given deranged LFTs. Check UA, change Holguin catheter D/c linezolid as no evidence of MRSA/VRE - may be contrbuting to serotonin syndrome alongside SSRIs, amitryptylline. Drug induced fever alterate possibiity- off propofol today D/c micafungin as no evidence of invasive candidiasis at this time. Change to fluconazole via NG for thrush D/c iv ACV. 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
[2022-05-14] MEDS: levalbuterol 1.25 mg/3 mL Neb INHALATION (20:42)
[2022-05-14] MEDS: HYDROmorphone 1 mg/mL INJ 1 mL 0.5 MG IVP (20:46)
[2022-05-15] VITALS (49 sets, daily range): BP systolic 86–167; BP diastolic 58–96; PULSE 61–99; RESP 16–30; TEMP 36.9–37.2; O2SAT 93–98; BMI 43.7
[2022-05-15] MEDS: meropenem 1,000 MG in sodium chloride 0.9% (plus) 50 ML 100 MG IV ×3 (02:25→18:32)
[2022-05-15] MEDS: ipratropium 0.5 mg/2.5 mL Neb INHALATION ×4 (02:37→19:57)
[2022-05-15] MEDS: levalbuterol 0.63 mg/3 mL Neb INHALATION ×4 (02:37→19:57)
[2022-05-15] MEDS: lanolin oint 7 gm 1 APPLIC TOPICAL (02:37)
--- NOTE | 2022-05-15 02:40 | PC.NURSE ---
Pt noted to have tears coming out of her eyes and had a grimace on er face. This nurse asked if pt was in pain. Pt nodded her head. Pt nodded her head that she understood the pain rating scale (0-10). This nurse said one number at a time until pt agreed that her pain was an 8 out of 10. PRN medicine given.
[2022-05-15] MEDS: HYDROmorphone 1 mg/mL INJ 1 mL 0.5 MG IVP ×2 (02:43→05:52)
[2022-05-15 03:17] LABS: Basophils % 0.1 %; Hematocrit 35.3 % (37.0-47.0); Hemoglobin 11.5 g/dL (11.5-15.3); Lymphocytes # 1.1 10^3/uL (0.8-4.8); Lymphocytes % 7.7 %; Mean Corpuscular HGB Conc 32.6 g/dL (30.0-36.0); Mean Corpuscular Hemoglobin 30.2 pg (28.0-34.0); Mean Corpuscular Volume 92.7 fl (81-99); Mean Platelet Volume 13.4 fL (7.4-10.4); Monocytes # 1.1 10^3/uL (0.2-0.9); Monocytes % 7.6 %; Neutrophils # 11.72 10^3/uL (1.8-7.7); Neutrophils % 82.6 %; Nucleated Red Blood Cells % 0 %; Platelet Count 219 10^3/cmm (130-400); Red Blood Count 3.81 10^6/uL (4.1-5.3); Red Cell Distribution Width 13.9 % (12.1-15.1); White Blood Count 14.2 10^3/uL (4.0-10.0)
[2022-05-15 03:25] LABS: Alanine Aminotransferase 45 U/L (0-33); Albumin Level 2.9 g/dL (3.5-5.2); Alkaline Phosphatase 83 U/L (35-105); Aspartate Amino Transferase 45 U/L (0-32); Chloride 106 mmol/L (98-107); Potassium 4.7 mmol/L (3.5-5.1); Sodium 136 mmol/L (136-145)
[2022-05-15 03:42] LABS: Anion Gap 9.7 (5-19); Blood Urea Nitrogen 22 mg/dL (6-20); Calcium 8.6 mg/dL (8.5-10.5); Carbon Dioxide 25 mmol/L (22-29); Globulin 3.7 g/dL (1.3-4.6); Glomerular Filtration Rate 182.7 mL/min (90-130); Glucose 114 mg/dL (65-115); Osmolality Calculated 286 mOsm/kg (285-295); Total Bilirubin 0.4 mg/dL (0.15-1.2); Total Protein 6.6 g/dL (6.6-8.7)
--- NOTE | 2022-05-15 04:00 | XRR_ITS ---
PROCEDURE INFORMATION: Exam: XR Chest Exam date and time: 05/15/2022 5:10 AM Age: 32 years old Clinical indication: Dyspnea. Pacemaker. Follow-up continued respiratory failure. Intubated. Pneumonia. TECHNIQUE: Imaging protocol: Radiologic exam of the chest. Views: 1 view. COMPARISON: CR XR chest 1V portable [id number] 05/14/2022 10:34 AM FINDINGS: Tubes, catheters and devices: Endotracheal tube with tip approximately 2.3 cm above the karen. Nasogastric tube projects into the abdomen. Its tip is not included on the current study. Right internal jugular central venous access device with tip in the low right atrium or right ventricle. A left subclavian pacer is seen. The leads appear coiled over the left upper lobe. This appears inappropriately positioned. Lungs: There are patchy hazy opacities in the mid to upper chest bilaterally that are worsened and may reflect pneumonia. Subsegmental atelectasis at the left base. Pleural spaces: No pleural effusion. No pneumothorax. Heart/Mediastinum: The cardiac silhouette is unchanged. No gross evidence of pneumomediastinum. Bones/joints: No gross fracture. XR/XR chest 1V portable [id number] IMPRESSION: 1. Right internal jugular central venous access device with tip in the low right atrium or right ventricle. 2. A left subclavian pacer is seen. The leads appear coiled over the left upper lobe. This appears inappropriately positioned. Correlate clinically. 3. There are patchy hazy opacities in the mid to upper chest bilaterally that are worsened and may reflect pneumonia.
[2022-05-15] MEDS: dexmedetomidine 400 MCG in sodium chloride 0.9% (100 ml) 100 ML 17.61 MCG IV (04:19)
[2022-05-15 05:27] LABS: ABG PCO2 31.5 mmHg (35-45); ABG PH Result 7.49 (7.35-7.45); Alveolar-Arterial Oxygen Gradi 17.6 mmHg (5-10); Arterial Blood Gas Hematocrit 43.2 % (37-47); Base Excess ABG 1.2 mmol/L (-2.0-2.0); Blood Gas Allen Test Pos; Blood Gas Sample Site Radial, left; HCO3 ABG 23.9 mmol/L (22-26); Ionized Calcium Level - ABG 1.2 mmol/L (1.1-1.4); Oxygen Device VENT
--- NOTE | 2022-05-15 05:29 | PC.NURSE ---
Pt continues to show signs of pain (grimacing, tears). When this nurses asks, pt nods yes, that she is in pain. Datar has ordered fentanyl to be titrated to 25 and precedex to be weaned in order to facilitate possibility of extubation. Olivia consulted on pain.
--- NOTE | 2022-05-15 07:00 | CTR_ITS ---
PROCEDURE INFORMATION: Exam: CT Abdomen And Pelvis Without Contrast Exam date and time: 05/15/2022 1:20 PM Age: 32 years old Clinical indication: Condition or disease; Other: Possible infectious source, acalculous tita, obstructive ur TECHNIQUE: Imaging protocol: Computed tomography of the abdomen and pelvis without contrast. Radiation optimization: All CT scans at this facility use at least one of these dose optimization techniques: automated exposure control; mA and/or kV adjustment per patient size (includes targeted exams where dose is matched to clinical indication); or iterative reconstruction. COMPARISON: US abdomen complete* [id number] 04/25/2021 8:41 AM RADIATION DOSE METRICS: Total DLP (mGy-cm): 963.23 FINDINGS: Lungs: There is mild bronchiectasis in scattered peribronchial opacities lower lung zones with superimposed subsegmental atelectasis left lung base partially visualized. Liver: Liver is borderline enlarged with mild fatty infiltration. Gallbladder and bile ducts: Gallbladder has been removed. Bile ducts are not appreciably dilated. Pancreas: Unremarkable. Main pancreatic duct is not significantly dilated. Spleen: Normal. No splenomegaly. Adrenal glands: Normal. No mass. Kidneys and ureters: Normal. No hydronephrosis. Stomach and bowel: There is increased intraluminal fluid within the colon which is otherwise unremarkable. Findings are nonspecific and can be seen secondary to various causes of diarrhea. Remainder of the GI tract is unremarkable. Appendix: No evidence of appendicitis. Intraperitoneal space: Unremarkable. No free air. No significant fluid collection. Vasculature: Unremarkable. No abdominal aortic aneurysm. Lymph nodes: Unremarkable. No enlarged lymph nodes. Urinary bladder: There is a Holguin catheter balloon within the urinary bladder which is collapsed and difficult to further assess. Reproductive: Uterus has been removed. Bones/joints: Unremarkable. No acute fracture. Soft tissues: Small fat containing umbilical hernia. CT/CT abdomen pelvis wo con [id number] IMPRESSION: 1. No acute findings within the abdomen or pelvis. 2. Scattered lower lobe airway disease with accompanying peribronchial opacities possibly infectious in nature and better assessed on dedicated CT examination of the chest. 3. Borderline hepatomegaly with mild fatty infiltration. 4. Additional findings as above.
[2022-05-15] MEDS: budesonide 0.5 mg/2 mL Neb INHALATION ×2 (07:37→19:57)
[2022-05-15 07:53] LABS: Blood Gas Sample Type Arterial; Oxygen Saturation ABG 96.3; PO2 ABG 73.3 mmHg (80.0-100.0); Potassium Level - ABG 4.5 mmol/L (3.5-5.0)
[2022-05-15 07:54] LABS: HGB O2 Sat 94.5 % (95-100); Methemoglobin 0.9 % (0.4-1.5); Total Hemoglobin 14.1 g/dL (12-16)
--- NOTE | 2022-05-15 08:15 | PM.PN ---
Subjective Subjective: -Off feeding, off sedation, following commands -Tolerated pressure support ventilation -Extubated successfully -Continue bedside physical therapy/incentive spirometry/out of bed to chair -Recommended bedside swallow evaluation and start with clear liquids today afternoon Medications: Reviewed: Yes Vitals/I&O/Wt Last Vital Signs Temp 100.2 F H 05/14/22 16:00 Pulse 77 05/15/22 07:49 Resp 28 H 05/15/22 07:44 BP 134/70 05/15/22 06:30 Pulse Ox 95 05/15/22 07:44 O2 Del Method 05/15/22 07:35 FiO2 30 05/15/22 07:44 05/14/22 05/15/22 05/15/22 22:59 06:59 14:59 Intake Total 1032.442 / 8231.122 4896.023 / 2543.301 44.581 / 44.581 Output Total 700 / 1250 1850 / 3100 Balance 332.442 / 136.278 -692.977 / -556.699 44.581 / 44.581 Weight last 48 hrs Weight 247 lb 1.6 oz Weight 251 lb Physical Exam Narrative: PHYSICAL EXAM: General: lying in bed, awake and following commands HEENT:NCAT, PERRLA, EOMI Neck: Supple Lungs: Bilateral normal breath sounds-wheezing improved compared to previous examination Heart: s1/s2, RRR Abd: soft, NT, ND, BS + Normoactive Extremities: No edema 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 No acute intracranial hemorrhage or edema. 2. No atrophy or ischemia. Chest CTA 05/11/22 11:28 IMPRESSION: 1. The study is limited by patient respiratory motion artifact. This limits visualization of the small peripheral pulmonary arterial branches. 2. No evidence of pulmonary embolism, within the technical limits of the examination. 3. There are areas of cystic bronchiectasis demonstrated in both lungs, particularly in the right upper lobe. 4. Nonspecific diffuse airspace infiltrates are seen throughout both lungs. This may represent bilateral pneumonia versus pulmonary edema. 5. Pneumomediastinum is present. 6. There is an endotracheal tube present, with distal tip 4 cm above the karen. 7. There is an enteric tube present with distal portion in the stomach. Laboratory Results WBC 14.2 10^3/uL (4.0-10.0) H 05/15/22 02:18 RBC 3.81 10^6/uL (4.1-5.3) L 05/15/22 02:18 Hgb 11.5 g/dL (11.5-15.3) 05/15/22 02:18 Hct 35.3 % (37.0-47.0) L 05/15/22 02:18 MCV 92.7 fl (81-99) 05/15/22 02:18 MCH 30.2 pg (28.0-34.0) 05/15/22 02:18 MCHC 32.6 g/dL (30.0-36.0) 05/15/22 02:18 RDW 13.9 % (12.1-15.1) 05/15/22 02:18 Plt Count 219 10^3/cmm (130-400) 05/15/22 02:18 MPV 13.4 fL (7.4-10.4) H 05/15/22 02:18 Neut % (Auto) 82.6 % 05/15/22 02:18 Lymph % (Auto) 7.7 % 05/15/22 02:18 [place] % (Auto) 7.6 % 05/15/22 02:18 Eos % (Auto) 0.0 % 05/15/22 02:18 Baso % (Auto) 0.1 % 05/15/22 02:18 Neut # (Auto) 11.72 10^3/uL (1.8-7.7) H 05/15/22 02:18 Lymph # (Auto) 1.1 10^3/uL (0.8-4.8) 05/15/22 02:18 [place] # (Auto) 1.1 10^3/uL (0.2-0.9) H 05/15/22 02:18 Eos # (Auto) 0.0 10^3/uL (0.0-0.8) 05/15/22 02:18 Baso # (Auto) 0.0 10^3/uL (0.0-0.1) 05/15/22 02:18 Nucleated RBC % (auto) 0 % 05/15/22 02:18 Total Counted 100 (0-100) 05/10/22 02:42 Atypical Lymphs % 1.0 % (0-5) 05/10/22 02:42 Absolute Neutrophils 9.0 10^3/cmm (1.4-6.5) H 05/10/22 02:42 Segmented Neutrophils 81 % 05/10/22 02:42 Abs Segm Neuts (Man) 8.9 10/cmm (1.6-7.1) H 05/10/22 02:42 Band Neutrophils 1.0 % 05/10/22 02:42 Abs Band Neuts (Man) 0.1 10^3/cmm (0.0-1.2) 05/10/22 02:42 Absolute Lymphocytes 1.0 10^3/cmm (1.2-3.4) L 05/10/22 02:42 Lymphocytes (Manual) 8 % 05/10/22 02:42 Monocytes (Manual) 7.0 % 05/10/22 02:42 Absolute Monocytes 0.8 10^3/cmm (0.1-0.6) H 05/10/22 02:42 Eosinophils (Manual) 2 % 05/10/22 02:42 Absolute Eosinophils 0.2 10^3/cmm (0.0-0.7) 05/10/22 02:42 Basophils (Manual) 0.0 % 05/10/22 02:42 Absolute Basophils 0.0 10^3/cmm (0.0-0.2) 05/10/22 02:42 Metamyelocytes 1.0 % 05/05/22 04:30 Myelocytes 1.0 % 05/05/22 04:30 Nucleated RBCs # 0.0 /100WBC 05/15/22 02:18 Platelet Estimate Normal (Normal) 05/10/22 02:42 Poikilocytosis Trace 05/05/22 04:30 Anisocytosis 1+ H 05/10/22 02:42 Ovalocytes 1+ H 05/10/22 02:42 Speed Cells 1+ H 05/10/22 02:42 Haptoglobin 202.0 mg/L (30-200) H 05/09/22 16:57 PT 14.70 SECONDS (12.1-14.9) 05/08/22 17:34 INR 1.11 (0.8-1.2) 05/08/22 17:34 APTT 23.2 SECONDS (23.9-36.7) L 05/08/22 17:34 Fibrinogen 517 mg/dL (174-498) H 05/08/22 17:34 Fibrin Degrad Products Pos, 10-40 ug/mL (NEG) H 05/08/22 17:34 D-Dimer 3.03 ug/mIFEU (0-0.59) H 05/08/22 17:34 Specimen Type Arterial 05/15/22 05:10 Sample Site Radial, left 05/15/22 05:10 ABG pH 7.49 (7.35-7.45) H 05/15/22 05:10 ABG pCO2 31.5 mmHg (35-45) L 05/15/22 05:10 ABG pO2 73.3 mmHg (80.0-100.0) L 05/15/22 05:10 ABG HCO3 23.9 mmol/L (22-26) 05/15/22 05:10 ABG O2 Saturation 96.3 05/15/22 05:10 ABG Base Excess 1.2 mmol/L (-2.0-2.0) 05/15/22 05:10 Cory Test Pos 05/15/22 05:10 A-a O2 Gradient 17.6 mmHg (5-10) H 05/15/22 05:10 Hematocrit 43.2 % (37-47) 05/15/22 05:10 Hgb O2 Saturation 94.5 % (95-100) L 05/15/22 05:10 Carboxyhemoglobin 1.0 %THgb (0.4-20.1) 05/15/22 05:10 Methemoglobin 0.9 % (0.4-1.5) 05/15/22 05:10 Total Hemoglobin 14.1 g/dL (12-16) 05/15/22 05:10 Sodium 139.0 mmol/L (131-143) 05/15/22 05:10 Potassium 4.5 mmol/L (3.5-5.0) 05/15/22 05:10 Glucose 148.0 mg/dL (70-115) H 05/15/22 05:10 Ionized Calcium 1.2 mmol/L (1.1-1.4) 05/15/22 05:10 O2 Delivery Device Vent 05/15/22 05:10 FiO2 35.0 % 05/15/22 05:10 Tidal Volume 0.40 05/15/22 05:10 PEEP 8.0 cmH20 05/15/22 05:10 Purchasing Director ID yorna 05/15/22 05:10 Sodium 136 mmol/L (136-145) 05/15/22 02:18 Potassium 4.7 mmol/L (3.5-5.1) 05/15/22 02:18 Chloride 106 mmol/L (98-107) 05/15/22 02:18 Carbon Dioxide 25 mmol/L (22-29) 05/15/22 02:18 Anion Gap 9.7 (5-19) 05/15/22 02:18 BUN 22 mg/dL (6-20) H 05/15/22 02:18 Creatinine 0.4 mg/dL (0.5-0.9) L 05/15/22 02:18 GFR Calculation 182.7 mL/min (90-130) H 05/15/22 02:18 Glucose 114 mg/dL (65-115) 05/15/22 02:18 POC Glucose 145 mg/dL (70-110) H 05/09/22 02:29 Estimat Average Glucose 94 05/05/22 04:30 Hemoglobin A1c 4.9 % (4.0-6.0) 05/05/22 04:30 Calculated Osmolality 286 mOsm/kg (285-295) 05/15/22 02:18 Lactic Acid 2.1 mmol/L (0.5-2.2) 05/05/22 10:03 Lactic Acid (Sepsis) 2.1 mmol/L (0.5-2.2) 05/05/22 13:24 Calcium 8.6 mg/dL (8.5-10.5) 05/15/22 02:18 Phosphorus 2.9 mg/dL (2.5-4.5) 05/04/22 16:53 Magnesium 1.2 mg/dL (1.7-2.3) L 05/04/22 16:53 Iron 6 ug/dL (37-145) L 05/04/22 08:40 TIBC 247 mcg/dl 05/04/22 08:40 % Saturation 2.4 % (20-50) L 05/04/22 08:40 Unsat Iron Binding 241 ug/dL (112-347) 05/04/22 08:40 Total Bilirubin 0.4 mg/dL (0.15-1.2) 05/15/22 02:18 AST 45 U/L (0-32) H 05/15/22 02:18 ALT 45 U/L (0-33) H 05/15/22 02:18 Alkaline Phosphatase 83 U/L (35-105) 05/15/22 02:18 Lactate Dehydrogenase 457 U/L (135-214) H 05/09/22 16:57 Creatine Kinase 107 U/L (26-192) 05/05/22 10:03 C-Reactive Protein 300.0 mg/L (0.0-4.9) H 05/04/22 08:40 NT-Pro-B Natriuret Pep 1252 pg/mL (0-125) H 05/04/22 08:40 Total Protein 6.6 g/dL (6.6-8.7) 05/15/22 02:18 Albumin 2.9 g/dL (3.5-5.2) L 05/15/22 02:18 Globulin 3.7 g/dL (1.3-4.6) 05/15/22 02:18 Triglycerides 377 mg/dL (0-150) H 05/09/22 02:30 Cholesterol 86 mg/dL (0-200) 05/05/22 04:30 LDL Cholesterol, Calc 1 mg/dL (50-129) L 05/05/22 04:30 Total VLDL Cholesterol 70 mg/dL (0-30) H 05/05/22 04:30 HDL Cholesterol 15 mg/dL (60-100) L 05/05/22 04:30 Cholesterol/HDL Ratio 5.73 mg/dL (0.0-4.40) H 05/05/22 04:30 Vitamin B12 847 pg/mL (232-1245) 05/04/22 08:40 Folate 7.7 ng/mL (4.8-37.3) 05/04/22 16:53 Procalcitonin 0.33 ng/mL (0-0.5) 05/11/22 04:40 TSH 0.10 uIU/mL (0.27-4.20) L 05/04/22 08:40 Free T4 1.11 ng/dL (0.82-1.77) 05/04/22 16:53 Free T3 2.3 PG/ML (2.0-4.4) 05/04/22 16:53 HCG, Qual Negative (Negative) 05/04/22 16:53 Urine Color Yellow (Yellow) 05/14/22 11:10 Urine Appearance Clear (CLEAR) 05/14/22 11:10 Urine pH 6 (5-7) 05/14/22 11:10 Ur Specific [place] 1.020 (1.005-1.030) 05/14/22 11:10 Urine Protein Neg (Negative) 05/14/22 11:10 Urine Glucose (UA) Norm (Normal) 05/14/22 11:10 Urine Ketones Negative (Negative) 05/14/22 11:10 Urine Blood 2+ (Negative) H 05/14/22 11:10 Urine Nitrate Negative (Negative) 05/14/22 11:10 Urine Bilirubin Neg (Negative) 05/14/22 11:10 Urine Urobilinogen Norm mg/dL (Negative) 05/14/22 11:10 Ur Leukocyte Esterase Negative (Negative) 05/14/22 11:10 Urine RBC 0-4 /hpf (0-2) H 05/14/22 11:10 Urine WBC None /hpf (0-5) 05/14/22 11:10 Ur Squamous Epith Cells None /hpf (0-5) 05/14/22 11:10 Amorphous Sediment Not Reportable 05/14/22 11:10 Urine Bacteria 4+ /hpf (NONE) H 05/14/22 11:10 Coarse Granular Casts 10-15 /lpf H 05/04/22 15:05 Ur Random Sodium 10 mmol/L 05/04/22 22:49 Ur Random Potassium 13 mmol/L 05/04/22 22:49 Ur Random Chloride 10 mmol/L 05/04/22 22:49 Urine Creatinine 217 mg/dL (28-217) 05/04/22 15:05 Nasal Influ A H1 2009 PCR Detected (NOT DETECT) A 05/04/22 11:47 Vancomycin Trough 12.8 ug/mL (10-15) 05/08/22 14:55 Urine Opiates Screen Positive ng/mL (Negative) H 05/04/22 22:49 Ur Barbiturates Screen Negative ng/mL (Negative) 05/04/22 22:49 Ur Phencyclidine Scrn Negative ng/mL (Negative) 05/04/22 22:49 Ur Amphetamines Screen Negative ng/mL (Negative) 05/04/22 22:49 U Benzodiazepines Scrn Negative ng/mL (Negative) 05/04/22 22:49 Urine Cocaine Screen Negative ng/mL (Negative) 05/04/22 22:49 U Marijuana (THC) Screen Negative ng/mL (Negative) 05/04/22 22:49 Coronavirus 229E (PCR) Not detected (NOT DETECT) 05/04/22 08:49 Human Metapneumovir PCR Not detected (NOT DETECT) 05/04/22 11:47 Influenza A (H1) PCR Not detected (NOT DETECT) 05/04/22 11:47 Influenza A (H3) PCR Not detected (NOT DETECT) 05/04/22 11:47 Influenza Type A (PCR) Detected (NOT DETECT) A 05/04/22 11:47 Influenza Type B (PCR) Not detected (NOT DETECT) 05/04/22 11:47 Pneumocystis Source Cancelled 05/11/22 10:55 Pneumocyst jirovecii PCR Cancelled 05/11/22 10:55 Aspergillus Source Cancelled 05/11/22 10:55 Aspergillus Ag (EIA) Cancelled 05/11/22 10:55 Aspergillus sp (PCR) Cancelled 05/11/22 10:55 A. fumigatus (PCR) Cancelled 05/11/22 10:55 A. galactomannan Ag Idx Cancelled 05/11/22 10:55 A. terreus (PCR) Cancelled 05/11/22 10:55 Entero/Rhino (PCR) Detected (NOT DETECT) A 05/04/22 11:47 SARS-CoV-2 (PCR) Not detected (NOT DETECT) 05/04/22 08:49 Beta-(1,3)-D-Glucan Cancelled 05/11/22 10:55 B-(1,3)-D-Glucan Intrp Cancelled 05/11/22 10:55 Micro: Microbiology 05/09/22 20:15 Blood Culture - Final Blood NO GROWTH AFTER 5 DAYS 05/09/22 16:57 Blood Culture - Final Blood NO GROWTH AFTER 5 DAYS 05/13/22 17:05 Blood Culture - Preliminary Blood NEGATIVE TO DATE 05/13/22 16:35 Blood Culture - Preliminary Blood NEGATIVE TO DATE 05/14/22 14:10 Gram Stain - Final Sputum - Endotracheal Tube Aspirate A&P Assessment and plan (1) Acute respiratory failure with hypoxia: (2) Influenza A: (3) Chronic steroid use: (4) Undifferentiated connective tissue disease: (5) Asthma: (6) Morbid obesity: (7) Pneumonia: (8) Herpes labialis: Plan #Acute hypoxic respiratory failure secondary to asthma exacerbation due to influenza A #CHF exacerbation with grade 2 diastolic dysfunction on echocardiogram -Patient on droplet precautions -Successfully extubated today -Continue bedside physical therapy/incentive spirometry/out of bed to chair -Recommended bedside swallow evaluation and start with clear liquids today afternoon -On seroque 100 mg bid, Celexa 20 Mg daily, and Lyrica -No documented bowel movements-but abdomen is soft-currently on tube feeding -Blood pressure has been high and currently managed with amlodipine -Patient was receiving Xopenex every 6 hours as needed- -Currently on methylprednisone 40 every 12 hour- taper off and monitor clinically --Echocardiogram 05/04/2022-normal LV size systolic function EF 50%. Grade 2 diastolic dysfunction. Moderately elevated filling pressures. -Monitor electrolytes and supplement to keep K > 4 and magnesium > 2 --5 L since admission; maintaining good urine output, renal functions and electrolytes are normal #Temperature spikes, leukocytosis, worsening right lung infiltrate on chest [id number] secondary bacterial infection possibly staph post influenza A versus fungal pneumonia given patient's immunosuppression-however chest x-ray has been improving -She completed 5-day course of Tamiflu; --CTA 05/04-no evidence of acute PE, diffuse airspace disease representing multifocal pneumonia/bibasilar atelectasis -CT chest 05/11/2022-showed areas of cystic bronchiectasis in right upper lobe-which had previously right upper lobe consolidation on admission CT 1 week ago; other areas have improved; -However procalcitonin was low 0.03; BAL cultures, PCP PCR are pending -Bronchoscopy at bedside performed 05/01/2022-clear secretions noted bilaterally-BAL sent for wash cultures, PCP, Aspergillus antigen and beta D glucan sent -With chronic steroid/leflunomide-patient is immunosuppressed-at risk for PCP and other fungal infections - currently on meropenem, Bactrim PPX, Dced Linezolid due to suspicion for serotonin sydrome -Herpes labialis:valacyclovir -oral thrush - flucanozole #Patient has underlying inflammatory arthritis-uncategorized CTD on chronic steroid therapy prior to admission -Initially hypotensive requiring during periintubation-likely secondary to adrenal insufficiency-she received hydrocortisone at that time - Solu-Medrol 40 every 12 - slowly taper off ICU CHECKLIST: Problem list updated Verbal orders reviewed and signed Analgesia: NA Glycemic Control: N/A Nutrition: Swallow evaluation and start on clear today afternoon. Restraint Renewal (within 24 hrs): Yes Ulcer Prophylaxis: PPI Chemical Thromboprophylaxis: Prophylaxis: Heparin Mechanical Thromboprophylaxis: SCD Need for Central line: yes for multiple medications Need for Holguin catheter: Yes for urine output monitoring Critical Care Time (No Overlap): 45 min Attestations Medical Necessity Statement*: extubated - needs ICU monitoring Time Spent in Patient Care: Greater than 35 minutes (>than 50% of time spent in counselling and/or direct pt care on unit). Critical Care Time: This patient has a high probability of sudden, clinica lly significant de terioration, which requires the high est level of physi priyank preparedness to intervene urgen tly.? I managed/soni pervised life or o rgan supporting in terventions that r equired frequent p hysician assessmen t.? I devoted my f ull attention in t he ICU to the dire ct care of this pa tient for the klaus od of time indicat ed above.? Time I spent with family or surrogate(s) is included only if the patient was in capable of providi ng necessary infor mation or particip ating in decision making.? Time katie anastacia to teaching an d to any procedure s I billed separtay trejoy is not include d. Services Prov ided: Telemetry re view Mechanical Ve ntilation Hemodyna rohit interpretation , assessment and m anagement Review a nd interpretation of CXR Review and interpretation of lab values Review and interpretation of microbiologic data and culture r esults Review of m edications and adm inistration Review and interpretatio n of Nutrition req uirements and rianna gement Discussion of management with other consultants and services Clin ical update to fam dalton members [x] David valenzuela assessment, examination and in tervention [x] Doc umentation [x] Med ication orders and management ? Cr itical Care Time ( min): 60 Critical Care Time (min): 60 Coding Level of Care Code Established Pt Acute Addiction Social Worker for Chg Fwd Patient Type Established History Comprehensive Exam Comprehensive Medical Decision Making High Complexity Diagnoses Acute respiratory failure with hypoxia J96.01 Influenza A J10.1 Chronic steroid use Undifferentiated connective tissue disease M35.9 Asthma J45.909 Morbid obesity E66.01 Pneumonia J18.9 Herpes labialis B00.1 Time Spent (min) 60
--- NOTE | 2022-05-15 09:52 | PC.NURSE ---
Chest xray results reported to primary nurse and Dr. Leary.
--- NOTE | 2022-05-15 10:10 | PC.CHAP ---
Pastoral Care Encounter/Spiritual Assessment Type of Contact [] Declined category analyst visit [] Patient/Family/Request visit [] Outpatient visit [] Follow-up visit [] Physician referral [] Code/Alert [x] Routine visit [] Staff referral [] Actively dying [] Patient sleeping [] Family support [] [] Out of room [] Palliative care [] [] Receiving care in room [] Pre-surgical visit [] Trauma [] Long length of stay [x] ICU visit [x] Other: off vent Relational/Emotional Strength [] Patient feels connected with others/family/visitors/staff [] Distress [] Loneliness/isolation [] Abandonment Spirituality of Patient [] Person of Tania [] Attends Quaker of their Tania [] Believes in Prayer [] Reads Bible or Yarsani materials [] There are Spiritual issues to be addressed Psychologist Counseling Interventions [x] Prayer [] Active listening [] Non-anxious presence [] Spiritual/emotional support [] Crisis/trauma care [] Spiritual counseling [] Bereavement support [] Provided bereavement packet [] Provided Bible/devotional materials [] Provided toy/stuffed animal, coloring book to patient or family member [] Provided Communion [] Anointing/[place] [] Salvation [x] Completed spiritual assessment [] Other: Impact on Illness or Injury [] Angry [] Fearful [] Anxious [] Often cries [] Exhaustion [] Unable to work [] Unable to attend adventist [] Unable to walk/stand [] Unable to read [] Unable to drive [] Unable to eat/drink [] Unable to sleep [] Unable to be with family [] Patient intubated [] Other: Summary Time spent with patient
[2022-05-15] MEDS: pregabalin 150 mg Capsule PO ×3 (10:33→21:25)
[2022-05-15] MEDS: fluconazole 100 mg Tablet 400 MG OG-TUBE (10:33)
[2022-05-15] MEDS: amlodipine 5 mg Tablet PO (10:33)
[2022-05-15] MEDS: valACYclovir 1,000 mg Tablet 1000 MG OG-TUBE ×2 (10:34→17:09)
[2022-05-15] MEDS: citalopram 20 mg Tablet PO (10:34)
[2022-05-15] MEDS: sulfamethoxazole-trimeth DS 160-800 mg Tablet 1 TAB PO ×2 (10:34→17:09)
[2022-05-15] MEDS: pantoprazole 40 mg SDV IVP (10:34)
[2022-05-15] MEDS: heparin 5,000 unit/mL INJ 1 mL 5000 UNIT SUBCUT (12:26)
[2022-05-15] MEDS: acetaminophen 325 mg Tablet 650 MG PO (14:02)
[2022-05-15] MEDS: HYDROcodone-acetaminophen 5-325 mg Tablet 1 TAB PO (16:20)
--- NOTE | 2022-05-15 16:55 | PM.PN ---
Subjective Subjective: Seen multiple times today. Patient sedation was discontinued today morning after which patient is able to follow commands and she was eventually extubated to 2 L nasal cannula. Post extubation patient fairly weak. Patient is able to have complete conversation. Was seen by physical and speech therapy. Has remained hemodynamically stable and afebrile. T-max within last 24 hours 100.2 yesterday afternoon. Documented urine output of around \3100 cc in the last 24 hours. Medications: Reviewed: Yes Vitals/I&O/Wt Last Vital Signs Temp 98.4 F 05/15/22 08:00 Pulse 83 05/15/22 16:00 Resp 25 H 05/15/22 16:00 BP 143/87 05/15/22 16:00 Pulse Ox 97 05/15/22 16:00 O2 Del Method 05/15/22 16:00 O2 Flow Rate 2 05/15/22 16:00 FiO2 30 05/15/22 08:00 05/15/22 05/15/22 05/15/22 06:59 14:59 22:59 Intake Total 1157.023 / 2543.301 94.581 / 94.581 Output Total 1850 / 3100 Balance -692.977 / -556.699 94.581 / 94.581 Weight last 48 hrs Weight 112.083 kg Weight 113.852 kg Physical Exam Narrative: General: Intubated, sedated on mechanical ventilator, waking up and following some commands off sedation HEENT: PERRLA, pupils bilaterally equal and reactive Chest: Bronchial breath sounds b/l , decreased air entry on right side, coarse crackles present all over the right lung field, diffuse rhonchi all over the lung mckinnon bilaterally, CVS: S1-S2 regular, no murmurs, tachycardia, no gallops, no rubs Abdomen: Soft, nontender, no organomegaly, bowel sounds present, morbidly obese Neuro: No focal deficits, no facial deformity, AO x3, power 5/5 in all limbs Urinary Catheter Management: Holguin: Cath Placed During This Visit: yes, but has since been removed by the nurse Reason for Continuing Indwelling Catheter: Accurate Measurement of Urinary Output in Critically Ill Patients Urinary Catheter Date of Insertion: 05/14/22 Urinary Catheter Time of Insertion: 11:30 Date Urinary Catheter Removed: 05/14/22 Time Urinary Catheter Discontinued: 11:30 Data 05/15/22 02:18 05/15/22 02:18 Micro: Microbiology 05/14/22 14:10 Gram Stain - Final Sputum - Endotracheal Tube Aspirate Sputum Culture - Preliminary 05/14/22 11:10 Urine Culture - Preliminary Urine,Clean Catch 05/09/22 20:15 Blood Culture - Final Blood NO GROWTH AFTER 5 DAYS 05/09/22 16:57 Blood Culture - Final Blood NO GROWTH AFTER 5 DAYS 05/13/22 17:05 Blood Culture - Preliminary Blood NEGATIVE TO DATE 05/13/22 16:35 Blood Culture - Preliminary Blood NEGATIVE TO DATE A&P Assessment and plan (1) Acute respiratory failure with hypoxia: Keep mean artery pressure 65, saturation over 90%. Extubated 05/15. Follow sputum culture and blood BAL cultures. For now continue with IV meropenem, oral Bactrim at PCP prophylactic dose, oral fluconazole. We will plan to continue IV antibiotics for overall 2 to 3 days postextubation. Continue Willmann has Solu-Medrol 40 mg every 12 hourly today. We will plan to wean further within next 24 hours. Oxygen supplementation keeping saturation over 90%. Aggressive pulmonary toilet with I-S and Acapella. Appreciate pulmonary recommendations. Out of bed to chair. Patient has finished course of Tamiflu. Echocardiogram done showed EF of 50% with grade 2 diastolic dysfunction. (2) Fever: No fever the last 24 hours. High concern for drug fever versus possible serotonin syndrome. Repeat blood cultures sent on 05/13. Blood cultures so far negative. Repeat sputum culture, urine culture negative. CT abdomen negative for acute abnormality. Dopplers negative for DVT. Medications changed as per above. Linezolid has been stopped in view of of patient taking amitriptyline within last 14 days. Dose of Celexa has been reduced. Will continue to monitor. Appreciate ID recommendations. (3) Acute encephalopathy: Acute encephalopathy with hypoactive delirium, possibly acute metabolic secondary to hypoxia, respiratory failure, possible withdrawal from Lyrica, steroid use. Medication as above. Resolving. (4) Influenza A: Completed course of Tamiflu. Additional measures as above. For now continued on isolation therapy due to immunocompromise state, persistent respiratory failure. (5) Pneumonia: As above (6) Pneumomediastinum: (7) Ventilator dependent: Extubated 05/15. (8) Herpes labialis: With encephalopathy. Continue with Valtrex. Appreciate ID recommendations. (9) HTN (hypertension): Blood pressure is doing better. So far has not required further as needed labetalol. Continue with amlodipine. Hold off on clonidine patch for now. Goal blood pressure less than 140/90 which is been over 65. (10) Septic shock: Hypotension resolved. Weaned off pressor. (11) Thrombocytopenia: Resolved. Peripheral smear without schistocytes. Chemistries not suggestive of hemolysis. Low probability TTP. Low probability HIT. Fibrin degradation products elevated, noted D-dimer elevation but with superficial thrombophlebitis of arm on duplex. No DVT. Overall picture not suggestive of DIC. Possibly drug-related. After antibiotic changes yesterday thrombocytopenia with improvement. (12) Mucosal bleeding: Resolved. As above. Thrombocytopenia resolved. (13) Metabolic acidosis: Resolved. Hold off on any further IV fluids. (14) Lactic acid acidosis: (15) Positive KATHLEEN (antinuclear antibody): (16) Chronic steroid use: (17) Superficial thrombophlebitis: Right antecubital vein. Elevate. DVT prophylaxis. Plan Sedation: Not needed. Patient extubated. Analgesia: Tylenol as needed, Carbon 5 mg every 8 hourly as needed. Takes Carbon 7.5 twice daily at home. Lyrica 150 3 times daily. Glycemic control: Not needed Nutrition: NPO. Speech evaluation. Advance accordingly. CODE STATUS: Full code PUD prophylaxis: Protonix DVT prophylaxis: Heparin Physical therapy evaluation. Discharge planning: Home with home health versus SNF placement as per physical therapy evaluation. Continue with care at ICU level. This documentation was created by [employer] addiction nurse software. Every effort was made to ensure accuracy of addiction nurse. Any obvious errors or omissions should be clarified with the author of the document. Attestations Medical Necessity Statement*: Requires further hospitalization for post extubation care intervention with ARDS secondary to flu, bacterial superimposed pneumonia with history of chronic immunosuppression Critical Care Time: The high probability of a clinically significant, sudden or life threatening deterioration of the patient's [cardiac, pulmonary, renal, neurological] system(s) required my full and direct attention, intervention and personal management. The critical care time is as shown. This time is in addition to time spent performing any reported procedures but includes the following: [x] Data and vital sign review and interpretation [x] Patient assessment, examination and intervention [x] Documentation [x] Medication orders and management Critical Care Time (min): 70 Coding Level of Care Code Acute Business Unit Controller for [facility] Diagnoses Acute respiratory failure with hypoxia J96.01 Fever R50.9 Acute encephalopathy G93.40 Influenza A J10.1 Pneumonia J18.9 Pneumomediastinum J98.2 Ventilator dependent Z99.11 Herpes labialis B00.1 HTN (hypertension) I10 Septic shock A41.9; R65.21 Thrombocytopenia D69.6 Mucosal bleeding R58 Metabolic acidosis E87.20 Lactic acid acidosis E87.20 Positive KATHLEEN (antinuclear antibody) R76.8 Chronic steroid use Superficial thrombophlebitis I80.9
--- NOTE | 2022-05-15 18:01 | USCV_ITS ---
Misty Correa Age: 32 Gender: F : 1990 Exam Date: 05/15/2022 02:16 Ordering Phys: Alon Leary MD Technologist: PAULINO Exam Location: [facility] – [place], [place] Indication: rule out DVT. Patient is on ventilator in ICU8 HISTORY: rule out DVT in bilateral upper extremities. Patient is on ventilator in ICU8 PROCEDURES: Venous duplex imaging was performed in bilateral upper extremities. The following venous structures were evaluated: internal jugular vein, subclavian vein, axillary vein, and brachial veins. In addition, the basilic vein, cephalic vein, radial vein, and ulnar vein. Serial compression, augmentation maneuvers, and spectral Doppler flow evaluation were performed, which were normal. These veins demonstrated normal spontaneity, phasicity, and augmentation. No evidence of thrombus is noted. CONCLUSIONS No evidence of thrombus of the bilateral upper extremity veins. Paco Chang MD (Electronically Signed) Final Date: 15 May 2022 15:18 S
--- NOTE | 2022-05-15 18:21 | PM.PN ---
Subjective Subjective: Infectious disease progress note. Patient successfully extubated this morning. Currently saturating 2 L/min on nasal cannula. Has been afebrile since the afternoon of 05/14/2022. Medications: Reviewed: Yes Vitals/I&O/Wt Last Vital Signs Temp 98.4 F 05/15/22 08:00 Pulse 83 05/15/22 16:00 Resp 25 H 05/15/22 16:00 BP 143/87 05/15/22 16:00 Pulse Ox 97 05/15/22 16:00 O2 Del Method 05/15/22 16:00 O2 Flow Rate 2 05/15/22 16:00 FiO2 30 05/15/22 08:00 05/15/22 05/15/22 05/15/22 06:59 14:59 22:59 Intake Total 1157.023 / 2543.301 94.581 / 94.581 60 / 154.581 Output Total 1850 / 3100 1000 / 1000 Balance -692.977 / -556.699 94.581 / 94.581 -940 / -845.419 Weight last 48 hrs Weight 112.083 kg Weight 113.852 kg Physical Exam Narrative: General: Intubated sedated HEENT: PERRLA, pupils bilaterally equal and reactive, pallors not present Chest: Normal vesicular breath sounds, no added sounds, equal good air entry bilaterally CVS: S1-S2 regular, no murmurs, no tachycardia, no gallops, no rubs Abdomen: Soft, nontender, no organomegaly, bowel sounds present Neuro: Unable to assess, intubated sedated Urinary Catheter Management: Holguin: Cath Placed During This Visit: yes, but has since been removed by the nurse Reason for Continuing Indwelling Catheter: Accurate Measurement of Urinary Output in Critically Ill Patients Urinary Catheter Date of Insertion: 05/14/22 Urinary Catheter Time of Insertion: 11:30 Date Urinary Catheter Removed: 05/14/22 Time Urinary Catheter Discontinued: 11:30 Data 05/15/22 02:18 05/15/22 02:18 Micro: Microbiology 05/14/22 14:10 Gram Stain - Final Sputum - Endotracheal Tube Aspirate Sputum Culture - Preliminary 05/14/22 11:10 Urine Culture - Preliminary Urine,Clean Catch 05/09/22 20:15 Blood Culture - Final Blood NO GROWTH AFTER 5 DAYS 05/09/22 16:57 Blood Culture - Final Blood NO GROWTH AFTER 5 DAYS 05/13/22 17:05 Blood Culture - Preliminary Blood NEGATIVE TO DATE 05/13/22 16:35 Blood Culture - Preliminary Blood NEGATIVE TO DATE A&P Assessment and plan (1) Fever: (2) Pneumomediastinum: (3) Ventilator dependent: (4) Herpes labialis: (5) Acute encephalopathy: (6) Superficial thrombophlebitis: Plan Persistent fever in spite of being on multiple antimicrobials including meropenem, linezolid, Bactrim presumptively for pneumocystis, micafungin, IV acyclovir. All cultures so far remain negative. BAL cultures thus far with some gram-negative rods, pending further identification. Serial chest x-rays are currently improving. White blood cell count is trending down. She was able to be extubated today. CT of the abdomen and pelvis did not show any acute findings Urine culture thus far unremarkable, UA not concerning for an infection at this time. Continue meropenem. Continue Valtrex for herpes labialis Continue fluconazole for thrush We will follow-up pending testing for pneumocystis, though appearing to be less likely given clinical improvement Possibility of drug fever versus serotonin syndrome because of interaction of linezolid with other psychotropic medications not excluded at this time. Will follow fever curve. will follow Attestations Medical Necessity Statement*: Per admitting Coding Level of Care Code Acute Non Destructive Testing Scientist for [facility] [place] Diagnoses Fever R50.9 Pneumomediastinum J98.2 Ventilator dependent Z99.11 Herpes labialis B00.1 Acute encephalopathy G93.40 Superficial thrombophlebitis I80.9
[2022-05-15 18:31] LABS: Aspergillus AG,EIA NOT DETECTED; Aspergillus AG,EIA, Index <0.50
[2022-05-15] MEDS: quetiapine XR (24HR) 50 mg Tablet 100 MG PO (21:25)
[2022-05-16] VITALS (29 sets, daily range): BP systolic 116–155; BP diastolic 78–111; PULSE 78–111; RESP 17–25; TEMP 36.5–36.6; O2SAT 88–97
[2022-05-16] MEDS: heparin 5,000 unit/mL INJ 1 mL 5000 UNIT SUBCUT ×2 (00:10→12:04)
[2022-05-16] MEDS: levalbuterol 0.63 mg/3 mL Neb INHALATION ×4 (02:07→20:06)
[2022-05-16] MEDS: ipratropium 0.5 mg/2.5 mL Neb INHALATION ×4 (02:08→20:06)
[2022-05-16 02:12] LABS: Basophils % 0.2 %; Hematocrit 38.4 % (37.0-47.0); Hemoglobin 12.3 g/dL (11.5-15.3); Lymphocytes # 1.1 10^3/uL (0.8-4.8); Lymphocytes % 7.1 %; Mean Corpuscular Hemoglobin 29.6 pg (28.0-34.0); Mean Corpuscular Volume 92.5 fl (81-99); Monocytes # 1.4 10^3/uL (0.2-0.9); Monocytes % 8.8 %; Neutrophils % 81.9 %; Nucleated Red Blood Cells % 0 %; Platelet Count 258 10^3/cmm (130-400); Red Blood Count 4.15 10^6/uL (4.1-5.3); Red Cell Distribution Width 14.3 % (12.1-15.1); White Blood Count 15.9 10^3/uL (4.0-10.0)
[2022-05-16 02:35] LABS: Alanine Aminotransferase 55 U/L (0-33); Albumin Level 3.4 g/dL (3.5-5.2); Alkaline Phosphatase 74 U/L (35-105); Anion Gap 13.3 (5-19); Aspartate Amino Transferase 47 U/L (0-32); Blood Urea Nitrogen 24 mg/dL (6-20); Calcium 8.9 mg/dL (8.5-10.5); Carbon Dioxide 22 mmol/L (22-29); Chloride 104 mmol/L (98-107); Globulin 3.7 g/dL (1.3-4.6); Glomerular Filtration Rate 182.7 mL/min (90-130); Glucose 103 mg/dL (65-115); Osmolality Calculated 284 mOsm/kg (285-295); Potassium 4.3 mmol/L (3.5-5.1); Sodium 135 mmol/L (136-145); Total Bilirubin 0.5 mg/dL (0.15-1.2); Total Protein 7.1 g/dL (6.6-8.7)
[2022-05-16] MEDS: meropenem 1,000 MG in sodium chloride 0.9% (plus) 50 ML 100 MG IV ×3 (03:16→19:00)
[2022-05-16] MEDS: HYDROcodone-acetaminophen 5-325 mg Tablet 1 TAB PO ×2 (03:23→14:19)
[2022-05-16] MEDS: budesonide 0.5 mg/2 mL Neb INHALATION ×2 (09:06→20:06)
--- NOTE | 2022-05-16 09:24 | XR_ITS ---
WS: [id number] Right ankle, 2 views, 05/16/2022 Clinical Data: R ankle pain Comparison: None. Findings: No fractures or dislocations are seen. The ankle mortise is normal. The talus and calcaneus are unrem arkable. No soft tissue swelling over the medial or lateral malleolus is seen. XR/XR ankle RT 2V [id number] Impression: Negative right ankle.
[2022-05-16] MEDS: valACYclovir 1,000 mg Tablet 1000 MG OG-TUBE ×2 (09:35→17:27)
[2022-05-16] MEDS: pregabalin 150 mg Capsule PO ×3 (09:35→20:40)
[2022-05-16] MEDS: pantoprazole 40 mg SDV IVP (09:35)
[2022-05-16] MEDS: citalopram 20 mg Tablet PO (09:35)
[2022-05-16] MEDS: sulfamethoxazole-trimeth DS 160-800 mg Tablet 1 TAB PO ×2 (09:35→17:27)
[2022-05-16] MEDS: fluconazole 100 mg Tablet 400 MG OG-TUBE (09:35)
[2022-05-16] MEDS: amlodipine 5 mg Tablet PO (09:35)
[2022-05-16 18:00] LABS: Aspergillus AG,EIA,Serum NOT DETECTED; Aspergillus Galactomannan Inde <0.50
--- NOTE | 2022-05-16 18:00 | P.PN_ITS ---
Subjective Subjective: No acute events overnight. Patient denies any nausea, vomiting, headache. Patient has remained stable on 2 L oxygen supplementation. Afebrile within last 24 hours.Documented urine output in last 24 hours 1400 cc. Medications: Reviewed: Yes Vitals/I&O/Wt Last Vital Signs Temp 97.7 F 05/16/22 10:00 Pulse 98 05/16/22 17:00 Resp 21 H 05/16/22 17:00 BP 143/84 05/16/22 17:00 Pulse Ox 92 05/16/22 17:00 O2 Del Method 05/16/22 15:00 O2 Flow Rate 2 05/16/22 15:00 FiO2 30 05/15/22 08:00 05/16/22 05/16/22 05/16/22 06:59 14:59 22:59 Intake Total 50 / 254.581 110 / 110 Output Total 450 / 1450 Balance -400 / -1195.419 110 / 110 Weight last 48 hrs Weight 111.584 kg Weight 112.083 kg Physical Exam Narrative: General: Intubated, sedated on mechanical ventilator, waking up and following some commands off sedation HEENT: PERRLA, pupils bilaterally equal and reactive Chest: Bronchial breath sounds b/l , decreased air entry on right side, coarse crackles present all over the right lung field, diffuse rhonchi all over the lung mckinnon bilaterally, CVS: S1-S2 regular, no murmurs, tachycardia, no gallops, no rubs Abdomen: Soft, nontender, no organomegaly, bowel sounds present, morbidly obese Neuro: No focal deficits, no facial deformity, AO x3, power 5/5 in all limbs Urinary Catheter Management: Holguin: Cath Placed During This Visit: yes, but has since been removed by the nurse Reason for Continuing Indwelling Catheter: Accurate Measurement of Urinary Output in Critically Ill Patients Urinary Catheter Date of Insertion: 05/14/22 Urinary Catheter Time of Insertion: 11:30 Date Urinary Catheter Removed: 05/14/22 Time Urinary Catheter Discontinued: 11:30 Data 05/16/22 01:54 05/16/22 01:54 Micro: Microbiology 05/14/22 11:10 Urine Culture - Final Urine,Clean Catch 05/14/22 11:00 C.difficile Toxin B Gene (PCR) - Final Stool - Stool Aspirate A&P Assessment and plan (1) Acute respiratory failure with hypoxia: Keep mean artery pressure 65, saturation over 90%. Extubated 05/15. Follow sputum culture and blood BAL cultures. For now continue with IV meropenem, oral Bactrim at PCP prophylactic dose, oral fluconazole. We will plan to continue IV antibiotics for overall 2 to 3 days postextubation. Continue weaning to Solu-Medrol 40 mg every 12 hourly today. We will plan to wean further within next 24 hours. Oxygen supplementation keeping saturation over 90%. Aggressive pulmonary toilet with I-S and Acapella. Appreciate pulmonary recommendations. Out of bed to chair. Patient has finished course of Tamiflu. Echocardiogram done showed EF of 50% with grade 2 diastolic dysfunction. (2) Fever: No fever the last 24 hours. High concern for drug fever versus possible serotonin syndrome. Repeat blood cultures sent on 05/13. Blood cultures so far negative. Repeat sputum culture, urine culture negative. CT abdomen negative for acute abnormality. Dopplers negative for DVT. Medications changed as per above. Linezolid has been stopped in view of of patient taking amitriptyline within last 14 days. Dose of Celexa has been reduced. Will continue to monitor. Appreciate ID recommendations. (3) Acute encephalopathy: Acute encephalopathy with hypoactive delirium, possibly acute metabolic secon yandy to hypoxia, respiratory failure, possible withdrawal from Lyrica, steroid use. Medication as above. Resolving. (4) Influenza A: Completed course of Tamiflu. Additional measures as above. For now continued on isolation therapy due to immunocompromise state, persistent respiratory failure. (5) Pneumonia: As above (6) Pneumomediastinum: (7) Ventilator dependent: Extubated 05/15. (8) Herpes labialis: With encephalopathy. Continue with Valtrex. Appreciate ID recommendations. (9) HTN (hypertension): Blood pressure is doing better. So far has not required further as needed labetalol. Continue with amlodipine. Hold off on clonidine patch for now. Goal blood pressure less than 140/90 which is been over 65. (10) Septic shock: Hypotension resolved. Weaned off pressor. (11) Thrombocytopenia: Resolved. Peripheral smear without schistocytes. Chemistries not suggestive of hemolysis. Low probability TTP. Low probability HIT. Fibrin degradation products elevated, noted D-dimer elevation but with superficial thrombophlebitis of arm on duplex. No DVT. Overall picture not suggestive of DIC. Possibly drug-related. After antibiotic changes yesterday thrombocytopenia with improvement. (12) Mucosal bleeding: Resolved. As above. Thrombocytopenia resolved. (13) Metabolic acidosis: Resolved. Hold off on any further IV fluids. (14) Lactic acid acidosis: (15) Positive KATHLEEN (antinuclear antibody): (16) Chronic steroid use: (17) Superficial thrombophlebitis: Right antecubital vein. Elevate. DVT prophylaxis. (18) Physical deconditioning: Plan Sedation: Not needed. Patient extubated. Analgesia: Tylenol as needed, [place] 5 mg every 8 hourly as needed. Takes [place] 7.5 twice daily at home. Lyrica 150 3 times daily. Glycemic control: Not needed Nutrition: NPO. Speech evaluation. Advance accordingly. CODE STATUS: Full code PUD prophylaxis: Protonix DVT prophylaxis: Heparin Physical therapy evaluation. Discharge planning: Given severe physical deconditioning will need to discharge to acute rehab versus SNF for further care once patient is medically stable. Case management alerted. Continue with care at ICU level. Plan for the day: Patient complaining of ankle pain. States pain is similar to 1 when she had ankle fracture. Check ankle x-ray. Continue current antibiotics for 48 more hours. Monitor vitals. Out of bed to chair. Advance diet as per swallow evaluation. Physical therapy. PADMAJA Holguin. Decrease Seroquel to 75 mg at bedtime. Continue with Celexa at current dose. This documentation was created by [employer] program eligibility specialist software. Every effort was made to ensure accuracy of program eligibility specialist. Any obvious errors or omissions should be clarified with the author of the document. Attestations Medical Necessity Statement*: Requires further hospitalization for management of postextubation care in a patient with ARDS secondary to flu, severe physical deconditioning while safe discharge planning is sought Time Spent in Patient Care: Greater than 35 minutes Coding Level of Care Code Acute Director Of Residence Life for [facility] Fwd Diagnoses Acute respiratory failure with hypoxia J96.01 Fever R50.9 Acute encephalopathy G93.40 Influenza A J10.1 Pneumonia J18.9 Pneumomediastinum J98.2 Ventilator dependent Z99.11 Herpes labialis B00.1 HTN (hypertension) I10 Septic shock A41.9; R65.21 Thrombocytopenia D69.6 Mucosal bleeding R58 Metabolic acidosis E87.20 Lactic acid acidosis E87.20 Positive KATHLEEN (antinuclear antibody) R76.8 Chronic steroid use Superficial thrombophlebitis I80.9 Physical deconditioning R53.81
[2022-05-16] MEDS: quetiapine XR (24HR) 50 mg Tablet 75 MG PO (20:40)
[2022-05-17] VITALS (28 sets, daily range): BP systolic 114–157; BP diastolic 77–97; PULSE 80–136; RESP 14–28; TEMP 36.8–37.2; O2SAT 89–99; BMI 39.9
[2022-05-17] MEDS: heparin 5,000 unit/mL INJ 1 mL 5000 UNIT SUBCUT ×2 (00:11→11:45)
[2022-05-17 00:13] LABS: Glucose Point of Care 152 mg/dL (70-110)
[2022-05-17 00:25] LABS: Histoplasma Galactomannan Ag <0.2 ng/mL
[2022-05-17] MEDS: meropenem 1,000 MG in sodium chloride 0.9% (plus) 50 ML 100 MG IV ×3 (02:56→21:07)
[2022-05-17 03:23] LABS: Basophils % 0.1 %; Hematocrit 42.6 % (37.0-47.0); Hemoglobin 13.7 g/dL (11.5-15.3); Lymphocytes # 0.8 10^3/uL (0.8-4.8); Lymphocytes % 7.1 %; Mean Corpuscular HGB Conc 32.2 g/dL (30.0-36.0); Mean Corpuscular Hemoglobin 30.2 pg (28.0-34.0); Mean Corpuscular Volume 93.8 fl (81-99); Monocytes # 0.8 10^3/uL (0.2-0.9); Monocytes % 7.1 %; Neutrophils # 9.27 10^3/uL (1.8-7.7); Neutrophils % 83.8 %; Nucleated Red Blood Cells % 0 %; Platelet Count 247 10^3/cmm (130-400); Red Blood Count 4.54 10^6/uL (4.1-5.3); Red Cell Distribution Width 14.6 % (12.1-15.1); White Blood Count 11.1 10^3/uL (4.0-10.0)
[2022-05-17] MEDS: ipratropium 0.5 mg/2.5 mL Neb INHALATION ×4 (03:27→20:26)
[2022-05-17] MEDS: levalbuterol 0.63 mg/3 mL Neb INHALATION ×4 (03:27→20:25)
[2022-05-17 03:31] LABS: Alanine Aminotransferase 67 U/L (0-33); Albumin Level 3.5 g/dL (3.5-5.2); Alkaline Phosphatase 83 U/L (35-105); Anion Gap 13.5 (5-19); Aspartate Amino Transferase 34 U/L (0-32); Blood Urea Nitrogen 30 mg/dL (6-20); Calcium 9.4 mg/dL (8.5-10.5); Carbon Dioxide 22 mmol/L (22-29); Chloride 102 mmol/L (98-107); Globulin 3.9 g/dL (1.3-4.6); Glomerular Filtration Rate 182.7 mL/min (90-130); Glucose 125 mg/dL (65-115); Osmolality Calculated 284 mOsm/kg (285-295); Potassium 4.5 mmol/L (3.5-5.1); Sodium 133 mmol/L (136-145); Total Bilirubin 0.5 mg/dL (0.15-1.2); Total Protein 7.4 g/dL (6.6-8.7)
[2022-05-17] MEDS: budesonide 0.5 mg/2 mL Neb INHALATION ×2 (08:03→20:25)
[2022-05-17] MEDS: sulfamethoxazole-trimeth DS 160-800 mg Tablet 1 TAB PO ×2 (08:56→17:43)
[2022-05-17] MEDS: pregabalin 150 mg Capsule PO ×3 (08:56→21:08)
[2022-05-17] MEDS: valACYclovir 1,000 mg Tablet 1000 MG OG-TUBE ×2 (08:56→17:43)
[2022-05-17] MEDS: amlodipine 5 mg Tablet PO (08:56)
[2022-05-17] MEDS: citalopram 20 mg Tablet PO (08:56)
[2022-05-17] MEDS: fluconazole 100 mg Tablet 400 MG OG-TUBE (08:56)
[2022-05-17] MEDS: pantoprazole 40 mg SDV IVP (08:57)
[2022-05-17] MEDS: metoprolol tartrate 25 mg Tablet PO ×2 (11:45→21:08)
[2022-05-17 12:05] LABS: Glucose Point of Care 115 mg/dL (70-110)
[2022-05-17] MEDS: HYDROcodone-acetaminophen 5-325 mg Tablet 1 TAB PO (14:17)
--- NOTE | 2022-05-17 15:24 | P.PN_ITS ---
Subjective Subjective: No acute events overnight. Patient has remained hemodynamically stable and afebrile. Today morning patient is a lot more awake and alert. States she is feeling a lot better and stronger than before. Seen with family and kids at bedside. Patient is in good spirits. On 1 L oxygen supplementati on. Has remained afebrile for over 60 hours now. Medications: Reviewed: Yes Vitals/I&O/Wt Last Vital Signs Temp 98.9 F 05/17/22 03:00 Pulse 97 05/17/22 14:00 Resp 16 05/17/22 13:52 BP 128/97 05/17/22 13:00 Pulse Ox 97 05/17/22 14:00 O2 Del Method 05/17/22 13:52 O2 Flow Rate 1 05/17/22 13:52 FiO2 30 05/15/22 08:00 05/17/22 05/17/22 05/17/22 06:59 14:59 22:59 Intake Total 130 / 530 110 / 110 Output Total 625 / 1675 Balance -495 / -1145 110 / 110 Weight last 48 hrs Weight 102.33 kg Weight 111.584 kg Physical Exam 2 Narrative: General: AOx3, no acute distress, seen with family at bedside, jovial, weak HEENT: PERRLA, pupils bilaterally equal and reactive Chest: Bronchial breath sounds b/l , decreased air entry on right side, coarse crackles present all over the right lung field, diffuse rhonchi all over the lung mckinnon bilaterally, CVS: S1-S2 regular, no murmurs, tachycardia, no gallops, no rubs Abdomen: Soft, nontender, no organomegaly, bowel sounds present, morbidly obese Neuro: No focal deficits, no facial deformity, AO x3, power 2/5 in all limbs Urinary Catheter Management: Holguin: Cath Placed During This Visit: yes, but has since been removed by the nurse Reason for Continuing Indwelling Catheter: Accurate Measurement of Urinary Output in Critically Ill Patients Urinary Catheter Date of Insertion: 05/14/22 Urinary Catheter Time of Insertion: 11:30 Date Urinary Catheter Removed: 05/14/22 Time Urinary Catheter Discontinued: 11:30 Data 05/17/22 02:06 05/17/22 02:06 Micro: Microbiology 05/14/22 11:10 Urine Culture - Final Urine,Clean Catch A&P Assessment and plan (1) Acute respiratory failure with hypoxia: Keep mean artery pressure 65, saturation over 90%. Extubated 05/15. Follow sputum culture and blood BAL cultures. For now continue with IV meropenem, oral Bactrim at PCP prophylactic dose, oral fluconazole. We will plan to continue IV antibiotics for overall 2 to 3 days postextubation. Continue weaning to Solu-Medrol 40 mg every 12 hourly today. We will plan to wean further within next 24 hours. Oxygen supplementation keeping saturation over 90%. Aggressive pulmonary toilet with I-S and Acapella. Appreciate pulmonary recommendations. Out of bed to chair. Patient has finished course of Tamiflu. Echocardiogram done showed EF of 50% with grade 2 diastolic dysfunction. (2) Fever: No fever the last 24 hours. High concern for drug fever versus possible serotonin syndrome. Repeat blood cultures sent on 05/13. Blood cultures so far negative. Repeat sputum culture, urine culture negative. CT abdomen negative for acute abnormality. Dopplers negative for DVT. Medications changed as per above. Linezolid has been stopped in view of of patient taking amitriptyline within last 14 days. Dose of Celexa has been reduced. Will continue to monitor. Appreciate ID recommendations. (3) Acute encephalopathy: Acute encephalopathy with hypoactive delirium, possibly acute metabolic secondary to hypoxia, respiratory failure, possible withdrawal from Lyrica, steroid use. Medication as above. Resolving. (4) Influenza A: Completed course of Tamiflu. Additional measures as above. For now continued on isolation therapy due to immunocompromise state, persistent respiratory failure. (5) Pneumonia: As above (6) Pneumomediastinum: (7) Ventilator dependent: Extubated 05/15. (8) Herpes labialis: With encephalopathy. Continue with Valtrex. Appreciate ID recommendations. (9) HTN (hypertension): Blood pressure is doing better. So far has not required further as needed labetalol. Continue with amlodipine. Hold off on clonidine patch for now. Goal blood pressure less than 140/90 which is been over 65. (10) Septic shock: Hypotension resolved. Weaned off pressor. (11) Thrombocytopenia: Resolved. Peripheral smear without schistocytes. Chemistries not suggestive of hemolysis. Low probability TTP. Low probability HIT. Fibrin degradation products elevated, noted D-dimer elevation but with superficial thrombophlebitis of arm on duplex. No DVT. Overall picture not suggestive of DIC. Possibly drug-related. After antibiotic changes yesterday thrombocytopenia with improvement. (12) Mucosal bleeding: Resolved. As above. Thrombocytopenia resolved. (13) Metabolic acidosis: Resolved. Hold off on any further IV fluids. (14) Lactic acid acidosis: (15) Positive KATHLEEN (antinuclear antibody): (16) Chronic steroid use: (17) Superficial thrombophlebitis: Right antecubital vein. Elevate. DVT prophylaxis. (18) Physical deconditioning: (19) Enterovirus infection, unspecified: (20) Rash: Plan Sedation: Not needed. Patient extubated. Analgesia: Tylenol as needed, [place] 5 mg every 8 hourly as needed. Takes [place] 7.5 twice daily at home. Lyrica 150 3 times daily. Glycemic control: Not needed Nutrition: Dysphagia level 6 diet as per speech evaluation. Advance accordingly. CODE STATUS: Full code PUD prophylaxis: Protonix DVT prophylaxis: Heparin Physical therapy evaluation. Discharge planning: Given severe physical deconditioning will need to discharge to acute rehab versus SNF for further care once patient is medically stable. Case management alerted. Plan for the day: Continue with extensive physical, speech, occupational, pulmonary therapy. Out of bed to chair. Advance diet. Add metoprolol 25 mg twice daily. Will discontinue antibiotics/antifungals as per ID. Continue derma care ointment for rash. Cannot rule out drug rash for now. Transfer to CSU. This documentation was created by [employer] sea shell gatherer software. Every effort was made to ensure accuracy of sea shell gatherer. Any obvious errors or omissions should be clarified with the author of the document. Attestations Medical Necessity Statement*: Requires further hospitalization for extensive physical, pulmonary rehab in a patient with prolonged intubation secondary to ARDS from viral pneumonia, chronic immunosuppression who since has been extubated and safe discharge planning is sought. 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
[2022-05-17 17:34] LABS: Aspergillus Source BAL; Aspergillus Supp NOT DETECTED; Aspergillus Terreus DNA NOT DETECTED
[2022-05-17 18:00] LABS: P. Jirovecii DNA QL PCR NOT DETECTED; P. Jirovecii DNA QL PCR Source BAL
[2022-05-18] VITALS (15 sets, daily range): BP systolic 105–137; BP diastolic 69–91; PULSE 72–100; RESP 15–20; TEMP 36.5–37.2; O2SAT 92–96
[2022-05-18] MEDS: heparin 5,000 unit/mL INJ 1 mL 5000 UNIT SUBCUT ×2 (01:07→13:00)
[2022-05-18] MEDS: meropenem 1,000 MG in sodium chloride 0.9% (plus) 50 ML 100 MG IV (03:40)
[2022-05-18 07:16] LABS: Basophils % 0.2 %; Eosinophils % 0.2 %; Hematocrit 40.9 % (37.0-47.0); Hemoglobin 13.1 g/dL (11.5-15.3); Lymphocytes # 2.7 10^3/uL (0.8-4.8); Lymphocytes % 24.8 %; Mean Corpuscular Hemoglobin 30.3 pg (28.0-34.0); Mean Corpuscular Volume 94.7 fl (81-99); Mean Platelet Volume 13.2 fL (7.4-10.4); Monocytes # 1.4 10^3/uL (0.2-0.9); Monocytes % 12.7 %; Neutrophils # 6.43 10^3/uL (1.8-7.7); Neutrophils % 59.8 %; Nucleated Red Blood Cells % 0 %; Platelet Count 256 10^3/cmm (130-400); Red Blood Count 4.32 10^6/uL (4.1-5.3); White Blood Count 10.7 10^3/uL (4.0-10.0)
[2022-05-18 07:31] LABS: Alanine Aminotransferase 63 U/L (0-33); Albumin Level 3.4 g/dL (3.5-5.2); Alkaline Phosphatase 78 U/L (35-105); Anion Gap 11.6 (5-19); Aspartate Amino Transferase 28 U/L (0-32); Blood Urea Nitrogen 36 mg/dL (6-20); Calcium 9.7 mg/dL (8.5-10.5); Carbon Dioxide 23 mmol/L (22-29); Chloride 104 mmol/L (98-107); Globulin 3.8 g/dL (1.3-4.6); Glomerular Filtration Rate 182.7 mL/min (90-130); Glucose 85 mg/dL (65-115); Osmolality Calculated 288 mOsm/kg (285-295); Potassium 3.6 mmol/L (3.5-5.1); Sodium 135 mmol/L (136-145); Total Bilirubin 0.6 mg/dL (0.15-1.2); Total Protein 7.2 g/dL (6.6-8.7)
[2022-05-18] MEDS: budesonide 0.5 mg/2 mL Neb INHALATION (09:04)
[2022-05-18] MEDS: ipratropium 0.5 mg/2.5 mL Neb INHALATION ×2 (09:04→14:51)
[2022-05-18] MEDS: levalbuterol 0.63 mg/3 mL Neb INHALATION ×2 (09:04→14:51)
[2022-05-18] MEDS: valACYclovir 1,000 mg Tablet 1000 MG OG-TUBE ×2 (09:33→17:56)
[2022-05-18] MEDS: pantoprazole 40 mg SDV IVP (09:33)
[2022-05-18] MEDS: fluconazole 100 mg Tablet 400 MG OG-TUBE (09:33)
[2022-05-18] MEDS: citalopram 20 mg Tablet PO (09:34)
[2022-05-18] MEDS: metoprolol tartrate 25 mg Tablet PO ×2 (09:34→20:20)
[2022-05-18] MEDS: amlodipine 5 mg Tablet PO (09:34)
[2022-05-18] MEDS: pregabalin 150 mg Capsule PO ×3 (09:34→20:20)
[2022-05-18] MEDS: sulfamethoxazole-trimeth DS 160-800 mg Tablet 1 TAB PO (09:34)
--- NOTE | 2022-05-18 11:05 | P.PN_ITS ---
Subjective Subjective: Infectious disease progress note : Transferred out of ICU since last seen Doing well post extubation , currently on 2lpm spupplemental 02. Remains fever free since 05/14 Medications: Reviewed: Yes Medication Review Details: Abx history: Zosyn (05/04- 05/08)---->? meropenem 1g iv q8h (05/11-) Levaquin 05/08 to 05/11 Bactrim DS BID (05/12) VAncomycin (05/04 to 05/08) ----> linezolid (05/11- current) Micafungin 05/11- current ACV 10mg/kg q8h (05/12-current) Vitals/I&O/Wt Last Vital Signs Temp 99.0 F 05/18/22 07:39 Pulse 100 05/18/22 09:34 Resp 20 H 05/18/22 09:34 BP 123/91 05/18/22 07:39 Pulse Ox 94 05/18/22 09:34 O2 Del Method 05/18/22 09:34 O2 Flow Rate 1 05/17/22 13:52 FiO2 30 05/15/22 08:00 05/17/22 05/18/22 05/18/22 22:59 06:59 14:59 Intake Total 237 / 347 50 / 397 480 / 480 Balance 237 / 347 50 / 397 480 / 480 Weight last 48 hrs Weight 102.33 kg Physical Exam Narrative: General: No acute distress, AO x3 HEENT: PERRLA, pupils bilaterally equal and reactive, pallors not present Chest: Normal vesicular breath sounds, no added sounds, equal good air entry bilaterally CVS: S1-S2 regular, no murmurs, no tachycardia, no gallops, no rubs Abdomen: Soft, nontender, no organomegaly, bowel sounds present Neuro: No focal deficits, no facial deformity, AO x3, power 5/5 in all limbs Extremities: rash over back Urinary Catheter Management: Holguin: Cath Placed During This Visit: yes, but has since been removed by the nurse Reason for Continuing Indwelling Catheter: Accurate Measurement of Urinary Output in Critically Ill Patients Urinary Catheter Date of Insertion: 05/14/22 Urinary Catheter Time of Insertion: 11:30 Date Urinary Catheter Removed: 05/14/22 Time Urinary Catheter Discontinued: 11:30 Data 05/18/22 06:10 05/18/22 06:10 Micro: Microbiology 05/14/22 14:10 Gram Stain - Final Sputum - Endotracheal Tube Aspirate Sputum Culture - Final Aureobasidium pullulans 05/13: PBCX: negative to date 05/09: PBCX: negative to date 05/04: PBCX: negative to date 05/14: urine cx : negative to date 05/14: C diff PCR negative 05/14: sputum cx : rare white blood cellss, aureobasidium pullulans 05/11/22: Bronch wash/ BAL : Few yeast, few GNR; no growth on final plates 05/14: urine legionella Ag : negative 05/04: MRSA cx : negative 05/04: bacterial Ag urine: negative 05/04: sputum cx: normal respiratory luis m 05/12: Urine histo plasma Ag : negative 05/11: Serum Ag/GM: negative 05/11: Serum Fungitell: unabel to be perfromed due to interfering substances 05/11: From BAL : PJP PCR : negative, Ag/GM: negative Other data: WBC trend : 13.9 (admit) --> 05/08 : 8.7 --> 05/11: 16.8 (on steroids at this time)--> 05/13? 22.5 A&P Assessment and plan (1) Fever: (2) Acute respiratory failure with hypoxia: (3) Influenza A: (4) Pneumomediastinum: (5) Herpes labialis: (6) Acute encephalopathy: (7) Thrush, oral: (8) Enterovirus infection, unspecified: Plan 32 year old lady admitted for acute hypoxic respiratory failure 2/2 co infection with FLU A and Enterovirus/rhinovirus infection. Hospital course c/b mechanical vetilation, was difficult to wean off vent, persistent fevers (now afebrile since 05/14), persisting leukocytsosis likely a combination of infection + stress leukocytosis (now normalized at 10.7). Clinically now improving, has been extubated and moved out of ICU , currently saturating well on 2lpm supplemental 02. deocnditioned due to hospital stay. All cx remain negative to date including blood, urine and respiratory cx Has had multiple courses of abx during admission as out lined above AT this time, she has been on antibacterials since 05/04 Zosyn /VANC--> meropenem/ linezolid. Sputum cx and BAL cx have been negative to date. Recommend to d/c meropenem today as competed adequate course. Fever free since discontinuing linezolid on 05/13, suspect that drug interaction with SSRI AND TCA may have been contributing ot the fever. No evidence of MRSA or VRE. Sputum cx from 05/04 with aureobasidium which is a ubiqutous saprophyte. Likely colonizer, does not need directed treatemtn. On micafungin--> fluconazole 400 qd since 05/11. Patient has mild thrush. D/c today as no evidence of invasive fungal infection. Has comepelted 7 days for thrush No evidence of PJP pneumonia, negative PCR from BAL. D/c bactrim DS BID. Can consider for ppx at bactrim DS three times/week dosing For herpes labialis , ACV --> valtrex , completing 7 days today. D/c thereafter. No new lesions noted. has usually 2 episodes per year. 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
[2022-05-18] MEDS: HYDROcodone-acetaminophen 5-325 mg Tablet 1 TAB PO ×2 (13:02→22:06)
--- NOTE | 2022-05-18 13:53 | PM.PN ---
Subjective Subjective: No acute events overnight. Seen in CSU today. On room air. Denies any nausea, vomiting, headache. Has remained afebrile and hemodynamically stable. Sitting up in chair. Working with physical therapy. Needing Devang lift and max assist for now. Medications: Reviewed: Yes Medication Review Details: Abx history: Zosyn (05/04- 05/08)---->? meropenem 1g iv q8h (05/11-05/18) Levaquin 05/08 to 05/11 Bactrim DS BID (05/12?05/18) VAncomycin (05/04 to 05/08) ----> linezolid (05/11-05/14) Micafungin 05/11-05/14???> changed to fluconazole ACV 10mg/kg q8h (05/12-05/15)???> changed to valacyclovir 1 g twice daily Vitals/I&O/Wt Last Vital Signs Temp 99.0 F 05/18/22 07:39 Pulse 100 05/18/22 09:34 Resp 20 H 05/18/22 09:34 BP 123/91 05/18/22 07:39 Pulse Ox 94 05/18/22 09:34 O2 Del Method 05/18/22 09:34 O2 Flow Rate 1 05/17/22 13:52 FiO2 30 05/15/22 08:00 05/17/22 05/18/22 05/18/22 22:59 06:59 14:59 Intake Total 237 / 347 50 / 397 480 / 480 Balance 237 / 347 50 / 397 480 / 480 Weight last 48 hrs Weight 102.33 kg Physical Exam Narrative: General: AOx3, no acute distress, seen with family at bedside, jovial, weak HEENT: PERRLA, pupils bilaterally equal and reactive Chest: Bronchial breath sounds b/l , decreased air entry on right side, coarse crackles present all over the right lung field, diffuse rhonchi all over the lung mckinnon bilaterally, CVS: S1-S2 regular, no murmurs, tachycardia, no gallops, no rubs Abdomen: Soft, nontender, no organomegaly, bowel sounds present, morbidly obese Neuro: No focal deficits, no facial deformity, AO x3, power 2/5 in all limbs Urinary Catheter Management: Holguin: Cath Placed During This Visit: yes, but has since been removed by the nurse Reason for Continuing Indwelling Catheter: Accurate Measurement of Urinary Output in Critically Ill Patients Urinary Catheter Date of Insertion: 05/14/22 Urinary Catheter Time of Insertion: 11: Date Urinary Catheter Removed: 05/14/22 Time Urinary Catheter Discontinued: 11:30 Data 05/18/22 06:10 05/18/22 06:10 Micro: Microbiology 05/14/22 14:10 Gram Stain - Final Sputum - Endotracheal Tube Aspirate Sputum Culture - Final Aureobasidium pullulans A&P Assessment and plan (1) Acute respiratory failure with hypoxia: Keep mean artery pressure 65, saturation over 90%. Extubated 05/15. Follow sputum culture and blood BAL cultures. For now continue with IV meropenem, oral Bactrim at PCP prophylactic dose, oral fluconazole. We will plan to continue IV antibiotics for overall 2 to 3 days postextubation. Continue weaning to Solu-Medrol 40 mg every 12 hourly today. We will plan to wean further within next 24 hours. Oxygen supplementation keeping saturation over 90%. Aggressive pulmonary toilet with I-S and Acapella. Appreciate pulmonary recommendations. Out of bed to chair. Patient has finished course of Tamiflu. Echocardiogram done showed EF of 50% with grade 2 diastolic dysfunction. (2) Fever: No fever the last 24 hours. High concern for drug fever versus possible serotonin syndrome. Repeat blood cultures sent on 05/13. Blood cultures so far negative. Repeat sputum culture, urine culture negative. CT abdomen negative for acute abnormality. Dopplers negative for DVT. Medications changed as per above. Linezolid has been stopped in view of of patient taking amitriptyline within last 14 days. Dose of Celexa has been reduced. Will continue to monitor. Appreciate ID recommendations. (3) Acute encephalopathy: Acute encephalopathy with hypoactive delirium, possibly acute metabolic secondary to hypoxia, respiratory failure, possible withdrawal from Lyrica, steroid use. Medication as above. Resolving. (4) Influenza A: Completed course of Tamiflu. Additional measures as above. For now continued on isolation therapy due to immunocompromise state, persistent respiratory failure. (5) Pneumonia: As above (6) Pneumomediastinum: (7) Ventilator dependent: Extubated 05/15. (8) Herpes labialis: With encephalopathy. Continue with Valtrex. Appreciate ID recommendations. (9) HTN (hypertension): Blood pressure is doing better. So far has not required further as needed labetalol. Continue with amlodipine. Hold off on clonidine patch for now. Goal blood pressure less than 140/90 which is been over 65. (10) Septic shock: Hypotension resolved. Weaned off pressor. (11) Thrombocytopenia: Resolved. Peripheral smear without schistocytes. Chemistries not suggestive of hemolysis. Low probability TTP. Low probability HIT. Fibrin degradation products elevated, noted D-dimer elevation but with superficial thrombophlebitis of arm on duplex. No DVT. Overall picture not suggestive of DIC. Possibly drug-related. After antibiotic changes yesterday thrombocytopenia with improvement. (12) Mucosal bleeding: Resolved. As above. Thrombocytopenia resolved. (13) Metabolic acidosis: Resolved. Hold off on any further IV fluids. (14) Lactic acid acidosis: (15) Positive KATHLEEN (antinuclear antibody): (16) Chronic steroid use: (17) Superficial thrombophlebitis: Right antecubital vein. Elevate. DVT prophylaxis. (18) Physical deconditioning: (19) Enterovirus infection, unspecified: (20) Rash: Plan Sedation: Not needed. Patient extubated. Analgesia: Tylenol as needed, [place] 5 mg every 8 hourly as needed. Takes [place] 7.5 twice daily at home. Lyrica 150 3 times daily. Glycemic control: Not needed Nutrition: Dysphagia level 6 diet as per speech evaluation. Advance accordingly. CODE STATUS: Full code PUD prophylaxis: Protonix DVT prophylaxis: Heparin Physical therapy evaluation. Discharge planning: Given severe physical deconditioning will need to discharge to acute rehab versus SNF for further care once patient is medically stable. Case management alerted. Plan for the day: Continue with extensive physical, speech, occupational, pulmonary therapy. Out of bed to chair. Switch to oral prednisone from tomorrow. Stop IV Solu-Medrol. We will try to wean down to baseline prednisone dose within next 3 to 4 days. Continue with valacyclovir. Stop meropenem, Bactrim and fluconazole. Continue with nebulization treatment. Continue to hold off on leflunomide/hydrochlorothiazide for next 2 to 3 weeks. Can restart after follow-up with rheumatology as an outpatient. This documentation was created by [employer] design transferrer software. Every effort was made to ensure accuracy of design transferrer. Any obvious errors or omissions should be clarified with the author of the document. Attestations Medical Necessity Statement*: Requires further hospitalization for management of severe physical deconditioning in a patient with prolonged intubation secondary to ARDS from flu and enterovirus while safe discharge planning as patient is at a high risk of fall, worsening deconditioning and readmission. 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
[2022-05-19] VITALS (16 sets, daily range): BP systolic 116–154; BP diastolic 71–99; PULSE 74–99; RESP 16–23; TEMP 36.4–36.9; O2SAT 93–98
[2022-05-19] MEDS: heparin 5,000 unit/mL INJ 1 mL 5000 UNIT SUBCUT ×3 (00:46→23:37)
[2022-05-19] MEDS: levalbuterol 0.63 mg/3 mL Neb INHALATION ×4 (03:15→19:39)
[2022-05-19] MEDS: ipratropium 0.5 mg/2.5 mL Neb INHALATION ×4 (03:15→19:38)
[2022-05-19] MEDS: acetaminophen 325 mg Tablet 650 MG PO (04:27)
[2022-05-19] MEDS: budesonide 0.5 mg/2 mL Neb INHALATION ×2 (09:23→19:38)
--- NOTE | 2022-05-19 09:44 | P.PN_ITS ---
Subjective Subjective: Infectious disease progress note. Remains afebrile, no acute events. Medications: Reviewed: Yes Medication Review Details: Abx history: Zosyn (05/04- 05/08)---->? meropenem 1g iv q8h (05/11-05/18) Levaquin 05/08 to 05/11 Bactrim DS BID (05/12?05/18) VAncomycin (05/04 to 05/08) ----> linezolid (05/11-05/14) Micafungin 05/11-05/14???> changed to fluconazole ACV 10mg/kg q8h (05/12-05/15)???> changed to valacyclovir 1 g twice daily Vitals/I&O/Wt Last Vital Signs Temp 98.5 F 05/18/22 20:00 Pulse 89 05/19/22 09:24 Resp 20 H 05/19/22 09:24 BP 153/99 05/19/22 07:07 Pulse Ox 96 05/19/22 09:24 O2 Del Method 05/19/22 09:24 O2 Flow Rate 1 05/17/22 13:52 FiO2 30 05/15/22 08:00 05/18/22 05/19/22 05/19/22 22:59 06:59 14:59 Intake Total 50 / 530 100 / 630 60 / 60 Balance 50 / 530 100 / 630 60 / 60 Weight last 48 hrs Weight 95.708 kg Physical Exam Narrative: General: No acute distress, AO x3 HEENT: PERRLA, pupils bilaterally equal and reactive, pallors not present Chest: Normal vesicular breath sounds, no added sounds, equal good air entry bilaterally CVS: S1-S2 regular, no murmurs, no tachycardia, no gallops, no rubs Abdomen: Soft, nontender, no organomegaly, bowel sounds present Neuro: No focal deficits, no facial deformity, AO x3, power 5/5 in all limbs Extremities: rash over back Urinary Catheter Management: Holguin: Cath Placed During This Visit: yes, but has since been removed by the nurse Reason for Continuing Indwelling Catheter: Accurate Measurement of Urinary Output in Critically Ill Patients Urinary Catheter Date of Insertion: 05/14/22 Urinary Catheter Time of Insertion: 11:30 Date Urinary Catheter Removed: 12/27/22 Time Urinary Catheter Discontinued: 11:30 Data 05/18/22 06:10 05/18/22 06:10 Micro: Microbiology 05/13/22 17:05 Blood Culture - Final Blood NO GROWTH AFTER 5 DAYS 05/13/22 16:35 Blood Culture - Final Blood NO GROWTH AFTER 5 DAYS A&P Assessment and plan (1) Fever: (2) Acute respiratory failure with hypoxia: (3) Influenza A: (4) Pneumomediastinum: (5) Herpes labialis: (6) Acute encephalopathy: (7) Thrush, oral: (8) Enterovirus infection, unspecified: Plan 32 year old lady admitted for acute hypoxic respiratory failure 2/2 co infection with FLU A and Enterovirus/rhinovirus infection. Hospital course c/b mechanical vetilation, was difficult to wean off vent, persistent fevers (now afebrile since 05/14), persisting leukocytsosis likely a combination of infection + stress leukocytosis (now normalized at 10.7). Clinically now improving, has been extubated and moved out of ICU , currently saturating well on 2lpm supplemental 02. deocnditioned due to hospital stay. All cx remain negative to date including blood, urine and respiratory cx Has had multiple courses of abx during admission as out lined above AT this time, she has been on antibacterials since 05/04 Zosyn /VANC--> meropenem/ linezolid. Sputum cx and BAL cx have been negative to date. d/taylor meropenem on 05/18 as competed adequate course. Fever free since discontinuing linezolid on 05/13, suspect that drug interaction with SSRI AND TCA may have been contributing ot the fever. No evidence of MRSA or VRE. Sputum cx from 05/04 with aureobasidium which is a ubiqutous saprophyte. Likely colonizer, does not need directed treatemtn. On micafungin--> fluconazole 400 qd since 05/11. Patient has mild thrush. D/c today as no evidence of invasive fungal infection. Has comepelted 7 days for thrush No evidence of PJP pneumonia, negative PCR from BAL. D/c bactrim DS BID. Can consider for ppx at bactrim DS three times/week dosing until she remains on steroid equivalent of 20mg or higher For herpes labialis , ACV --> valtrex , completing 7 days today. D/c thereafter. No new lesions noted. has usually 2 episodes per year. Can consider valtrex suppression as outpatient if >3-4 episodes per year Rash over he back and buttocks: appears to be related to dependency. Frequent turning. barrier cream recommended. Wound care if worsening. Does not appear to be a drug rash Thank youf or this consult. Please call with any questions or concerns Attestations Medical Necessity Statement*: per admitting Coding Level of Care Code Acute Doctor Of Osteopathy for [facility] Fwd Diagnoses Fever R50.9 Acute respiratory failure with hypoxia J96.01 Influenza A J10.1 Pneumomediastinum J98.2 Herpes labialis B00.1 Acute encephalopathy G93.40 Thrush, oral B37.0 Enterovirus infection, unspecified B34.1
--- NOTE | 2022-05-19 09:51 | PM.PN ---
Subjective Subjective: Status quo. No acute events. Denies any nausea, vomiting, headache. Complaining of pain in knees. On examination seen sitting in chair. Chest worked with physical and Occupational Therapy. Still fairly weak but improving. Yesterday as per the nurse was complaining of depression. Denied any suicidal or homicidal ideation. Medications: Reviewed: Yes Medication Review Details: Abx history: Zosyn (05/04- 05/08)---->? meropenem 1g iv q8h (05/11-05/18) Levaquin 05/08 to 05/11 Bactrim DS BID (05/12?05/18) VAncomycin (05/04 to 05/08) ----> linezolid (05/11-05/14) Micafungin 05/11-05/14???> changed to fluconazole ACV 10mg/kg q8h (05/12-05/15)???> changed to valacyclovir 1 g twice daily Vitals/I&O/Wt Last Vital Signs Temp 98.5 F 05/18/22 20:00 Pulse 89 05/19/22 09:24 Resp 20 H 05/19/22 09:24 BP 153/99 05/19/22 07:07 Pulse Ox 96 05/19/22 09:24 O2 Del Method 05/19/22 09:24 O2 Flow Rate 1 05/17/22 13:52 FiO2 30 05/15/22 08:00 05/18/22 05/19/22 05/19/22 22:59 06:59 14:59 Intake Total 50 / 530 100 / 630 60 / 60 Balance 50 / 530 100 / 630 60 / 60 Weight last 48 hrs Weight 95.708 kg Physical Exam Narrative: General: AOx3, no acute distress, seen with family at bedside, jovial, weak HEENT: PERRLA, pupils bilaterally equal and reactive Chest: Bronchial breath sounds b/l , decreased air entry on right side, coarse crackles present all over the right lung field, diffuse rhonchi all over the lung mckinnon bilaterally, CVS: S1-S2 regular, no murmurs, tachycardia, no gallops, no rubs Abdomen: Soft, nontender, no organomegaly, bowel sounds present, morbidly obese Neuro: No focal deficits, no facial deformity, AO x3, power 2/5 in all limbs Urinary Catheter Management: Holguin: Cath Placed During This Visit: yes, but has since been removed by the nurse Reason for Continuing Indwelling Catheter: Accurate Measurement of Urinary Output in Critically Ill Patients Urinary Catheter Date of Insertion: 05/14/22 Urinary Catheter Time of Insertion: 11:30 Date Urinary Catheter Removed: 05/14/22 Time Urinary Catheter Discontinued: 11:30 Data 05/18/22 06:10 05/18/22 06:10 Micro: Microbiology 05/13/22 17:05 Blood Culture - Final Blood NO GROWTH AFTER 5 DAYS 05/13/22 16:35 Blood Culture - Final Blood NO GROWTH AFTER 5 DAYS A&P Assessment and plan (1) Acute respiratory failure with hypoxia: Keep mean artery pressure 65, saturation over 90%. Extubated 05/15. Follow sputum culture and blood BAL cultures. Antibiotics, antifungal, antiviral changed as per ID. IV Solu-Medrol changed to oral prednisone. Oxygen supplementation keeping saturation over 90%. Aggressive pulmonary toilet with I-S and Acapella. Appreciate pulmonary recommendations. Out of bed to chair. Patient has finished course of Tamiflu. Echocardiogram done showed EF of 50% with grade 2 diastolic dysfunction. (2) Fever: No fever the last 24 hours. High concern for drug fever versus possible serotonin syndrome. Repeat blood cultures sent on 05/13. Blood cultures so far negative. Repeat sputum culture, urine culture negative. CT abdomen negative for acute abnormality. Dopplers negative for DVT. Medications changed as per above. Linezolid has been stopped in view of of patient taking amitriptyline within last 14 days. Dose of Celexa has been reduced. Will continue to monitor. Appreciate ID recommendations. (3) Acute encephalopathy: Acute encephalopathy with hypoactive delirium, possibly acute metabolic secondary to hypoxia, respiratory failure, possible withdrawal from Lyrica, steroid use. Medication as above. Resolving. (4) Influenza A: Completed course of Tamiflu. Additional measures as above. For now continued on isolation therapy due to immunocompromise state, persistent respiratory failure. (5) Pneumonia: As above (6) Pneumomediastinum: (7) Ventilator dependent: Extubated 05/15. (8) Herpes labialis: With encephalopathy. Continue with Valtrex. Appreciate ID recommendations. (9) HTN (hypertension): Blood pressure is doing better. So far has not required further as needed labetalol. Continue with amlodipine. Hold off on clonidine patch for now. Goal blood pressure less than 140/90 which is been over 65. (10) Septic shock: Hypotension resolved. Weaned off pressor. (11) Thrombocytopenia: Resolved. Peripheral smear without schistocytes. Chemistries not suggestive of hemolysis. Low probability TTP. Low probability HIT. Fibrin degradation products elevated, noted D-dimer elevation but with superficial thrombophlebitis of arm on duplex. No DVT. Overall picture not suggestive of DIC. Possibly drug-related. After antibiotic changes yesterday thrombocytopenia with improvement. (12) Mucosal bleeding: Resolved. As above. Thrombocytopenia resolved. (13) Metabolic acidosis: Resolved. Hold off on any further IV fluids. (14) Lactic acid acidosis: (15) Positive KATHLEEN (antinuclear antibody): (16) Chronic steroid use: (17) Superficial thrombophlebitis: Right antecubital vein. Elevate. DVT prophylaxis. (18) Physical deconditioning: (19) Enterovirus infection, unspecified: (20) Rash: Plan Sedation: Not needed. Patient extubated. Analgesia: Tylenol as needed, [place] 5 mg every 8 hourly as needed. Takes [place] 7.5 twice daily at home. Lyrica 150 3 times daily. Glycemic control: Not needed Nutrition: Dysphagia level 6 diet as per speech evaluation. Advance accordingly. CODE STATUS: Full code PUD prophylaxis: Protonix DVT prophylaxis: Heparin Physical therapy evaluation. Discharge planning: Given severe physical deconditioning will need to discharge to acute rehab versus SNF for further care once patient is medically stable. Case management alerted. Plan for the day: Continue with therapies. Continue to be out of bed to chair. Continue with valacyclovir to finish the course. Bactrim switched to prophylaxis dose. Continue with prednisone 40 mg oral daily for next 5 days after which we will switch to 5 mg daily. Will need to follow-up with behavioral health clinic as an outpatient. For now continue with Celexa 20 mg oral daily, Seroquel 75 mg at bedtime. Continue with nebulization treatment. Continue to hold off on leflunomide/hydrochlorothiazide for next 2 to 3 weeks. Can restart after follow-up with rheumatology as an outpatient. This documentation was created by [employer] attorney at law software. Every effort was made to ensure accuracy of attorney at law. Any obvious errors or omissions should be clarified with the author of the document. Attestations Medical Necessity Statement*: Requires further hospitalization for management of severe physical deconditioning in setting of postextubation care for prolonged intubation for ARDS secondary to influenza A in setting of chronic immunosuppression for inflammatory arthritis while safe discharge planning is sought. 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
[2022-05-19] MEDS: pantoprazole 40 mg SDV IVP (10:45)
[2022-05-19] MEDS: predniSONE 20 mg Tablet 40 MG PO (10:46)
[2022-05-19] MEDS: pregabalin 150 mg Capsule PO ×3 (10:46→20:10)
[2022-05-19] MEDS: citalopram 20 mg Tablet PO (10:46)
[2022-05-19] MEDS: amlodipine 5 mg Tablet PO (10:46)
[2022-05-19] MEDS: valACYclovir 1,000 mg Tablet 1000 MG OG-TUBE ×2 (10:46→17:25)
[2022-05-19] MEDS: metoprolol tartrate 25 mg Tablet PO ×2 (10:48→20:10)
[2022-05-19] MEDS: HYDROcodone-acetaminophen 5-325 mg Tablet 1 TAB PO ×2 (13:32→20:10)
--- NOTE | 2022-05-19 23:30 | PC.NURSE ---
Assisted patient [place] to [facility] [place] paula lift. Patient tolerated well. Applied aloevesta cream to patient's back due to excoriation and skin peeling. Patient expressed improved comfort. Repositioned for comfort as well. Will continue to monitor.
[2022-05-20] VITALS (16 sets, daily range): BP systolic 122–152; BP diastolic 79–92; PULSE 75–110; RESP 16–26; TEMP 36.7–37.4; O2SAT 91–98
[2022-05-20] MEDS: levalbuterol 0.63 mg/3 mL Neb INHALATION ×3 (02:23→19:18)
[2022-05-20] MEDS: ipratropium 0.5 mg/2.5 mL Neb INHALATION ×2 (02:24→08:50)
--- NOTE | 2022-05-20 05:05 | PC.NURSE ---
Assisted patient up to [facility] using paula lift. Patient tolerated well. Patient placed in wheelchair at this time. Patient expressed great thanks. Patient movement to arms and legs slightly improved. Providing as much encouragement as possible. Patient feeling chatty but mildy anxious. Will continue to monitor.
[2022-05-20 05:35] LABS: Alanine Aminotransferase 60 U/L (0-33); Albumin Level 3.7 g/dL (3.5-5.2); Alkaline Phosphatase 80 U/L (35-105); Blood Urea Nitrogen 26 mg/dL (6-20); Calcium 9.1 mg/dL (8.5-10.5); Carbon Dioxide 19 mmol/L (22-29); Chloride 106 mmol/L (98-107); Globulin 2.9 g/dL (1.3-4.6); Glomerular Filtration Rate 254.7 mL/min (90-130); Glucose 85 mg/dL (65-115); Osmolality Calculated 288 mOsm/kg (285-295); Sodium 137 mmol/L (136-145); Total Bilirubin 0.7 mg/dL (0.15-1.2); Total Protein 6.6 g/dL (6.6-8.7)
[2022-05-20 05:42] LABS: Anion Gap 16.1 (5-19); Aspartate Amino Transferase 30 U/L (0-32); Potassium 4.1 mmol/L (3.5-5.1)
--- NOTE | 2022-05-20 06:10 | PC.NURSE ---
Patient remained up to wheelchair for ~30min. Patient stated, I feel like I am sliding out of the chair, but it is comfortable. Patient informed this RN that her is going to bring a foam cushion to place in chair and then she will try sitting up again.
[2022-05-20 06:40] LABS: Basophils % 0.2 %; Eosinophils % 0.2 %; Hematocrit 40.6 % (37.0-47.0); Hemoglobin 13.3 g/dL (11.5-15.3); Lymphocytes # 3.5 10^3/uL (0.8-4.8); Lymphocytes % 28.5 %; Mean Corpuscular HGB Conc 32.8 g/dL (30.0-36.0); Mean Corpuscular Hemoglobin 30.7 pg (28.0-34.0); Mean Corpuscular Volume 93.8 fl (81-99); Mean Platelet Volume 13.2 fL (7.4-10.4); Monocytes # 1.2 10^3/uL (0.2-0.9); Monocytes % 9.3 %; Neutrophils # 7.46 10^3/uL (1.8-7.7); Neutrophils % 60.1 %; Nucleated Red Blood Cells % 0 %; Platelet Count 208 10^3/cmm (130-400); Red Blood Count 4.33 10^6/uL (4.1-5.3); Red Cell Distribution Width 14.7 % (12.1-15.1); White Blood Count 12.4 10^3/uL (4.0-10.0)
[2022-05-20] MEDS: lanolin oint 7 gm 1 APPLIC TOPICAL (07:06)
[2022-05-20] MEDS: pregabalin 150 mg Capsule PO ×3 (08:21→20:20)
[2022-05-20] MEDS: valACYclovir 1,000 mg Tablet 1000 MG OG-TUBE (08:22)
[2022-05-20] MEDS: amlodipine 5 mg Tablet PO (08:23)
[2022-05-20] MEDS: citalopram 20 mg Tablet PO (08:23)
[2022-05-20] MEDS: predniSONE 20 mg Tablet 40 MG PO (08:23)
[2022-05-20] MEDS: pantoprazole 40 mg SDV IVP (08:24)
[2022-05-20] MEDS: metoprolol tartrate 25 mg Tablet PO ×2 (08:28→20:20)
[2022-05-20] MEDS: budesonide 0.5 mg/2 mL Neb INHALATION ×2 (08:50→19:18)
[2022-05-20] MEDS: sulfamethoxazole-trimeth DS 160-800 mg Tablet 1 TAB PO (11:38)
[2022-05-20] MEDS: heparin 5,000 unit/mL INJ 1 mL 5000 UNIT SUBCUT (13:23)
[2022-05-20] MEDS: HYDROcodone-acetaminophen 5-325 mg Tablet 1 TAB PO ×2 (13:32→20:19)
--- NOTE | 2022-05-20 13:48 | PM.PN ---
Subjective Subjective: She reports that overall she has been slowly improving. She has been working with therapy. She is disappointed at somewhat slow progress in regaining strength in her right hand. She is right-handed but has history of prior right arm fracture in her youth due to which had developed some ambidexterity. Continues to work with PT/OT devices. Breathing overall feels better. She is still having wheezing on auscultation, but subjectively states feeling well. Has not needed supplemental oxygen for a while. Vitals/I&O/Wt Last Vital Signs Temp 98.8 F 05/20/22 07:09 Pulse 110 H 05/20/22 11:15 Resp 16 05/20/22 11:15 BP 127/88 05/20/22 11:15 Pulse Ox 94 05/20/22 08:00 O2 Del Method 05/20/22 08:00 O2 Flow Rate 4 05/19/22 20:49 FiO2 30 05/15/22 08:00 05/19/22 05/20/22 05/20/22 22:59 06:59 14:59 Intake Total 600 / 900 240 / 240 Output Total 300 / 300 850 / 1150 Balance 300 / 600 -850 / -250 240 / 240 Weight last 48 hrs Weight 95.073 kg Weight 95.708 kg Physical Exam Narrative: Globally weak. Const: COMMON NORMALS: patient oriented x3 and alert ORIENTATION/CONSCIOUSNESS: Yes awake HENMT: COMMON NORMALS: oropharynx normal Neck/C-Spine: COMMON NORMALS: no JVD Resp: COMMON NORMALS: normal respiratory effort EFFORT & INSPECTION: Yes tachypneic AUSCULTATION: rhonchi and wheezes Cardio: COMMON NORMALS: no JVD, regular rhythm, S1 normal heart sound present, S2 normal heart sound present and No murmurs present (Cardio) RHYTHM: regular rhythm HEART SOUNDS: S1 normal heart sound present and S2 normal heart sound present GI: COMMON NORMALS: Normal to inspection, nondistended, normoactive bowel sounds present, Soft to palpation and non-tender PALPATION: Yes Soft to palpation Extremity: COMMON NORMALS: no joint enlargement and no pedal edema Neuro: COMMON NORMALS: patient oriented x3 and moves all extremities SENSORIUM/ORIENTATION: Yes alert Skin: COMMON NORMALS: no rashes or lesions noted GENERAL SKIN EXAM: no rashes or lesions noted Urinary Catheter Management: Holguin: Cath Placed During This Visit: yes, but has since been removed by the nurse Reason for Continuing Indwelling Catheter: Accurate Measurement of Urinary Output in Critically Ill Patients Urinary Catheter Date of Insertion: 05/14/22 Urinary Catheter Time of Insertion: : Date Urinary Catheter Removed: 05/14/22 Time Urinary Catheter Discontinued: : Data 05/20/22 06:15 05/20/22 04:34 A&P Assessment and plan (1) Physical deconditioning: Continue work and mobilization with therapy. Arrangements for acute rehabilitation. Continue de-escalation of medical treatments as tolerating. (2) Acute respiratory failure with hypoxia: Transitioned to prednisone. Still significant wheezing, rhonchi, although subjectively doing well. Continue dose unchanged for today 40 mg daily. Extubated 05/15. Sputum culture with clean colonizing bacteria, no need for additional direct treatment. Antibiotics, antifungal, antiviral changed as per ID. Oxygen supplementation keeping saturation over 90%. Aggressive pulmonary toilet with I-S and Acapella. Patient has finished course of Tamiflu. Echocardiogram done showed EF of 50% with grade 2 diastolic dysfunction. (3) Fever: Resolved. (4) Influenza A: Completed course of Tamiflu. Additional measures as above. (5) Pneumomediastinum: (6) Herpes labialis: Completed Valtrex. Appreciate ID recommendations. (7) Acute encephalopathy: Resolved. (8) Thrush, oral: Completed 7 days antifungal therapy. (9) Enterovirus infection, unspecified: (10) Pneumonia: As above (11) Superficial thrombophlebitis: Right antecubital vein. Elevate. DVT prophylaxis. (12) Ventilator dependent: Extubated 05/15. (13) HTN (hypertension): Blood pressure is doing better. (14) Septic shock: Hypotension resolved. Weaned off pressor. (15) Thrombocytopenia: Resolved. Peripheral smear without schistocytes. Chemistries not suggestive of hemolysis. Low probability TTP. Low probability HIT. Fibrin degradation products elevated, noted D-dimer elevation but with superficial thrombophlebitis of arm on duplex. No DVT. Overall picture not suggestive of DIC. Possibly drug-related. After antibiotic changes yesterday thrombocytopenia with improvement. (16) Mucosal bleeding: Resolved. As above. Thrombocytopenia resolved. (17) Metabolic acidosis: Resolved. (18) Lactic acid acidosis: (19) Positive KATHLEEN (antinuclear antibody): (20) Chronic steroid use: (21) Rash: Attestations Medical Necessity Statement*: Continue admission for gradual de-escalation of care following proximal respiratory failure requiring ventilatory support, continued mobilization with therapy and arrangements for postdischarge continued rehabilitation. 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
[2022-05-21] VITALS (12 sets, daily range): BP systolic 118–157; BP diastolic 86–135; PULSE 76–103; RESP 18–24; TEMP 36.7–37.4; O2SAT 94–96
[2022-05-21 03:47] LABS: Basophils % 0.2 %; Eosinophils % 0.2 %; Hematocrit 40.9 % (37.0-47.0); Hemoglobin 13.2 g/dL (11.5-15.3); Lymphocytes # 3.1 10^3/uL (0.8-4.8); Lymphocytes % 22.9 %; Mean Corpuscular HGB Conc 32.3 g/dL (30.0-36.0); Mean Corpuscular Hemoglobin 30.6 pg (28.0-34.0); Mean Corpuscular Volume 94.7 fl (81-99); Mean Platelet Volume 13.5 fL (7.4-10.4); Monocytes # 1.1 10^3/uL (0.2-0.9); Neutrophils # 8.96 10^3/uL (1.8-7.7); Neutrophils % 67.2 %; Nucleated Red Blood Cells % 0 %; Platelet Count 192 10^3/cmm (130-400); Red Blood Count 4.32 10^6/uL (4.1-5.3); Red Cell Distribution Width 14.8 % (12.1-15.1); White Blood Count 13.3 10^3/uL (4.0-10.0)
[2022-05-21 04:09] LABS: Alanine Aminotransferase 58 U/L (0-33); Albumin Level 3.6 g/dL (3.5-5.2); Alkaline Phosphatase 83 U/L (35-105); Anion Gap 13.7 (5-19); Aspartate Amino Transferase 25 U/L (0-32); Blood Urea Nitrogen 27 mg/dL (6-20); Calcium 9.4 mg/dL (8.5-10.5); Carbon Dioxide 21 mmol/L (22-29); Chloride 106 mmol/L (98-107); Globulin 3.3 g/dL (1.3-4.6); Glomerular Filtration Rate 254.7 mL/min (90-130); Glucose 77 mg/dL (65-115); Osmolality Calculated 288 mOsm/kg (285-295); Potassium 3.7 mmol/L (3.5-5.1); Sodium 137 mmol/L (136-145); Total Bilirubin 0.5 mg/dL (0.15-1.2); Total Protein 6.9 g/dL (6.6-8.7)
[2022-05-21] MEDS: budesonide 0.5 mg/2 mL Neb INHALATION ×2 (08:26→20:09)
[2022-05-21] MEDS: metoprolol tartrate 25 mg Tablet PO ×2 (08:37→19:40)
[2022-05-21] MEDS: pantoprazole 40 mg SDV IVP (08:37)
[2022-05-21] MEDS: HYDROcodone-acetaminophen 5-325 mg Tablet 1 TAB PO ×2 (08:37→19:40)
[2022-05-21] MEDS: citalopram 20 mg Tablet PO (08:37)
[2022-05-21] MEDS: predniSONE 20 mg Tablet 40 MG PO (08:38)
[2022-05-21] MEDS: amlodipine 5 mg Tablet PO (08:38)
[2022-05-21] MEDS: pregabalin 150 mg Capsule PO ×3 (08:38→19:40)
--- NOTE | 2022-05-21 11:17 | US_ITS ---
WS: [id number] Bilateral renal ultrasound, 05/21/2022 Clinical Data: LLQ, L flank pain Comparison: Abdomen ultrasound, 04/25/2021 Findings: The right kidney measures 10.8,10.8 cm x 4.9,5.8 cm x 4.3,4.1 cm and the left kidney is 9.8 cm x 4.9 cm x 4.7 cm. There are no cysts, masses or hydronephrosis. The renal cortical margin is normal. No re nal calculi are seen. The abdominal aorta and inferior vena cava show no vascular abnormalities. The bladder prevoid measured 336 mL and postvoid 282 mL. US/US renal BI with PV bladder Impression: 1. Negative bilateral renal ultrasound. 2. Post void residual 282 mL.
--- NOTE | 2022-05-21 11:42 | P.PN_ITS ---
Subjective Subjective: No events overnight, this morning he is having some pain in the left lower quadrant and left side. Had a bowel movement. Some injection quez[place] from DVT prophylaxis on the left side lower pannus, but not causing pain, and pain seems to be radiating To the left flank. She states it feels as if a p assing kidney stone. Her lungs are sounding significantly clear. She has been coughing up phlegm. Medications: Reviewed: Yes Vitals/I&O/Wt Last Vital Signs Temp 98.5 F 05/21/22 11:21 Pulse 87 05/21/22 11:21 Resp 18 05/21/22 11:21 BP 139/91 05/21/22 11:21 Pulse Ox 96 05/21/22 11:21 O2 Del Method 05/21/22 11:21 O2 Flow Rate 4 05/19/22 20:49 FiO2 30 05/15/22 08:00 05/20/22 05/21/22 05/21/22 22:59 06:59 14:59 Intake Total 240 / 960 240 / 240 Output Total 450 / 450 Balance 240 / 960 -450 / 510 240 / 240 Weight last 48 hrs Weight 95.164 kg Weight 95.073 kg Physical Exam Const: COMMON NORMALS: patient oriented x3 and alert GENERAL APPEARANCE: patient mechanically ventilated; not cooperative ORIENTATION/CONSCIOUSNESS: Yes awake HENMT: COMMON NORMALS: oropharynx normal OTHER: Neck/C-Spine: COMMON NORMALS: no JVD Resp: COMMON NORMALS: normal respiratory effort EFFORT & INSPECTION: Yes tachypneic OTHER: Significant improvement in air entry today with near resolution of wheezing. Cardio: COMMON NORMALS: no JVD, regular rhythm, S1 normal heart sound present, S2 normal heart sound present and No murmurs present (Cardio) RHYTHM: regular rhythm HEART SOUNDS: S1 normal heart sound present and S2 normal heart sound present GI: COMMON NORMALS: Normal to inspection, nondistended, normoactive bowel sounds present, Soft to palpation and non-tender PALPATION: Yes Soft to palpation OTHER: Tender LLQ, left side, left CVA tenderness Extremity: COMMON NORMALS: no joint enlargement and no pedal edema Neuro: COMMON NORMALS: patient oriented x3 and moves all extremities SENSORIUM/ORIENTATION: Yes alert Skin: COMMON NORMALS: no rashes or lesions noted GENERAL SKIN EXAM: no rashes or lesions noted Urinary Catheter Management: Holguin: Cath Placed During This Visit: yes, but has since been removed by the nurse Reason for Continuing Indwelling Catheter: Accurate Measurement of Urinary Output in Critically Ill Patients Urinary Catheter Date of Insertion: 05/14/22 Urinary Catheter Time of Insertion: Date Urinary Catheter Removed: 05/14/22 Time Urinary Catheter Discontinued: :30 Data 05/21/22 03:11 05/21/22 03:11 A&P Assessment and plan (1) Physical deconditioning: Continue work and mobilization with therapy. Arrangements for acute rehabilitation. Continue de-escalation of medical treatments as tolerating. (2) Acute respiratory failure with hypoxia: Today wheezing is doing significantly better. We will decrease prednisone to 25 mg. Extubated 05/15. Sputum culture with clean colonizing bacteria, no need for additional direct treatment. Antibiotics, antifungal, antiviral changed as per ID. Oxygen supplementation keeping saturation over 90%. Aggressive pulmonary toilet with I-S and Acapella. Patient has finished course of Tamiflu. Echocardiogram done showed EF of 50% with grade 2 diastolic dysfunction. (3) Fever: Resolved. (4) Influenza A: Completed course of Tamiflu. Additional measures as above. (5) Pneumomediastinum: (6) Herpes labialis: Completed Valtrex. Appreciate ID recommendations. (7) Acute encephalopathy: Resolved. (8) Thrush, oral: Completed 7 days antifungal therapy. (9) Enterovirus infection, unspecified: (10) Pneumonia: As above (11) Superficial thrombophlebitis: Right antecubital vein. Elevate. DVT prophylaxis. (12) Ventilator dependent: Extubated 05/15. (13) HTN (hypertension): Blood pressure is doing better. (14) Septic shock: Hypotension resolved. Weaned off pressor. (15) Thrombocytopenia: Resolved. Peripheral smear without schistocytes. Chemistries not suggestive of hemolysis. Low probability TTP. Low probability HIT. Fibrin degradation products elevated, noted D-dimer elevation but with superficial thrombophlebitis of arm on duplex. No DVT. Overall picture not suggestive of DIC. Possibly drug-related. After antibiotic changes yesterday thrombocytopenia with improvement. (16) Mucosal bleeding: Resolved. As above. Thrombocytopenia resolved. (17) Metabolic acidosis: Resolved. (18) Lactic acid acidosis: (19) Positive KATHLEEN (antinuclear antibody): (20) Chronic steroid use: (21) Rash: Plan Left lower quadrant/left flank pain: States feels as if she is passing a kidney stone. Collect UA, obtain kidney ultrasound. Attestations Medical Necessity Statement*: Continue admission for discussion of therapies as tolerating following respiratory failure, additional assessment of left lower quadrant and left flank pain, continue mobilization with severe deconditioning, arrangements for rehabilitation. 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
[2022-05-21] MEDS: heparin 5,000 unit/mL INJ 1 mL 5000 UNIT SUBCUT (12:12)
--- NOTE | 2022-05-21 18:33 | PC.NURSE ---
Patient was turned throughout shift. Barrier cream and zinc oxide applied three times this shift. Patient was unable to void, assisted to bedside commode and still unable to void. Straight cath for 650cc.
[2022-05-21] MEDS: quetiapine XR (24HR) 50 mg Tablet 75 MG PO (19:41)
[2022-05-22] VITALS (13 sets, daily range): BP systolic 108–145; BP diastolic 72–86; PULSE 89–137; RESP 16–28; TEMP 36.6–37.1; O2SAT 91–96
[2022-05-22 03:09] LABS: Basophils % 0.1 %; Eosinophils % 0.1 %; Hematocrit 38.2 % (37.0-47.0); Hemoglobin 12.4 g/dL (11.5-15.3); Lymphocytes # 2.6 10^3/uL (0.8-4.8); Lymphocytes % 23.1 %; Mean Corpuscular HGB Conc 32.5 g/dL (30.0-36.0); Mean Corpuscular Hemoglobin 30.3 pg (28.0-34.0); Mean Corpuscular Volume 93.4 fl (81-99); Monocytes # 0.8 10^3/uL (0.2-0.9); Monocytes % 7.2 %; Neutrophils # 7.63 10^3/uL (1.8-7.7); Neutrophils % 68.2 %; Nucleated Red Blood Cells % 0 %; Platelet Count 144 10^3/cmm (130-400); Red Blood Count 4.09 10^6/uL (4.1-5.3); Red Cell Distribution Width 14.7 % (12.1-15.1); White Blood Count 11.2 10^3/uL (4.0-10.0)
[2022-05-22 03:44] LABS: Alanine Aminotransferase 57 U/L (0-33); Albumin Level 3.6 g/dL (3.5-5.2); Alkaline Phosphatase 80 U/L (35-105); Blood Urea Nitrogen 23 mg/dL (6-20); Calcium 9.5 mg/dL (8.5-10.5); Carbon Dioxide 21 mmol/L (22-29); Chloride 106 mmol/L (98-107); Glomerular Filtration Rate 406.6 mL/min (90-130); Glucose 80 mg/dL (65-115); Osmolality Calculated 291 mOsm/kg (285-295); Sodium 139 mmol/L (136-145); Total Bilirubin 0.6 mg/dL (0.15-1.2); Total Protein 6.6 g/dL (6.6-8.7)
[2022-05-22 03:52] LABS: Anion Gap 15.6 (5-19); Aspartate Amino Transferase 28 U/L (0-32); Potassium 3.6 mmol/L (3.5-5.1)
[2022-05-22] MEDS: sulfamethoxazole-trimeth DS 160-800 mg Tablet 1 TAB PO (08:34)
[2022-05-22] MEDS: citalopram 20 mg Tablet PO (08:34)
[2022-05-22] MEDS: pregabalin 150 mg Capsule PO ×3 (08:34→21:50)
[2022-05-22] MEDS: metoprolol tartrate 25 mg Tablet PO ×2 (08:34→21:50)
[2022-05-22] MEDS: predniSONE 20 mg Tablet PO (08:34)
[2022-05-22] MEDS: amlodipine 5 mg Tablet PO (08:34)
[2022-05-22] MEDS: budesonide 0.5 mg/2 mL Neb INHALATION ×2 (08:52→19:18)
[2022-05-22] MEDS: pantoprazole 40 mg SDV IVP (09:30)
[2022-05-22] MEDS: heparin 5,000 unit/mL INJ 1 mL 5000 UNIT SUBCUT (11:20)
--- NOTE | 2022-05-22 14:32 | CTR_ITS ---
PROCEDURE INFORMATION: Exam: CT Abdomen And Pelvis Without Contrast Exam date and time: 05/22/2022 3:57 PM Age: 32 years old Clinical indication: Abdominal pain; Flank; Left lower quadrant (llq); Additional info: Llq, L flank pain TECHNIQUE: Imaging protocol: Computed tomography of the abdomen and pelvis without contrast. COMPARISON: CT abdomen pelvis wo con [id number] 05/15/2022 1:20 PM RADIATION DOSE METRICS: Total DLP (mGy-cm): 874.17 FINDINGS: Lungs: Minimal patchy bibasilar atelectasis versus infiltrate given some ground-glass airspace opacities. Liver: Mild hepatic steatosis. Gallbladder and bile ducts: Cholecystectomy. Pancreas: Normal. No ductal dilation. Spleen: Normal. No splenomegaly. Adrenal glands: Normal. No mass. Kidneys and ureters: Bilateral punctate nonobstructing renal calyceal stones. Stomach and bowel: Constipation. Appendix: No evidence of appendicitis. Intraperitoneal space: Unremarkable. No free air. No significant fluid collection. Vasculature: Unremarkable. No abdominal aortic aneurysm. Lymph nodes: Unremarkable. No enlarged lymph nodes. Urinary bladder: Unremarkable as visualized. Reproductive: Unremarkable as visualized. Bones/joints: Unremarkable. No acute fracture. Soft tissues: Unremarkable. CT/CT kidney stone [id number] IMPRESSION: 1. Negative for acute inflammatory process in the abdomen or pelvis. 2. Minimal patchy bibasilar atelectasis versus infiltrate given some ground-glass airspace opacities. 3. Cholecystectomy. 4. Bilateral punctate nonobstructing renal calyceal stones. 5. Constipation. 6. Mild hepatic steatosis.
--- NOTE | 2022-05-22 14:35 | PM.PN ---
Subjective Subjective: Discussed with her results of ultrasound. She has persistent pain in left lower quadrant/left flank. She would like to proceed with repeating CT scan. She had an unremarkable bowel movement today. Persistent weakness of right hand. She can move it, no sensory deficit, but it is not as strong as the left. Squeeze balls are within her reach and she states she does use them. She also worked with sit to stand 3 times daily, did get exhausted. Awaits arrangements for rehab. Medications: Reviewed: Yes Vitals/I&O/Wt Last Vital Signs Temp 97.8 F 05/22/22 11:13 Pulse 93 05/22/22 12:30 Resp 28 H 05/22/22 12:30 BP 143/72 05/22/22 11:13 Pulse Ox 91 05/22/22 12:30 O2 Del Method 05/22/22 08:00 O2 Flow Rate 4 05/19/22 20:49 FiO2 30 05/15/22 08:00 05/21/22 05/22/22 05/22/22 22:59 06:59 14:59 Intake Total 240 / 960 244 / 1204 170 / 170 Balance 240 / 960 244 / 1204 170 / 170 Weight last 48 hrs Weight 94.801 kg Weight 95.164 kg Physical Exam Narrative: Globally weak. Const: COMMON NORMALS: patient oriented x3 and alert GENERAL APPEARANCE: patient mechanically ventilated; not cooperative ORIENTATION/CONSCIOUSNESS: Yes awake HENMT: COMMON NORMALS: oropharynx normal OTHER: Neck/C-Spine: COMMON NORMALS: no JVD Resp: COMMON NORMALS: normal respiratory effort EFFORT & INSPECTION: Yes tachypneic AUSCULTATION: crackles, rales bilateral at the base, rhonchi and wheezes OTHER: Significant improvement in air entry today with near resolution of wheezing. Cardio: COMMON NORMALS: no JVD, regular rhythm, S1 normal heart sound present, S2 normal heart sound present and No murmurs present (Cardio) RHYTHM: regular rhythm HEART SOUNDS: S1 normal heart sound present and S2 normal heart sound present GI: COMMON NORMALS: Normal to inspection, nondistended, normoactive bowel sounds present, Soft to palpation and non-tender PALPATION: Yes Soft to palpation OTHER: Tender LLQ, left side, left CVA tenderness Extremity: COMMON NORMALS: no joint enlargement and no pedal edema Neuro: COMMON NORMALS: patient oriented x3 and moves all extremities SENSORIUM/ORIENTATION: Yes alert Skin: COMMON NORMALS: no rashes or lesions noted GENERAL SKIN EXAM: no rashes or lesions noted Urinary Catheter Management: [place]: Cath Placed During This Visit: yes, but has since been removed by the nurse Reason for Continuing Indwelling Catheter: Accurate Measurement of Urinary Output in Critically Ill Patients Urinary Catheter Date of Insertion: 05/14/22 Urinary Catheter Time of Insertion: Date Urinary Catheter Removed: 05/14/22 Time Urinary Catheter Discontinued: :30 Data 05/22/22 02:31 05/22/22 02:31 A&P Assessment and plan (1) Physical deconditioning: Continue work and mobilization with therapy. Arrangements for acute rehabilitation. Continue de-escalation of medical treatments as tolerating. (2) Left flank pain: Has not been able to provide urinary sample as states the sample was inadvertently discarded, but pain is persistent and bothersome. She would like to proceed with reassessment noncontrast CT. Discussed with her prior she was not revealing anything concerning in the area. (3) Acute respiratory failure with hypoxia: Today she is wheezing again. For now continue prednisone unchanged. Extubated 05/15. Sputum culture with clean colonizing bacteria, no need for additional direct treatment. Antibiotics, antifungal, antiviral changed as per ID. Oxygen supplementation keeping saturation over 90%. Aggressive pulmonary toilet with I-S and Acapella. Patient has finished course of Tamiflu. Echocardiogram done showed EF of 50% with grade 2 diastolic dysfunction. (4) Fever: Resolved. (5) Influenza A: Completed course of Tamiflu. Additional measures as above. (6) Pneumomediastinum: (7) Herpes labialis: Completed Valtrex. Appreciate ID recommendations. (8) Acute encephalopathy: Resolved. (9) Thrush, oral: Completed 7 days antifungal therapy. (10) Enterovirus infection, unspecified: (11) Pneumonia: As above (12) Superficial thrombophlebitis: Right antecubital vein. Elevate. DVT prophylaxis. (13) Ventilator dependent: Extubated 05/15. (14) HTN (hypertension): Blood pressure is doing better. (15) Septic shock: Hypotension resolved. Weaned off pressor. (16) Thrombocytopenia: Resolved. Peripheral smear without schistocytes. Chemistries not suggestive of hemolysis. Low probability TTP. Low probability HIT. Fibrin degradation products elevated, noted D-dimer elevation but with superficial thrombophlebitis of arm on duplex. No DVT. Overall picture not suggestive of DIC. Possibly drug-related. After antibiotic changes yesterday thrombocytopenia with improvement. (17) Mucosal bleeding: Resolved. As above. Thrombocytopenia resolved. (18) Metabolic acidosis: Resolved. (19) Lactic acid acidosis: (20) Positive KATHLEEN (antinuclear antibody): (21) Chronic steroid use: (22) Rash: Attestations Medical Necessity Statement*: Continue admission for assessment management of left flank pain, continued mobilization and rehabilitation pending further postdischarge rehab authorization. 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
[2022-05-22 18:08] LABS: Urine Appearance Clear (CLEAR); Urine Color Yellow (Yellow)
[2022-05-22 18:09] LABS: Add Urine Microscopic? YES; Bilirubin Urine Neg (Negative); Blood Urine 2+ (Negative); Glucose Urine UA Norm (Normal); Ketones Urine 1+ (Negative); Leukocyte Esterase Urine Negative (Negative); Nitrate Urine Negative (Negative); Protein Urine Neg (Negative); Specific Gravity, Urine 1.025 (1.005-1.030); Urobilinogen Urine Norm (Negative); pH Urine 6 (5-7)
[2022-05-22 18:10] LABS: RBC Urine 0-4 /hpf (0-2); WBC Urine 0-4 /hpf (0-5)
[2022-05-22 18:11] LABS: Bacteria Urine 1+ /hpf; Mucus Urine 1+ /hpf; Squamous Epithelial Cell Urine 0-4 /hpf (0-5)
[2022-05-22] MEDS: HYDROcodone-acetaminophen 5-325 mg Tablet 1 TAB PO (21:47)
[2022-05-23] VITALS (14 sets, daily range): BP systolic 115–131; BP diastolic 67–91; PULSE 86–113; RESP 15–23; TEMP 36.4–37.6; O2SAT 95–98
[2022-05-23] MEDS: heparin 5,000 unit/mL INJ 1 mL 5000 UNIT SUBCUT ×3 (00:01→23:39)
--- NOTE | 2022-05-23 02:01 | PC.NURSE ---
Spoke to about patient refusing to take seroquel last night, she states it makes her feel funny and tired during the day. The patient takes latuda at home. Asked patient to ask her to bring her latuda from home so that her home med can possibly be ordered and given in the hospital. aware, no further orders.
[2022-05-23 04:35] LABS: Basophils % 0.1 %; Eosinophils # 0.1 10^3/uL (0.0-0.8); Eosinophils % 0.4 %; Hematocrit 39.7 % (37.0-47.0); Lymphocytes % 26.7 %; Mean Corpuscular HGB Conc 32.7 g/dL (30.0-36.0); Mean Corpuscular Hemoglobin 30.8 pg (28.0-34.0); Mean Corpuscular Volume 94.1 fl (81-99); Mean Platelet Volume 13.7 fL (7.4-10.4); Monocytes % 6.4 %; Neutrophils # 9.62 10^3/uL (1.8-7.7); Neutrophils % 64.9 %; Nucleated Red Blood Cells % 0 %; Platelet Count 149 10^3/cmm (130-400); Red Blood Count 4.22 10^6/uL (4.1-5.3); Red Cell Distribution Width 15.1 % (12.1-15.1); White Blood Count 14.8 10^3/uL (4.0-10.0)
[2022-05-23 04:51] LABS: Alanine Aminotransferase 56 U/L (0-33); Albumin Level 3.7 g/dL (3.5-5.2); Alkaline Phosphatase 82 U/L (35-105); Anion Gap 16.5 (5-19); Aspartate Amino Transferase 23 U/L (0-32); Blood Urea Nitrogen 24 mg/dL (6-20); Calcium 9.1 mg/dL (8.5-10.5); Carbon Dioxide 22 mmol/L (22-29); Chloride 106 mmol/L (98-107); Globulin 3.1 g/dL (1.3-4.6); Glomerular Filtration Rate 254.7 mL/min (90-130); Glucose 94 mg/dL (65-115); Osmolality Calculated 296 mOsm/kg (285-295); Potassium 3.5 mmol/L (3.5-5.1); Sodium 141 mmol/L (136-145); Total Bilirubin 0.5 mg/dL (0.15-1.2); Total Protein 6.8 g/dL (6.6-8.7)
[2022-05-23] MEDS: citalopram 20 mg Tablet PO (09:57)
[2022-05-23] MEDS: predniSONE 20 mg Tablet PO (09:57)
[2022-05-23] MEDS: amlodipine 5 mg Tablet PO (09:57)
[2022-05-23] MEDS: metoprolol tartrate 25 mg Tablet PO ×2 (09:57→22:00)
[2022-05-23] MEDS: pregabalin 150 mg Capsule PO (09:57)
--- NOTE | 2022-05-23 16:06 | PM.PN ---
Subjective Subjective: Still bothered by some pain in the left lower quadrant and left flank. Reports has had some difficulty emptying her bladder. Yesterday ended up having to have straight cath. She is otherwise still having some mild wheezing, but continues to work with incentive spirometer and flutter valve which is also very much encouraged by her mother. She is bringing up phlegm. Overall feels breathing is continue to gradually improved. Discussed with her noted still presence of groundglass opacities which are lagging, and imaging findings may still be present for a while going forward. Did discuss with her also possibility of some long-term lung scarring following the severe pneumonia. She states she knew her pneumonia was bad as she felt quite ill and also started hallucinating even before ending up needing intubation. Medications: Reviewed: Yes Vitals/I&O/Wt Last Vital Signs Temp 97.8 F 05/23/22 11:35 Pulse 96 05/23/22 12:24 Resp 15 05/23/22 12:24 BP 117/75 05/23/22 12:24 Pulse Ox 95 05/23/22 15:22 O2 Del Method 05/23/22 15:22 O2 Flow Rate 4 05/19/22 20:49 FiO2 30 05/15/22 08:00 05/23/22 05/23/22 05/23/22 06:59 14:59 22:59 Output Total 525 / 525 Balance -525 / 125 Weight last 48 hrs Weight 92.221 kg Weight 94.801 kg Physical Exam Narrative: Globally weak. Const: COMMON NORMALS: patient oriented x3 and alert GENERAL APPEARANCE: patient mechanically ventilated; not cooperative ORIENTATION/CONSCIOUSNESS: Yes awake HENMT: COMMON NORMALS: oropharynx normal OTHER: Neck/C-Spine: COMMON NORMALS: no JVD Resp: COMMON NORMALS: normal respiratory effort EFFORT & INSPECTION: Yes tachypneic AUSCULTATION: crackles, rales bilateral at the base, rhonchi and wheezes OTHER: Mild wheezing. She helps herself to lift ipsilateral arm with opposing arm for posterior auscultation. Cardio: COMMON NORMALS: no JVD, regular rhythm, S1 normal heart sound present, S2 normal heart sound present and No murmurs present (Cardio) RHYTHM: regular rhythm HEART SOUNDS: S1 normal heart sound present and S2 normal heart sound present GI: COMMON NORMALS: Normal to inspection, nondistended, normoactive bowel sounds present, Soft to palpation and non-tender PALPATION: Yes Soft to palpation OTHER: Tender LLQ, left side, left CVA tenderness Extremity: COMMON NORMALS: no joint enlargement and no pedal edema OTHER: Edema of hands, feet resolving Neuro: COMMON NORMALS: patient oriented x3 and moves all extremities SENSORIUM/ORIENTATION: Yes alert Skin: COMMON NORMALS: no rashes or lesions noted GENERAL SKIN EXAM: no rashes or lesions noted Urinary Catheter Management: [place]: Cath Placed During This Visit: yes, but has since been removed by the nurse Reason for Continuing Indwelling Catheter: Accurate Measurement of Urinary Output in Critically Ill Patients Urinary Catheter Date of Insertion: 05/14/22 Urinary Catheter Time of Insertion: 11: Date Urinary Catheter Removed: 05/14/22 Time Urinary Catheter Discontinued: : Data 05/23/22 03:48 05/23/22 03:48 A&P Assessment and plan (1) Physical deconditioning: Continue work and mobilization with therapy. Arrangements for acute rehabilitation. Continue de-escalation of medical treatments as tolerating. (2) Urine retention: Last night required straight cath due to being unable to completely void her bladder. Stop ipratropium as suspect may be due to anticholinergic effect. We will try also to de-escalate quetiapine, although she does get anxious easily so we will not yet stopped entirely. (3) Left flank pain: No acute process on CT. Discussed with her UA also not suggestive of UTI. Suspect may be musculoskeletal. We will add capsaicin cream. (4) Acute respiratory failure with hypoxia: Still having some wheezing. For now continue prednisone 25 mg. Bactrim DS 3 times weekly prophylaxis while on more than 20 mg of steroid. Extubated 05/15. Sputum culture with clean colonizing bacteria, no need for additional direct treatment. Antibiotics, antifungal, antiviral changed as per ID. Oxygen supplementation keeping saturation over 90%. Aggressive pulmonary toilet with I-S and Acapella. Patient has finished course of Tamiflu. Echocardiogram done showed EF of 50% with grade 2 diastolic dysfunction. (5) Fever: Resolved. (6) Influenza A: Completed course of Tamiflu. Additional measures as above. (7) Pneumomediastinum: (8) Herpes labialis: Completed Valtrex. Appreciate ID recommendations. (9) Acute encephalopathy: Resolved. (10) Thrush, oral: Completed 7 days antifungal therapy. (11) Enterovirus infection, unspecified: (12) Pneumonia: As above (13) Superficial thrombophlebitis: Right antecubital vein. Elevate. DVT prophylaxis. (14) Ventilator dependent: Extubated 05/15. (15) HTN (hypertension): Blood pressure is doing better. (16) Septic shock: Hypotension resolved. Weaned off pressor. (17) Thrombocytopenia: Resolved. Peripheral smear without schistocytes. Chemistries not suggestive of hemolysis. Low probability TTP. Low probability HIT. Fibrin degradation products elevated, noted D-dimer elevation but with superficial thrombophlebitis of arm on duplex. No DVT. Overall picture not suggestive of DIC. Possibly drug-related. After antibiotic changes yesterday thrombocytopenia with improvement. (18) Mucosal bleeding: Resolved. As above. Thrombocytopenia resolved. (19) Metabolic acidosis: Resolved. 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 Seems to be a combination of factors, right arm is a site of prior fracture, she also has superficial phlebitis in right antecubital fossa. Degree of nerve injury following protracted intubation considered but she was not prone, and this is unlikely. Encouraged continued therapy. Attestations Medical Necessity Statement*: Continue admission for medication adjustment due to urinary retention, continued care following respiratory failure, continued mobilization with severe deconditioning, pending authorization for postdischarge rehabilitation. 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 [facility] Fwd Diagnoses Physical deconditioning R53.81 Urine retention R33.9 Left flank pain R10.9 Acute respiratory failure with hypoxia J96.01 Fever R50.9 Influenza A J10.1 Pneumomediastinum J98.2 Herpes labialis B00.1 Acute encephalopathy G93.40 Thrush, oral B37.0 Enterovirus infection, unspecified B34.1 Pneumonia J18.9 Superficial thrombophlebitis I80.9 Ventilator dependent Z99.11 HTN (hypertension) I10 Septic shock A41.9; R65.21 Thrombocytopenia D69.6 Mucosal bleeding R58 Metabolic acidosis E87.20 Lactic acid acidosis E87.20 Positive KATHLEEN (antinuclear antibody) R76.8 Chronic steroid use Rash R21
[2022-05-23] MEDS: budesonide 0.5 mg/2 mL Neb INHALATION (19:37)
--- NOTE | 2022-05-23 20:00 | PC.NURSE ---
Patient requesting to get OOB to commode. Patient was assisted to commode with paula lift. Patient was concerned about not being able to urinate right away so the nurse ran the water to help. Patient was able to urinate and had bowel movement. Patient was cleaned, assisted back to bed with paula lift, and positioned for comfort. Barrier cream and desitin was applied to excoriated areas to bilateral buttock. The patient states she felt much better after getting up to use the commode.
[2022-05-23] MEDS: HYDROcodone-acetaminophen 5-325 mg Tablet 1 TAB PO (22:00)
--- NOTE | 2022-05-24 02:52 | PC.NURSE ---
Spoke to regarding patient complaints of joint pain 12/26, requesting pain pill. The patient takes [place] 5/325 q8 PRN and had a pain pill at 10pm, is not due till 6am for another pain pill. said it was ok to given one time dose early for patients complaints of pain.
[2022-05-24] MEDS: HYDROcodone-acetaminophen 5-325 mg Tablet 1 TAB PO (02:56)
[2022-05-24 04:00] VITALS: BP 137/73; PULSE 83; RESP 16; TEMP 37; O2SAT 96
[2022-05-24 04:28] LABS: Basophils % 0.3 %; Eosinophils # 0.1 10^3/uL (0.0-0.8); Eosinophils % 0.7 %; Hematocrit 37.2 % (37.0-47.0); Hemoglobin 11.9 g/dL (11.5-15.3); Mean Corpuscular Hemoglobin 30.5 pg (28.0-34.0); Mean Corpuscular Volume 95.4 fl (81-99); Mean Platelet Volume 13.5 fL (7.4-10.4); Monocytes # 0.8 10^3/uL (0.2-0.9); Monocytes % 6.1 %; Neutrophils # 9.55 10^3/uL (1.8-7.7); Nucleated Red Blood Cells % 0 %; Platelet Count 95 10^3/cmm (130-400); Red Cell Distribution Width 15.1 % (12.1-15.1); White Blood Count 13.7 10^3/uL (4.0-10.0)
[2022-05-24 04:52] LABS: Alanine Aminotransferase 50 U/L (0-33); Albumin Level 3.3 g/dL (3.5-5.2); Alkaline Phosphatase 76 U/L (35-105); Anion Gap 13.3 (5-19); Aspartate Amino Transferase 20 U/L (0-32); Blood Urea Nitrogen 18 mg/dL (6-20); Calcium 8.9 mg/dL (8.5-10.5); Carbon Dioxide 21 mmol/L (22-29); Chloride 108 mmol/L (98-107); Globulin 2.8 g/dL (1.3-4.6); Glomerular Filtration Rate 406.6 mL/min (90-130); Glucose 79 mg/dL (65-115); Osmolality Calculated 289 mOsm/kg (285-295); Potassium 3.3 mmol/L (3.5-5.1); Sodium 139 mmol/L (136-145); Total Bilirubin 0.6 mg/dL (0.15-1.2); Total Protein 6.1 g/dL (6.6-8.7)
[2022-05-24 05:39] VITALS: PULSE 79
[2022-05-24 07:33] VITALS: PULSE 83; O2SAT 96
[2022-05-24] MEDS: pantoprazole 40 mg SDV IVP (09:01)
--- NOTE | 2022-05-24 09:30 | PC.NURSE ---
Patient lacks the motivation to ambulate and participate in exercise therapy. Patient only able to sit up for 15 minutes today. Refuses to use [id number] and will only use paula lift. Patient educated on importance of mobility.
[2022-05-24] MEDS: predniSONE 20 mg Tablet PO (09:37)
[2022-05-24] MEDS: citalopram 20 mg Tablet PO (09:37)
[2022-05-24] MEDS: amlodipine 5 mg Tablet PO (09:37)
[2022-05-24] MEDS: sulfamethoxazole-trimeth DS 160-800 mg Tablet 1 TAB PO (09:37)
[2022-05-24] MEDS: metoprolol tartrate 25 mg Tablet PO (09:37)
[2022-05-24] MEDS: heparin 5,000 unit/mL INJ 1 mL 5000 UNIT SUBCUT (12:53)
[2022-05-24 13:37] VITALS: BP 123/75; PULSE 100; RESP 18
[2022-05-24 13:42] VITALS: BMI 36.0
[2022-05-24 14:56] VITALS: BP 123/75; PULSE 100; RESP 18
--- NOTE | 2022-05-24 14:57 | PC.NURSE ---
[facility] Patient belongings all sent with patient. [employer] and [facility] form filled out. Patient left via EMS
--- NOTE | 2022-05-24 19:46 | PM.DCS ---
Discharge Providers Date of Admission: 05/04/22 11:24 Date of Discharge: May 24, 2022 Attending Provider at Admission: Alon Leary MD Attending Provider at Discharge: Malachi Rabago Primary Care Provider: Becca Clayton Diagnoses at Discharge Discharge Diagnosis (1) Physical deconditioning: Status: Acute (2) Urine retention: Status: Acute (3) Left flank pain: Status: Acute (4) Acute respiratory failure with hypoxia: Status: Acute (5) Fever: Status: Acute (6) Influenza A: Status: Acute (7) Pneumomediastinum: Status: Acute (8) Herpes labialis: Status: Acute (9) Acute encephalopathy: Status: Acute (10) Thrush, oral: Status: Acute (11) Enterovirus infection, unspecified: Status: Acute (12) Pneumonia: Status: Acute (13) Superficial thrombophlebitis: Status: Acute (14) Ventilator dependent: Status: Acute (15) HTN (hypertension): Status: Acute (16) Septic shock: Status: Acute (17) Thrombocytopenia: Status: Acute (18) Mucosal bleeding: Status: Acute (19) Metabolic acidosis: Status: Acute (20) Lactic acid acidosis: Status: Acute (21) Positive KATHLEEN (antinuclear antibody): Status: Acute (22) Chronic steroid use: Status: Acute (23) Rash: Status: Acute Reason for Visit Reason for Visit: SOB Hospital Course Hospital Course 32-year-old lady with history of inflammatory arthritis, chronically on steroids, started on leflunomide, subclinical hypothyroidism with thyroid nodule, DJD, seizure disorder, asthma, was admitted after presenting with dyspnea, tiredness, myalgias, found positive for influenza, on presentation hypoxic and hypotensive. Required intubation and mechanical ventilatory support for respiratory failure, respiratory distress and with acute encephalopathy sepsis secondary to pneumonia with influenza, rhino enterovirus, and suspected superimposed bacterial infection. PE was ruled out on CTA on presentation. Diffuse airspace disease noted with multifocal pneumonia and bibasilar atelectasis. TTE showed normal EF, grade 2 diastolic dysfunction, no regional wall motion normalities. With protracted course of hospitalization requiring prolonged intubation secondary to persistent respiratory failure, respiratory distress and encephalopathy with weaning attempts, persistent leukocytosis, recurrent fevers. Repeat CTA 05/11 showed areas of cystic bronchiectasis in both lungs, particular right upper lobe and pneumomediastinum. She was treated with empiric antibiotic coverage initially with Zosyn and vancomycin, subsequently switched to cefepime and linezolid due to thrombocytopenia, mucosal bleeding, rash with concern for possible drug reaction, number of additional medications were changed. She was also noted to have superficial thrombophlebitis of the right antecubital fossa. Due to protracted pneumonia with otherwise negative cultures and bacterial antigens, additionally covered with antifungal coverage with micafungin. With immunocompromise concern for possible PCP was transiently also covered with Bactrim. With noted herpes labialis and recurrent encephalopathy additionally was covered with acyclovir. She underwent bronchoscopic assessment with BAL samples collected BP. Cultures were without growth. PCR as well as Aspergillus studies, Giurgius, and were negative. Was assessed by infectious disease specialist abscess and thrombocytopenia gradually improved. Antibiotics additionally were changed to meropenem from cefepime. Without evidence supporting MRSA infection, invasive candidiasis linezolid and micafungin was stopped. Fluconazole was added for thrush. Lisinopril was changed to Valtrex for herpes with meals. Completed course of meropenem. Bactrim was transitioned to prophylactic dose while on steroids more than 20 mg/day. Completed course of valacyclovir. Fluconazole. Leflunomide and hydroxychloroquine were held through the hospitalization and she is to hold them for the next 2 to 3 weeks and follow-up with rheumatology. Weaning attempts continued, she was started on Seroquel, was also restarted on Lyrica. Mentation improved, and with improved oxygenation she was able to extubate successfully. She has had residual intermittent wheezing, which has been gradually getting better. She continues doing well on room air. She has been quite significantly deconditioned with generalized weakness she feels also somewhat worse weakness of the right hand she is right-handed, but he is also ambidextrous due to history of fracture of the right arm. 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 Concern was expressed about her not always participating in therapy. She is encouraged to continue therapy to help with recovery. She had stopped taking Seroquel due to feeling the medication was making her groggy, this medication was discontinued and she is resumed on her Latuda. At discharge instructed to complete a prednisone taper, instructed to continue Bactrim 3 times a week only for the next 4 days while prednisone is over 20 mg daily. Over the last several days she also has had pain in her left flank, left lower quadrant, UA has not been suggestive of UTI. Renal ultrasound unremarkable, although she has been noted to have some urinary retention. Ipratropium nebs were discontinued with concern of anticholinergic effect. She is also stopped Seroquel. Her urinary symptoms have improved, but she was still noted to have about 275 mL retained in her urinary bladder. She preferred not to replace Holguin catheter, however, unless she does not continue to improve over the next several days. CT abdomen pelvis obtained for additional assessment at the time of persistent pain was negative for acute inflammatory process in abdomen or pelvis. Noted bilateral punctate nonobstructing renal calyceal stones. Constipation. Please reassess for continued recovery from pneumonia. Set up for influenza and pneumonia vaccine. Follow-up with pulmonology. Reassess for resolution of rash on the buttocks and back, keep dry, apply barrier cream, refer to wound care if worsening. Follow-up for resolution of superficial thrombophlebitis in the right antecubital fossa. Reassess blood counts after thrombocytopenia. Continue mobilization and encourage work with therapy. Physical Exam Narrative: Globally weak. Const: COMMON NORMALS: patient oriented x3 and alert GENERAL APPEARANCE: patient mechanically ventilated; not cooperative ORIENTATION/CONSCIOUSNESS: Yes awake HENMT: COMMON NORMALS: oropharynx normal OTHER: Neck/C-Spine: COMMON NORMALS: no JVD Resp: COMMON NORMALS: normal respiratory effort EFFORT & INSPECTION: Yes tachypneic AUSCULTATION: crackles, rales bilateral at the base, rhonchi and wheezes OTHER: Minimal wheeze in left lower lung. Otherwise clear. Cardio: COMMON NORMALS: no JVD, regular rhythm, S1 normal heart sound present, S2 normal heart sound present and No murmurs present (Cardio) RHYTHM: regular rhythm HEART SOUNDS: S1 normal heart sound present and S2 normal heart sound present GI: COMMON NORMALS: Normal to inspection, nondistended, normoactive bowel sounds present and Soft to palpation PALPATION: Yes Soft to palpation Extremity: COMMON NORMALS: no joint enlargement and no pedal edema OTHER: Edema of hands, feet resolved Neuro: COMMON NORMALS: patient oriented x3 and moves all extremities SENSORIUM/ORIENTATION: Yes alert Skin: COMMON NORMALS: no rashes or lesions noted GENERAL SKIN EXAM: no rashes or lesions noted Urinary Catheter Management: Holguin: Cath Placed During This Visit: yes, but has since been removed by the nurse Reason for Continuing Indwelling Catheter: Accurate Measurement of Urinary Output in Critically Ill Patients Urinary Catheter Date of Insertion: 05/14/22 Urinary Catheter Time of Insertion: 11:30 Date Urinary Catheter Removed: 05/14/22 Time Urinary Catheter Discontinued: 11:30 Discharge Data Studies Completed and Pending Completed Studies During Hospitalization Category Date Time Status CT abdomen pelvis wo con [id number] Routine Cat Scan 05/15/22 07:[address] abdomen renal stone [CT kidney stone 49082] Routine Cat Scan 05/22/22 14:[address] head wo con* [id number] Routine Cat Scan 05/10/22 15:54 Completed CTA chest [CT angio chest PE protcl [id number]] Routine Cat Scan 05/11/22 11:28 Completed CTA chest [CT angio chest PE protcl [id number]] Stat Cat Scan 05/04/22 12:39 Completed CXRP [XR chest 1V portable 78530] Routine Exams 05/15/22 04:00 Completed CXRP [XR chest 1V portable [id number]] Stat Exams 05/04/22 13:45 Completed XR ankle RT 2V 94258 Stat Exams 05/16/22 09:24 Completed XR chest 1V portable 15252 QAM Exams 05/06/22 06:00 Completed XR chest 1V portable 58089 QAM Exams 05/07/22 06:00 Completed XR chest 1V portable [id number] QAM Exams 05/08/22 06:00 Completed XR chest 1V portable 53959 Routine Exams 05/09/22 10:23 Completed XR chest 1V portable [id number] Routine Exams 05/10/22 05:58 Completed XR chest 1V portable 69133 Routine Exams 05/11/22 07:45 Completed XR chest 1V portable 95027 Routine Exams 05/12/22 07:00 Completed XR chest 1V portable 32126 Routine Exams 05/13/22 08:26 Completed XR chest 1V portable [id number] Routine Exams 05/14/22 10:10 Completed XR chest 1V portable [id number] Stat Exams 05/04/22 08:09 Completed XR chest 1V portable 82152 Stat Exams 05/05/22 06:54 [place] [id number] Routine Ultrasound 05/08/22 16:59 [place] [id number] Routine Ultrasound 05/14/22 17:43 [place] [address] Routine Ultrasound 05/08/22 16:59 [place] [address] Routine Ultrasound 05/15/22 18:01 Completed US echo complete [CV. echo complete* 12317] Stat Ultrasound 05/04/22 13:55 Completed US renal BI with PV bladder Routine Ultrasound 05/21/22 11:17 Completed Radiology Impressions Head CT 05/10/22 15:54 IMPRESSION: 1. No acute intracranial hemorrhage or edema. 2. No atrophy or ischemia. Chest CTA 05/11/22 11:28 IMPRESSION: 1. The study is limited by patient respiratory motion artifact. This limits visualization of the small peripheral pulmonary arterial branches. 2. No evidence of pulmonary embolism, within the technical limits of the examination. 3. There are areas of cystic bronchiectasis demonstrated in both lungs, particularly in the right upper lobe. 4. Nonspecific diffuse airspace infiltrates are seen throughout both lungs. This may represent bilateral pneumonia versus pulmonary edema. 5. Pneumomediastinum is present. 6. There is an endotracheal tube present, with distal tip 4 cm above the karen. 7. There is an enteric tube present with distal portion in the stomach. Chest X-Ray 05/15/22 04:00 IMPRESSION: 1. Right internal jugular central venous access device with tip in the low right atrium or right ventricle. 2. A left subclavian pacer is seen. The leads appear coiled over the left upper lobe. This appears inappropriately positioned. Correlate clinically. 3. There are patchy hazy opacities in the mid to upper chest bilaterally that are worsened and may reflect pneumonia. ADDENDUM: 05/15/22947 Findings discussed with Evelina Thayer RN at 05/15/2022 9:45 AM AWNING ERECTOR. Ankle X-Ray 05/16/22 09:24 Impression: Negative right ankle. Renal Ultrasound 05/21/22 11:17 Impression: 1. Negative bilateral renal ultrasound. 2. Post void residual 282 mL. Abdomen/Pelvis CT 05/22/22 14:32 IMPRESSION: 1. Negative for acute inflammatory process in the abdomen or pelvis. 2. Minimal patchy bibasilar atelectasis versus infiltrate given some ground-glass airspace opacities. 3. Cholecystectomy. 4. Bilateral punctate nonobstructing renal calyceal stones. 5. Constipation. 6. Mild hepatic steatosis. Laboratory Results WBC 13.7 10^3/uL (4.0-10.0) H 05/24/22 03:57 Corrected WBC Cancelled 05/20/22 04:34 RBC 3.90 10^6/uL (4.1-5.3) L 05/24/22 03:57 Hgb 11.9 g/dL (11.5-15.3) 05/24/22 03:57 Hct 37.2 % (37.0-47.0) 05/24/22 03:57 MCV 95.4 fl (81-99) 05/24/22 03:57 MCH 30.5 pg (28.0-34.0) 05/24/22 03:57 MCHC 32.0 g/dL (30.0-36.0) 05/24/22 03:57 RDW 15.1 % (12.1-15.1) 05/24/22 03:57 Plt Count 95 10^3/cmm (130-400) L D 05/24/22 03:57 MPV 13.5 fL (7.4-10.4) H 05/24/22 03:57 Gran % Cancelled 05/20/22 04:34 Neut % (Auto) 70.0 % 05/24/22 03:57 Lymph % (Auto) 22.0 % 05/24/22 03:57 [place] % (Auto) 6.1 % 05/24/22 03:57 Eos % (Auto) 0.7 % 05/24/22 03:57 Baso % (Auto) 0.3 % 05/24/22 03:57 Neut # (Auto) 9.55 10^3/uL (1.8-7.7) H 05/24/22 03:57 Lymph # (Auto) 3.0 10^3/uL (0.8-4.8) 05/24/22 03:57 [place] # (Auto) 0.8 10^3/uL (0.2-0.9) 05/24/22 03:57 Eos # (Auto) 0.1 10^3/uL (0.0-0.8) 05/24/22 03:57 Baso # (Auto) 0.0 10^3/uL (0.0-0.1) 05/24/22 03:57 Absolute Gran (auto) Cancelled 05/20/22 04:34 Nucleated RBC % (auto) 0 % 05/24/22 03:57 Total Counted 100 (0-100) 05/10/22 02:42 Atypical Lymphs % 1.0 % (0-5) 05/10/22 02:42 Absolute Neutrophils 9.0 10^3/cmm (1.4-6.5) H 05/10/22 02:42 Segmented Neutrophils 81 % 05/10/22 02:42 Abs Segm Neuts (Man) 8.9 10/cmm (1.6-7.1) H 05/10/22 02:42 Band Neutrophils 1.0 % 05/10/22 02:42 Abs Band Neuts (Man) 0.1 10^3/cmm (0.0-1.2) 05/10/22 02:42 Absolute Lymphocytes 1.0 10^3/cmm (1.2-3.4) L 05/10/22 02:42 Lymphocytes (Manual) 8 % 05/10/22 02:42 Monocytes (Manual) 7.0 % 05/10/22 02:42 Absolute Monocytes 0.8 10^3/cmm (0.1-0.6) H 05/10/22 02:42 Eosinophils (Manual) 2 % 05/10/22 02:42 Absolute Eosinophils 0.2 10^3/cmm (0.0-0.7) 05/10/22 02:42 Basophils (Manual) 0.0 % 05/10/22 02:42 Absolute Basophils 0.0 10^3/cmm (0.0-0.2) 05/10/22 02:42 Metamyelocytes 1.0 % 05/05/22 04:30 Myelocytes 1.0 % 05/05/22 04:30 Nucleated RBCs # 0.0 /100WBC 05/24/22 03:57 Platelet Estimate Normal (Normal) 05/10/22 02:42 Poikilocytosis Trace 05/05/22 04:30 Anisocytosis 1+ H 05/10/22 02:42 Ovalocytes 1+ H 05/10/22 02:42 Timbo Cells 1+ H 05/10/22 02:42 Haptoglobin 202.0 mg/L (30-200) H 05/09/22 16:57 PT 14.70 SECONDS (12.1-14.9) 05/08/22 17:34 INR 1.11 (0.8-1.2) 05/08/22 17:34 APTT 23.2 SECONDS (23.9-36.7) L 05/08/22 17:34 Fibrinogen 517 mg/dL (174-498) H 05/08/22 17:34 Fibrin Degrad Products Pos, 10-40 ug/mL (NEG) H 05/08/22 17:34 D-Dimer 3.03 ug/mIFEU (0-0.59) H 05/08/22 17:34 Specimen Type Arterial 05/15/22 05:10 Sample Site Radial, left 05/15/22 05:10 ABG pH 7.49 (7.35-7.45) H 05/15/22 05:10 ABG pCO2 31.5 mmHg (35-45) L 05/15/22 05:10 ABG pO2 73.3 mmHg (80.0-100.0) L 05/15/22 05:10 ABG HCO3 23.9 mmol/L (22-26) 05/15/22 05:10 ABG O2 Saturation 96.3 05/15/22 05:10 ABG Base Excess 1.2 mmol/L (-2.0-2.0) 05/15/22 05:10 Cory Test Pos 05/15/22 05:10 A-a O2 Gradient 17.6 mmHg (5-10) H 05/15/22 05:10 Hematocrit 43.2 % (37-47) 05/15/22 05:10 Hgb O2 Saturation 94.5 % (95-100) L 05/15/22 05:10 Carboxyhemoglobin 1.0 %THgb (0.4-20.1) 05/15/22 05:10 Methemoglobin 0.9 % (0.4-1.5) 05/15/22 05:10 Total Hemoglobin 14.1 g/dL (12-16) 05/15/22 05:10 Sodium 139.0 mmol/L (131-143) 05/15/22 05:10 Potassium 4.5 mmol/L (3.5-5.0) 05/15/22 05:10 Glucose 148.0 mg/dL (70-115) H 05/15/22 05:10 Ionized Calcium 1.2 mmol/L (1.1-1.4) 05/15/22 05:10 O2 Delivery Device Vent 05/15/22 05:10 FiO2 35.0 % 05/15/22 05:10 Tidal Volume 0.40 05/15/22 05:10 PEEP 8.0 cmH20 05/15/22 05:10 [place] Supervisor ID [email or web address] 05/15/22 05:10 Sodium 139 mmol/L (136-145) 05/24/22 03:57 Potassium 3.3 mmol/L (3.5-5.1) L 05/24/22 03:57 Chloride 108 mmol/L (98-107) H 05/24/22 03:57 Carbon Dioxide 21 mmol/L (22-29) L 05/24/22 03:57 Anion Gap 13.3 (5-19) 05/24/22 03:57 BUN 18 mg/dL (6-20) 05/24/22 03:57 Creatinine 0.2 mg/dL (0.5-0.9) L 05/24/22 03:57 GFR Calculation 406.6 mL/min (90-130) H 05/24/22 03:57 Glucose 79 mg/dL (65-115) 05/24/22 03:57 POC Glucose 115 mg/dL (70-110) H 05/17/22 11:54 Estimat Average Glucose 94 05/05/22 04:30 Hemoglobin A1c 4.9 % (4.0-6.0) 05/05/22 04:30 Calculated Osmolality 289 mOsm/kg (285-295) 05/24/22 03:57 Lactic Acid 2.1 mmol/L (0.5-2.2) 05/05/22 10:03 Lactic Acid (Sepsis) 2.1 mmol/L (0.5-2.2) 05/05/22 13:24 Calcium 8.9 mg/dL (8.5-10.5) 05/24/22 03:57 Phosphorus 2.9 mg/dL (2.5-4.5) 05/04/22 16:53 Magnesium 1.2 mg/dL (1.7-2.3) L 05/04/22 16:53 Iron 6 ug/dL (37-145) L 05/04/22 08:40 TIBC 247 mcg/dl 05/04/22 08:40 % Saturation 2.4 % (20-50) L 05/04/22 08:40 Unsat Iron Binding 241 ug/dL (112-347) 05/04/22 08:40 Total Bilirubin 0.6 mg/dL (0.15-1.2) 05/24/22 03:57 AST 20 U/L (0-32) 05/24/22 03:57 ALT 50 U/L (0-33) H 05/24/22 03:57 Alkaline Phosphatase 76 U/L (35-105) 05/24/22 03:57 Lactate Dehydrogenase 457 U/L (135-214) H 05/09/22 16:57 Creatine Kinase 107 U/L (26-192) 05/05/22 10:03 C-Reactive Protein 300.0 mg/L (0.0-4.9) H 05/04/22 08:40 NT-Pro-B Natriuret Pep 1252 pg/mL (0-125) H 05/04/22 08:40 Total Protein 6.1 g/dL (6.6-8.7) L 05/24/22 03:57 Albumin 3.3 g/dL (3.5-5.2) L 05/24/22 03:57 Globulin 2.8 g/dL (1.3-4.6) 05/24/22 03:57 Triglycerides 377 mg/dL (0-150) H 05/09/22 02:30 Cholesterol 86 mg/dL (0-200) 05/05/22 04:30 LDL Cholesterol, Calc 1 mg/dL (50-129) L 05/05/22 04:30 Total VLDL Cholesterol 70 mg/dL (0-30) H 05/05/22 04:30 HDL Cholesterol 15 mg/dL (60-100) L 05/05/22 04:30 Cholesterol/HDL Ratio 5.73 mg/dL (0.0-4.40) H 05/05/22 04:30 Vitamin B12 847 pg/mL (232-1245) 05/04/22 08:40 Folate 7.7 ng/mL (4.8-37.3) 05/04/22 16:53 Procalcitonin 0.33 ng/mL (0-0.5) 05/11/22 04:40 TSH 0.10 uIU/mL (0.27-4.20) L 05/04/22 08:40 Free T4 1.11 ng/dL (0.82-1.77) 05/04/22 16:53 Free T3 2.3 PG/ML (2.0-4.4) 05/04/22 16:53 HCG, Qual Negative (Negative) 05/04/22 16:53 Urine Color Yellow (Yellow) 05/21/22 15:50 Urine Appearance Clear (CLEAR) 05/21/22 15:50 Urine pH 6 (5-7) 05/21/22 15:50 Ur Specific [place] 1.025 (1.005-1.030) 05/21/22 15:50 Urine Protein Neg (Negative) 05/21/22 15:50 Urine Glucose (UA) Norm (Normal) 05/21/22 15:50 Urine Ketones 1+ (Negative) H 05/21/22 15:50 Urine Blood 2+ (Negative) H 05/21/22 15:50 Urine Nitrate Negative (Negative) 05/21/22 15:50 Urine Bilirubin Neg (Negative) 05/21/22 15:50 Urine Urobilinogen Norm mg/dL (Negative) 05/21/22 15:50 Ur Leukocyte Esterase Negative (Negative) 05/21/22 15:50 Urine RBC 0-4 /hpf (0-2) H 05/21/22 15:50 Urine WBC 0-4 /hpf (0-5) H 05/21/22 15:50 Ur Squamous Epith Cells 0-4 /hpf (0-5) H 05/21/22 15:50 Amorphous Sediment Not Reportable 05/21/22 15:50 Urine Bacteria 1+ /hpf (NONE) H 05/21/22 15:50 Coarse Granular Casts 10-15 /lpf H 05/04/22 15:05 Urine Mucus 1+ /hpf 05/21/22 15:50 Ur Random Sodium 10 mmol/L 05/04/22 22:49 Ur Random Potassium 13 mmol/L 05/04/22 22:49 Ur Random Chloride 10 mmol/L 05/04/22 22:49 Urine Creatinine 217 mg/dL (28-217) 05/04/22 15:05 Nasal Influ A H1 2009 PCR Detected (NOT DETECT) A 05/04/22 11:47 Vancomycin Trough 12.8 ug/mL (10-15) 05/08/22 14:55 Urine Opiates Screen Positive ng/mL (Negative) H 05/04/22 22:49 Ur Barbiturates Screen Negative ng/mL (Negative) 05/04/22 22:49 Ur Phencyclidine Scrn Negative ng/mL (Negative) 05/04/22 22:49 Ur Amphetamines Screen Negative ng/mL (Negative) 05/04/22 22:49 U Benzodiazepines Scrn Negative ng/mL (Negative) 05/04/22 22:49 Urine Cocaine Screen Negative ng/mL (Negative) 05/04/22 22:49 U Marijuana (THC) Screen Negative ng/mL (Negative) 05/04/22 22:49 Coronavirus 229E (PCR) Not detected (NOT DETECT) 05/04/22 08:49 U Histop Galact Ag Qnt <0.2 ng/mL 05/12/22 02:00 Human Metapneumovir PCR Not detected (NOT DETECT) 05/04/22 11:47 Influenza A (H1) PCR Not detected (NOT DETECT) 05/04/22 11:47 Influenza A (H3) PCR Not detected (NOT DETECT) 05/04/22 11:47 Influenza Type A (PCR) Detected (NOT DETECT) A 05/04/22 11:47 Influenza Type B (PCR) Not detected (NOT DETECT) 05/04/22 11:47 Pneumocystis Source Cancelled 05/11/22 10:55 Pneumocystis Source Bal 05/11/22 10:55 Pneumocyst jirovecii PCR Cancelled 05/11/22 10:55 Pneumocyst jirovecii PCR Not detected 05/11/22 10:55 Aspergillus Source Cancelled 05/11/22 10:55 Aspergillus Source Bal 05/11/22 10:55 Aspergillus Ag (EIA) Cancelled 05/11/22 10:55 Aspergillus sp (PCR) Cancelled 05/11/22 10:55 Aspergillus Ag (EIA) Not detected 05/11/22 10:55 Aspergillus sp (PCR) Not detected 05/11/22 10:55 A. fumigatus (PCR) Cancelled 05/11/22 10:55 A. fumigatus (PCR) Not detected 05/11/22 10:55 A. galactomannan Ag EIA Not detected 05/11/22 12:00 A. galactomannan Ag Idx <0.50 05/11/22 12:00 A. terreus (PCR) Cancelled 05/11/22 10:55 A. terreus (PCR) Not detected 05/11/22 10:55 Entero/Rhino (PCR) Detected (NOT DETECT) A 05/04/22 11:47 SARS-CoV-2 (PCR) Not detected (NOT DETECT) 05/04/22 08:49 Beta-(1,3)-D-Glucan pg/mL 05/11/22 12:00 B-(1,3)-D-Glucan Intrp 05/11/22 12:00 Vitals Last Vital Signs Temp 98.6 F 05/24/22 04:00 Pulse 100 05/24/22 14:56 Resp 18 05/24/22 14:56 BP 123/75 05/24/22 14:56 Pulse Ox 96 05/24/22 07:33 O2 Del Method 05/24/22 07:33 O2 Flow Rate 4 05/19/22 20:49 FiO2 30 05/15/22 08:00 Discharge Plan Discharge Patient Disposition: Xfer Inpatient Rehab Fac Condition: Stable Prescriptions: New prednisone 20 mg Tablet 20 mg PO DAILY Qty: 6 0RF Rx Instructions: continue 1 tab for 4 days, 1/2 tab for 4 days, then resume usual prednisone dose. Continued albuterol sulfate 90 mcg/actuation HFA aerosol inhaler 2 puff inhalation Q6H PRN (Reason: Shortness Of Breath) pregabalin [Lyrica] 150 mg capsule 150 mg PO TID Latuda 20 mg tablet 20 mg PO DAILY Rx Instructions: must administer with food (at least 350 calories) ondansetron 4 mg tablet,disintegrating 4 mg PO Q8H PRN (Reason: nausea and vomiting) Qty: 20 0RF fluticasone propion-salmeterol [Advair Diskus] 250-50 mcg/dose blister with device 1 inh inhalation BID Qty: 60 0RF cetirizine [Zyrtec] 10 mg tablet 10 mg PO DAILY PRN (Reason: Allergy Symptoms) fluticasone propionate 50 mcg/actuation spray,suspension 1 spray intranasal DAILY Rx Instructions: administer into each nostril montelukast [Singulair] 10 mg tablet 10 mg PO DAILY guaifenesin 600 mg tablet extended release 12hr 600 mg PO BID Qty: 30 0RF omeprazole 40 mg capsule,delayed release(DR/EC) 40 mg PO DAILY Qty: 30 3RF leflunomide 10 mg tablet 10 mg PO DAILY Qty: 90 0RF prednisone 5 mg tablet 5 mg PO DAILY Qty: 90 1RF Discontinued sulfamethoxazole-trimethoprim [Bactrim DS] 800-160 mg tablet 1 tab PO BID Qty: 10 0RF hydroxychloroquine 200 mg tablet See Rx Instructions .ROUTE .COMPLEX Qty: 60 3RF Dose Instruction: TAKE ONE TABLET BY MOUTH TWICE DAILY Rx Instructions: TAKE ONE TABLET BY MOUTH TWICE DAILY ibuprofen 600 mg tablet 600 mg PO TID PRN (Reason: pain) Qty: 10 0RF amitriptyline 50 mg tablet 50 mg PO DAILY oseltamivir [Tamiflu] 75 mg Capsule 75 mg PO BID Discharge Orders: Discharge Order (Routine); Ordered 05/24/22 Ordered By: Malachi Rabago Other Ambulatory Orders: DME: Miscellaneous (Order) Location: None Selected Ordered By: Malachi Rabago Referrals: Archie Singh MD [Physician] - 2 weeks Becca Clayton FNP [Primary Care Provider] - 4-7 days Discharge Activity: As per PT/OT instructions Patient Instructions: Opioid Safety Activity Restrictions/Additional Instructions: Reassess for any urine retention or difficulty urinating over the next 3-5 days. If still no success with persistent urinary retention, replace Holguin and please refer to urology for follow-up. Anticholinergic medications de-escalated in the hospital. Ipratropium discontinued. Seroquel dose decreased. She is being resumed on her usual Latuda dose. Wean off and discontinue Seroquel over the next 3-5 days. Please make sure to participate with therapy which will be very important for your recovery. Follow-up with primary provider for reassessment of continued recovery from pneumonia. Follow-up with pulmonology. Continue to de-escalate steroids gradually down to the usual dose of 5 mg prednisone. Continue prophylactic Bactrim 3 times a week while prednisone dose exceeds 20 mg in a day. Follow-up with rheumatology and discuss your hospitalization. Continue to hold hydroxychloroquine and leflunomide for now. Please make sure to obtain flu vaccination and confirm that you are up-to-date with pneumonia vaccine. Reassess platelet counts and 3-5 days for assessment of thrombocytopenia, follow-up with primary provider. For herpes labialis, can consider valtrex suppression as outpatient if >3-4 episodes per year. Reassess for resolution of rash on the buttocks, back, continue mobilization. Keep dry. Barrier cream. Refer to wound care if worsening. Follow-up with primary doctor for reassessment of superficial thrombophlebitis in right antecubital fossa. Follow-up for reassessment of greater weakness in right upper extremity compared to the left with slower progress with therapy. Continue work with therapy. Follow-up with your primary provider before resuming amitriptyline. 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
== END 2022-05-24 14:58 | DRG 870 ==
LOC: ER 14:04 → ICU 14:09 → CSU 05-17 16:14
PROVIDERS: Internal Medicine Pulmonary Disease; Admitting Provider Student in an Organized Health Care Education/Training Program; Emergency Provider Family Medicine; PCP Nurse Practitioner Family; Visit Provider Internal Medicine
DX: A41.9 Sepsis, unspecified organism (principal); G93.41 Metabolic encephalopathy; J10.00 Influenza due to other identified influenza virus with unspecified type of pneumonia; R65.21 Severe sepsis with septic shock; J96.02 Acute respiratory failure with hypercapnia; J96.01 Acute respiratory failure with hypoxia; I50.31 Acute diastolic (congestive) heart failure; B37.0 Candidal stomatitis; E87.20 Acidosis, unspecified; J45.901 Unspecified asthma with (acute) exacerbation; F05 Delirium due to known physiological condition; R33.9 Retention of urine, unspecified; J98.2 Interstitial emphysema; B00.1 Herpesviral vesicular dermatitis; B97.10 Unspecified enterovirus as the cause of diseases classified elsewhere; I80.8 Phlebitis and thrombophlebitis of other sites; I11.0 Hypertensive heart disease with heart failure; R76.0 Raised antibody titer; Z79.52 Long term (current) use of systemic steroids; R21 Rash and other nonspecific skin eruption; E05.10 Thyrotoxicosis with toxic single thyroid nodule without thyrotoxic crisis or storm; I95.9 Hypotension, unspecified; J47.9 Bronchiectasis, uncomplicated; K59.00 Constipation, unspecified; Z79.51 Long term (current) use of inhaled steroids; M06.4 Inflammatory polyarthropathy; E66.01 Morbid (severe) obesity due to excess calories; Z68.36 Body mass index [BMI] 36.0-36.9, adult; M25.571 Pain in right ankle and joints of right foot; N20.0 Calculus of kidney
CPT/HCPCS: 31500; 31622; 36415; 36416; 36556; 36592; 36600; 51702; 51798; 70450; 71045; 71275; 73600; 74176; 76770; 76857; 80051; 80053; 80061; 80202; 80306; 80503; 81001; 82330; 82436; 82550; 82570; 82607; 82746; 82803; 82805; 82962; 83010; 83036; 83540; 83550; 83605; 83615; 83735; 83880; 84100; 84132; 84133; 84145; 84300; 84439; 84443; 84478; 84481; 84703; 85007; 85025; 85362; 85378; 85384; 85610; 85730; 86140; 86403; 86606; 87040; 87070; 87086; 87106; 87205; 87305; 87385; 87449; 87493; 87631; 87635; 87641; 87798; 87801; 92523; 92526; 92610; 93005; 93306; 93970; 94002; 94003; 94640; 94664; 94799; 96365; 96366; 96367; 96368; 96372; 97110; 97161; 97164; 97167; 97530; 97535; 99291; A4570; C9113; J0133; J0330; J0360; J0456; J0692; J0696; J1170; J1644; J1720; J1940; J1956; J2020; J2185; J2248; J2250; J2270; J2543; J2704; J2920; J2930; J3010; J3370; J3475; J3480; J3490; J7030; J7050; J7060; J7070; J7512; J7613; J7614; J7626; J7644; L3924; P9047; Q9967

== ENCOUNTER 2022-07-02 19:12 | Emergency (ER) | payer MEDICAID, SELFPAY ==
[2022-07-02] VITALS (9 sets, daily range): BP systolic 137–150; BP diastolic 83–120; PULSE 93–109; RESP 18–26; TEMP 36.7; O2SAT 95–98; BMI 38.9
--- NOTE | 2022-07-02 20:00 | XRR_ITS ---
PROCEDURE INFORMATION: Exam: XR Chest Exam date and time: 07/02/2022 9:09 PM Age: 32 years old Clinical indication: Cough and shortness of breath; Prior surgery; Surgery type: Pacer. Gb; Patient HX: C/O cough with SOB and congestion; Additional info: Resp failiure 1m ago on vent, return SOA TECHNIQUE: Imaging protocol: Radiologic exam of the chest. Views: 2 views. COMPARISON: CR XR chest 1V portable [id number] 05/15/2022 5:10 AM FINDINGS: Tubes, catheters and devices: Electronic device on the left is unchanged and suggestive of vagal nerve stimulator. Lungs: Unremarkable. No consolidation. Pleural spaces: Unremarkable. No pleural effusion. No pneumothorax. Heart/Mediastinum: Unremarkable. No cardiomegaly. Bones/joints: No acute findings. XR/XR chest 2V* [id number] IMPRESSION: No acute findings.
--- NOTE | 2022-07-02 20:17 | W.ED.SOB ---
HPI - SOB/Dyspnea General: Chief Complaint: Shortness of Breath/Dyspnea Stated Complaint: SOB, Congestion Time Seen by Provider: 07/02/22 19:48 History of Present Illness: HPI Narrative: Patient presents to the emergency department tonight accompanied by her for evaluation treatment of acute worsening of dyspnea and increased effort of respiration. Patient has chronic lung issues however, approximately 1 month ago she was hospitalized for respiratory failure secondary to what appeared to be influenza. Patient developed pneumonia and had to be on a ventilator. Patient was on multiple medications as it appeared she had various reactions to antibiotics and, as blood cultures did not have growth, they began covering her for both viral causes and fungal causes. Patient was finally discharged on 05/24 to a rehab facility before returning home. Patient was discharged out on prednisone and Bactrim. Patient states she was doing better until a little over a week ago when she started having some return of shortness of breath. Her primary care doctor treated her for an asthma flareup with prednisone. Patient did not have significant improvement of her symptoms and continued to worsen. She states last night she developed significant nasal congestion and throughout today has had worsening dyspnea. Patient states she had to relearn how to walk after being on the ventilator however, she notices becoming excessively dyspneic on exertion. She has not recorded any fevers at home. No other similarly ill. Patient complains of a left shoulder pain and a retrosternal discomfort when she breathes. Patient had both clot and cardiac evaluation when she was in the hospital which were negative. Patient states she took her albuterol inhaler approximately 2 hours prior to arrival. 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 High risk medication use Immunization counseling Inflammatory arthritis Inflammatory back pain Positive KATHLEEN (antinuclear antibody) Seizure disorder Thyroid mass Undifferentiated connective tissue disease Surgical History History of carpal tunnel release of both wrists History of cholecystectomy History of hysterectomy with bilateral oophorectomy History of tonsillectomy History of tubal ligation Hx of hysterectomy Family History Family/Other Cancer Father CAD (coronary artery disease) Other Chronic kidney disease (CKD) Diabetes Family history of premature coronary artery disease Lupus Rheumatoid arthritis Stroke Denies family history of Hyperlipidemia Anesthesia complication Bleeding disorder Lung disease Hypertension Social History Smoking and tobacco status: never smoked Second hand smoke exposure: No Alcohol intake: never Lives independently: Yes Household members: spouse and children Marital status: Current occupational status: disabled History of recent travel: No Current gender identity: Female Special dipti needs: No Agree to transfusion: Yes Physical Exam Const: COMMON NORMALS: patient oriented x3 and alert; apparent distress (ill appearing) HENMT: OTHER: No significant active rhinorrhea present on initial examination. Mucous membranes are moist. No signs of facial, lip, or tongue swelling. Eye: COMMON NORMALS: Equal, round and reactive pupils present, EOMs intact bilaterally and conjunctivae normal CONJUNCTIVA: Yes conjunctivae normal PUPIL: Yes Equal, round and reactive pupils present Neck/C-Spine: COMMON NORMALS: no JVD Lymph: LYMPHATIC: no lymphadenopathy noted Resp: COMMON NORMALS: negative for normal respiratory effort, negative for No retractions and negative for No use of accessory muscles EFFORT & INSPECTION: Yes able to speak in complete sentences, Yes labored, No grunting, Yes Actively coughing (Occasional), Yes retractions and No audible wheezes Cardio: COMMON NORMALS: no JVD and regular rate RATE: regular rate : COMMON NORMALS: Yes no CVA tenderness BLADDER/KIDNEY EXAM: Yes no CVA tenderness Back/Pelvis: COMMON NORMALS: no CVA tenderness, thoracic and lumbar spine normal to inspection and thoraco-lumbar ROM normal Extremity: COMMON NORMALS: normal to inspection, full ROM and no pedal edema Neuro: COMMON NORMALS: patient oriented x3 SENSORIUM/ORIENTATION: Yes alert Skin: COMMON NORMALS: no rashes or lesions noted and turgor normal GENERAL SKIN EXAM: no rashes or lesions noted and turgor normal Course Vital Signs: Vital signs: Vital Signs Temperature 98.1 F 07/02/22 19:15 Pulse Rate 100 07/02/22 23:22 Respiratory Rate 20 H 07/02/22 23:22 Blood Pressure 146/106 07/02/22 20:53 Pulse Oximetry 98 07/02/22 23:22 Oxygen Delivery Me thod 07/02/22 21:30 MDM - SOB/Dyspnea Medical Decision Making Patient presented to the emergency department with significant worsening of shortness of breath. Patient has chronic lung issues however, within the last few weeks had respiratory failure requiring ventilation assistance. Patient was found to be ill with influenza and pneumonia. Patient had been on multiple antibiotics and had improvement after rehab discharge however, patient noted about a week ago she began having some worsening of her asthma symptoms. Primary care treated with prednisone but, patient acutely worsened over the last 24 hours. Patient's lab work is otherwise unremarkable. Venous blood gases do not indicate any signs of acute concern. Patient recently had evaluation of her heart as well as a scan of her chest which showed no acute concerns at that time. Chest x-ray was negative for any signs of return of any type of infiltrate. Patient reports some improvement with the nebulizer and the Solu-Medrol and we will again start her on at home steroids. She indicates Medrol Dosepaks do not help her. Patient was requesting medication to help with her left upper lung pain. We provided her a dose of muscle relaxer here but, I did send her Tessalon Perles home-not only to help with cough but also in hopes that it can provide its analgesic effect of the chest wall. Patient needs to follow-up with primary care but she is requesting a new primary care doctor. A referral request for PCP was initiated from her visit today. was asking about signs and symptoms of which to watch for at home. Went over signs and symptoms of respiratory distress and I encouraged him to get an at-home pulse ox reader. Return precautions were discussed. Differential Diagnosis Likely acute exacerbation of chronic obstructive airways disease, community acquired pneumonia and asthma with exacerbation; Unlikely congestive heart failure or pulmonary embolism Lab Data 07/02/22 20:15 07/02/22 20:15 Labs/Radiology: Radiology Impressions Chest X-Ray 07/02/22 20:00 IMPRESSION: No acute findings. Laboratory Results WBC 13.1 10^3/uL (4.0-10.0) H 07/02/22 20:15 RBC 4.15 10^6/uL (4.1-5.3) 07/02/22 20:15 Hgb 12.4 g/dL (11.5-15.3) 07/02/22 20:15 Hct 38.1 % (37.0-47.0) 07/02/22 20:15 MCV 91.8 fl (81-99) 07/02/22 20:15 MCH 29.9 pg (28.0-34.0) 07/02/22 20:15 MCHC 32.5 g/dL (30.0-36.0) 07/02/22 20:15 RDW 13.8 % (12.1-15.1) 07/02/22 20:15 Plt Count 255 10^3/cmm (130-400) 07/02/22 20:15 MPV 12.7 fL (7.4-10.4) H 07/02/22 20:15 Neut % (Auto) 66.1 % 07/02/22 20:15 Lymph % (Auto) 22.5 % 07/02/22 20:15 [place] % (Auto) 8.7 % 07/02/22 20:15 Eos % (Auto) 1.4 % 07/02/22 20:15 Baso % (Auto) 0.8 % 07/02/22 20:15 Neut # (Auto) 8.64 10^3/uL (1.8-7.7) H 07/02/22 20:15 Lymph # (Auto) 2.9 10^3/uL (0.8-4.8) 07/02/22 20:15 [place] # (Auto) 1.1 10^3/uL (0.2-0.9) H 07/02/22 20:15 Eos # (Auto) 0.2 10^3/uL (0.0-0.8) 07/02/22 20:15 Baso # (Auto) 0.1 10^3/uL (0.0-0.1) 07/02/22 20:15 Nucleated RBC % (auto) 0 % 07/02/22 20:15 Nucleated RBCs # 0.0 /100WBC 07/02/22 20:15 Specimen Type Venous 07/02/22 20:50 Cory Test N/a 07/02/22 20:50 VBG pH 7.44 (7.32-7.42) H 07/02/22 20:50 VBG pCO2 42.5 mmHg (41-51) 07/02/22 20:50 VBG pO2 32.0 mmHg (25-40) 07/02/22 20:50 VBG HCO3 28.7 mmol/L (24-28) H 07/02/22 20:50 VBG Base Excess 4.2 mmol/L (-3.0-3.0) H 07/02/22 20:50 VBG Hematocrit 12.3 % (37-47) L 07/02/22 20:50 Health Support Specialist ID Didier 07/02/22 20:50 Sodium 145 mmol/L (136-145) 07/02/22 20:15 Potassium 3.1 mmol/L (3.5-5.1) L 07/02/22 20:15 Chloride 109 mmol/L (98-107) H 07/02/22 20:15 Carbon Dioxide 23 mmol/L (22-29) 07/02/22 20:15 Anion Gap 16.1 (5-19) 07/02/22 20:15 BUN 6 mg/dL (6-20) 07/02/22 20:15 Creatinine 0.5 mg/dL (0.5-0.9) 07/02/22 20:15 GFR Calculation 141.2 mL/min (90-130) H 07/02/22 20:15 Glucose 87 mg/dL (65-115) 07/02/22 20:15 Calculated Osmolality 297 mOsm/kg (285-295) H 07/02/22 20:15 Calcium 9.0 mg/dL (8.5-10.5) 07/02/22 20:15 Total Bilirubin 0.2 mg/dL (0.15-1.2) 07/02/22 20:15 AST 25 U/L (0-32) 07/02/22 20:15 ALT 35 U/L (0-33) H 07/02/22 20:15 Alkaline Phosphatase 77 U/L (35-105) 07/02/22 20:15 Total Protein 6.5 g/dL (6.6-8.7) L 07/02/22 20:15 Albumin 3.8 g/dL (3.5-5.2) 07/02/22 20:15 Globulin 2.7 g/dL (1.3-4.6) 07/02/22 20:15 Urine Color Yellow (Yellow) 07/02/22 21:00 Urine Appearance Clear (CLEAR) 07/02/22 21:00 Urine pH 6.5 (5-7) 07/02/22 21:00 Ur Specific [place] 1.015 (1.005-1.030) 07/02/22 21:00 Urine Protein Not Reportable 07/02/22 21:00 Urine Glucose (UA) Not Reportable 07/02/22 21:00 Urine Ketones Not Reportable 07/02/22 21:00 Urine Blood Not Reportable 07/02/22 21:00 Urine Nitrate Not Reportable 07/02/22 21:00 Urine Bilirubin Not Reportable 07/02/22 21:00 Urine Urobilinogen Not Reportable 07/02/22 21:00 Ur Leukocyte Esterase Trace (Negative) H 07/02/22 21:00 Urine RBC Not Reportable 07/02/22 21:00 Urine WBC 5-10 /hpf (0-5) H 07/02/22 21:00 Ur Squamous Epith Cells 0-4 /hpf (0-5) H 07/02/22 21:00 Amorphous Sediment Not Reportable 07/02/22 21:00 Urine Bacteria 1+ /hpf (NONE) H 07/02/22 21:00 Influenza Type A Ag negative (Negative) 07/02/22 20:15 Influenza Type B Ag negative (Negative) 07/02/22 20:15 SARS-CoV-2 Ag (Rapid) negative (Negative) 07/02/22 20:15 Discharge Plan Discharge Patient Disposition: Home Clinical Impression: Asthma with exacerbation Condition: Stable Prescriptions: New prednisone 20 mg tablet 20 mg PO BID 5 Days Qty: 10 0RF benzonatate 100 mg capsule 100 mg PO TID Qty: 30 0RF No Action albuterol sulfate 90 mcg/actuation HFA aerosol inhaler 2 puff inhalation Q6H PRN (Reason: Shortness Of Breath) pregabalin [Lyrica] 150 mg capsule 150 mg PO TID Latuda 20 mg tablet 20 mg PO DAILY Rx Instructions: must administer with food (at least 350 calories) ondansetron 4 mg tablet,disintegrating 4 mg PO Q8H PRN (Reason: nausea and vomiting) Qty: 20 0RF fluticasone propion-salmeterol [Advair Diskus] 250-50 mcg/dose blister with device 1 inh inhalation BID Qty: 60 0RF cetirizine [Zyrtec] 10 mg tablet 10 mg PO DAILY PRN (Reason: Allergy Symptoms) fluticasone propionate 50 mcg/actuation spray,suspension 1 spray intranasal DAILY Rx Instructions: administer into each nostril montelukast [Singulair] 10 mg tablet 10 mg PO DAILY guaifenesin 600 mg tablet extended release 12hr 600 mg PO BID Qty: 30 0RF omeprazole 40 mg capsule,delayed release(DR/EC) 40 mg PO DAILY Qty: 30 3RF leflunomide 10 mg tablet 10 mg PO DAILY Qty: 90 0RF Hold Instructions: Doctor's Order prednisone 5 mg tablet 5 mg PO DAILY Qty: 90 1RF prednisone 20 mg Tablet 20 mg PO DAILY Qty: 6 0RF Rx Instructions: continue 1 tab for 4 days, 1/2 tab for 4 days, then resume usual prednisone dose. Discharge Orders: Discharge ED (Routine); Ordered 07/02/22 Ordered By: Ada Villarreal Referrals: Becca Clayton FNP [Primary Care Provider] - Discharge Diet: Usual diet Discharge Activity: Increase activity as tolerated Patient Instructions: Asthma Exacerbation - Adult, ARDS (Acute Respiratory Distress Syndrome) (DC) Activity Restrictions/Additional Instructions: Lab work today looks good. Chest x-ray shows no signs of any acute return of pneumonia. I have requested a new primary care doctor be established for you and you should be contacted regarding this follow-up. I have given you prescription for continued steroids. Have also given you a prescription for Tessalon Perles. While this medication does help with cough it also has some analgesic effect for the inner chest wall which I hope will give you some pain relief in your upper lung cavity. Continue taking all your medications as prescribed. I have given you an informational handout about acute respiratory distress syndrome for you to have on hand at home for reference should you show signs of any acute worsening in your condition. I also encourage you to buy it at home pulse ox reader for better management of your asthma symptoms. If for any reason you have any concerns you should be seen and reevaluated. Coding Level of Care Code ED Computing Tutor for Josie Araujo
[2022-07-02 20:46] LABS: Hemoglobin 12.4 g/dL (11.5-15.3); Red Blood Count 4.15 10^6/uL (4.1-5.3); White Blood Count 13.1 10^3/uL (4.0-10.0)
[2022-07-02 20:47] LABS: Basophils # 0.1 10^3/uL (0.0-0.1); Basophils % 0.8 %; Eosinophils # 0.2 10^3/uL (0.0-0.8); Eosinophils % 1.4 %; Hematocrit 38.1 % (37.0-47.0); Lymphocytes # 2.9 10^3/uL (0.8-4.8); Lymphocytes % 22.5 %; Mean Corpuscular HGB Conc 32.5 g/dL (30.0-36.0); Mean Corpuscular Hemoglobin 29.9 pg (28.0-34.0); Mean Corpuscular Volume 91.8 fl (81-99); Mean Platelet Volume 12.7 fL (7.4-10.4); Monocytes # 1.1 10^3/uL (0.2-0.9); Monocytes % 8.7 %; Neutrophils # 8.64 10^3/uL (1.8-7.7); Neutrophils % 66.1 %; Nucleated Red Blood Cells % 0 %; Platelet Count 255 10^3/cmm (130-400); Red Cell Distribution Width 13.8 % (12.1-15.1)
[2022-07-02 20:56] LABS: Influenza A by IFA negative (Negative); Influenza B by IFA negative (Negative)
[2022-07-02 20:57] LABS: Alanine Aminotransferase 35 U/L (0-33); Albumin Level 3.8 g/dL (3.5-5.2); Alkaline Phosphatase 77 U/L (35-105); Anion Gap 16.1 (5-19); Aspartate Amino Transferase 25 U/L (0-32); Blood Urea Nitrogen 6 mg/dL (6-20); Carbon Dioxide 23 mmol/L (22-29); Chloride 109 mmol/L (98-107); Globulin 2.7 g/dL (1.3-4.6); Glomerular Filtration Rate 141.2 mL/min (90-130); Glucose 87 mg/dL (65-115); Osmolality Calculated 297 mOsm/kg (285-295); Potassium 3.1 mmol/L (3.5-5.1); Sodium 145 mmol/L (136-145); Total Bilirubin 0.2 mg/dL (0.15-1.2); Total Protein 6.5 g/dL (6.6-8.7)
[2022-07-02 21:07] LABS: Base Excess VBG 4.2 mmol/L (-3.0-3.0); Blood Gas Sample Type Venous; HCO3 VBG 28.7 mmol/L (24-28); PCO2 VBG 42.5 mmHg (41-51); Venous Blood Gas Hematocrit 12.3 % (37-47); pH VBG 7.44 (7.32-7.42)
[2022-07-02 21:20] LABS: Charge for UA Resulting for Rev
[2022-07-02 21:20] LABS: SARS Covid-2 Antigen negative (Negative)
[2022-07-02 21:27] LABS: Urine Appearance Clear (CLEAR); Urine Color Yellow (Yellow)
[2022-07-02 21:28] LABS: Leukocyte Esterase Urine Trace (Negative); Specific Gravity, Urine 1.015 (1.005-1.030); pH Urine 6.5 (5-7)
[2022-07-02 21:29] LABS: Add Urine Microscopic? YES
[2022-07-02 21:33] LABS: Add Urine Culture? Yes; Bacteria Urine 1+ /hpf; Squamous Epithelial Cell Urine 0-4 /hpf (0-5)
[2022-07-02] MEDS: orphenadrine 30 mg/mL Inj 2 mL 60 MG IVP (23:17)
--- NOTE | 2022-07-03 09:47 | DCPLANNER ---
Addendum entered by Sally Rocha 07/19/22 07:38: Patient had a follow up appointment at [facility] - patient did not attend appointment. Original Note: assistant farm operations manager had message to speak with patient about getting established with a primary care physician. assistant farm operations manager spoke with patient about getting established with a provider. assistant farm operations manager called the [facility] clinic, spoke with [facility] patients information. A follow up appointment was scheduled for Sunday, July 10, 2022 at 10:[address] Omalley. assistant farm operations manager gave patient the appointment information.
[2022-07-03 10:54] LABS: Blood Gas Sample Site VENOUS
== END 2022-07-02 23:24 | disposition home or self-care (01) ==
PROVIDERS: Emergency Provider Physician Assistant; PCP Nurse Practitioner Family
DX: J45.901 Unspecified asthma with (acute) exacerbation (principal); Z20.822 Contact with and (suspected) exposure to COVID-19
CPT/HCPCS: 71046; 80053; 81001; 81003; 82803; 85025; 87086; 87426; 87804; 94640; 96374; 96375; 99284; J2360; J2930

== ENCOUNTER → 2022-08-02 10:24 | Outpatient (BNVA) | payer MEDICAID, SELFPAY | PROVIDERS: PCP Nurse Practitioner Family; Visit Provider Nurse Practitioner Family | DX: M25.572 Pain in left ankle and joints of left foot (principal); M79.672 Pain in left foot | CPT/HCPCS: 73600; 73630 ==

== ENCOUNTER 2022-08-27 10:07 | Emergency (ER) | payer MEDICAID, SELFPAY ==
[2022-08-27] VITALS (17 sets, daily range): BP systolic 135–168; BP diastolic 87–116; PULSE 90–106; RESP 16–20; TEMP 36.8; O2SAT 91–100
--- NOTE | 2022-08-27 10:33 | CT_ITS ---
WS: [id number] CT ABDOMEN PELVIS TECHNIQUE: Contrast-enhanced CT of the abdomen and pelvis with coronal and sagittal reformatted image s. CLINICAL INFORMATION: rlq abd pain, n/v COMPARISON: CT May 22, 2022 DLP: 922.[address] scans at [facility] use at least one of these dose optimization techniques: automated e xposure control; mA and/or kV adjustment per patient size (includes targeted exams where dose is matc hed to clinical indication); or iterative reconstruction. FINDINGS: Lung bases are well aerated. Diffuse fatty infiltration liver. Hepatomegaly. Cholecystectomy. Normal spleen. Normal GE junction. Normal pancreatic parenchymal enhancement. Normal caliber abdominal aorta . Celiac and SMA are patent. Normal portal vein and splenic vein. Adrenal glands are normal. Small bi lateral renal cysts. Tiny fat-containing umbilical hernia. Tortuous sigmoid colon. Normal ileocecal valve. Normal appendix in the RIGHT lower quadrant.No evidence of acute appendicitis. CT/CT abdomen pelvis w con* [id number] IMPRESSION: 1. Normal appendix in the RIGHT lower quadrant. No evidence of acute appendici tis. 2. Mild hepatomegaly. Diffuse fatty infiltration liver. 3. No hydronephrosis in either kidney. 4. No other suspicious findings.
[2022-08-27] MEDS: morphine 4 mg/mL SDV 1 mL IVP (10:57)
[2022-08-27] MEDS: ondansetron 2 mg/ML SDV 2 mL 4 MG IVP (10:57)
[2022-08-27] MEDS: sodium chloride 0.9% 1,000 ML 999 ML IV (10:58)
[2022-08-27 11:02] LABS: Basophils # 0.1 10^3/uL (0.0-0.1); Basophils % 0.6 %; Eosinophils # 0.3 10^3/uL (0.0-0.8); Eosinophils % 2.9 %; Hemoglobin 14.1 g/dL (11.5-15.3); Lymphocytes # 0.7 10^3/uL (0.8-4.8); Lymphocytes % 6.6 %; Mean Corpuscular Hemoglobin 28.7 pg (28.0-34.0); Mean Corpuscular Volume 89.4 fl (81-99); Mean Platelet Volume 12.8 fL (7.4-10.4); Monocytes # 0.6 10^3/uL (0.2-0.9); Monocytes % 5.4 %; Neutrophils # 9.26 10^3/uL (1.8-7.7); Neutrophils % 84.1 %; Nucleated Red Blood Cells % 0 %; Platelet Count 259 10^3/cmm (130-400); Red Blood Count 4.92 10^6/uL (4.1-5.3); Red Cell Distribution Width 13.4 % (12.1-15.1)
--- NOTE | 2022-08-27 11:03 | ED_ITS ---
HPI - Abdominal Pain General: Chief Complaint: Abdominal Pain Stated Complaint: n/v/abd pain Time Seen by Provider: 08/27/22 10:12 History of Present Illness: Patient presents to the ER with complaints of abdominal pain x2 days with nausea and vomiting. Patient [place] any urinary tract symptoms or diarrhea. Denies any fever or dark tarry stools. This pain is right lower quadrant constant in nature with intermittent episodes of sharp stabbing this. Patient did have total hysterectomy a few years back. Patient still has her appendix MD elicited complaint: abdominal pain Pertinent past history: none Onset (ago): day(s) (2 days ago worse within 1 day.) Pain Consistency: constant Location: RLQ Severity: moderate Quality: cramping and aching Radiation: none Migration to: no migration Exacerbating factors: nothing Relieving factors: nothing Associated Symptoms: Reports no associated symptoms, diarrhea, nausea and vomiting; Denies chills, dysuria and fever(s) Review of Systems General: Reports: 10 or more systems reviewed and unremarkable except in HPI and below Const: Denies: fever(s) or chills Eyes: Denies: change in vision ENMT: Denies: throat pain or odynophagia Card: Denies: chest pain, palpitations or irregular heart rhythm Resp: Denies: dyspnea, productive cough or non-productive cough GI: Reports: abdominal pain, nausea, vomiting and diarrhea : Denies: flank pain, difficulty voiding or dysuria Musc: Denies: neck pain or back pain Skin/Breast: Denies: rash or pruritus Neuro: Denies: headache(s), numbness in extremities or weakness in extremities Psych: Denies: anxiety or depression Endo: Denies: polyuria, polydipsia or tired all the time PFSH ED PFSH: Medical History Acute sinusitis Allergies Asthma Chronic pain Chronic steroid use 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 High risk medication use Immunization counseling Inflammatory arthritis Inflammatory back pain Positive KATHLEEN (antinuclear antibody) Seizure disorder Thyroid mass Undifferentiated connective tissue disease Surgical History History of carpal tunnel release of both wrists History of cholecystectomy History of hysterectomy with bilateral oophorectomy History of tonsillectomy History of tubal ligation Hx of hysterectomy Family History Family/Other Cancer Father CAD (coronary artery disease) Other Chronic kidney disease (CKD) Diabetes Family history of premature coronary artery disease Lupus Rheumatoid arthritis Stroke Denies family history of Hyperlipidemia Anesthesia complication Bleeding disorder Lung disease Hypertension Social History Smoking and tobacco status: never smoked Second hand smoke exposure: No Alcohol intake: never Lives independently: Yes Household members: spouse and children Marital status: Current occupational status: disabled Current gender identity: Female Special dipti needs: No Agree to transfusion: Yes Female Reproductive History: : 4 Physical Exam Const: COMMON NORMALS: patient oriented x3, no limitations, healthy appearing, alert and well nourished HENMT: COMMON NORMALS: normocephalic, atraumatic, hearing grossly normal bilaterally, external ears normal, EAC's normal, Normal nasal mucous membranes and turbinates present and moist oral mucous membranes HEAD & SCALP: normocephalic and atraumatic NOSE: Normal nasal mucous membranes and turbinates present EXTERNAL EAR: Yes external ears normal EXTERNAL AUDITORY CANAL: EAC's normal Eye: COMMON NORMALS: Equal, round and reactive pupils present, EOMs intact bilaterally, conjunctivae normal and no scleral icterus CONJUNCTIVA: Yes conjunctivae normal PUPIL: Yes Equal, round and reactive pupils present Neck/C-Spine: COMMON NORMALS: full ROM, no lymphadenopathy, supple, no meningeal signs, no JVD and Thyroid normal THYROID: Thyroid normal Lymph: LYMPHATIC: no lymphadenopathy noted Chest: COMMONS NORMALS: normal inspection of the chest and normal palpation of entire chest wall Resp: COMMON NORMALS: normal respiratory effort, No retractions, No use of accessory muscles and clear to auscultation bilaterally AUSCULTATION: clear to auscultation bilaterally Cardio: COMMON NORMALS: no JVD, regular rate, regular rhythm, S1 normal heart sound present and S2 normal heart sound present RATE: regular rate RHYTHM: regular rhythm HEART SOUNDS: S1 normal heart sound present and S2 normal heart sound present GI: COMMON NORMALS: Soft to palpation, No hepatosplenomegaly present and no m asses PALPATION: Yes Soft to palpation, Yes Tenderness to palpation present (GI) Details: RLQ, Yes No hepatosplenomegaly present and Yes Rebound tenderness present : COMMON NORMALS: Yes no CVA tenderness BLADDER/KIDNEY EXAM: Yes no CVA tenderness Back/Pelvis: COMMON NORMALS: no CVA tenderness Extremity: COMMON NORMALS: normal to inspection Neuro: COMMON NORMALS: patient oriented x3 SENSORIUM/ORIENTATION: Yes alert MENINGEAL SIGNS: Yes no meningeal signs Course Vital Signs: Vital signs: Vital Signs Temperature 98.2 F 08/27/22 10:10 Pulse Rate 100 08/27/22 10:12 Respiratory Rate 16 08/27/22 10:57 Blood Pressure 161/99 08/27/22 12:00 Pulse Oximetry 100 08/27/22 12:30 Oxygen Delivery Me thod 08/27/22 11:31 MDM - Abdominal Pain Medical Decision Making Patient presents to the ER with complaints of right lower quadrant abdominal pain with nausea and vomiting x2 days. Patient is never had pain like this before. She has had a total hysterectomy and still has her appendix. Patient denies any fever chills dark tarry stools etc. Upon physical exam lab work was obtained which showed a white blood cell count of 11.1 metabolic profile which showed sodium 144 potassium 3.4 BUN/creatinine of fourteen 0.9 lactic of 2.3 urinalysis did show signs of urinary tract infection and pelvis CT with contrast showed normal right lower quadrant, appendix otherwise benign. These findings were discussed with the patient whose pain is significantly improved. Patient will be discharged on Pyridium and Cipro for the urinary tract infection. Patient is to follow-up with her family practice doctor within 1 week as needed as needed Differential Diagnosis Likely abdominal pain and acute appendicitis; Unlikely calculus of kidney, constipation, diverticulitis, endometriosis, gastroenteritis, pancreatitis or small bowel obstruction Lab Data 08/27/22 10:46 08/27/22 10:46 Labs/Radiology: Radiology Impressions Abdomen/Pelvis CT 08/27/22 10:33 IMPRESSION: 1. Normal appendix in the RIGHT lower quadrant. No evidence of acute appendicitis. 2. Mild hepatomegaly. Diffuse fatty infiltration liver. 3. No hydronephrosis in either kidney. 4. No other suspicious findings. Laboratory Results WBC 11.0 10^3/uL (4.0-10.0) H 08/27/22 10:46 RBC 4.92 10^6/uL (4.1-5.3) 08/27/22 10:46 Hgb 14.1 g/dL (11.5-15.3) 08/27/22 10:46 Hct 44.0 % (37.0-47.0) 08/27/22 10:46 MCV 89.4 fl (81-99) 08/27/22 10:46 MCH 28.7 pg (28.0-34.0) 08/27/22 10:46 MCHC 32.0 g/dL (30.0-36.0) 08/27/22 10:46 RDW 13.4 % (12.1-15.1) 08/27/22 10:46 Plt Count 259 10^3/cmm (130-400) 08/27/22 10:46 MPV 12.8 fL (7.4-10.4) H 08/27/22 10:46 Neut % (Auto) 84.1 % 08/27/22 10:46 Lymph % (Auto) 6.6 % 08/27/22 10:46 [place] % (Auto) 5.4 % 08/27/22 10:46 Eos % (Auto) 2.9 % 08/27/22 10:46 Baso % (Auto) 0.6 % 08/27/22 10:46 Neut # (Auto) 9.26 10^3/uL (1.8-7.7) H 08/27/22 10:46 Lymph # (Auto) 0.7 10^3/uL (0.8-4.8) L 08/27/22 10:46 [place] # (Auto) 0.6 10^3/uL (0.2-0.9) 08/27/22 10:46 Eos # (Auto) 0.3 10^3/uL (0.0-0.8) 08/27/22 10:46 Baso # (Auto) 0.1 10^3/uL (0.0-0.1) 08/27/22 10:46 Nucleated RBC % (auto) 0 % 08/27/22 10:46 Nucleated RBCs # 0.0 /100WBC 08/27/22 10:46 PT 12.40 SECONDS (12.1-14.9) 08/27/22 10:46 INR 0.90 (0.8-1.2) 08/27/22 10:46 Sodium 144 mmol/L (136-145) 08/27/22 10:46 Potassium 3.4 mmol/L (3.5-5.1) L 08/27/22 10:46 Chloride 105 mmol/L (98-107) 08/27/22 10:46 Carbon Dioxide 24 mmol/L (22-29) 08/27/22 10:46 Anion Gap 18.4 (5-19) 08/27/22 10:46 BUN 14 mg/dL (6-20) 08/27/22 10:46 Creatinine 0.9 mg/dL (0.5-0.9) 08/27/22 10:46 GFR Calculation 71.7 mL/min (90-130) L 08/27/22 10:46 Glucose 162 mg/dL (65-115) H 08/27/22 10:46 Calculated Osmolality 302 mOsm/kg (285-295) H 08/27/22 10:46 Lactate 2.3 mmol/L (0.5-2.2) H 08/27/22 10:46 Calcium 9.1 mg/dL (8.5-10.5) 08/27/22 10:46 Magnesium 2.0 mg/dL (1.7-2.3) 08/27/22 10:46 Total Bilirubin 0.5 mg/dL (0.15-1.2) 08/27/22 10:46 AST 21 U/L (0-32) 08/27/22 10:46 ALT 18 U/L (0-33) 08/27/22 10:46 Alkaline Phosphatase 85 U/L (35-105) 08/27/22 10:46 Total Protein 7.4 g/dL (6.6-8.7) 08/27/22 10:46 Albumin 4.2 g/dL (3.5-5.2) 08/27/22 10:46 Globulin 3.2 g/dL (1.3-4.6) 08/27/22 10:46 Urine Color Yellow (Yellow) 08/27/22 10:50 Urine Appearance Clear (CLEAR) 08/27/22 10:50 Urine pH 5 (5-7) 08/27/22 10:50 Ur Specific [place] 1.030 (1.005-1.030) 08/27/22 10:50 Urine Protein Neg (Negative) 08/27/22 10:50 Urine Glucose (UA) Norm (Normal) 08/27/22 10:50 Urine Ketones Negative (Negative) 08/27/22 10:50 Urine Blood 2+ (Negative) H 08/27/22 10:50 Urine Nitrate Negative (Negative) 08/27/22 10:50 Urine Bilirubin 1+ (Negative) H 08/27/22 10:50 Urine Urobilinogen Norm mg/dL (Negative) 08/27/22 10:50 Ur Leukocyte Esterase Trace (Negative) H 08/27/22 10:50 Urine RBC 0-4 /hpf (0-2) H 08/27/22 10:50 Urine WBC 0-4 /hpf (0-5) H 08/27/22 10:50 Ur Squamous Epith Cells None /hpf (0-5) 08/27/22 10:50 Amorphous Sediment Not Reportable 08/27/22 10:50 Urine Bacteria Trace /hpf (NONE) 08/27/22 10:50 Urine Mucus 1+ /hpf 08/27/22 10:50 Discharge Plan Discharge Patient Disposition: Home Clinical Impression: Abdominal pain, right lower quadrant, Urinary tract infection Condition: Stable Prescriptions: New ciprofloxacin HCl 500 mg tablet 500 mg PO Q12H Qty: 20 0RF Pyridium 200 mg tablet 200 mg PO Q8H PRN (Reason: pain) Qty: 6 0RF No Action albuterol sulfate 90 mcg/actuation HFA aerosol inhaler 2 puff inhalation Q6H PRN (Reason: Shortness Of Breath) pregabalin [Lyrica] 150 mg capsule 150 mg PO TID Latuda 20 mg tablet 20 mg PO DAILY Rx Instructions: must administer with food (at least 350 calories) ondansetron 4 mg tablet,disintegrating 4 mg PO Q8H PRN (Reason: nausea and vomiting) Qty: 20 0RF fluticasone propion-salmeterol [Advair Diskus] 250-50 mcg/dose blister with device 1 inh inhalation BID Qty: 60 0RF cetirizine [Zyrtec] 10 mg tablet 10 mg PO DAILY PRN (Reason: Allergy Symptoms) fluticasone propionate 50 mcg/actuation spray,suspension 1 spray intranasal DAILY PRN (Reason: Nasal Congestion) Rx Instructions: administer into each nostril montelukast [Singulair] 10 mg tablet 10 mg PO DAILY omeprazole 40 mg capsule,delayed release(DR/EC) 40 mg PO DAILY Qty: 30 3RF prednisone 5 mg tablet 5 mg PO DAILY Qty: 90 1RF amitriptyline 50 mg Tablet 50 mg PO BEDTIME hydrocodone-acetaminophen 7.5-325 mg tablet 1 tab PO BID PRN (Reason: Pain) hydroxychloroquine 200 mg tablet 200 mg PO BID Discharge Orders: Discharge ED (Routine); Ordered 08/27/22 Ordered By: Sae Langston Referrals: Becca Clayton FNP [Primary Care Provider] - 1 week Discharge Diet: Advance as tolerated Discharge Activity: Resume usual activity Patient Instructions: Abdominal Pain (ED), Urinary Tract Infection - Women Coding Level of Care Code ED Certified Technician for Josie Araujo
[2022-08-27] MEDS: iohexol 350 mg/mL 500 mL Btl (per mL) IV (11:13)
[2022-08-27 11:19] LABS: Alanine Aminotransferase 18 U/L (0-33); Albumin Level 4.2 g/dL (3.5-5.2); Alkaline Phosphatase 85 U/L (35-105); Anion Gap 18.4 (5-19); Aspartate Amino Transferase 21 U/L (0-32); Blood Urea Nitrogen 14 mg/dL (6-20); Calcium 9.1 mg/dL (8.5-10.5); Carbon Dioxide 24 mmol/L (22-29); Chloride 105 mmol/L (98-107); Globulin 3.2 g/dL (1.3-4.6); Glomerular Filtration Rate 71.7 mL/min (90-130); Glucose 162 mg/dL (65-115); Osmolality Calculated 302 mOsm/kg (285-295); Potassium 3.4 mmol/L (3.5-5.1); Sodium 144 mmol/L (136-145); Total Bilirubin 0.5 mg/dL (0.15-1.2); Total Protein 7.4 g/dL (6.6-8.7)
[2022-08-27 11:20] LABS: Lactate (Lactic Acid level) 2.3 mmol/L (0.5-2.2)
[2022-08-27 11:33] LABS: Protein Urine Neg (Negative); Urine Appearance Clear (CLEAR); Urine Color Yellow (Yellow); pH Urine 5 (5-7)
[2022-08-27 11:34] LABS: Add Urine Microscopic? YES; Bilirubin Urine 1+ (Negative); Blood Urine 2+ (Negative); Glucose Urine UA Norm (Normal); Ketones Urine Negative (Negative); Leukocyte Esterase Urine Trace (Negative); Nitrate Urine Negative (Negative); Urobilinogen Urine Norm (Negative)
[2022-08-27 11:35] LABS: Bacteria Urine TRACE /hpf; Mucus Urine 1+ /hpf; RBC Urine 0-4 /hpf (0-2); WBC Urine 0-4 /hpf (0-5)
== END 2022-08-27 13:29 | disposition home or self-care (01) ==
PROVIDERS: Emergency Provider Emergency Medicine; PCP Nurse Practitioner Family
DX: R10.31 Right lower quadrant pain (principal); N39.0 Urinary tract infection, site not specified
CPT/HCPCS: 36415; 74177; 80053; 81001; 83605; 83735; 85025; 85610; 87040; 96361; 96374; 96375; 99285; J2270; J2405; J7030; Q9967

== ENCOUNTER → 2022-09-19 14:06 | Outpatient (BNVA) | payer MEDICAID, SELFPAY | PROVIDERS: PCP Nurse Practitioner Family; Visit Provider Nurse Practitioner Family | DX: R06.02 Shortness of breath (principal); R50.9 Fever, unspecified | CPT/HCPCS: 71046; 87426 ==

== ENCOUNTER → 2022-11-15 12:27 | Outpatient (BNVA) | payer MEDICAID, SELFPAY | PROVIDERS: PCP Nurse Practitioner Family; Visit Provider Family Medicine | DX: R30.0 Dysuria (principal) | CPT/HCPCS: 81000 ==

== ENCOUNTER 2023-03-04 08:04 | Emergency (ER) | payer MEDICAID, SELFPAY ==
[2023-03-04 08:09] VITALS: BP 172/123; PULSE 101; RESP 20; TEMP 36.8; O2SAT 98; BMI 43.7
--- NOTE | 2023-03-04 08:32 | W.ED.FEMALGU ---
HPI - Female Genitourinary General: Chief complaint: Urogenital-Female Stated complaint: possible kidney issue Time Seen by Provider: 03/04/23 08:08 Source: patient Mode of arrival: ambulatory History of Present Illness: 33-year-old female presents emergency room complaining of left flank pain difficulty with urination. No hematuria. Patient states symptoms began a month ago waxed and waned since then. Subjective fever per her report but no measured fever. No diarrhea has been very nauseous and vomited once which she attributes to pain. Patient relates she has a history of kidney stones. Previous [place] surgeries and cholecystectomy. Isolates pain to the left lower quadrant radiating up into the left flank Onset (ago): month(s) (1) Severity: moderate Quality of pain: sharp Consistency: intermittent Vaginal discharge: none Vaginal bleeding: none Urinary symptoms: Difficulty Urinating and Flank Pain Exacerbating factors: movement Relieving factors: none Associated symptoms: Reports nausea; Deny abdominal pain, short of breath, fevers/chills, headache(s), rash, seizures, syncope, vaginal bleeding, vaginal discharge or weakness Treatment prior to arrival: none Possible : other (Previous hysterectomy) Review of Systems Const: Denies: fever(s) or chills Card: Denies: syncope Resp: Denies: dyspnea GI: Reports: nausea; Denies: abdominal pain : Denies: vaginal discharge Musc: Denies: neck pain or back pain Skin/Breast: Denies: rash Neuro: Denies: headache(s) PFSH ED PFSH: Medical History Acute sinusitis Allergies Asthma Chronic pain Chronic steroid use 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 High risk medication use Immunization counseling Inflammatory arthritis Inflammatory back pain Positive KATHLEEN (antinuclear antibody) Seizure disorder Thyroid mass Undifferentiated connective tissue disease Surgical History History of carpal tunnel release of both wrists History of cholecystectomy History of hysterectomy with bilateral oophorectomy History of tonsillectomy History of tubal ligation Hx of hysterectomy Family History Family/Other Cancer Father CAD (coronary artery disease) Other Chronic kidney disease (CKD) Diabetes Family history of premature coronary artery disease Lupus Rheumatoid arthritis Stroke Denies family history of Hyperlipidemia Anesthesia complication Bleeding disorder Lung disease Hypertension Physical Exam Const: GENERAL APPEARANCE: cooperative and comfortable ORIENTATION/CONSCIOUSNESS: Yes awake, Yes oriented to person, Yes oriented to place and Yes oriented to time HENMT: COMMON NORMALS: normocephalic, atraumatic and hearing grossly normal bilaterally HEAD & SCALP: normocephalic and atraumatic Resp: COMMON NORMALS: normal respiratory effort, No retractions, No use of accessory muscles and clear to auscultation bilaterally AUSCULTATION: clear to auscultation bilaterally Cardio: COMMON NORMALS: regular rate, regular rhythm and No murmurs present (Cardio) RATE: regular rate RHYTHM: regular rhythm GI: COMMON NORMALS: No hepatosplenomegaly present AUSCULTATION: Yes normoactive bowel sounds PALPATION: Yes Tenderness to palpation present (GI) (Left side), No Guarding due to palpation present (GI) and Yes No hepatosplenomegaly present : SPECULUM EXAM - VAGINA: No vaginal bleeding OB/EXTERNAL & SPECULUM: No vaginal bleeding Extremity: COMMON NORMALS: normal to inspection, capillary refill normal, no clubbing, cyanosis or edema, no calf tenderness and no pedal edema Neuro: SENSORIUM/ORIENTATION: Yes oriented to person, Yes oriented to place and Yes oriented to time Skin: COMMON NORMALS: no rashes or lesions noted GENERAL SKIN EXAM: no rashes or lesions noted Course Vital Signs: Vital signs: Vital Signs Temperature 98.2 F 03/04/23 08:09 Pulse Rate 83 03/04/23 10:21 Respiratory Rate 23 H 03/04/23 08:45 Blood Pressure 122/77 03/04/23 09:27 Pulse Oximetry 95 03/04/23 10:21 Oxygen Delivery Me thod Room Air 03/04/23 10:21 MDM - Female Medical Decision Making Postvoid residual shows some retained urine. He does not particularly large amount patient is stable to void. Urology/gynecology for Will refer patient to evaluation for possible urinary retention due to cystocele related to her previous hysterectomy suspect she may benefit from bladder sling. Her creatinine has been climbing slightly but is still within a reasonable range. Patient expressed concern about her bladder rupturing. Discussed with her that she is able to void and she is retaining around 240 to 260 mL of urine this would not cause bladder rupture. There is no sign of infection at this time. I do not think she warrants Holguin placement at this time since she is stable to void. Case management make referral for urology/gynecology. At the end of visit patient states she also having difficulty with nausea and vomiting. Reviewed labs she is not showing any signs of dehydration vital signs are stable encouraged clear liquid diet for 24 to 48 hours offered promethazine she said ondansetron works better and she already has some of that home follow-up with her primary care regarding this if it is worsening. Encourage patient to follow-up with primary care doctor regarding fatty changes to the liver and atrophy of the pancreas. Medical Records I reviewed the patient's medical records. Lab Data I reviewed the patient's lab results. 03/04/23 08:24 03/04/23 08:24 Laboratory Results WBC 9.47 10^3/uL (3.29-11.43) 03/04/23 08:24 RBC 4.42 10^6/uL (3.85-5.65) 03/04/23 08:24 Hgb 12.40 g/dL (11.27-16.99) 03/04/23 08:24 Hct 39.6 % (36-47) 03/04/23 08:24 MCV 89.6 fl (85-98) 03/04/23 08:24 MCH 28.1 pg (27-33) 03/04/23 08:24 MCHC 31.3 g/dL (30-55) 03/04/23 08:24 RDW 15.4 % (12.1-15.1) H 03/04/23 08:24 Plt Count 256 10^3/cmm (157-399) 03/04/23 08:24 MPV 12.3 fL (7.4-10.4) H 03/04/23 08:24 Neut % (Auto) 79.9 % 03/04/23 08:24 Lymph % (Auto) 13.9 % 03/04/23 08:24 [place] % (Auto) 4.1 % 03/04/23 08:24 Eos % (Auto) 1.2 % 03/04/23 08:24 Baso % (Auto) 0.5 % 03/04/23 08:24 Neut # (Auto) 7.56 10^3/uL (1.8-7.7) 03/04/23 08:24 Lymph # (Auto) 1.3 10^3/uL (0.8-4.8) 03/04/23 08:24 [place] # (Auto) 0.4 10^3/uL (0.2-0.9) 03/04/23 08:24 Eos # (Auto) 0.1 10^3/uL (0.0-0.8) 03/04/23 08:24 Baso # (Auto) 0.1 10^3/uL (0.0-0.1) 03/04/23 08:24 Nucleated RBC % (auto) 0 % 03/04/23 08:24 Nucleated RBCs # 0.0 /100WBC 03/04/23 08:24 Sodium 141 mmol/L (136-145) 03/04/23 08:24 Potassium 3.9 mmol/L (3.5-5.1) 03/04/23 08:24 Chloride 105 mmol/L (98-107) 03/04/23 08:24 Carbon Dioxide 25 mmol/L (22-29) 03/04/23 08:24 Anion Gap 14.9 (5-19) 03/04/23 08:24 BUN 16 mg/dL (6-20) 03/04/23 08:24 Creatinine 1.2 mg/dL (0.5-0.9) H 03/04/23 08:24 GFR Calculation 51.1 mL/min (90-130) L 03/04/23 08:24 Glucose 98 mg/dL (65-115) 03/04/23 08:24 Calculated Osmolality 293 mOsm/kg (285-295) 03/04/23 08:24 Calcium 9.3 mg/dL (8.5-10.5) 03/04/23 08:24 Total Bilirubin 0.3 mg/dL (0.15-1.2) 03/04/23 08:24 AST 32 U/L (0-32) 03/04/23 08:24 ALT 29 U/L (0-33) 03/04/23 08:24 Alkaline Phosphatase 96 U/L (35-105) 03/04/23 08:24 Total Protein 7.8 g/dL (6.6-8.7) 03/04/23 08:24 Albumin 4.2 g/dL (3.5-5.2) 03/04/23 08:24 Globulin 3.6 g/dL (1.3-4.6) 03/04/23 08:24 Lipase 32 U/L (13-60) 03/04/23 08:24 HCG, Qual Cancelled 03/04/23 08:24 Urine Color Yellow (Yellow) 03/04/23 08:19 Urine Appearance Clear (CLEAR) 03/04/23 08:19 Urine pH 5 (5-7) 03/04/23 08:19 Ur Specific [place] 1.030 (1.005-1.030) 03/04/23 08:19 Urine Protein Neg (Negative) 03/04/23 08:19 Urine Glucose (UA) Norm (Normal) 03/04/23 08:19 Urine Ketones Negative (Negative) 03/04/23 08:19 Urine Blood Neg (Negative) 03/04/23 08:19 Urine Nitrate Negative (Negative) 03/04/23 08:19 Urine Bilirubin Neg (Negative) 03/04/23 08:19 Urine Urobilinogen Norm mg/dL (Negative) 03/04/23 08:19 Ur Leukocyte Esterase Trace (Negative) H 03/04/23 08:19 Urine RBC 0-4 /hpf (0-2) H 03/04/23 08:19 Urine WBC 0-4 /hpf (0-5) H 03/04/23 08:19 Ur Squamous Epith Cells 0-4 /hpf (0-5) H 03/04/23 08:19 Calcium Oxalate Crystal 5-10 /hpf H 03/04/23 08:19 Amorphous Sediment Not Reportable 03/04/23 08:19 Urine Bacteria Trace /hpf (NONE) 03/04/23 08:19 Hyaline Casts 5-10 /lpf H 03/04/23 08:19 Urine Mucus 1+ /hpf 03/04/23 08:19 All radiology interpretation(s) finalized by discharge Discharge Plan Discharge Patient Disposition: Home Clinical Impression: Abdominal pain, Urinary retention with incomplete bladder emptying Condition: Stable Prescriptions: No Action albuterol sulfate 90 mcg/actuation HFA aerosol inhaler 2 puff inhalation Q6H PRN (Reason: Shortness Of Breath) pregabalin [Lyrica] 150 mg capsule 150 mg PO TID Latuda 20 mg tablet 20 mg PO DAILY Rx Instructions: must administer with food (at least 350 calories) ondansetron 4 mg tablet,disintegrating 4 mg PO Q8H PRN (Reason: nausea and vomiting) Qty: 20 0RF fluticasone propion-salmeterol [Advair Diskus] 250-50 mcg/dose blister with device 1 inh inhalation BID Qty: 60 0RF cetirizine [Zyrtec] 10 mg tablet 10 mg PO DAILY PRN (Reason: Allergy Symptoms) fluticasone propionate 50 mcg/actuation spray,suspension 1 spray intranasal DAILY PRN (Reason: Nasal Congestion) Rx Instructions: administer into each nostril montelukast [Singulair] 10 mg tablet 10 mg PO DAILY roflumilast 500 mcg tablet 500 mcg PO DAILY prednisone 5 mg tablet 5 mg PO DAILY Qty: 90 1RF hydrocodone-acetaminophen 7.5-325 mg tablet 1 tab PO BID PRN (Reason: Pain) hydroxychloroquine 200 mg tablet 200 mg PO BID omeprazole 40 mg capsule,delayed release(DR/EC) See Rx Instructions .ROUTE .COMPLEX Rx Instructions: TAKE ONE CAPSULE BY MOUTH EVERY MORNING BEFORE breakfast Discharge Orders: Discharge ED (Routine); Ordered 03/04/23 Ordered By: Hay Ennis Referrals: Becca Clayton FNP [Primary Care Provider] - Discharge Diet: Clear Liquid Discharge Activity: Increase activity as tolerated Patient Instructions: Abdominal Pain (ED), Opioid Safety, Pain Management Activity Restrictions/Additional Instructions: Follow-up with your primary doctor within the next week to recheck your kidney function and further evaluate for fatty liver. 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 Coding Level of Care Code ED Cotton Header for Josie Araujo
[2023-03-04 08:37] LABS: Basophils # 0.1 10^3/uL (0.0-0.1); Basophils % 0.5 %; Eosinophils # 0.1 10^3/uL (0.0-0.8); Eosinophils % 1.2 %; Hematocrit 39.6 % (36-47); Lymphocytes # 1.3 10^3/uL (0.8-4.8); Lymphocytes % 13.9 %; Mean Corpuscular HGB Conc 31.3 g/dL (30-55); Mean Corpuscular Hemoglobin 28.1 pg (27-33); Mean Corpuscular Volume 89.6 fl (85-98); Mean Platelet Volume 12.3 fL (7.4-10.4); Monocytes # 0.4 10^3/uL (0.2-0.9); Monocytes % 4.1 %; Neutrophils # 7.56 10^3/uL (1.8-7.7); Neutrophils % 79.9 %; Nucleated Red Blood Cells % 0 %; Platelet Count 256 10^3/cmm (157-399); Red Blood Count 4.42 10^6/uL (3.85-5.65); Red Cell Distribution Width 15.4 % (12.1-15.1); White Blood Count 9.47 10^3/uL (3.29-11.43)
[2023-03-04 08:42] LABS: Add Urine Culture? No; Add Urine Microscopic? YES; Bacteria Urine TRACE /hpf; Bilirubin Urine Neg (Negative); Blood Urine Neg (Negative); Glucose Urine UA Norm (Normal); Ketones Urine Negative (Negative); Leukocyte Esterase Urine Trace (Negative); Mucus Urine 1+ /hpf; Nitrate Urine Negative (Negative); Protein Urine Neg (Negative); RBC Urine 0-4 /hpf (0-2); Squamous Epithelial Cell Urine 0-4 /hpf (0-5); Urine Appearance Clear (CLEAR); Urine Color Yellow (Yellow); Urobilinogen Urine Norm (Negative); WBC Urine 0-4 /hpf (0-5); pH Urine 5 (5-7)
[2023-03-04] MEDS: sodium chloride 0.9% 1,000 ML 999 ML IV (08:44)
[2023-03-04] MEDS: ondansetron 2 mg/ML SDV 2 mL 4 MG IVP (08:44)
[2023-03-04 08:45] VITALS: RESP 23; O2SAT 98
[2023-03-04] MEDS: morphine 4 mg/mL SDV 1 mL IVP (08:45)
--- NOTE | 2023-03-04 08:45 | CT_ITS ---
WS: [id number] CT ABDOMEN PELVIS TECHNIQUE: Noncontrast CT of the abdomen and pelvis with coronal and sagittal reformatted images. CLINICAL INFORMATION: flank pain COMPARISON: CT 08/27/2022 DLP: 1185.[address] scans at [facility] use at least one of these dose optimization techniques: automated e xposure control; mA and/or kV adjustment per patient size (includes targeted exams where dose is matc hed to clinical indication); or iterative reconstruction. FINDINGS: Prior cholecystectomy and hysterectomy. Hepatomegaly. Diffuse fatty infiltration of the liver. Prior cholecystectomy. Tiny esophageal hiatal hernia. Lung bases are well aerated. Sigmoid diverticulosis. No evidence of acute diverticulitis. Normal appendix in the RIGHT lower quadr ant. Adrenal glands are normal. Mild fatty atrophy of the pancreas. Bilateral nonobstructing calyceal tip calculi. LEFT ureter is decompressed. No obstructing renal or u reteral calculi. Normal appendix in the RIGHT lower quadrant. No free fluid in the abdomen or pelvis. Normal caliber abdominal aorta. No other suspicious findings. IMPRESSION: 1. Hepatomegaly with diffuse fatty infiltration. 2. Cholecystectomy. 3. Prior hysterectomy. 4. No hydronephrosis in either kidney. No obstructing renal or ureteral calculi. 5. Tiny nonobstructing calyceal tip calculi bilaterally. 6. Normal appendix 7. No other suspicious findings Notified Hay Ennis DO at 03/04/2023 9:28 AM.
[2023-03-04 08:55] LABS: Alanine Aminotransferase 29 U/L (0-33); Albumin Level 4.2 g/dL (3.5-5.2); Alkaline Phosphatase 96 U/L (35-105); Anion Gap 14.9 (5-19); Aspartate Amino Transferase 32 U/L (0-32); Blood Urea Nitrogen 16 mg/dL (6-20); Calcium 9.3 mg/dL (8.5-10.5); Carbon Dioxide 25 mmol/L (22-29); Chloride 105 mmol/L (98-107); Globulin 3.6 g/dL (1.3-4.6); Glomerular Filtration Rate 51.1 mL/min (90-130); Glucose 98 mg/dL (65-115); Osmolality Calculated 293 mOsm/kg (285-295); Potassium 3.9 mmol/L (3.5-5.1); Sodium 141 mmol/L (136-145); Total Bilirubin 0.3 mg/dL (0.15-1.2); Total Protein 7.8 g/dL (6.6-8.7)
[2023-03-04 09:27] VITALS: BP 122/77; PULSE 66; O2SAT 95
[2023-03-04 09:58] LABS: Lipase 32 U/L (13-60)
[2023-03-04 10:21] VITALS: PULSE 83; O2SAT 95
--- NOTE | 2023-03-04 11:46 | DCPLANNER ---
Sent referral to [facility] Faxed to [phone] 03/04/23 @ 1141. JG
== END 2023-03-04 11:30 | disposition home or self-care (01) ==
PROVIDERS: Emergency Provider Family Medicine; PCP Nurse Practitioner Family
DX: R33.9 Retention of urine, unspecified (principal); R10.9 Unspecified abdominal pain
CPT/HCPCS: 74176; 80053; 81001; 83690; 85025; 96361; 96374; 96375; 99285; J2270; J2405; J7030

== ENCOUNTER → 2023-05-19 13:19 | Outpatient (BNVA) | payer MEDICAID, SELFPAY | PROVIDERS: PCP Nurse Practitioner Family; Visit Provider Nurse Practitioner | DX: R05.9 Cough, unspecified (principal); J02.9 Acute pharyngitis, unspecified | CPT/HCPCS: 87071; 87400; 87880 ==

== ENCOUNTER → 2023-05-27 08:08 | Outpatient (BNVA) | payer MEDICAID, SELFPAY | PROVIDERS: PCP Family Medicine; Referring Provider Nurse Practitioner Family; Visit Provider Internal Medicine | DX: E04.1 Nontoxic single thyroid nodule (principal); E05.90 Thyrotoxicosis, unspecified without thyrotoxic crisis or storm | CPT/HCPCS: 36415; 83516; 84439; 84443; 84480; 86376; 86800; 99214 ==

== ENCOUNTER → 2023-06-05 10:40 | Outpatient (BNVA) | payer MEDICAID, SELFPAY | PROVIDERS: PCP Family Medicine; Visit Provider Nurse Practitioner Family | DX: R05.8 Other specified cough (principal) | CPT/HCPCS: 71046 ==

== ENCOUNTER → 2023-06-19 09:58 | Outpatient (BNVA) | payer OTHER, MEDICAID, SELFPAY | PROVIDERS: PCP Family Medicine; Visit Provider Internal Medicine Rheumatology | DX: Z79.899 Other long term (current) drug therapy (principal); M19.90 Unspecified osteoarthritis, unspecified site | CPT/HCPCS: 36415; 80076; 82306; 82565; 85025; 85651; 86140 ==

== ENCOUNTER → 2023-07-02 08:37 | Outpatient (BNVA) | payer MEDICAID, SELFPAY | PROVIDERS: PCP Family Medicine; Visit Provider Internal Medicine Pulmonary Disease | DX: R06.02 Shortness of breath (principal) | CPT/HCPCS: 36415; 82785; 86003 ==

== ENCOUNTER 2023-08-21 09:25 | Outpatient (CLI) | payer MEDICAID, SELFPAY ==
--- NOTE | 2023-08-21 09:34 | XR_ITS ---
WS: [id number] Examination: XR lumbar spine 6V w f/e [id number] Reason for Exam: CHRONIC BACK PAIN Date: August 21, 2023 Comparison: March 20, 2021 Findings: The pedicles and the bone density are intact The lumbar vertebral body heights are maintained. There is no anterior wedging or compression. There is no subluxation. Limited spondylosis is identified particularly in the lower lumbar spine. Th ere is lower lumbar facet arthrosis. No subluxation across flexion and extension is identified. Impression: Mild degenerative changes are present without compression or send
[2023-08-21 10:44] LABS: Thyroid Stimulating Hormone 0.54 uIU/mL (0.27-4.20)
[2023-08-22 10:34] LABS: T3 Total 147 ng/dL (76-181)
== END 2023-08-21 09:26 | disposition home or self-care (01) ==
LOC: RAD 09:28
PROVIDERS: Internal Medicine; PCP Family Medicine; Visit Provider Family Medicine
DX: M47.816 Spondylosis without myelopathy or radiculopathy, lumbar region (principal); G89.29 Other chronic pain; E04.1 Nontoxic single thyroid nodule; E05.90 Thyrotoxicosis, unspecified without thyrotoxic crisis or storm
CPT/HCPCS: 36415; 72114; 84439; 84443; 84480

== ENCOUNTER 2023-08-21 11:41 | Outpatient (CLI) | payer MEDICAID, SELFPAY ==
--- NOTE | 2023-08-21 13:00 | US_ITS ---
WS: [id number] ULTRASOUND-GUIDED LEFT THYROID NODULE FNA HISTORY: Hypoechoic nodule LEFT thyroid. Procedure, risks, and complications were explained to the patient. Consent has been obtained. Comparison: 04/25/2021 The skin is cleansed with ChloraPrep and anesthetized with 1% buffered lidocaine. FNA performed with 25 gauge needles. certified cytotechnologist is present to fix slides. IMPRESSION: Uncomplicated FNA of a LEFT hyperechoic thyroid nodule. Final pathology results pending.
== END 2023-08-21 11:42 | disposition home or self-care (01) ==
LOC: RAD 11:41
PROVIDERS: PCP Family Medicine; Visit Provider Internal Medicine
DX: E04.1 Nontoxic single thyroid nodule (principal)
CPT/HCPCS: 10005; 88173

== ENCOUNTER 2023-08-28 07:50 | Outpatient (CLI) | payer MEDICAID, SELFPAY ==
--- NOTE | 2023-08-28 09:30 | CTR_ITS ---
PROCEDURE INFORMATION: Exam: CT Chest Without Contrast; Diagnostic Exam date and time: 08/28/2023 9:06 AM Age: 33 years old Clinical indication: Other: To check for interistial lung disease. , High resolution-pt has pft's first; Prior surgery; Surgery date: 6+ months; Surgery type: Vns TECHNIQUE: Imaging protocol: Diagnostic computed tomography of the chest without contrast. Radiation optimization: All CT scans at this facility use at least one of these dose optimization techniques: automated exposure control; mA and/or kV adjustment per patient size (includes targeted exams where dose is matched to clinical indication); or iterative reconstruction. COMPARISON: CT angio chest PE protcl [id number] 05/11/2022 4:51 PM RADIATION DOSE METRICS: Total DLP (mGy-cm): 1862.21 FINDINGS: Tubes, catheters and devices: Partially imaged neurostimulator generator overlying the left upper chest wall. Lungs: Mild streaky atelectasis in the right upper and middle lobes. Mild mosaic attenuation/air trapping in the lungs. No significant reticular interstitial changes or honeycombing. No ground-glass opacities. Borderline residual cylindrical bronchiectasis in the perihilar segmental upper lobes and lower lobes with near complete resolution of other cystic changes in the related airways on 05/11/2022 CT. Pleural spaces: Unremarkable. No pneumothorax. No pleural effusion. Heart: Unremarkable. No cardiomegaly. No pericardial effusion. No significant coronary calcification. Lymph nodes: Unremarkable. No enlarged lymph nodes. Vasculature: Unremarkable. No aortic aneurysm. Liver: Moderate diffuse hepatic steatosis. Cholecystectomy clips. Kidneys and ureters: At least 3 small 2 mm stones are present in the upper pole of the left kidney without hydronephrosis in the field of view. Bones/joints: Unremarkable. No acute fracture. Soft tissues: Unremarkable. CT/CT chest wo con [id number] IMPRESSION: 1. Mild mosaic attenuation of the lungs suggestive of mild air trapping. No significant interstitial lung changes. Slight residual cylindrical bronchiectasis. other cystic parenchymal changes have completely resolved since 04/21/2020 . 2. Moderate diffuse hepatic steatosis. 3. At least 3 nonobstructive 2 mm stones left renal stones noted
== END 2023-08-28 07:51 | disposition home or self-care (01) ==
LOC: RAD 07:51
PROVIDERS: PCP Family Medicine; Visit Provider Internal Medicine Pulmonary Disease
DX: J84.9 Interstitial pulmonary disease, unspecified (principal)
CPT/HCPCS: 71250; 94010; 94618; 94726; 94729

== ENCOUNTER 2024-02-24 10:27 | Oncology outpatient (recurring) (ONCR) | payer MEDICAID, SELFPAY ==
[2024-02-24] MEDS: [UNRECOGNIZED DRUG - OTHER] SUBCUT (10:47)
[2024-02-24 10:53] VITALS: BP 136/76; PULSE 84; RESP 16; TEMP 36.4; O2SAT 95
== END 2024-03-18 23:59 | disposition home or self-care (01) ==
LOC: ONCMED 10:29
PROVIDERS: PCP Family Medicine; Visit Provider Internal Medicine Critical Care Medicine
DX: J45.50 Severe persistent asthma, uncomplicated (principal); Z79.899 Other long term (current) drug therapy
CPT/HCPCS: 96372

== ENCOUNTER 2024-06-08 14:25 | Emergency (ER) | payer MEDICAID, SELFPAY ==
[2024-06-08 14:31] VITALS: BP 193/132; PULSE 91; RESP 18; TEMP 36.7; O2SAT 100
--- NOTE | 2024-06-08 14:32 | ECG_ITS ---
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 Measurements Intervals [place] Rate: 92 P: 65 ND: 149 QRS: 53 QRSD: 88 T: 88 QT: 378 QTc: 468 Interpretive Statements SINUS RHYTHM POSSIBLE LEFT ATRIAL ENLARGEMENT [-0.1mV P-WAVE IN V1/V2] MODERATE ST DEPRESSION [0.05+ mV ST DEPRESSION] Compared to ECG 05/04/2022 08:58:34 ST (T wave) deviation now present Sinus tachycardia no longer present T-wave abnormality no longer present Electronically Signed On 06-12-2024 23:36:48 TAXI TRUCK DRIVER by Luis Perez M.D. [id number]
--- NOTE | 2024-06-08 14:33 | ED_ITS ---
Documented by User: ELIZABETH Sanchez 06/08/24 15:21 HPI - General Adult General: Chief complaint: General Medical Stated complaint: dr sent over ekg irregular Time Seen by Provider: 06/08/24 14:26 Source: patient Mode of arrival: ambulatory Limitations: no limitations History of Present Illness: Patient is a 34-year-old female who presents to the ED today stating she was told to come to the emergency department by [facility] after she went there to get on ADHD medication. They reportedly did a baseline EKG and told her that she had a prolonged QTc and needed to to the emergency department. Patient has absolutely no physical complaints at time of my initial examination. Onset (ago): hour(s) Relieving factors: none Exacerbating factors: none Associated symptoms: Reports no associated symptoms; Deny chest pain, dyspnea, palpitations or syncope Treatments prior to arrival: none Related Data Home Medications Medication Instructions Recorded Confirmed albuterol sulfate 90 mcg/actuation 2 puff inhalation Q6H PRN 08/25/20 06/08/24 aerosol inhaler Shortness Of Breath pregabalin 150 mg capsule (Lyrica) 150 mg PO TID 08/25/20 06/08/24 cetirizine 10 mg tablet (Zyrtec) 10 mg PO DAILY Allergy Symptoms 11/07/21 06/08/24 hydrocodone 7.5 mg-acetaminophen 1 tab PO BID PRN Pain 08/27/22 06/08/24 325 mg tablet roflumilast 500 mcg tablet 500 mcg PO DAILY 11/15/22 06/08/24 omeprazole 40 mg capsule,delayed 40 mg PO QAM 06/08/24 06/08/24 release tamsulosin 0.4 mg capsule 0.4 mg PO DAILY PRN when using 06/08/24 06/08/24 inhaler Previous Rx's Medication Instructions Recorded ondansetron 4 mg disintegrating 4 mg PO Q8H PRN nausea and 01/11/21 tablet vomiting #20 tabs lurasidone 20 mg tablet (Latuda) 20 mg PO DAILY #30 tabs 08/15/23 fluticasone fur. 100 mcg-umeclid 1 inh inhalation DAILY #60 ea 01/07/24 62.5 mcg-vilant 25 mcg inhalat.powder (Trelegy Ellipta) benralizumab 30 mg/mL subcutaneous 30 mg SUBCUT Q28D 3 doses #1 mL 02/03/24 auto-injector (Fasenra Pen) hydroxychloroquine 200 mg tablet 200 mg PO BID #60 tabs 04/28/24 leflunomide 20 mg tablet 20 mg PO DAILY #30 tabs 04/28/24 prednisone 5 mg tablet 5 mg PO DAILY #90 tabs 04/28/24 Allergies Allergy/AdvReac Type Severity Reaction Status Date / Time divalproex sodium Allergy ALGY-Rash Verified 05/16/24 10:22 [From Depakote] ketorolac [Toradol] Allergy ALGY-Rash Verified 05/16/24 10:22 levetiracetam [From Keppra] Allergy Unknown Verified 05/16/24 10:22 tramadol Allergy ALGY-Rash Verified 05/16/24 10:22 Review of Systems Card: Denies: chest pain, palpitations, irregular heart rhythm, edema, swelling of feet/ankles, lightheadedness, syncope, pre-syncope, dyspnea on exertion, orthopnea, leg pain with exertion or acrocyanosis Resp: Denies: dyspnea or hemoptysis Neuro: Denies: dizziness PFSH ED PFSH: Medical History Psychiatric care Positive KATHLEEN (antinuclear antibody) Acute sinusitis 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 Chronic steroid use Immunization counseling High risk medication use Inflammatory back pain Inflammatory arthritis Asthma Seizure disorder Chronic pain Thyroid mass Allergies Surgical History History of carpal tunnel release of both wrists Hx of hysterectomy History of cholecystectomy History of tubal ligation History of hysterectomy with bilateral oophorectomy History of tonsillectomy Family History Family/Other Cancer Father CAD (coronary artery disease) Other Chronic kidney disease (CKD) Diabetes Family history of premature coronary artery disease Lupus Rheumatoid arthritis Stroke Denies family history of Hyperlipidemia Anesthesia complication Bleeding disorder Lung disease Hypertension Social History Smoking and tobacco/nicotine status: never used tobacco/nicotine Second hand smoke exposure: Yes (as a child) Alcohol intake: never Substance/Drug Use: never Physical Exam Const: COMMON NORMALS: no acute distress, patient oriented x3, no limitations, alert and well nourished GENERAL APPEARANCE: cooperative NUTRITIONAL APPEARANCE: obese morbidly obese (BMI 46.1) ORIENTATION/CONSCIOUSNESS: Yes awake, Yes oriented to person, Yes oriented to place and Yes oriented to time Resp: COMMON NORMALS: normal respiratory effort and clear to auscultation bilaterally AUSCULTATION: clear to auscultation bilaterally Cardio: COMMON NORMALS: regular rate and regular rhythm RATE: regular rate RHYTHM: regular rhythm Neuro: COMMON NORMALS: patient oriented x3 SENSORIUM/ORIENTATION: Yes alert, Yes oriented to person, Yes oriented to place and Yes oriented to time Course Vital Signs: Vital signs: Vital Signs Temperature 98.1 F 06/08/24 14:31 Pulse Rate 91 06/08/24 14:31 Respiratory Rate 18 06/08/24 14:31 Blood Pressure 143/94 06/08/24 15:25 Pulse Oximetry 100 06/08/24 14:31 [facility] - General Adult Medical Decision Making Patient is completely asymptomatic. [facility] It shows a normal sinus rhythm with a rate of 93. Her QTc then reporting 519ms. EKG performed here upon arrival shows a sinus rhythm with a rate of 92 and a normal QTc of 427ms. Reviewed patient's medication list. QT prolongation can rarely be seen with Hydroxychloroquine. She does have Ondansetron listed but we usually only see prolonged QT with IV use of this medication. She takes Lurasidone-UpToDate does not list this as a QT prolongator but Epocrates does. EKG found on a visit here back in 2021 which showed a QTc of 500. Discussed with Dr. Ennis and we feel she can follow up with cardiology. No radiology studies performed this visit Discharge Plan Discharge Patient Disposition: Home Clinical Impression: Abnormal finding on EKG Condition: Stable Prescriptions: No Action albuterol sulfate 90 mcg/actuation HFA aerosol inhaler 2 puff inhalation Q6H PRN (Reason: Shortness Of Breath) pregabalin [Lyrica] 150 mg capsule 150 mg PO TID ondansetron 4 mg tablet,disintegrating 4 mg PO Q8H PRN (Reason: nausea and vomiting) Qty: 20 0RF cetirizine [Zyrtec] 10 mg tablet 10 mg PO DAILY roflumilast 500 mcg tablet 500 mcg PO DAILY Latuda 20 mg tablet 20 mg PO DAILY Qty: 30 2RF Rx Instructions: must administer with food (at least 350 calories) hydroxychloroquine 200 mg tablet 200 mg PO BID Qty: 60 0RF leflunomide 20 mg tablet 20 mg PO DAILY Qty: 30 0RF prednisone 5 mg tablet 5 mg PO DAILY Qty: 90 0RF Trelegy Ellipta 100-62.5-25 mcg blister with device 1 inh inhalation DAILY Qty: 60 6RF Fasenra Pen 30 mg/mL auto-injector 30 mg SUBCUT Q28D Qty: 1 2RF hydrocodone-acetaminophen 7.5-325 mg tablet 1 tab PO BID PRN (Reason: Pain) tamsulosin 0.4 mg capsule 0.4 mg PO DAILY PRN (Reason: when using inhaler) omeprazole 40 mg capsule,delayed release(DR/EC) 40 mg PO QAM Discharge Orders: Discharge ED (Routine); Ordered 06/08/24 Ordered By: Shauna Langston Referrals: Kerry Banres DO [Primary Care Provider] - Activity Restrictions/Additional Instructions: As we discussed, the EKG was performed here in the emergency department showed a normal QTc. We will have you follow-up with cardiology regarding the findings [facility] Coding Level of Care Code ED Immigration Law Specialist for Chg Fwd Documented by User: Hay Ennis DO 06/09/24 06:18 HPI - General Adult General: Chief complaint: General Medical Stated complaint: dr sent over ekg irregular Time Seen by Provider: 06/08/24 14:26 Related Data Home Medications Medication Instructions Recorded Confirmed albuterol sulfate 90 mcg/actuation 2 puff inhalation Q6H PRN 08/25/20 06/08/24 aerosol inhaler Shortness Of Breath pregabalin 150 mg capsule (Lyrica) 150 mg PO TID 08/25/20 06/08/24 cetirizine 10 mg tablet (Zyrtec) 10 mg PO DAILY Allergy Symptoms 11/07/21 06/08/24 hydrocodone 7.5 mg-acetaminophen 1 tab PO BID PRN Pain 08/27/22 06/08/24 325 mg tablet roflumilast 500 mcg tablet 500 mcg PO DAILY 11/15/22 06/08/24 omeprazole 40 mg capsule,delayed 40 mg PO QAM 06/08/24 06/08/24 release tamsulosin 0.4 mg capsule 0.4 mg PO DAILY PRN when using 06/08/24 06/08/24 inhaler Previous Rx's Medication Instructions Recorded ondansetron 4 mg disintegrating 4 mg PO Q8H PRN nausea and 01/11/21 tablet vomiting #20 tabs lurasidone 20 mg tablet (Latuda) 20 mg PO DAILY #30 tabs 08/15/23 fluticasone fur. 100 mcg-umeclid 1 inh inhalation DAILY #60 ea 01/07/24 62.5 mcg-vilant 25 mcg inhalat.powder (Trelegy Ellipta) benralizumab 30 mg/mL subcutaneous 30 mg SUBCUT Q28D 3 doses #1 mL 02/03/24 auto-injector (Fasenra Pen) hydroxychloroquine 200 mg tablet 200 mg PO BID #60 tabs 04/28/24 leflunomide 20 mg tablet 20 mg PO DAILY #30 tabs 04/28/24 prednisone 5 mg tablet 5 mg PO DAILY #90 tabs 04/28/24 Allergies Allergy/AdvReac Type Severity Reaction Status Date / Time divalproex sodium Allergy ALGY-Rash Verified 05/16/24 10:22 [From Depakote] ketorolac [Toradol] Allergy ALGY-Rash Verified 05/16/24 10:22 levetiracetam [From Keppra] Allergy Unknown Verified 05/16/24 10:22 tramadol Allergy ALGY-Rash Verified 05/16/24 10:22 PFSH ED PFSH: Medical History Psychiatric care Positive KATHLEEN (antinuclear antibody) Acute sinusitis 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 Chronic steroid use Immunization counseling High risk medication use Inflammatory back pain Inflammatory arthritis Asthma Seizure disorder Chronic pain Thyroid mass Allergies Surgical History History of carpal tunnel release of both wrists Hx of hysterectomy History of cholecystectomy History of tubal ligation History of hysterectomy with bilateral oophorectomy History of tonsillectomy Family History Family/Other Cancer Father CAD (coronary artery disease) Other Chronic kidney disease (CKD) Diabetes Family history of premature coronary artery disease Lupus Rheumatoid arthritis Stroke Denies family history of Hyperlipidemia Anesthesia complication Bleeding disorder Lung disease Hypertension Social History Smoking and tobacco/nicotine status: never used tobacco/nicotine Second hand smoke exposure: Yes (as a child) Alcohol intake: never Substance/Drug Use: never Course Vital Signs: Vital signs: Vital Signs Temperature 98.1 F 06/08/24 14:31 Pulse Rate 91 06/08/24 14:31 Respiratory Rate 18 06/08/24 14:31 Blood Pressure 143/94 06/08/24 15:25 Pulse Oximetry 100 06/08/24 14:31 MDM - General Adult Medical Decision Making Patient is completely asymptomatic. She does [facility] It shows a normal sinus rhythm with a rate of 93. Her QTc then reporting 519ms. EKG performed here upon arrival shows a sinus rhythm with a rate of 92 and a normal QTc of 427ms. Reviewed patient's medication list. QT prolongation can rarely be seen with Hydroxychloroquine. She does have Ondansetron listed but we usually only see prolonged QT with IV use of this medication. She takes Lurasidone-UpToDate does not list this as a QT prolongator but Epocrates does. EKG found on a visit here back in 2021 which showed a QTc of [address]. [address] Ennis and we feel she can follow up with cardiology. Chart reviewed and patient discussed with midlevel. Agree with assessment and plan. Discharge Plan Discharge Patient Disposition: Home Clinical Impression: Abnormal finding on EKG Condition: Stable Prescriptions: No Action albuterol sulfate 90 mcg/actuation HFA aerosol inhaler 2 puff inhalation Q6H PRN (Reason: Shortness Of Breath) pregabalin [Lyrica] 150 mg capsule 150 mg PO TID ondansetron 4 mg tablet,disintegrating 4 mg PO Q8H PRN (Reason: nausea and vomiting) Qty: 20 0RF cetirizine [Zyrtec] 10 mg tablet 10 mg PO DAILY roflumilast 500 mcg tablet 500 mcg PO DAILY Latuda 20 mg tablet 20 mg PO DAILY Qty: 30 2RF Rx Instructions: must administer with food (at least 350 calories) hydroxychloroquine 200 mg tablet 200 mg PO BID Qty: 60 0RF leflunomide 20 mg tablet 20 mg PO DAILY Qty: 30 0RF prednisone 5 mg tablet 5 mg PO DAILY Qty: 90 0RF Trelegy Ellipta 100-62.5-25 mcg blister with device 1 inh inhalation DAILY Qty: 60 6RF Fasenra Pen 30 mg/mL auto-injector 30 mg SUBCUT Q28D Qty: 1 2RF hydrocodone-acetaminophen 7.5-325 mg tablet 1 tab PO BID PRN (Reason: Pain) tamsulosin 0.4 mg capsule 0.4 mg PO DAILY PRN (Reason: when using inhaler) omeprazole 40 mg capsule,delayed release(DR/EC) 40 mg PO QAM Discharge Orders: Discharge ED (Routine); Ordered 06/08/24 Ordered By: Shauna Langston Referrals: Kerry Barnes DO [Primary Care Provider] - Activity Restrictions/Additional Instructions: As we discussed, the EKG was performed here in the emergency department showed a normal QTc. We will have you follow-up with cardiology regarding the [facility] Coding Level of Care Code ED Immigration Law Specialist for Chg Gayle
[2024-06-08 15:25] VITALS: BP 143/94
--- NOTE | 2024-06-10 07:09 | DCPLANNER ---
messaged heart care for er f/u
== END 2024-06-08 15:43 | disposition home or self-care (01) ==
PROVIDERS: Emergency Provider Physician Assistant; PCP Family Medicine
DX: R94.31 Abnormal electrocardiogram [ECG] [EKG] (principal)
CPT/HCPCS: 93005; 99283

== ENCOUNTER 2024-06-21 14:28 | Emergency (ER) | payer MEDICAID, SELFPAY ==
[2024-06-21 14:30] VITALS: BP 188/128; PULSE 126; RESP 20; TEMP 36.6; O2SAT 92; BMI 44.2
--- NOTE | 2024-06-21 14:34 | ECG_ITS ---
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 Measurements Intervals [place] Rate: 125 P: 51 [place]: 116 QRS: 32 QRSD: 101 T: 42 QT: 336 QTc: 484 Interpretive Statements SINUS TACHYCARDIA WITH SHORT [place] INTERVAL NONSPECIFIC T-WAVE ABNORMALITY Compared to ECG 06/08/2024 14:32:08 Short [place] interval now present T-wave abnormality now present Sinus rhythm no longer present ST (T wave) deviation no longer present Electronically Signed On 06-24-2024 22:23:31 CRIMINAL RECORDS TECHNICIAN by Luis Perez M.D. [email or web address] [id number]
--- NOTE | 2024-06-21 14:35 | XRR_ITS ---
PROCEDURE INFORMATION: Exam: XR Left Knee Exam date and time: 06/21/2024 2:44 PM Age: 34 years old Clinical indication: Pain; Knee; Left TECHNIQUE: Imaging protocol: Radiologic exam of the left knee. Views: 3 views. COMPARISON: CR XR knee LT 3V* [id number] 08/25/2020 4:32 PM FINDINGS: Bones/joints: There is mild narrowing of the medial compartment of the femorotibial joint with mild subchondral sclerosis and small marginal spurs, slightly worse compared to the prior study. The lateral compartment joint space appears preserved with mild subchondral sclerosis and tiny spurs noted. There is pointing of the tibial spines. There is mild narrowing of the patellofemoral joint with mild subchondral sclerosis and small marginal spurs, slightly worse compared to the prior study. No fracture is detected. Soft tissues: Unremarkable. XR/XR knee LT 3V* [id number] IMPRESSION: 1. Mild osteoarthritis involving the knee, slightly worse compared to August 25, 2020 as described above. 2. No acute fracture detected.
--- NOTE | 2024-06-21 14:35 | XR_ITS ---
WS: [id number] RIGHT SHOULDER: 3 VIEW(S) TECHNIQUE: Internal and external rotation with Y view. HISTORY: pain COMPARISON: None available. Quality is compromised by body habitus. Mild AC joint arthritis. Slightly high riding humeral head may be projectional. Mild narrowing of the glenohumeral joint. No fracture. XR/XR shoulder RT min 2V* [id number] IMPRESSION: No acute fracture. Limited quality due to body habitus.
--- NOTE | 2024-06-21 14:35 | XR_ITS ---
WS: [id number] PORTABLE CHEST HISTORY: dyspnea/cough COMPARISON: 06/05/2023 Vagal nerve stimulator battery pack obscures a small portion of the LEFT lung. No pneumonia. No pulmo nary congestion. Lungs are clear and well expanded. No pleural effusion or pneumothorax. Cardiac size: Normal. Mediastinum/Aorta: Normal mediastinum. No osseous abnormality seen. XR/XR chest 1V portable [id number] IMPRESSION: Unremarkable portable chest.
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
[2024-06-21 15:00] LABS: Basophils % 0.2 %; Hematocrit 39.6 % (36-47); Lymphocytes # 3.2 10^3/uL (0.8-4.8); Lymphocytes % 17.2 %; Mean Corpuscular HGB Conc 32.1 g/dL (30-55); Mean Corpuscular Hemoglobin 27.4 pg (27-33); Mean Corpuscular Volume 85.5 fl (85-98); Mean Platelet Volume 13.1 fL (7.4-10.4); Monocytes # 1.4 10^3/uL (0.2-0.9); Monocytes % 7.6 %; Neutrophils # 13.81 10^3/uL (1.8-7.7); Neutrophils % 73.8 %; Nucleated Red Blood Cells % 0 %; Platelet Count 266 10^3/cmm (157-399); Red Blood Count 4.63 10^6/uL (3.85-5.65); Red Cell Distribution Width 14.3 % (12.1-15.1); White Blood Count 18.73 10^3/uL (3.29-11.43)
[2024-06-21 15:11] LABS: Slide Review Slide Review Perform
--- NOTE | 2024-06-21 15:11 | PC.PHAR ---
Pt states just for today, she wants to use [facility]. Pts' preferred pharmacy is [facility].
[2024-06-21 15:16] LABS: Alanine Aminotransferase 81 U/L (0-33); Albumin Level 3.8 g/dL (3.5-5.2); Alkaline Phosphatase 136 U/L (35-105); Anion Gap 17.8 (5-19); Aspartate Amino Transferase 75 U/L (0-32); Blood Urea Nitrogen 13 mg/dL (6-20); Calcium 9.1 mg/dL (8.5-10.5); Carbon Dioxide 23 mmol/L (22-29); Chloride 100 mmol/L (98-107); Creatinine Clr Calc Pharmacy 117.8654; Globulin 2.9 g/dL (1.3-4.6); Glomerular Filtration Rate 81.2 mL/min (90-130); Glucose 131 mg/dL (65-115); Osmolality Calculated 288 mOsm/kg (285-295); Sodium 138 mmol/L (136-145); Total Bilirubin 0.3 mg/dL (0.15-1.2); Total Protein 6.7 g/dL (6.6-8.7)
[2024-06-21 15:25] LABS: Potassium 2.8 mmol/L (3.5-5.1)
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
[2024-06-21] MEDS: iohexol 350 mg/mL 500 mL Btl (per mL) IV (15:46)
[2024-06-21 16:13] LABS: Magnesium 1.8 mg/dL (1.7-2.3)
[2024-06-21 16:24] VITALS: BP 187/129; PULSE 110; O2SAT 94
[2024-06-21] MEDS: potassium chloride ER 20 mEq Tablet 60 MEQ PO (16:24)
[2024-06-21 16:38] VITALS: RESP 18
[2024-06-21 16:49] VITALS: BP 175/99
[2024-06-21 17:21] VITALS: BP 173/100; PULSE 83; O2SAT 91
== END 2024-06-21 17:22 | disposition home or self-care (01) ==
PROVIDERS: Emergency Provider Family Medicine; PCP Family Medicine
DX: S00.81XA Abrasion of other part of head, initial encounter (principal); S80.212A Abrasion, left knee, initial encounter; V89.2XXA Person injured in unspecified motor-vehicle accident, traffic, initial encounter
CPT/HCPCS: 36415; 70450; 70486; 71045; 71260; 72125; 73030; 73562; 74177; 80053; 83735; 85025; 93005; 99285

== ENCOUNTER 2024-06-29 15:14 | Emergency (ER) | payer MEDICAID, SELFPAY ==
[2024-06-29 15:21] VITALS: BP 169/126; PULSE 112; TEMP 36.8; O2SAT 96; BMI 44.2
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
[2024-06-29] MEDS: morphine 4 mg/mL SDV 1 mL IM (17:15)
[2024-06-29] MEDS: orphenadrine 30 mg/mL Inj 2 mL 60 MG IM (17:15)
[2024-06-29] MEDS: dexamethasone 10 mg/mL INJ 8 MG IM (17:15)
[2024-06-29 17:30] VITALS: BP 158/101; PULSE 98; RESP 16; O2SAT 97
== END 2024-06-29 17:29 | disposition home or self-care (01) ==
PROVIDERS: Emergency Provider Physician Assistant; PCP Family Medicine
DX: M54.50 Low back pain, unspecified (principal); M25.511 Pain in right shoulder
CPT/HCPCS: 96372; 99284; J1100; J2270; J2360

== ENCOUNTER → 2024-07-13 11:41 | Outpatient (BNVA) | payer MEDICAID, SELFPAY | PROVIDERS: PCP Family Medicine; Visit Provider Internal Medicine Rheumatology | DX: R76.8 Other specified abnormal immunological findings in serum (principal); Z79.899 Other long term (current) drug therapy; M06.00 Rheumatoid arthritis without rheumatoid factor, unspecified site; M19.90 Unspecified osteoarthritis, unspecified site; Z71.85 Encounter for immunization safety counseling | CPT/HCPCS: 80076; 82565; 83735; 84132; 85025; 85651; 86140; 99214 ==

== ENCOUNTER 2025-03-29 10:38 | Outpatient (CLI) | payer MEDICAID, SELFPAY ==
--- NOTE | 2025-03-29 10:44 | XR_ITS ---
WS: [id number] Exam: XR pelvis min 3V [id number] Date/Time of Exam: 03/29/2025 10:47 AM Reason For Exam: LOW BACK PAIN/UNSPECIFIED FALL DLP: No fracture. The hips are intact bilaterally. SI joints are open. Soft tissues are unremarkable. XR/XR pelvis min 3V [id number] IMPRESSION: 1. Negative pelvis.
--- NOTE | 2025-03-29 10:46 | XR_ITS ---
WS: [id number] Exam: XR lumbar spine min 4V [id number] Date/Time of Exam: 03/29/2025 10:47 AM Reason For Exam: UNSPECIFIED FALL FIRST ENCOUNTER DLP: Comparison 08/21/2023. No fracture or malalignment noted. Disc spaces are preserved. Mild degenerative facet change at L5-S1. Osteopenia. XR/XR lumbar spine min 4V [id number] IMPRESSION: 1. Minimal degenerative changes. Osteopenia.
== END 2025-03-29 10:39 | disposition home or self-care (01) ==
LOC: RAD 10:39
PROVIDERS: PCP Family Medicine; Visit Provider Family Medicine
DX: M54.50 Low back pain, unspecified (principal); S39.92XA Unspecified injury of lower back, initial encounter; W19.XXXA Unspecified fall, initial encounter; M85.88 Other specified disorders of bone density and structure, other site
CPT/HCPCS: 72110; 72190

== ENCOUNTER → 2025-04-10 11:39 | Outpatient (BNVA) | payer MEDICAID, SELFPAY | PROVIDERS: PCP Family Medicine | DX: R05.9 Cough, unspecified (principal) | CPT/HCPCS: 87400; 87426 ==

== ENCOUNTER → 2025-04-11 14:53 | Outpatient (BNVA) | payer MEDICAID, SELFPAY | PROVIDERS: PCP Family Medicine; Visit Provider Nurse Practitioner Family | DX: R05.9 Cough, unspecified (principal); J44.9 Chronic obstructive pulmonary disease, unspecified; Z96.82 Presence of neurostimulator | CPT/HCPCS: 71046 ==

== ENCOUNTER → 2025-05-09 14:08 | Outpatient (BNVA) | payer MEDICAID, SELFPAY | PROVIDERS: PCP Family Medicine; Visit Provider Emergency Medicine | DX: R09.81 Nasal congestion (principal); J02.9 Acute pharyngitis, unspecified | CPT/HCPCS: 87400; 87426 ==